=== PATIENT | male | born 1960 | race Caucasian/White ===

== ENCOUNTER 2018-02-12 19:20 | Emergency (ER) | payer BC ==
[2018-02-12] MEDS ORDERED: Ketorolac 30 MG/ML SDV IVPUSH ONE (19:46)
[2018-02-12] MEDS ORDERED: Metoclopramide 10 MG/2 ML SDV IVPUSH ONE (19:46)
[2018-02-12] MEDS ORDERED: Sodium Chloride 0.9% 1,000 ML IV ONE (19:46)
[2018-02-12] MEDS ORDERED: diphenhydrAMINE 50 MG/ML SDV IVPUSH ONE (19:46)
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
== END 2018-02-12 21:10 | disposition home or self-care (01) ==
LOC: JD.ED 19:20
DX: G43.909 Migraine, unspecified, not intractable, without status migrainosus (principal); F17.210 Nicotine dependence, cigarettes, uncomplicated; Z88.1 Allergy status to other antibiotic agents
CPT/HCPCS: 96361; 96374; 96375; 99284; J1200; J1885; J2765; J7040

== ENCOUNTER 2018-03-09 11:41 | Emergency (ER) | payer BC ==
[2018-03-09] MEDS ORDERED: Metoclopramide 10 MG/2 ML SDV IVPUSH ONE (11:51)
[2018-03-09] MEDS ORDERED: Sodium Chloride 0.9% 1,000 ML IV ONE (11:51)
[2018-03-09] MEDS ORDERED: Meclizine 12.5 MG Tab PO ONE (11:52)
[2018-03-09] MEDS ORDERED: Sodium Chloride 0.9% 10 ML Syringe FLUSH PRN (11:53)
--- NOTE | 2018-03-09 12:56 | CT ---
Head CT Technique: Multiple axial sections through the brain were obtained. Intravenous contrast was not utilized. Comparison: No prior intracranial imaging. Findings: Ventricles along with basal cisterns and sulci over the convexities are mildly prominent. Very slight diminished density is noted within portions of the periventricular white matter which is compatible with minimal small vessel ischemic demyelination change. No other abnormal parenchymal densities are seen. No evidence of intracranial hemorrhage. No midline shift or mass effect is seen. Bone window settings were reviewed which shows no acute calvarial abnormality. Minimal mucosal thickening is seen within the paranasal sinuses. Impression: 1. Minimal senescent change. Minimal sinus disease which is felt to be incidental. 2. No acute intracranial abnormality is appreciated. Diagnostic code #2
[2018-03-09] MEDS ORDERED: Ketorolac 30 MG/ML SDV IVPUSH ONE (13:54)
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
--- NOTE | 2018-03-12 14:52 | CR ---
Chest: Portable view of the chest was obtained. Comparison: No prior chest x-ray. Heart size and mediastinum are normal. Lungs are clear with no acute parenchymal densities. Bony structures show minimal scoliosis within the spine with scattered degenerative endplate spurring and disc space narrowing. Impression: 1. Incidental findings. Nothing acute is seen on portable chest x-ray. Diagnostic code #2
== END 2018-03-09 14:15 | disposition home or self-care (01) ==
LOC: SUPCPDRO 11:41 → JD.ED 11:41
DX: G43.909 Migraine, unspecified, not intractable, without status migrainosus (principal); R42 Dizziness and giddiness; E78.00 Pure hypercholesterolemia, unspecified; F41.9 Anxiety disorder, unspecified; F17.210 Nicotine dependence, cigarettes, uncomplicated; Z79.899 Other long term (current) drug therapy
CPT/HCPCS: 36415; 70450; 71045; 80053; 85025; 93005; 96361; 96374; 96375; 99285; A9270; J1885; J2765; J7040; J7050; 93010; 99284

== ENCOUNTER 2018-05-02 19:20 | Emergency (ER) | payer BC ==
--- NOTE | 2018-05-02 20:01 | EDM.PDOC ---
ED HPI GENERAL MEDICAL PROBLEM - General Chief Complaint: Headache Stated Complaint: HEADACHE DIZZY Time Seen by Provider: 05/02/18 20:01 Source of Information: Reports: Patient - History of Present Illness INITIAL COMMENTS - FREE TEXT/NARRATIVE: Patient is here for evaluation of a headache at systems at the base of his neck and radiates up on both sides. Patient states he gets this same type of headache quite frequently for "years" he also gets associated dizziness with it at times.Patient states that his current headache is similar to his previous headaches. He denies any change in symptoms. States it's not the worst headache ever had. No injury. Patient has been evaluated in the emergency room previouslyOr his excess alcohol consumption. Patient states that he continues to drink approximately 12 beers per day, he plans to quit next week. He states he is doing it on his own and does not desire to go through any treatment as he has started himself before without difficulty. He states he is eating well. Denies any nausea/vomiting/tremor. Did drink beer today. The patient's last visit to the emergency room he was prescribed meclizine to be used when necessary for his dizziness as well as lisinopril daily for his blood pressure, patient has not started either one of these medications. He notes PCP to be Dr. Santamaria, has not seen him in "a long time". Head Pain Score (Numeric/FACES): 7 - Related Data Allergies Allergy/AdvReac Type Severity Reaction Status Date / Time cefaclor [From [facility]] Allergy Swelling Verified 05/02/18 19:44 Home Meds: Home Meds Meclizine [Antivert] 25 mg PO TID PRN #30 tab 03/09/18 [Rx] Ondansetron [Zofran ODT] 4 mg PO Q6H PRN #20 tab.dis 03/09/18 [Rx] LORazepam [Ativan] 1 mg PO Q8HR PRN #15 tablet 03/26/18 [Rx] Lisinopril 10 mg PO DAILY #30 tablet 03/26/18 [Rx] Past Medical History HEENT History: Reports: Sinusitis Cardiovascular History: Reports: High Cholesterol Other Cardiovascular History: not on meds. Gastrointestinal History: Reports: PUD Musculoskeletal History: Reports: Fracture, Other (See Below) Other Musculoskeletal History: R) shoulder fx. Neurological History: Reports: Headaches, Chronic Psychiatric History: Reports: Anxiety - Past Surgical History Musculoskeletal Surgical History: Reports: Other (See Below) Other Musculoskeletal Surgeries/Procedures:: surgery on collar bone; back surgery laminectomy Social & Family History - Family History Family Medical History: Noncontributory - Caffeine Use Caffeine Use: Reports: Soda Other Caffeine Use: rarely - Alcohol Use Days Per Week of Alcohol Use: 7 Number of Drinks Per Day: 8 Total Drinks Per Week: 56 - Recreational Drug Use Recreational Drug Use: No ED ROS GENERAL - Review of Systems Review Of Systems: See Below Constitutional: Reports: No Symptoms HEENT: Denies: Rhinitis, Sinus Problem, Vision Change Respiratory: Reports: No Symptoms Cardiovascular: Reports: No Symptoms GI/Abdominal: Reports: No Symptoms Musculoskeletal: Reports: Muscle Pain Neurological: Reports: Headache. Denies: Confusion, Dizziness Psychiatric: Reports: No Symptoms - Physical Exam Exam: See Below Exam Limited By: No Limitations General Appearance: Alert, WD/WN, No Apparent Distress Eye Exam: Bilateral Eye: PERRL Nose: Normal Inspection Throat/Mouth: Normal Inspection, Normal Oropharynx Head Exam: Atraumatic, Normocephalic Neck: Normal Inspection, Supple, Non-Tender Respiratory/Chest: No Respiratory Distress, Lungs Clear, Normal Breath Sounds, No Accessory Muscle Use Cardiovascular: Normal Peripheral Pulses, Regular Rate, Rhythm, No Murmur GI/Abdominal: Normal Bowel Sounds, Soft, Non-Tender Neuro Exam (Abbreviated): Alert, Oriented, CN II-XII Intact, No Motor/Sensory Deficits, Other (Mild tremor to bilateral hands) Psychiatric: Normal Affect, Normal Mood Skin Exam: Warm, Dry, Intact Course - Vital Signs Last Recorded V/S: Last Vital Signs Temp 98.2 F 05/02/18 19:44 Pulse 108 H 05/02/18 19:44 Resp 18 05/02/18 19:44 BP 167/92 H 05/02/18 19:44 Pulse Ox 98 05/02/18 19:44 - Orders/Labs/Meds Meds: Medications Discontinued Medications Generic Name Dose Route Start Last Admin Trade Name Freq PRN Reason Stop Dose Admin Diphenhydramine HCl 25 mg 05/02/18 20:17 05/02/18 20:27 Benadryl IVPUSH 05/02/18 20:18 25 mg ONETIME ONE Administration Sodium Chloride 1,000 mls @ 999 mls/hr 05/02/18 20:09 05/02/18 20:24 Normal Saline IV 05/02/18 21:09 999 mls/hr ONETIME ONE Administration Ketorolac Tromethamine 30 mg 05/02/18 20:09 05/02/18 20:25 Toradol IVPUSH 05/02/18 20:10 30 mg ONETIME ONE Administration Metoclopramide HCl 5 mg 05/02/18 20:17 05/02/18 20:27 Reglan IVPUSH 05/02/18 20:18 5 mg ONETIME ONE Administration - Re-Assessments/Exams Free Text/Narrative Re-Assessment/Exam: Neurovascular exam is essentially normal. Patient does have a very slight tremor. He declines lab work for now. Will give IV fluids, and ketorolac and Reglan as this has worked very well for him previously. Blood pressure remains in 140s systolically. Patient has not started the lisinopril prescribed. 05/02/18 20:25 Patient's headache resolved with above treatment. Discussed tapering off of alcohol, patient strongly feels that he can do this on his own. He does not wish to discuss with a case social staff worker or counselor through the ED. Contact information will be given for [facility]. Advised patient he should be taking his lisinopril on a daily basis. Meclizine and Zofran as needed. He is to follow-up with his primary provider within the next week. Return to the emergency room for new or worsening symptoms. 05/02/18 21:32 05/02/18 21:33 Departure - Departure Time of Disposition: 21:29 Disposition: Home, Self-Care 01 Condition: Good (Headache) Clinical Impression: Alcohol abuse Headache Qualifiers: Headache type: tension-type Headache chronicity pattern: acute headache Hypertension Qualifiers: Hypertension type: essential hypertension Qualified Code(s): I10 - Essential ( primary) hypertension - Discharge Information Instructions: Migraine Headache, [id number], Hypertension, [id number] Referrals: Anthony Santamaria MD [Primary Care Provider] - Forms: ED Department Discharge Additional Instructions: I recommend that you [employer] the medications that were previously prescribed to you. The lisinopril is to be taken every single day for your blood pressure. The meclizine is to be used as needed for dizziness. The Zofran is to be used as needed for nausea. Consider tapering off your daily alcohol use. There are programs through [facility] here in [place] that can help you to taper off of this as well. They do have an open intake at 8-9am Monday through . You may contact them at [phone] You also need to follow up with severe primary provider within the next week. Certainly return to the emergency room if any worsening or new symptoms.
[2018-05-02] MEDS ORDERED: Sodium Chloride 0.9% 1,000 ML IV ONE (20:09)
[2018-05-02] MEDS ORDERED: Ketorolac 30 MG/ML SDV IVPUSH ONE (20:09)
[2018-05-02] MEDS ORDERED: diphenhydrAMINE 50 MG/ML SDV IVPUSH ONE (20:17)
[2018-05-02] MEDS ORDERED: Metoclopramide 10 MG/2 ML SDV IVPUSH ONE (20:17)
== END 2018-05-02 21:43 | disposition home or self-care (01) ==
LOC: JD.ED 19:20
DX: G44.209 Tension-type headache, unspecified, not intractable (principal); I10 Essential (primary) hypertension; F10.10 Alcohol abuse, uncomplicated; Z88.8 Allergy status to other drugs, medicaments and biological substances
CPT/HCPCS: 96361; 96374; 96375; 99284; J1200; J1885; J2765; J7040

== ENCOUNTER 2018-06-02 17:13 | Emergency (ER) | payer SELFPAY ==
--- NOTE | 2018-06-02 18:19 | EDM.PDOC ---
ED HPI GENERAL MEDICAL PROBLEM - General Chief Complaint: Neurological Problem Stated Complaint: ARMS NUMB WEAK LEGS PAIN IN CHEST Time Seen by Provider: 06/02/18 17:53 Source of Information: Reports: Patient, Old Records (MRI 03/27/2018), RN Notes Reviewed History Limitations: Reports: No Limitations - History of Present Illness INITIAL COMMENTS - FREE TEXT/NARRATIVE: The patient states that he feels lousy, that something is wrong, and that he would like some answers. He states that this is the fourth time that he has come to this ED for the same complaints. He is complaining of daily headaches, frequent dizziness to the point that he has difficulty walking, weakness and numbness to his upper and lower extremities, and he is also concerned that he may have a AAA. He states that he started a new job today, and had difficulty walking. The headaches, dizziness, and extremity tingling and numbness have been going on for years. Review of prior medical records finds that the patient underwent a MRI of the brain on 03/27/2018. The report reads: 1. Multiple areas of increased signal seen within the periventricular white matter. Findings may represent small vessel ischemic demyelination change but otherwise matter demyelinating process such as multiple sclerosis is not excluded at this time. 2. No abnormality is identified within the internal auditory canals. The patient states that he was never told of these MRI results, and therefore never followed up. The patient also states that several family members have had AAA's, and he has felt a bulge in his epigastrium for the past several weeks, therefore he is concerned about a AAA as well. The patient states that the last time that his cholesterol was checked, it was over 400, but he is not taking any medication for it. The patient states that he has a history of anxiety, but takes only an herbal medicine called Luvella for it. The patient acknowledges that he drinks about 12 beers a day. He states that he has had 4 beers already today. He smells strongly of alcohol. The patient's PCP is Dr. Santamaria, but the patient acknowledges that he has not seen Dr. Santamaria for a long time (likely years). The patient states that he has an appointment to see Dr. Grayson this coming 06/04/2018. - Related Data Allergies Allergy/AdvReac Type Severity Reaction Status Date / Time cefaclor [From [facility]] Allergy Swelling Verified 05/02/18 19:44 Home Meds: Home Meds Meclizine [Antivert] 25 mg PO TID PRN #30 tab 03/09/18 [Rx] LORazepam [Ativan] 1 mg PO Q8HR PRN #15 tablet 03/26/18 [Rx] Lisinopril 10 mg PO DAILY #30 tablet 03/26/18 [Rx] Past Medical History Cardiovascular History: Reports: High Cholesterol (untreated) Gastrointestinal History: Reports: PUD (duodenal ulcer) Musculoskeletal History: Reports: Fracture (right clavicle) Neurological History: Reports: Headaches, Chronic Psychiatric History: Reports: Anxiety (untreated) - Past Surgical History Neurological Surgical History: Reports: Lumbar Spine (L4-L5 laminectomy) Musculoskeletal Surgical History: Reports: Shoulder Surgery (right, arthroscopic ), Other (See Below) (Right clavicle ORIF) Social & Family History - Family History Family Medical History: Noncontributory - Tobacco Use Smoking Status *Q: Current Every Day Smoker Years of Tobacco use: 43 Packs/Tins Daily: 0.3 Packs/Tins Daily Comment: Down from 1 ppd - Caffeine Use Caffeine Use: Reports: None Other Caffeine Use: rarely - Alcohol Use Alcohol Use History: Yes Days Per Week of Alcohol Use: 7 Number of Drinks Per Day: 12 Total Drinks Per Week: 84 Alcohol Use Frequency: Daily - Recreational Drug Use Recreational Drug Use: Yes Drug Use in Last 12 Months: Yes Recreational Drug Type: Reports: Marijuana/Hashish (smokes occasionally) - Living Situation & Occupation Living situation: Reports: , with Spouse Occupation: Employed ([employer] to [employer]) ED ROS GENERAL - Review of Systems Review Of Systems: ROS reveals no pertinent complaints other than HPI. ED EXAM, GENERAL - Physical Exam Exam: See Below Exam Limited By: Other (Strong smell of alcohol) General Appearance: Alert, WD/WN, No Apparent Distress Eye Exam: Bilateral Eye: EOMI, Normal Inspection, PERRL Ears: Normal External Exam, Hearing Grossly Normal Nose: Normal Inspection Throat/Mouth: Normal Inspection, Normal Lips, Normal Voice, No Airway Compromise Head: Atraumatic, Normocephalic Neck: Normal Inspection, Full Range of Motion Respiratory/Chest: No Respiratory Distress, Lungs Clear, Normal Breath Sounds, No Accessory Muscle Use Cardiovascular: Normal Peripheral Pulses, Regular Rate, Rhythm, No Gallop, No JVD, No Murmur, No Rub Peripheral Pulses: 4+: Radial (L), Radial (R) GI/Abdominal: Normal Bowel Sounds, Soft, Non-Tender, No Organomegaly, No Distention, No Abnormal Bruit, No Mass, Other (No pulsatile mass, no bruit) (Male) Exam: Deferred Rectal (Males) Exam: Deferred Back Exam: Normal Inspection, Full Range of Motion, NT Extremities: Normal Inspection, Normal Range of Motion, Normal Capillary Refill Neurological: Alert, Oriented, CN II-XII Intact, No Motor/Sensory Deficits, Other (Slightly slurred speech c/w alcohol intoxication) Psychiatric: Normal Affect Skin Exam: Warm, Dry, Intact, Normal Color, No Rash Course - Vital Signs Last Recorded V/S: Last Vital Signs Temp 37.1 C 06/02/18 17:29 Pulse 86 06/02/18 17:29 Resp 20 06/02/18 17:29 BP 134/90 06/02/18 17:29 Pulse Ox 99 06/02/18 17:29 - Re-Assessments/Exams Free Text/Narrative Re-Assessment/Exam: 06/02/18 18:20 With respect to the patient's daily headaches, dizziness, and extremity numbness and weakness, I did not find any abnormalities on his neurologic examination, however, the report of the MRI dated 03/27/2018 indicates multiple areas of increased signal concerning for possible MS. I will refer the patient to a Neurologist in [place]. With respect to the patient's concern about having a AAA, while I can feel the pulse of his aorta, I do not feel a pulsatile mass, and I do not hear a bruit, therefore I do not suspect a significant AAA. The patient has an appointment to see Dr. Grayson this coming 06/04/2018, and this issue could be addressed at that time. Lastly, I recommended that the patient quit drinking, however, the patient pushed back significantly, with numerous excuses. He simply does not want to stop drinking. Departure - Departure Time of Disposition: 18:24 Disposition: Home, Self-Care 01 Condition: Fair Clinical Impression: Chronic headaches, Dizziness, Tingling in extremities - Discharge Information *PRESCRIPTION DRUG MONITORING PROGRAM REVIEWED*: Not Applicable *COPY OF PRESCRIPTION DRUG MONITORING REPORT IN PATIENT AYDE: Not Applicable Instructions: General Headache Without Cause, Paresthesia, [id number] Referrals: Anthony Santamaria MD [Primary Care Provider] - Alexandr Grayson MD [Physician] - Celso Nam MD [Ordering Only Provider] - Forms: ED Department Discharge Additional Instructions: You were seen in the emergency room for chronic, daily headaches, frequent dizziness, tingling and numbness in her upper and lower extremities, and over concern about an abdominal aortic aneurysm. The MRI of your brain on 03/27/2018 found abnormalities concerning for MS. We recommend that you follow-up with a neurologist in this regard. Please call the office of Dr. Mazin Nam on 06/04/2018, to make an appointment to be seen. On examination, you do not have an abdominal aortic aneurysm, however, we recommend that you follow-up with Dr. Merritt at your previously scheduled appointment this coming 06/04/2018, at which time this concern can be addressed, as well as numerous other healthcare issues, such as your elevated cholesterol. As discussed, we strongly recommend that you consider quitting drinking, as it likely contributes to your not feeling well. If any other problems, please do not hesitate to return to the ER.
== END 2018-06-02 18:36 | disposition home or self-care (01) ==
LOC: JD.ED 17:13
DX: R51 Headache (principal); R42 Dizziness and giddiness; R20.2 Paresthesia of skin; F10.129 Alcohol abuse with intoxication, unspecified; F17.210 Nicotine dependence, cigarettes, uncomplicated; Z88.1 Allergy status to other antibiotic agents
CPT/HCPCS: 99284

== ENCOUNTER 2019-01-06 20:35 | Emergency (ER) | payer BC, OTHER ==
[2019-01-06] MEDS ORDERED: Ondansetron 4 MG/2 ML SDV IVPUSH ONE (21:06)
[2019-01-06] MEDS ORDERED: Sodium Chloride 0.9% 10 ML Syringe FLUSH PRN (21:06)
[2019-01-06] MEDS ORDERED: Sodium Chloride 0.9% 1,000 ML IV SCH (21:15)
[2019-01-06] MEDS ORDERED: LORazepam 2 MG/ML SDV IVPUSH ONE (23:16)
[2019-01-06] MEDS ORDERED: Acetaminophen 325 MG Tab PO ONE (23:16)
--- NOTE | 2019-01-06 23:24 | EDM.PDOCBH ---
ED HPI GENERAL MEDICAL PROBLEM - General Chief Complaint: Drug or Alcohol Abuse Stated Complaint: DEHYDRATED AND STOMACH PAIN Time Seen by Provider: 01/06/19 20:45 Source of Information: Reports: Patient History Limitations: Reports: No Limitations - History of Present Illness INITIAL COMMENTS - FREE TEXT/NARRATIVE: The patient presents with possible dehydration. He says he drinks alcohol daily. He last drank 3 beers at noon. He has some nausea and he is shaky. He is sweating and he has the shakes at times. He is looking to stop drinking. He has a headache but no chest pain or shortness of breath. He has a history of high blood pressure. He is supposed to be on lisinopril but he quit taking it. He says he feels bloated. Onset: Gradual Duration: Hour(s): Severity: Moderate Improves with: Reports: None Worsens with: Reports: None Associated Symptoms: Reports: Headaches, Nausea/Vomiting. Denies: Chest Pain, Cough, Fever/Chills, Shortness of Breath Upper Abdomen Pain Score (Numeric/FACES): 5 - Related Data Allergies Allergy/AdvReac Type Severity Reaction Status Date / Time cefaclor [From [facility]] Allergy Swelling Verified 05/02/18 19:44 Home Meds: Home Meds LORazepam [Ativan] 1 mg PO DAILY #18 tablet 01/06/19 [Rx] Lisinopril 10 mg PO DAILY #30 tablet 01/06/19 [Rx] Ondansetron [Zofran ODT] 4 mg PO Q6H PRN #20 tab.dis 01/06/19 [Rx] Past Medical History HEENT History: Reports: Sinusitis Cardiovascular History: Reports: High Cholesterol Other Cardiovascular History: not on meds. Gastrointestinal History: Reports: PUD Musculoskeletal History: Reports: Fracture Other Musculoskeletal History: R) shoulder fx. Neurological History: Reports: Headaches, Chronic Psychiatric History: Reports: Addiction, Anxiety - Past Surgical History Neurological Surgical History: Reports: Lumbar Spine Musculoskeletal Surgical History: Reports: Shoulder Surgery, Other (See Below) Social & Family History - Family History Family Medical History: Noncontributory - Tobacco Use Smoking Status *Q: Current Every Day Smoker Years of Tobacco use: 45 Packs/Tins Daily: 0.4 - Caffeine Use Caffeine Use: Reports: None Other Caffeine Use: rarely - Recreational Drug Use Recreational Drug Use: No - Living Situation & Occupation Living situation: Reports: , with Spouse 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 Denies: Vomiting : Reports: No Symptoms Musculoskeletal: Reports: No Symptoms ED EXAM, BEHAVIORAL HEALTH - Physical Exam Exam: See Below Exam Limited By: No Limitations General Appearance: Alert, No Apparent Distress Ears: Normal External Exam Nose: Normal Inspection Head: Atraumatic, Normocephalic Neck: Normal Inspection, Supple, Non-Tender Respiratory/Chest: No Respiratory Distress, Lungs Clear, Normal Breath Sounds Cardiovascular: Regular Rate, Rhythm, No Edema, No Murmur GI/Abdominal: Soft, Non-Tender, No Organomegaly, No Mass Back Exam: Normal Inspection Extremities: Normal Inspection Neurological: Alert, No Motor/Sensory Deficits, Oriented x 3, Other (He is not shaking on exam) COURSE, BEHAVIORAL HEALTH COMP - Course Vital Signs: Last Vital Signs Temp 98.6 F 01/06/19 20:49 Pulse 88 01/06/19 20:49 Resp 20 01/06/19 20:49 BP 142/100 H 01/06/19 20:49 Pulse Ox 99 01/06/19 20:49 Orders, Labs, Meds: Active Orders 24 hr Category Date Time Status Abdomen 1V Upright [CR] Stat Exams 01/06/19 21:48 Taken Sodium Chloride 0.9% [Normal Saline] 1,000 ml Med 01/06/19 21:15 Active IV ASDIRECTED Sodium Chloride 0.9% [Saline Flush] Med 01/06/19 21:06 Active 10 ml FLUSH ASDIRECTED PRN Saline Lock Insert [OM.PC] Routine Oth 01/06/19 21:06 Ordered Medication Orders Sodium Chloride (Normal Saline) 1,000 mls @ 125 mls/hr IV ASDIRECTED MICHAEL Last Infusion: 01/06/19 21:27 Dose: 999 mls/hr Admin: 01/06/19 21:16 Dose: 125 mls/hr Sodium Chloride (Saline Flush) 10 ml FLUSH ASDIRECTED PRN PRN Reason: Keep Vein Open Last Admin: 01/06/19 21:16 Dose: 10 ml Laboratory Tests 01/06/19 01/06/19 01/06/19 Range/Units 21:13 21:13 21:13 WBC 5.43 (4.23-9.07) K/mm3 RBC 4.47 L (4.63-6.08) M/mm3 Hgb 15.3 (13.7-17.5) gm/L Hct 41.9 (40.1-51.0) % MCV 93.7 H (79.0-92.2) fl MCH 34.2 H (25.7-32.2) pg MCHC 36.5 H (32.2-35.5) g/dl RDW Std Deviation 43.2 (35.1-43.9) fL Plt Count 131 L (163-337) K/mm3 MPV 10.1 (9.4-12.3) fl Neutrophils % (Manual) 58 (40-60) % Band Neutrophils % 0 (0-10) % Lymphocytes % (Manual) 23 (20-40) % Atypical Lymphs % 0 % Monocytes % (Manual) 17 H (2-10) % Eosinophils % (Manual) 1 (0.8-7.0) % Basophils % (Manual) 1 (0.2-1.2) Platelet Estimate Decreased Plt Morphology Comment Normal RBC Morph Comment Normal Sodium 134 L (136-145) mEq/L Potassium 3.6 (3.5-5.1) mEq/L Chloride 99 (98-107) mEq/L Carbon Dioxide 23 (21-32) mEq/L Anion Gap 15.6 H (5-15) BUN 7 (7-18) mg/dL Creatinine 0.6 L (0.7-1.3) mg/dL Est Cr Clr Drug Dosing 130.93 mL/min Estimated GFR (MDRD) > 60 (>60) mL/min BUN/Creatinine Ratio 11.7 L (14-18) Glucose 87 (74-106) mg/dL Calcium 9.2 (8.5-10.1) mg/dL Total Bilirubin 0.8 (0.2-1.0) mg/dL AST 122 H (15-37) U/L ALT 97 H (16-63) U/L Alkaline Phosphatase 111 (46-116) U/L C-Reactive Protein 0.2 (<1.0) mg/dL Total Protein 7.5 (6.4-8.2) g/dl Albumin 3.9 (3.4-5.0) g/dl Globulin 3.6 gm/dL Albumin/Globulin Ratio 1.1 (1-2) Ethyl Alcohol 0.00 (0.00) gm% Medications Generic Name Dose Route Start Last Admin Trade Name Freq PRN Reason Stop Dose Admin Sodium Chloride 1,000 mls @ 125 mls/hr 01/06/19 21:15 01/06/19 21:27 Normal Saline IV 999 mls/hr ASDIRECTED MICHAEL Infusion Sodium Chloride 10 ml 01/06/19 21:06 01/06/19 21:16 Saline Flush FLUSH 10 ml ASDIRECTED PRN Administration Keep Vein Open Discontinued Medications Generic Name Dose Route Start Last Admin Trade Name Freq PRN Reason Stop Dose Admin Acetaminophen 975 mg 01/06/19 23:16 Tylenol PO 01/06/19 23:17 NOW ONE Lorazepam 1 mg 01/06/19 23:16 Ativan IVPUSH 01/06/19 23:17 ONETIME ONE Ondansetron HCl 4 mg 01/06/19 21:06 01/06/19 21:16 Zofran IVPUSH 01/06/19 21:07 4 mg ONETIME ONE Administration Re-Assessment/Re-Exam: I ordered an IV NS 1L bolus, zofran 4mg IV, labs, and ETOH. His CBC looks good. His Na is low at 134. His creatinine is low at 0.6. His AST is elevated at 122. His ALT is elevated at 97. His ETOH is 0. He has a headache so I ordered some tylenol for that. His abdominal shows nothing acute. I will give him [place] ativan 1mg IV for the withdrawal symptoms. Departure - Departure Time of Disposition: 23:25 Disposition: Home, Self-Care 01 Condition: Good Clinical Impression: Alcohol withdrawal syndrome Qualifiers: Complication of substance-induced condition: uncomplicated Qualified Code(s): F10.230 - Alcohol dependence with withdrawal, uncomplicated - Discharge Information *PRESCRIPTION DRUG MONITORING PROGRAM REVIEWED*: No *COPY OF PRESCRIPTION DRUG MONITORING REPORT IN PATIENT AYDE: No Prescriptions: Lisinopril 10 mg PO DAILY #30 tablet LORazepam [Ativan] 1 mg PO DAILY #18 tablet Ondansetron [Zofran ODT] 4 mg PO Q6H PRN #20 tab.dis PRN Reason: Nausea\vomiting Referrals: Anthony Santamaria MD [Primary Care Provider] - Additional Instructions: Drink plenty of water. Take the ativan 1 pill 3 times per day for 3 days, then 1 pill 2 times per day for 3 days and then 1 pill at night for 3 days. Take the zofran every 6 hours as needed for nausea and vomiting. Please return if you are worse. Call [facility] at [phone] to get help stopping drinking. - My Orders Last 24 Hours: My Active Orders 01/06/19 21:06 Sodium Chloride 0.9% [Saline Flush] 10 ml FLUSH ASDIRECTED PRN Saline Lock Insert [OM.PC] Routine 01/06/19 21:15 Sodium Chloride 0.9% [Normal Saline] 1,000 ml IV ASDIRECTED 01/06/19 21:48 Abdomen 1V Upright [CR] Stat - Assessment/Plan Last 24 Hours: My Active Orders 01/06/19 21:06 Sodium Chloride 0.9% [Saline Flush] 10 ml FLUSH ASDIRECTED PRN Saline Lock Insert [OM.PC] Routine 01/06/19 21:15 Sodium Chloride 0.9% [Normal Saline] 1,000 ml IV ASDIRECTED 01/06/19 21:48 Abdomen 1V Upright [CR] Stat
--- NOTE | 2019-01-07 06:33 | CR ---
Abdomen: Upright view of the abdomen was obtained. Comparison: No prior abdominal x-ray. Scattered gas within colon and small bowel is noted. Several air-fluid levels are seen which are felt to be within normal limits. No bowel dilatation is seen. No free air is seen. Endplate spurring is noted within the spine. No abnormal calcifications or discrete soft tissue abnormality is seen. Old healed right lower rib fracture is incidentally noted. Impression: 1. Incidental findings. Diagnostic code #2
== END 2019-01-06 23:40 | disposition home or self-care (01) ==
LOC: JD.ED 20:35
DX: F10.230 Alcohol dependence with withdrawal, uncomplicated (principal); F17.210 Nicotine dependence, cigarettes, uncomplicated; Z88.8 Allergy status to other drugs, medicaments and biological substances
CPT/HCPCS: 36415; 74018; 80053; 85007; 85027; 86140; 96361; 96374; 96375; 99284; A9270; G0480; J2060; J2405; J7040

== ENCOUNTER 2019-02-01 09:01 | Inpatient (IN) | payer BC, OTHER, SELFPAY ==
[2019-02-01] MEDS ORDERED: Ondansetron 4 MG Tab.DIS PO ONE (10:09)
--- NOTE | 2019-02-01 10:11 | EDM.PDOC ---
ED HPI GENERAL MEDICAL PROBLEM - General Chief Complaint: Drug or Alcohol Abuse Stated Complaint: ALCOHOL WITHDRAWAL Source of Information: Reports: Patient, Other ([place] caregiver) History Limitations: Reports: Altered Mental Status (Dementia) Headache Pain Score (Numeric/FACES): 4 - Related Data Allergies Allergy/AdvReac Type Severity Reaction Status Date / Time cefaclor [From Ceclor] Allergy Swelling Verified 02/01/19 09:07 Home Meds: Home Meds Lisinopril 10 mg PO DAILY #30 tablet 01/06/19 [Rx] Past Medical History HEENT History: Reports: Sinusitis Cardiovascular History: Reports: High Cholesterol, Hypertension Other Cardiovascular History: not on meds. Gastrointestinal History: Reports: PUD Musculoskeletal History: Reports: Fracture Other Musculoskeletal History: R) shoulder fx. Neurological History: Reports: Headaches, Chronic Psychiatric History: Reports: Addiction, Anxiety - Past Surgical History Neurological Surgical History: Reports: Lumbar Spine Other Neurological Surgeries/Procedures: laminectomy L4-5 Musculoskeletal Surgical History: Reports: Shoulder Surgery Social & Family History - Family History Family Medical History: Noncontributory - Tobacco Use Smoking Status *Q: Current Every Day Smoker Years of Tobacco use: 20 Packs/Tins Daily: 0.2 - Caffeine Use Caffeine Use: Reports: None Other Caffeine Use: rarely - Alcohol Use Days Per Week of Alcohol Use: 7 Number of Drinks Per Day: 12 Total Drinks Per Week: 84 - Recreational Drug Use Recreational Drug Use: Yes Drug Use in Last 12 Months: Yes Recreational Drug Type: Reports: Marijuana/Hashish - Living Situation & Occupation Living situation: Reports: , with Spouse 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[employer]) Course - Vital Signs Last Recorded V/S: Last Vital Signs Temp 36.2 C 02/01/19 09:09 Pulse 72 02/01/19 09:09 Resp 12 02/01/19 09:09 BP 144/90 H 02/01/19 09:09 Pulse Ox 96 02/01/19 09:09 - Orders/Labs/Meds Orders: Active Orders 24 hr Category Date Time Status EKG 12 Lead [EKG Documentation Completion] [RC] ROUTINE Care 02/01/19 09:25 Active Orthostatic Vital Signs [RC] STAT Care 02/01/19 10:08 Ordered CBC WITH MANUAL DIFF [HEME] Stat Lab 02/01/19 10:08 Ordered COMPREHENSIVE METABOLIC PN,CMP [CHEM] Stat Lab 02/01/19 10:08 Ordered MAGNESIUM [CHEM] Stat Lab 02/01/19 10:08 Ordered TROPONIN I [CHEM] Stat Lab 02/01/19 10:08 Ordered Ondansetron [Zofran ODT] Med 02/01/19 10:09 Once 4 mg PO ONETIME ONE - Re-Assessments/Exams Free Text/Narrative Re-Assessment/Exam: 02/01/19 10:09 By both history and physical examination, the patient appears to be suffering from BPPV, although he was unable to cooperate adequately with the [place]-Hallpike maneuver such that I was able to discern unilateral nystagmus. I will start the patient on Zofran, but I am not going to start meclizine, as it would likely worsen his confusion and cause urinary retention. I have ordered orthostatics and blood work, to make sure that no other significant abnormalities are found. Departure - Discharge Information Referrals: Anthony Santamaria MD [Primary Care Provider] - - My Orders Last 24 Hours: My Active Orders 02/01/19 09:25 EKG 12 Lead [EKG Documentation Completion] [RC] ROUTINE 02/01/19 10:08 Orthostatic Vital Signs [RC] STAT CBC WITH MANUAL DIFF [HEME] Stat COMPREHENSIVE METABOLIC PN,CMP [CHEM] Stat MAGNESIUM [CHEM] Stat TROPONIN I [CHEM] Stat 02/01/19 10:09 Ondansetron [Zofran ODT] 4 mg PO ONETIME ONE - Assessment/Plan Last 24 Hours: My Active Orders 02/01/19 09:25 EKG 12 Lead [EKG Documentation Completion] [RC] ROUTINE 02/01/19 10:08 Orthostatic Vital Signs [RC] STAT CBC WITH MANUAL DIFF [HEME] Stat COMPREHENSIVE METABOLIC PN,CMP [CHEM] Stat MAGNESIUM [CHEM] Stat TROPONIN I [CHEM] Stat 02/01/19 10:09 Ondansetron [Zofran ODT] 4 mg PO ONETIME ONE
[2019-02-01] MEDS ORDERED: Diltiazem 50 MG/10 ML SDV IVPUSH STA (10:52)
[2019-02-01] MEDS ORDERED: LORazepam 2 MG/ML SDV IVPUSH STA (10:53)
[2019-02-01] MEDS ORDERED: Diltiazem 125 MG in Sodium Chloride 0.9% 100 ML IV SCH (11:00)
--- NOTE | 2019-02-01 11:01 | EDM.PDOC ---
ED HPI GENERAL MEDICAL PROBLEM - General Chief Complaint: Drug or Alcohol Abuse Stated Complaint: ALCOHOL WITHDRAWAL Time Seen by Provider: 02/01/19 10:14 Source of Information: Reports: Patient, RN Notes Reviewed History Limitations: Reports: No Limitations - History of Present Illness INITIAL COMMENTS - FREE TEXT/NARRATIVE: The patient states that he developed palpitations yesterday. He has difficulty describing the sensation that he feels, only that it feels abnormal in his chest. He denies feeling chest pain. He ABG short of breath, worse if upright. No prior similar symptoms. In addition to the above, the patient also reports that he has chronic headaches , for years, and that he has been feeling shaky and sweaty for approximately one year. He reports a cough due to postnasal drip for years, and watery diarrhea for about one year. No nausea, vomiting, or constipation. No urinary symptoms or fever. The patient acknowledges that he is a chronic daily alcoholic, typically consuming 12-20 beers per day, every day. He states that his last period of sobriety was for only a few days, perhaps 10 years ago. He states that he has never been to inpatient alcohol treatment, and the last time that he attended outpatient alcohol treatment was in June 2018. He states that he has never had to be hospitalized because of his alcoholism, and he denies any legal complications as a result of his drinking. He does acknowledges that he has had social consequences due to his drinking. The patient states that he would like to stop drinking, although he acknowledges that he has not made any effort to do so thus far. He acknowledges that he has had 5 beers already this morning. He states that he can't stop on his own. At present, the patient states that he feels shaky, although no tremor is noted on physical exam. The patient's PCP is Dr. Anthony Santamaria, but the patient states that it has likely been years since he has seen him. Headache Pain Score (Numeric/FACES): 4 - Related Data Allergies Allergy/AdvReac Type Severity Reaction Status Date / Time cefaclor [From Ceclor] Allergy Swelling Verified 02/01/19 09:07 Home Meds: Home Meds Lisinopril 10 mg PO DAILY #30 tablet 01/06/19 [Rx] Past Medical History Cardiovascular History: Reports: High Cholesterol (untreated) Gastrointestinal History: Reports: PUD (duodenal) Musculoskeletal History: Reports: Fracture (right clavicle) Neurological History: Reports: Headaches, Chronic Psychiatric History: Reports: Addiction (alcohol), Anxiety (untreated) - Past Surgical History Neurological Surgical History: Reports: Lumbar Spine (L4-L5 laminectomy) Musculoskeletal Surgical History: Reports: ORIF (right clavicle), Shoulder Surgery (right, arthroscopic) Social & Family History - Family History Family Medical History: Noncontributory - Tobacco Use Smoking Status *Q: Current Every Day Smoker Years of Tobacco use: 44 Packs/Tins Daily: 0.3 Packs/Tins Daily Comment: Down to 1 ppd - Caffeine Use Caffeine Use: Reports: None Other Caffeine Use: rarely - Alcohol Use Alcohol Use History: Yes Days Per Week of Alcohol Use: 7 Number of Drinks Per Day: 16 Total Drinks Per Week: 112 Date of Last Drink: 02/01/19 Alcohol Use Frequency: Daily - Recreational Drug Use Recreational Drug Use: Yes Drug Use in Last 12 Months: Yes Recreational Drug Type: Reports: Marijuana/Hashish (smokes on occasion, last 01/28) - Living Situation & Occupation Living situation: Reports: , with Spouse Occupation: Unemployed ED ROS GENERAL - Review of Systems Review Of Systems: ROS reveals no pertinent complaints other than HPI. ED EXAM, GENERAL - Physical Exam Exam: See Below Exam Limited By: No Limitations General Appearance: Alert, WD/WN, No Apparent Distress Eye Exam: Bilateral Eye: EOMI, Normal Inspection Ears: Normal External Exam, Hearing Grossly Normal Nose: Normal Inspection Throat/Mouth: Normal Inspection, Normal Lips, Normal Voice, No Airway Compromise Head: Atraumatic, Normocephalic Neck: Normal Inspection, Full Range of Motion Respiratory/Chest: No Respiratory Distress, Lungs Clear, Normal Breath Sounds, No Accessory Muscle Use Cardiovascular: Normal Peripheral Pulses, Regular Rate, Rhythm, No Edema, No Gallop, No JVD, No Murmur, No Rub Peripheral Pulses: 4+: Radial (L), Radial (R) GI/Abdominal: Normal Bowel Sounds, Soft, Non-Tender, No Organomegaly, No Distention, No Abnormal Bruit, No Mass (Male) Exam: Deferred Rectal (Males) Exam: Deferred Back Exam: Normal Inspection, Full Range of Motion, NT Extremities: Normal Inspection, Normal Range of Motion, Non-Tender, Normal Capillary Refill, No Pedal Edema Neurological: Alert, Oriented, CN II-XII Intact, Normal Cognition, Normal Gait, Normal Reflexes, No Motor/Sensory Deficits Psychiatric: Normal Affect, Normal Mood Skin Exam: Warm, Dry, Intact, Normal Color, No Rash Lymphatic: No Adenopathy EKG INTERPRETATION EKG Date: 02/01/19 Time: 09:19 Rhythm: A-Fib Rate (Beats/Min): 105 [place]: Normal P-Wave: Variable QRS: Normal ST-T: Normal (J-point elevation in V2, V5, but no ischemic changes or T-wave inversions) QT: Normal Comparison: Change From Previous EKG (Was in [facility] 02/27/2018) Course - Vital Signs Last Recorded V/S: Last Vital Signs Temp 36.2 C 02/01/19 09:09 Pulse 89 02/01/19 12:55 Resp 12 02/01/19 09:09 BP 138/90 02/01/19 12:55 Pulse Ox 96 02/01/19 09:09 - Orders/Labs/Meds Orders: Active Orders 24 hr Category Date Time Status Admission Status [Patient Status] [ADT] Routine ADT 02/01/19 14:28 Ordered EKG 12 Lead [EKG Documentation Completion] [RC] ROUTINE Care 02/01/19 09:25 Active EKG Documentation Completion [RC] STAT Care 02/01/19 11:20 Active Orthostatic Vital Signs [RC] STAT Care 02/01/19 10:08 Inactive Diltiazem 125 mg Med 02/01/19 11:00 Active Sodium Chloride 0.9% [Normal Saline] 100 ml IV TITRATE Haloperidol [Haldol] Med 02/01/19 15:00 Active 1 mg PO Q6H PRN Sodium Chloride 0.9% [Normal Saline] 1,000 ml Med 02/01/19 11:00 Active IV ASDIRECTED Sodium Chloride 0.9% [Normal Saline] 100 ml Med 02/01/19 12:00 Active IV ASDIRECTED Sodium Chloride 0.9% [Saline Flush] Med 02/01/19 12:00 Active 10 ml FLUSH ASDIRECTED chlordiazePOXIDE [Librium] Med 02/01/19 14:30 Active 25 mg PO Q6HR Medication Orders Chlordiazepoxide HCl (Librium) 25 mg PO Q6HR MICHAEL Last Admin: 02/01/19 14:23 Dose: 25 mg Haloperidol (Haldol) 1 mg PO Q6H PRN PRN Reason: Withdrawal Symptoms Stop: 02/02/19 15:00 Diltiazem HCl 125 mg/ Sodium (Chloride) 125 mls @ 10 mls/hr IV TITRATE MICHAEL; Protocol Sodium Chloride (Normal Saline) 1,000 mls @ 150 mls/hr IV ASDIRECTED MICHAEL Last Admin: 02/01/19 11:14 Dose: 150 mls/hr Sodium Chloride (Normal Saline) 100 mls @ 3 mls/sec IV ASDIRECTED MICHAEL Last Admin: 02/01/19 12:11 Dose: 3 mls/sec Sodium Chloride (Saline Flush) 10 ml FLUSH ASDIRECTED MICHAEL Last Admin: 02/01/19 12:11 Dose: 10 ml Labs: Laboratory Tests 02/01/19 02/01/19 02/01/19 Range/Units 09:15 09:15 09:15 WBC 10.44 H (4.23-9.07) K/mm3 RBC 4.91 (4.63-6.08) M/mm3 Hgb 16.2 (13.7-17.5) gm/L Hct 46.1 (40.1-51.0) % MCV 93.9 H (79.0-92.2) fl MCH 33.0 H (25.7-32.2) pg MCHC 35.1 (32.2-35.5) g/dl RDW Std Deviation 45.2 H (35.1-43.9) fL Plt Count 173 (163-337) K/mm3 MPV 10.6 (9.4-12.3) fl Neutrophils % (Manual) 58 (40-60) % Band Neutrophils % 6 (0-10) % Lymphocytes % (Manual) 20 (20-40) % Atypical Lymphs % 0 % Monocytes % (Manual) 15 H (2-10) % Eosinophils % (Manual) 1 (0.8-7.0) % Basophils % (Manual) 0 L (0.2-1.2) Platelet Estimate Adequate RBC Morph Comment Normal PT (9.5-12.1) SECONDS INR APTT (24-31) SECONDS D-Dimer, Quantitative (0.19-0.50) mg/L Sodium 136 (136-145) mEq/L Potassium 4.0 (3.5-5.1) mEq/L Chloride 99 (98-107) mEq/L Carbon Dioxide 20 L (21-32) mEq/L Anion Gap 21.0 H (5-15) BUN 6 L (7-18) mg/dL Creatinine 0.6 L (0.7-1.3) mg/dL Est Cr Clr Drug Dosing 130.93 mL/min Estimated GFR (MDRD) > 60 (>60) mL/min BUN/Creatinine Ratio 10.0 L (14-18) Glucose 113 H (74-106) mg/dL Calcium 8.8 (8.5-10.1) mg/dL Magnesium 2.1 (1.8-2.4) mg/dl Total Bilirubin 0.3 (0.2-1.0) mg/dL AST 121 H (15-37) U/L ALT 86 H (16-63) U/L Alkaline Phosphatase 131 H (46-116) U/L Troponin I < 0.017 (0.00-0.056) ng/mL Total Protein 7.9 (6.4-8.2) g/dl Albumin 4.0 (3.4-5.0) g/dl Globulin 3.9 gm/dL Albumin/Globulin Ratio 1.0 (1-2) TSH 3rd Generation (0.358-3.74) uIU/mL Urine Opiates Screen (GSPVGB=639) Ur Buprenorphine Scrn (CUTOFF=10) Ur Oxycodone Screen (VDC1FY=860) Urine Methadone Screen (GAX3KU=629) Ur Propoxyphene Screen (PIUDYF=513) Ur Barbiturates Screen (DODDIZ=922) Ur Tricyclics Screen (JRFPFS=302) Ur Phencyclidine Scrn (CUTOFF=25) Ur Amphetamine Screen (DGAJCG=195) U Methamphetamines Scrn (BWYQUU=601) U Benzodiazepines Scrn (FNTDEC=211) U Cocaine Metab Screen (YHPPEA=317) U Marijuana (THC) Screen (CUTOFF=50) Ethyl Alcohol 0.27 (0.00) gm% 02/01/19 02/01/19 02/01/19 Range/Units 09:15 09:40 10:20 WBC (4.23-9.07) K/mm3 RBC (4.63-6.08) M/mm3 Hgb (13.7-17.5) gm/L Hct (40.1-51.0) % MCV (79.0-92.2) fl MCH (25.7-32.2) pg MCHC (32.2-35.5) g/dl RDW Std Deviation (35.1-43.9) fL Plt Count (163-337) K/mm3 MPV (9.4-12.3) fl Neutrophils % (Manual) (40-60) % Band Neutrophils % (0-10) % Lymphocytes % (Manual) (20-40) % Atypical Lymphs % % Monocytes % (Manual) (2-10) % Eosinophils % (Manual) (0.8-7.0) % Basophils % (Manual) (0.2-1.2) Platelet Estimate RBC Morph Comment PT 9.9 (9.5-12.1) SECONDS INR < 0.93 APTT 35 H (24-31) SECONDS D-Dimer, Quantitative 0.95 H (0.19-0.50) mg/L Sodium (136-145) mEq/L Potassium (3.5-5.1) mEq/L Chloride (98-107) mEq/L Carbon Dioxide (21-32) mEq/L Anion Gap (5-15) BUN (7-18) mg/dL Creatinine (0.7-1.3) mg/dL Est Cr Clr Drug Dosing mL/min Estimated GFR (MDRD) (>60) mL/min BUN/Creatinine Ratio (14-18) Glucose (74-106) mg/dL Calcium (8.5-10.1) mg/dL Magnesium (1.8-2.4) mg/dl Total Bilirubin (0.2-1.0) mg/dL AST (15-37) U/L ALT (16-63) U/L Alkaline Phosphatase (46-116) U/L Troponin I (0.00-0.056) ng/mL Total Protein (6.4-8.2) g/dl Albumin (3.4-5.0) g/dl Globulin gm/dL Albumin/Globulin Ratio (1-2) TSH 3rd Generation 2.055 (0.358-3.74) uIU/mL Urine Opiates Screen Negative (XBSBOJ=962) Ur Buprenorphine Scrn Negative (CUTOFF=10) Ur Oxycodone Screen Negative (PPB5PL=399) Urine Methadone Screen Negative (ZJW6XU=194) Ur Propoxyphene Screen Negative (AJMVEW=866) Ur Barbiturates Screen Negative (ZJZCFQ=252) Ur Tricyclics Screen Negative (YJLXYS=080) Ur Phencyclidine Scrn Negative (CUTOFF=25) Ur Amphetamine Screen Negative (CIVMGZ=141) U Methamphetamines Scrn Negative (LXWETN=017) U Benzodiazepines Scrn Negative (XUFLLO=892) U Cocaine Metab Screen Negative (MDGVTE=606) U Marijuana (THC) Screen Negative (CUTOFF=50) Ethyl Alcohol (0.00) gm% Meds: Medications Generic Name Dose Route Start Last Admin Trade Name Freq PRN Reason Stop Dose Admin Chlordiazepoxide HCl 25 mg 02/01/19 14:30 02/01/19 14:23 Librium PO 25 mg Q6HR MICHAEL Administration Haloperidol 1 mg 02/01/19 15:00 Haldol PO 02/02/19 15:00 Q6H PRN Withdrawal Symptoms Diltiazem HCl 125 mg/ Sodium 125 mls @ 10 mls/hr 02/01/19 11:00 Chloride IV TITRATE MICHAEL Protocol 10 MG/HR Sodium Chloride 1,000 mls @ 150 mls/hr 02/01/19 11:00 02/01/19 11:14 Normal Saline IV 150 mls/hr ASDIRECTED MICHAEL Administration Sodium Chloride 100 mls @ 3 mls/sec 02/01/19 12:00 02/01/19 12:11 Normal Saline IV 3 mls/sec ASDIRECTED MICHAEL Administration Sodium Chloride 10 ml 02/01/19 12:00 02/01/19 12:11 Saline Flush FLUSH 10 ml ASDIRECTED MICHAEL Administration Discontinued Medications Generic Name Dose Route Start Last Admin Trade Name Freq PRN Reason Stop Dose Admin Diltiazem HCl 10 mg 02/01/19 10:52 02/01/19 11:15 Cardizem IVPUSH 02/01/19 10:53 10 mg ONETIME STA Administration Ibuprofen 600 mg 02/01/19 14:05 02/01/19 14:07 Motrin PO 02/01/19 14:06 600 mg ONETIME ONE Administration Ibuprofen Confirm 02/01/19 14:06 02/01/19 14:20 Motrin Administered 02/01/19 14:07 Not Given Dose 600 mg .ROUTE .STK-MED ONE Iohexol 75 ml 02/01/19 11:57 06/07/19 12:11 Omnipaque IVPUSH 02/01/19 11:58 75 ml ONETIME ONE Administration Lorazepam 1 mg 02/01/19 10:53 02/01/19 11:14 Ativan IVPUSH 02/01/19 10:54 1 mg ONETIME STA Administration Metoprolol Succinate 50 mg 02/01/19 12:12 02/01/19 12:55 Toprol Xl PO 02/01/19 12:13 50 mg ONETIME ONE Administration Thiamine HCl 100 mg 02/01/19 13:25 02/01/19 13:32 Vitamin B-1 IVPUSH 02/01/19 13:26 100 mg ONETIME STA Administration - Re-Assessments/Exams Free Text/Narrative Re-Assessment/Exam: 02/01/19 10:55 As above, the patient is reporting feeling palpitations since yesterday, and his ECG appears to show atrial fibrillation, although there is the remote possibility that he has a normal sinus rhythm with frequent PACs. Nevertheless, I will start the patient on a diltiazem drip and IV fluid. I have ordered a workup to evaluate for possible causes of A. fib. The patient is also stating that he would like to stop drinking, although he has made no effort to do so thus far, indeed, he has already had 5 beers today. I explained to the patient that contrary to popular belief, there are no medicines that will decrease the patient's desire for alcohol. Ativan may help with symptomatic withdrawal, but it does not decrease his desire, and that the only thing that we will be able to help him with to stop drinking, is to deny him access to alcohol. I explained that the purpose for admission to the hospital for alcohol withdrawal is to see if he develops signs of significant alcohol withdrawal, and if so, to treat those medically. If he remains stable with no significant alcohol withdrawal, he will likely be able to be discharged within the next 2 or 3 days, depending on how his evaluation for A. fib goes. At that point, he can be pointed in the direction of an inpatient facility, likely with the assistance of our health social work professor, but I explained that this facility is not an inpatient alcohol treatment facility, and that we do not have any "back door" access to treatment facilities, that the patient will have to be in line like everyone else. The patient seems to understand all of this, and is still willing to be admitted. I have ordered an alcohol and urine drug screen, along with 1 mg of Ativan just to calm him down a bit, although while he says that he feels shaky, I do not see a tremor on physical exam. 02/01/19 11:19 Notified by Kamille TRUONG that she gave the Ativan and diltiazem push, but before she started the diltiazem drip, the patient appears to have converted to a normal sinus rhythm. We will therefore not start the drip. I will order a repeat ECG. 02/01/19 11:43 The patient's repeat ECG, obtained at 11:22, appears to demonstrate a normal sinus rhythm at 79 bpm. There is left atrial enlargement and a first-degree AV block. No ischemic changes. There is late transition. No LAD or RAD. No LVH or RVH. No interventricular conduction delays. The QTc is within normal limits. 2-view chest radiograph reviewed. The cardiac silhouette is within normal limits. No pulmonary vascular congestion. No pleural effusions. No focal infiltrate. No pneumothorax. There may be slight scoliosis. Formal read per the Radiologist pending. The patient's CBC is remarkable for WBC count elevated at 10.44, with 6% bandemia. The remainder of his CBC is unremarkable. The patient's CMP is remarkable for a bicarbonate depressed at 20, with an anion gap elevated at 21. His transaminases and alkaline phosphatase are mildly elevated. The remainder of his CMP is unremarkable. The patient's magnesium level is normal at 2.1. The patient's troponin is undetectably low. The patient's D-dimer has returned significantly elevated at 0.95. The patient's coags are unremarkable. The patient's TSH is within normal limits. The patient's alcohol level is elevated at 0.27. The patient's urine drug screen is entirely negative. Due to the elevated D-dimer, I ordered a CT angiogram of the chest to evaluate for a PE. The patient is already on IV fluid. 02/01/19 12:08 Given the patient's history of alcoholism, I was uncertain how to address anticoagulation with respect to the patient's new atrial fibrillation. Case discussed with Dr. Lubin, Institute Scientist at [facility], at 12:04. Because of a low CHADS2 score, he is not recommending that the patient be anticoagulated. He is, however, recommending that the patient be treated with Toprol-XL 50 mg daily, and that the patient undergo an echocardiogram while hospitalized here. The patient can then follow-up in his clinic. 02/01/19 13:13 CT angiogram of the chest is read by Dr. Singleton as: 1. No findings of pulmonary embolism. 2. Other findings which are believed to be incidental as noted above. 02/01/19 13:19 Test results discussed with the patient. As above, from a cardiac standpoint, the patient is no longer in atrial fibrillation. He has been started on Toprol- XL. If he agrees to being admitted, we will obtain an echocardiogram, and he can then follow-up with Dr. Lubin as an outpatient. From an alcohol standpoint , I recommended that he be admitted if he truly intends to stop drinking. The patient stated that he still wants to stop drinking, and therefore agreed to being admitted. At present, the patient is not showing any signs of alcohol withdrawal. 02/01/19 13:[address] Morataya at 13:19. He agreed to admit the patient to telemetry. He recommended that I give the patient thiamine. 02/01/19 14:05 600 mg of ibuprofen was ordered for treatment of a headache. Departure - Departure Time of Disposition: 13:25 Disposition: Admitted As Inpatient 64 Condition: Fair Clinical Impression: New onset atrial fibrillation, Alcohol intoxication, Chronic alcoholism - Discharge Information *PRESCRIPTION DRUG MONITORING PROGRAM REVIEWED*: Not Applicable *COPY OF PRESCRIPTION DRUG MONITORING REPORT IN PATIENT AYDE: Not Applicable Referrals: Anthony Santamaria MD [Primary Care Provider] - - My Orders Last 24 Hours: My Active Orders 02/01/19 09:25 EKG 12 Lead [EKG Documentation Completion] [RC] ROUTINE 02/01/19 10:08 Orthostatic Vital Signs [RC] STAT 02/01/19 11:00 Diltiazem 125 mg Sodium Chloride 0.9% [Normal Saline] 100 ml IV TITRATE Sodium Chloride 0.9% [Normal Saline] 1,000 ml IV ASDIRECTED 02/01/19 11:20 EKG Documentation Completion [RC] STAT 02/01/19 12:00 Sodium Chloride 0.9% [Normal Saline] 100 ml IV ASDIRECTED Sodium Chloride 0.9% [Saline Flush] 10 ml FLUSH ASDIRECTED 02/01/19 14:28 Admission Status [Patient Status] [ADT] Routine - Assessment/Plan Last 24 Hours: My Active Orders 02/01/19 09:25 EKG 12 Lead [EKG Documentation Completion] [RC] ROUTINE 02/01/19 10:08 Orthostatic Vital Signs [RC] STAT 02/01/19 11:00 Diltiazem 125 mg Sodium Chloride 0.9% [Normal Saline] 100 ml IV TITRATE Sodium Chloride 0.9% [Normal Saline] 1,000 ml IV ASDIRECTED 02/01/19 11:20 EKG Documentation Completion [RC] STAT 02/01/19 12:00 Sodium Chloride 0.9% [Normal Saline] 100 ml IV ASDIRECTED Sodium Chloride 0.9% [Saline Flush] 10 ml FLUSH ASDIRECTED 02/01/19 14:28 Admission Status [Patient Status] [ADT] Routine
[2019-02-01] MEDS: Sodium Chloride 0.9% 1,000 ML IV SCH ×3 (11:14→23:59)
[2019-02-01] MEDS ORDERED: Iohexol 350 MG/ML 75 ML Bottle IVPUSH ONE (11:57)
[2019-02-01] MEDS ORDERED: Sodium Chloride 0.9% 10 ML Syringe FLUSH SCH (12:00)
[2019-02-01] MEDS ORDERED: Sodium Chloride 0.9% 100 ML IV SCH (12:00)
[2019-02-01] MEDS ORDERED: Metoprolol Succinate 50 MG Tab.ER PO ONE (12:12)
--- NOTE | 2019-02-01 12:53 | CT ---
CT chest Technique: Multiple axial sections were obtained from above the lung apices inferiorly through the lung bases. Intravenous contrast was utilized. Study was performed as pulmonary angiogram protocol. Findings: Pulmonary arteries are fairly well-opacified. No discrete filling defects are seen to indicate pulmonary embolism. No pericardial thickening is seen. Mild coronary artery calcification is noted. Aorta shows no aneurysm. No mediastinal adenopathy is seen. Small portion of the visualized upper abdominal structures appear within normal limits. Lung windows show nothing acute within the lung parenchyma. No pleural effusions or pneumothorax is seen. Bone window settings were reviewed which show scattered degenerative spurring and disc space narrowing within the spine. No acute osseous abnormality is seen. Impression: 1. No findings of pulmonary embolism. 2. Other findings which are believed to be incidental as noted above. Diagnostic code #2
--- NOTE | 2019-02-01 12:53 | CR ---
Chest: Two views of the chest were obtained. Comparison: Prior chest x-ray of 03/09/18. Heart size is normal. Mild tortuosity of the thoracic aorta is seen. Lungs are clear. Mild degenerative spurring is scattered within the spine. Mild scattered disc space narrowing is also noted within the spine. Impression: 1. Findings believed to be incidental. 2. Nothing acute is appreciated. Diagnostic code #2
[2019-02-01] MEDS ORDERED: Thiamine 200 MG/2 ML MDV IVPUSH STA (13:25)
[2019-02-01] MEDS ORDERED: Ibuprofen 600 MG Tab PO ONE (14:05)
[2019-02-01] MEDS ORDERED: Ibuprofen 600 MG Tab ONE (14:06)
[2019-02-01] MEDS: chlordiazePOXIDE 25 MG Cap PO SCH ×3 (14:23→23:59)
[2019-02-01] MEDS ORDERED: Haloperidol 5 MG Tab ONE (14:51)
[2019-02-01] MEDS ORDERED: Haloperidol 5 MG Tab PO PRN (15:00)
[2019-02-01] MEDS ORDERED: Haloperidol 1 MG Tab PO PRN (15:00)
[2019-02-01] MEDS ORDERED: LORazepam 2 MG/ML SDV IVPUSH PRN ×3 (16:03→19:48)
[2019-02-01] MEDS ORDERED: LORazepam 1 MG Tab PO ONE ×2 (16:30→17:30)
[2019-02-01] MEDS ORDERED: Ondansetron 4 MG Tab.DIS PO PRN (18:53)
[2019-02-01] MEDS ORDERED: Sodium Chloride 0.9% 10 ML Syringe FLUSH PRN (18:53)
--- NOTE | 2019-02-01 20:51 | HP ---
DATE OF ADMISSION: 02/01/2019 ADMISSION DIAGNOSES: 1. Atrial fibrillation with rapid ventricular response. 2. Alcohol withdrawal. 3. History of chronic alcoholism. HISTORY OF PRESENT ILLNESS: The patient is a gentleman, who presented to the ER of not feeling well for the past 3 days he states. He has a shaky feeling in his chest he tells me. He presented to the ER, and he was found to be in atrial fibrillation with a rapid ventricular response. He related he has not had similar symptoms. He relates that he has not been feeling very well lately, may have had a cold, but he has been feeling shaky and sweaty. He has been on disability or applied for disability in September. 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 The reason for his disability is unclear, but he reports that he has been drinking heavy since then anywhere from a 12 to a 24 pack of beer and sometimes hard alcohol. He has been doing this since September, and he will go for about 4 or 5 days and then slow down. The patient passes out at times. He has also had ornament setter shakes, and he has had really no sobriety. He has been a long-term alcohol dependent gentleman for almost 10 years he states. He has never been treated, and he has had an outpatient treatment for alcoholism in 06/2018. No inpatient treatment. The patient is apparently living alone and has tried cutting down on his own, but only has been able to get into deeper problems with tremors and withdrawal. The patient states that he currently feels shaky. He has had no sweating. He has no severe abdominal pain, but he has mild midepigastric pain. He did eat lunch about 3 hours ago. Currently, he is not hungry, but he is not nauseated. He has no fever or chills. He has not been coughing. He has no hiccups. When he stands, he has difficulty walking, but he has passed urine x2 since being here. ER evaluation found him to be in a rapid ventricular response. He was slowed down with Cardizem, and then did convert at about the time they are going to initiate a Cardizem drip. The patient relates a history of smoking, but he denies any COPD. He has a history of peptic ulcer about [address] Mccracken. He has epigastric pain which is bothering him. He has lost some weight in the past 6 months, and he relates that he eats poorly. He has not had any other medical problems related to his alcoholism. He has no history of known varices, melena, bleeding, hematochezia. He has no nausea, vomiting, or difficulty tolerating food. He has no history of skin bruising or bleeding, epistaxis. The patient has no history of an acute SD. No history of known coronary disease, but he has not seen a doctor. SOCIAL HISTORY: He smokes a pack per day. He smokes marijuana as well. It is not clear whether he has been smoking a lot of this. The patient relates that this also settles down his shakes. ELECTROCARDIOGRAM: The patient's EKGs were reviewed in the ER and does show mild elevation in V2 through V5, but no other ischemic changes or T-wave changes. This was a little bit of a change from previous EKG. REVIEW OF SYSTEMS: Negative for any other loss of consciousness, head injury, bleeding, cranial injury, previous use of anticoagulation, history of pulmonary emboli, or DVT. The patient was given Librium p.o. and IV Ativan in the ER after showing some signs of tremors after being there for about 3 hours. LABORATORY DATA: The patient also had IV started. His lab work was reviewed. He was seen to have normal electrolytes. He had a mild elevation of his white count at 10.4, hemoglobin was 16.2. Indices are elevated and platelet count is 173. The patient does have normal morphology. CO2 is down at 20, anion gap high at 21, and creatinine of 0.6. Blood sugar 113. Electrolytes stable. Protein stable. Liver function tests show mild elevation of ALT at 86 and AST at 121, four times normal. The urine drug screen was negative. Thyroid test was within normal limits. Alcohol level was 0.27. PT and PTT were unremarkable. D-dimer was 0.95. A V/Q scan was done showing features of COPD, but no evidence of pulmonary emboli. PHYSICAL EXAMINATION: GENERAL: The patient was interviewed in his bed with nursing present. The patient is a male, who appears to have increased anxiety. NEUROLOGIC: He is alert and oriented x3 and lucid. He reports mild increased shakes in the last 2 hours. He holds his hands out when requested. He does have tremors in both hands. These are not asterixis like coarse tremors, but rather fine tremors. The patient has cerebellar findings on [id number] testing. The patient has minimal tremors of the face and tongue, but they are there. He has no obvious cranial contusions. NECK: Thyroid is not grossly enlarged. Neck exam shows no lesions. HEENT: Ears are unremarkable. LUNGS: Lung sounds are clear, but diminished, particularly in the bases. CARDIAC: Shows irregular irregular rhythm in the 105 to 120 range. ABDOMEN: Shows mild epigastric tenderness. Liver is firm, but no evidence of ascites. Spleen is not appreciated. No masses. No bruits appreciated. No CVA tenderness appreciated. Abdominal exam is unremarkable. Bowel is unremarkable. Testes are soft. He has no hernias. EXTREMITIES: Show trace edema of the ankles, but otherwise unremarkable. Reflexes are hyperreflexic. Discussed with nursing, and they thought that he was more symptomatic about an hour to an hour and a half ago. They did give him Ativan as per orders, and this improved things. We therefore re-dosed his Librium again today as he appears to be escalating on his delirium tremens symptoms. Recommended that we repeat his Haldol as well, and that we reassess in 1 hour just to make sure he is more comfortable. The patient's mental status is that of anxious, but lucid. CURRENT MEDICATIONS: Medications have been reviewed. Current medications are Librium, haloperidol, diltiazem, sodium chloride. RADIOGRAPHIC STUDIES: Chest x-ray and EKG are to be reviewed yet, but did not show anything per ER review. The patient has normal thyroid status, so it appears that his tremors are related to alcohol withdrawal and his atrial fibrillation. The patient's atrial fibrillation should have further evaluation. The patient did have a negative troponin in the ER. He has no history of chest pain or acute EKG changes. ASSESSMENT AND PLAN: 1. Atrial fibrillation with rapid ventricular response, now with increasing ventricular response again. Recommend initiating a repeat dose of diltiazem to bring down the rate and see if he converts. Monitor electrolytes. 2. Alcohol withdrawal, impending and starting out since time when he left the ER a couple of hours ago. The patient has already been given 2 doses of Librium and a dose of Ativan and a dose of Haldol. We will stay on top of this and see what his response is to second dose of Librium and Ativan is escalated dose if needed. We need to get a proper response to this, so he does not progress into delirium tremens. The patient has also been given thiamine IV. We will continue this for 5 days. 3. Elevated liver function tests. Suspect the patient has early portal problems and will need abdominal ultrasound to evaluate this. 4. Epigastric pain, question gastritis, varices, or other possibility. The patient is at higher risk for anticoagulation secondary to these unknown factors, but again careful questioning reveals no signs of melena, and he has normal hemoglobin, normal platelets. At this point, we will start anticoagulation. The exact cause of his atrial fibrillation occurring is most likely a combination of heart damage, related alcohol, aging, possible hypertension, and chronic smoking. We will follow up with the patient and sort out risk factors. 5. Chronic alcoholism for over 10 years. The patient with numerous stigmata of alcoholism including social problems, alterations in life, loss of job, loss of function and productivity, depression and anxiety. The patient will be brought to and also an inpatient alcohol treatment consult will be done. ANNA /[id number]
[2019-02-01] MEDS: Metoprolol Tartrate 25 MG Tab PO SCH (20:58)
[2019-02-01] MEDS: Nicotine 14 MG/24 Hr Patch TRDERM SCH (20:59)
[2019-02-01] MEDS: Enoxaparin 40 MG/0.4 ML Syringe SUBCUT SCH (20:59)
[2019-02-01] MEDS: LORazepam 1 MG Tab PO PRN (21:03)
[2019-02-02] MEDS: Sodium Chloride 0.9% 1,000 ML IV SCH ×2 (00:58→08:00)
[2019-02-02] MEDS: LORazepam 1 MG Tab PO PRN (01:00)
[2019-02-02] MEDS: chlordiazePOXIDE 25 MG Cap PO SCH ×2 (06:19→20:39)
[2019-02-02] MEDS: Metoprolol Tartrate 25 MG Tab PO SCH ×2 (08:00→20:39)
[2019-02-02] MEDS: Nicotine 14 MG/24 Hr Patch TRDERM SCH (08:11)
--- NOTE | 2019-02-02 10:57 | PCM.PN ---
- General Info Date of Service: 02/02/19 Admission Dx/Problem (Free Text): patient admitted with alcohol withdrawal acute and hx of chronic alc. intake x 15 years . along with afib with rvr currently in sinus rhythm and shaking and withdrawal treated per protocol ativan/ haldol and librium /folate/ thiamine and iv fluids doing well / shakes present but mild / see rating scales vss heart rate 90s currently and reg. resp stable abd eating and minimal nausea no vomiting / no epigastric pain currently bms x 3 no diarrhea neuro clear and appropriate and no memory or confusion signs lungs clear and equal joints extensive oa and some deformity . ? gout but denies podagra gait normal tandem not attempted lab none xray ordered liver us consult for alcohol dependance pending will ambulate decrease iv decrease librium denies anxiety and wanting to quit smoking as well nicotine patch ordered if he desires discussed abnormalities and medical concerns denies depression other than medical back pain and rt shoulder pain / dysfunction and disability related to chronic pain main issues and he has headaches daily and snoring screen for sleep apne recommended . cont current treatment for afib and follow up will be required Functional Status: Reports: Pain Controlled - Review of Systems General: Reports: Fatigue HEENT: Reports: No Symptoms Pulmonary: Reports: No Symptoms Cardiovascular: Reports: No Symptoms, Palpitations Gastrointestinal: Reports: No Symptoms Genitourinary: Reports: No Symptoms Musculoskeletal: Reports: No Symptoms, Shoulder Pain, Back Pain, Leg Pain, Joint Swelling Skin: Reports: No Symptoms Neurological: Reports: No Symptoms, Weakness Psychiatric: Reports: No Symptoms, Anxiety (minimal ) - Patient Data Vitals - Most Recent: Last Vital Signs Temp 36.9 C 02/02/19 07:55 Pulse 82 02/02/19 08:00 Resp 16 02/02/19 07:55 BP 125/80 02/02/19 08:00 Pulse Ox 97 02/02/19 07:55 Weight - Most Recent: 80.785 kg I&O - Last 24 Hours: Intake & Output 02/01/19 02/02/19 02/02/19 22:59 06:59 14:59 Intake Total 100 2624 Output Total 150 1750 Balance -50 874 Lab Results Last 24 Hours: Laboratory Results - last 24 hr 02/01/19 02/01/19 02/01/19 Range/Units 09:15 09:15 09:15 Neutrophils % (Manual) 58 (40-60) % Band Neutrophils % 6 (0-10) % Lymphocytes % (Manual) 20 (20-40) % Atypical Lymphs % 0 % Monocytes % (Manual) 15 H (2-10) % Eosinophils % (Manual) 1 (0.8-7.0) % Basophils % (Manual) 0 L (0.2-1.2) Platelet Estimate Adequate RBC Morph Comment Normal PT (9.5-12.1) SECONDS INR APTT (24-31) SECONDS D-Dimer, Quantitative (0.19-0.50) mg/L TSH 3rd Generation 2.055 (0.358-3.74) uIU/mL Urine Opiates Screen (BMLCGG=393) Ur Buprenorphine Scrn (CUTOFF=10) Ur Oxycodone Screen (IXB0QO=351) Urine Methadone Screen (DJJ7YZ=362) Ur Propoxyphene Screen (TSFSHJ=337) Ur Barbiturates Screen (ZVPYPO=573) Ur Tricyclics Screen (FGVCCS=258) Ur Phencyclidine Scrn (CUTOFF=25) Ur Amphetamine Screen (MKIUQT=880) U Methamphetamines Scrn (NFYBRY=572) U Benzodiazepines Scrn (HTGLPT=146) U Cocaine Metab Screen (ZFIPSP=100) U Marijuana (THC) Screen (CUTOFF=50) Ethyl Alcohol 0.27 (0.00) gm% 02/01/19 02/01/19 Range/Units 09:40 10:20 Neutrophils % (Manual) (40-60) % Band Neutrophils % (0-10) % Lymphocytes % (Manual) (20-40) % Atypical Lymphs % % Monocytes % (Manual) (2-10) % Eosinophils % (Manual) (0.8-7.0) % Basophils % (Manual) (0.2-1.2) Platelet Estimate RBC Morph Comment PT 9.9 (9.5-12.1) SECONDS INR < 0.93 APTT 35 H (24-31) SECONDS D-Dimer, Quantitative 0.95 H (0.19-0.50) mg/L TSH 3rd Generation (0.358-3.74) uIU/mL Urine Opiates Screen Negative (EENZUT=609) Ur Buprenorphine Scrn Negative (CUTOFF=10) Ur Oxycodone Screen Negative (PHI1KP=154) Urine Methadone Screen Negative (BQN8HH=871) Ur Propoxyphene Screen Negative (QMYFUG=973) Ur Barbiturates Screen Negative (WPOCZU=882) Ur Tricyclics Screen Negative (AQGVDA=617) Ur Phencyclidine Scrn Negative (CUTOFF=25) Ur Amphetamine Screen Negative (UDFSTW=143) U Methamphetamines Scrn Negative (REQRVK=568) U Benzodiazepines Scrn Negative (DDNLJZ=992) U Cocaine Metab Screen Negative (DGTJEB=407) U Marijuana (THC) Screen Negative (CUTOFF=50) Ethyl Alcohol (0.00) gm% Med Orders - Current: Current Medications Chlordiazepoxide HCl (Librium) 25 mg PO BID [facility] Enoxaparin Sodium (Lovenox) 40 mg SUBCUT Q24H [facility] Last Admin: 02/01/19 20:59 Dose: 40 mg Folic Acid (Folic Acid) 1 mg PO DAILY [facility] Haloperidol (Haldol) 2.5 mg PO Q8HR PRN PRN Reason: Withdrawal Symptoms Stop: 02/02/19 15:00 Last Admin: 02/01/19 14:52 Dose: 2.5 mg Sodium Chloride (Normal Saline) 1,000 mls @ 150 mls/hr IV ASDIRECTED [facility] Last Admin: 02/02/19 08:00 Dose: 150 mls/hr Lorazepam (Ativan) 0 mg IVPUSH Q2H PRN; Protocol PRN Reason: Withdrawal Symptoms Lorazepam (Ativan) 1 mg PO Q2H PRN PRN Reason: Withdrawal Symptoms Last Admin: 02/02/19 01:00 Dose: 1 mg Metoprolol Tartrate (Lopressor) 25 mg PO Q12H [facility] Last Admin: 02/02/19 08:00 Dose: 25 mg Miscellaneous Information (Remove Patch) 1 ea TRDERM DAILY [facility] Last Admin: 02/02/19 08:11 Dose: Not Given Nicotine (Habitrol) 14 mg TRDERM DAILY [facility] Last Admin: 02/02/19 08:11 Dose: Not Given Ondansetron HCl (Zofran Odt) 8 mg PO Q6H PRN PRN Reason: Nausea/Vomiting Sodium Chloride (Saline Flush) 10 ml FLUSH ASDIRECTED [facility] Last Admin: 02/01/19 12:11 Dose: 10 ml Sodium Chloride (Saline Flush) 10 ml FLUSH ASDIRECTED PRN PRN Reason: Keep Vein Open Discontinued Medications Chlordiazepoxide HCl (Librium) 25 mg PO Q6HR [facility] Last Admin: 02/02/19 06:19 Dose: 25 mg Diltiazem HCl (Cardizem) 10 mg IVPUSH ONETIME STA Stop: 02/01/19 10:53 Last Admin: 02/01/19 11:15 Dose: 10 mg Haloperidol (Haldol) 1 mg PO Q6H PRN PRN Reason: Withdrawal Symptoms Stop: 02/02/19 15:00 Haloperidol (Haldol) Confirm Administered Dose 5 mg .ROUTE .STK-MED ONE Stop: 02/01/19 14:52 Last Admin: 02/01/19 16:03 Dose: Not Given Diltiazem HCl 125 mg/ Sodium (Chloride) 125 mls @ 10 mls/hr IV TITRATE MICHAEL; Protocol Sodium Chloride (Normal Saline) 100 mls @ 3 mls/sec IV ASDIRECTED [facility] Last Admin: 02/01/19 12:11 Dose: 3 mls/sec Ibuprofen (Motrin) 600 mg PO ONETIME ONE Stop: 02/01/19 14:06 Last Admin: 02/01/19 14:07 Dose: 600 mg Ibuprofen (Motrin) Confirm Administered Dose 600 mg .ROUTE .STK-MED ONE Stop: 02/01/19 14:07 Last Admin: 02/01/19 14:20 Dose: Not Given Iohexol (Omnipaque) 75 ml IVPUSH ONETIME ONE Stop: 02/01/19 11:58 Last Admin: 02/01/19 12:11 Dose: 75 ml Lorazepam (Ativan) 1 mg IVPUSH ONETIME STA Stop: 02/01/19 10:54 Last Admin: 02/01/19 11:14 Dose: 1 mg Lorazepam (Ativan) 0 mg IVPUSH Q8H PRN; Protocol PRN Reason: Withdrawal Symptoms Lorazepam (Ativan) 1 mg PO ONETIME ONE Stop: 02/01/19 16:31 Last Admin: 02/01/19 16:42 Dose: 1 mg Lorazepam (Ativan) 1 mg PO ONETIME ONE Stop: 02/01/19 17:31 Last Admin: 02/01/19 18:15 Dose: 1 mg Lorazepam (Ativan) 0 mg IVPUSH Q4H PRN; Protocol PRN Reason: Withdrawal Symptoms Metoprolol Succinate (Toprol Xl) 50 mg PO ONETIME ONE Stop: 02/01/19 12:13 Last Admin: 02/01/19 12:55 Dose: 50 mg Thiamine HCl (Vitamin B-1) 100 mg IVPUSH ONETIME STA Stop: 02/01/19 13:26 Last Admin: 02/01/19 13:32 Dose: 100 mg - Exam General: Alert, Oriented HEENT: Pupils Equal, Pupils Reactive, EOMI, Mucous Membr. Moist/[place] Neck: Supple Lungs: Clear to Auscultation, Normal Respiratory Effort Cardiovascular: Regular Rate, Regular Rhythm GI/Abdominal Exam: Normal Bowel Sounds, Soft, Non-Tender, No Organomegaly, No Distention, No Abnormal Bruit, No Mass, Pelvis Stable (Male) Exam: No Hernia, Normal Inspection, Normal Prostate, Circumcised Back Exam: Normal Inspection, Full Range of Motion Extremities: Normal Inspection, Normal Range of Motion, Non-Tender, No Pedal Edema, Normal Capillary Refill Skin: Warm, Dry, Intact Wound/Incisions: Healing Well Neurological: No New Focal Deficit Psy/Mental Status: Alert, Normal Affect, Normal Mood - Problem List Review Problem List Initiated/Reviewed/Updated: Yes - My Orders Last 24 Hours: My Active Orders 02/01/19 15:00 Haloperidol [Haldol] 2.5 mg PO Q8HR PRN 02/01/19 18:53 Oxygen Therapy [RC] PRN Up With Assistance [RC] ASDIRECTED VTE/DVT Education [RC] 10,22 Vital Signs [RC] Q4HR Ondansetron [Zofran ODT] 8 mg PO Q6H PRN Sodium Chloride 0.9% [Saline Flush] 10 ml FLUSH ASDIRECTED PRN Peripheral IV Insertion Adult [OM.PC] Routine Resuscitation Status Routine 02/01/19 18:56 Antiembolic Hose [OM.PC] Per Unit Routine 02/01/19 18:59 Antiembolic Devices [RC] 10,22 Peripheral IV Care [RC] Q2HR 02/01/19 19:00 Enoxaparin [Lovenox] 40 mg SUBCUT Q24H Nicotine [Habitrol] 14 mg TRDERM DAILY 02/01/19 19:48 LORazepam [Ativan] See Protocol IVPUSH Q2H PRN 02/01/19 19:52 Admission Status [Patient Status] [ADT] Routine 02/01/19 20:00 Metoprolol Tartrate [Lopressor] 25 mg PO Q12H 02/01/19 20:48 LORazepam [Ativan] 1 mg PO Q2H PRN 02/02/19 09:00 Remove Patch 1 ea CORBIN DAILY - Plan Plan:: patient plan outlined and reviewed with cole . inpatient or outpatient alc. treatment as per recommendations cont to decrease meds to combat widthdrawal afib rate start cardizem a nd dc lisinopril for now outpatient echo and liver us sleep apnea screening / sleep test. nicotine patch if desires treat anxiety and be open about state of cravings currently denies recheck labs and cont b vitamin and thiamine
[2019-02-02] MEDS: Folic Acid 1 MG Tab PO SCH (13:03)
[2019-02-02] MEDS: Diltiazem 240 MG Cap.ER PO SCH (13:03)
[2019-02-02] MEDS: Enoxaparin 40 MG/0.4 ML Syringe SUBCUT SCH (18:01)
[2019-02-02] MEDS ORDERED: Thiamine 100 MG Tab PO SCH (21:00)
[2019-02-02] MEDS ORDERED: traZODone 50 MG Tab PO PRN (22:27)
[2019-02-03] MEDS: Folic Acid 1 MG Tab PO SCH (08:17)
[2019-02-03] MEDS: Metoprolol Tartrate 25 MG Tab PO SCH (08:17)
[2019-02-03] MEDS: Diltiazem 240 MG Cap.ER PO SCH (08:18)
[2019-02-03] MEDS: chlordiazePOXIDE 25 MG Cap PO SCH (08:18)
[2019-02-03] MEDS: Nicotine 14 MG/24 Hr Patch TRDERM SCH (08:21)
[2019-02-03] MEDS ORDERED: Potassium Chloride 20 MEQ Tab.ER PO ONE (10:20)
--- NOTE | 2019-02-03 12:52 | PCM.DCSUM1 ---
Discharge Summary - Hospital Course HPI Initial Comments: Berlin Mitchell a 58-year-old male who presents to our ED after not feeling well for 3 days. He reports his been shaky and has had a pain in his chest. In the ED was found to have atrial fibrillation with RVR. Reports that he has no history of this. 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 Reports he will drink hard for for 5 days and then slow down and then resumed drinking heavily. This is been ongoing since September. Reports he will drink until he passes out at times. 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 Reports he lives alone he's been trying to cut downhowever he then runs and issues with withdrawal symptoms and tremors. Reports he does have some mild epigastric pain. IV Cardizem was given and he did convert prior to starting a Cardizem drip into a sinus rhythm. He is a daily smoker but denies any other lung problems. Reports history of peptic ulcer 30 years ago. No known history of varices, melena, bleeding, hematochezia. No history of cardiac problems although he rarely sees a doctor. Reports he does smoke marijuana along with cigarettes butis unclear how much. Twelve-lead EKG is obtained in the ED and shows mild elevation in V2 through V5 but no other ischemic changes or T-wave abnormalities. He was given Librium and IV Ativan in the ED after showing some signs of tremors. In the ED all lites were normal. WBC is slightly elevated at 10.4. Hemoglobin is 16.2. Blood count is 173. Liver function tests were mildly elevated with an ALT of 86 , AST of 121. Alcohol level was found to be 0.27. D-dimer was obtained and was 0.95. He then underwent angiography which showed features of COPD but no signs of pulmonary embolism. chest x-ray in the ED showed incidental findings and nothing acute. He subsequently admitted to the medical floor for atrial fibrillation with RVR, alcohol withdrawal, and chronic alcoholism. Diagnosis: Stroke: No - Discharge Data Discharge Date: 02/03/19 (Admit Date: 02/02/19) Discharge Disposition: Home, Self-Care 01 Condition: Good - Discharge Diagnosis/Problem(s) (1) Alcohol intoxication SNOMED Code(s): 04451234 ICD Code: F10.929 - ALCOHOL USE, UNSPECIFIED WITH INTOXICATION, UNSPECIFIED Status: Acute Priority: High Current Visit: Yes Qualifiers: Complication of substance-induced condition: with unspecified complication Qualified Code(s): F10.929 - Alcohol use, unspecified with intoxication, unspecified (2) Chronic alcoholism SNOMED Code(s): 8351368 ICD Code: F10.20 - ALCOHOL DEPENDENCE, UNCOMPLICATED Status: Acute Priority: High Current Visit: Yes (3) Hypokalemia SNOMED Code(s): 27968008 ICD Code: E87.6 - HYPOKALEMIA Status: Acute Priority: High Current Visit: Yes (4) New onset atrial fibrillation SNOMED Code(s): 80978342 ICD Code: I48.91 - UNSPECIFIED ATRIAL FIBRILLATION Status: Acute Priority : High Current Visit: Yes - Patient Summary/Data Labs Pending at D/C: None Outpatient complete abdominal US ordered Recommended Follow-up Testing/Procedures: Follow-up with PCP within 7-10 days of discharge, sooner if needed. Follow-up with addiction counselor as directed. Recommend follow-up screening for sleep apnea Hospital Course: On the floor Berlin responded well to treatment. Heart rate remained in a sinus rhythm and was controlled with 240 mg by mouth Cardizem and 25 mg twice a day metoprolol. It is unknown what exactly caused his atrial fibrillation but a likely combination of heart damage, alcohol use, aging, possible hypertension, along with chronic smoking that contributed. This will need to be worked up further by his primary care provider. He was started on higher doses of Librium and Ativan along with CIWA protocol for his chronic alcohol use and withdrawal symptoms. He is also given Haldol for his symptoms. CIWA score on admission was 11 and this decreased to 0-1 while in our care prior to discharge. He was started on supplementation including thiamine and folic acid. His tremors did resolve. His LFTs were noted to be elevated and we have ordered an outpatient complete abdominal ultrasound to rule out early portal problems. The original plan was to keep Berlin until Monday and request a social work consult along with substance abuse counseling. He reports that he is very determined to stop drinking and he would like to go home today. He was given the contact information for multiple addiction counseling services in the area. He voiced an understanding to the severity of his alcoholism. He had been refusing nicotine patches while here and he continued to do so after discharge. He was given resources for this as well, should he change his mind. This morning his potassium was low and this was supplemented. He will be sent home on oral supplementation for this as well. On discharge Berlin will be sent with a prescription for 12.5 mg daily Librium, 1 mg folic acid daily, 100 mg thiamine daily, 240 mg daily Cardizem, and 25 mg twice a day metoprolol. He was also sent with 3 days of 40 mg by mouth oral potassium. He was instructed to return to the ED or contact his primary care provider should symptoms return or worsen. He was given orders for complete abdominal ultrasound this coming week as described above. He should follow-up with his primary care provider within 7- 10 days. It is recommended he be screened for sleep apnea and he may be a good candidate for a sleep study. - Patient Instructions Diet: Usual Diet as Tolerated Activity: As Tolerated Notify Provider of: Fever, Increased Pain, Nausea and/or Vomiting Other/Special Instructions: Follow-up with primary care provider within 7-10 days of discharge. Take all home medications as prescribed. Take all new medications as prescribed. Your potassium was low. You have been given 3 days of supplements for this. We discussed smoking cessation. You refused patches while here and said you do not want a prescriptoin for home. If you change your mind you can contact your primary care provider or ND quits on the internet. [facility] also has a cessation program and you can get support from them. Stop drinking. There are a few options locally for alcohol abuse counseling. [facility] is available by calling [phone] or texting [phone]. You can contact them to set up an appointment. [facility] is also an option. You may contact them at . They also have an after hours connor line availabe [phone]. Should symptoms return or worsen contact your primary care provider or return to the Emergency Department. - Discharge Plan *PRESCRIPTION DRUG MONITORING PROGRAM REVIEWED*: Not Applicable *COPY OF PRESCRIPTION DRUG MONITORING REPORT IN PATIENT AYDE: Not Applicable Prescriptions/Med Rec: chlordiazePOXIDE [Librium] 12.5 mg PO DAILY 5 Days #3 cap Diltiazem [Dilacor XR] 240 mg PO DAILY #20 cap.er Folic Acid 1 mg PO DAILY #20 tablet Metoprolol Tartrate [Lopressor] 25 mg PO Q12H #40 tablet Potassium Chloride 40 meq PO DAILY #6 tablet.er Thiamine [Vitamin B-1] 100 mg PO BEDTIME #20 tablet Home Medications: Home Meds Lisinopril 10 mg PO DAILY #30 tablet 01/06/19 [Rx] Diltiazem [Dilacor XR] 240 mg PO DAILY #20 cap.er 02/03/19 [Rx] Folic Acid 1 mg PO DAILY #20 tablet 02/03/19 [Rx] Metoprolol Tartrate [Lopressor] 25 mg PO Q12H #40 tablet 02/03/19 [Rx] Potassium Chloride 40 meq PO DAILY #6 tablet.er 02/03/19 [Rx] Thiamine [Vitamin B-1] 100 mg PO BEDTIME #20 tablet 02/03/19 [Rx] chlordiazePOXIDE [Librium] 12.5 mg PO DAILY 5 Days #3 cap 02/03/19 [Rx] Oxygen Therapy Mode: Room Air Patient Handouts: Hypokalemia, Alcohol Abuse and Nutrition, Atrial Fibrillation , [id number], Alcohol Withdrawal Syndrome, [id number] Referrals: Anthony aSntamaria MD [Primary Care Provider] - - Discharge Summary/Plan Comment DC Time >30 min.: Yes (45 minutes ) - General Info Date of Service: 02/03/19 Admission Dx/Problem (Free Text: patient admitted with alcohol withdrawal acute and hx of chronic alc. intake x 15 years . along with afib with rvr currently in sinus rhythm and shaking and withdrawal treated per protocol ativan/ haldol and librium /folate/ thiamine and iv fluids doing well / shakes present but mild / see rating scales vss heart rate 90s currently and reg. resp stable abd eating and minimal nausea no vomiting / no epigastric pain currently bms x 3 no diarrhea neuro clear and appropriate and no memory or confusion signs lungs clear and equal joints extensive oa and some deformity . ? gout but denies podagra gait normal tandem not attempted lab none xray ordered liver us consult for alcohol dependance pending will ambulate decrease iv decrease librium denies anxiety and wanting to quit smoking as well nicotine patch ordered if he desires discussed abnormalities and medical concerns denies depression other than medical back pain and rt shoulder pain / dysfunction and disability related to chronic pain main issues and he has headaches daily and snoring screen for sleep apne recommended . cont current treatment for afib and follow up will be required Functional Status: Reports: Pain Controlled, Tolerating Diet, Ambulating, Urinating. Denies: New Symptoms - Review of Systems General: Reports: No Symptoms. Denies: Fever, Weakness, Fatigue, Malaise HEENT: Reports: No Symptoms. Denies: Headaches, Sore Throat Pulmonary: Reports: No Symptoms. Denies: Shortness of Breath, Pleuritic Chest Pain, Cough, Sputum Cardiovascular: Reports: No Symptoms. Denies: Chest Pain, Palpitations, Dyspnea on Exertion, Edema Gastrointestinal: Reports: No Symptoms. Denies: Abdominal Pain, Constipation, Diarrhea, Nausea, Vomiting Genitourinary: Reports: No Symptoms. Denies: Pain Musculoskeletal: Reports: Shoulder Pain (chronic ), Joint Pain (chronic ) Skin: Reports: No Symptoms. Denies: Cyanosis Neurological: Reports: No Symptoms. Denies: Confusion, Pre-Existing Deficit, Difficulty Walking, Gait Disturbance Psychiatric: Reports: No Symptoms - Patient Data Vitals - Most Recent: Last Vital Signs Temp 98.1 F 02/03/19 11:29 Pulse 76 02/03/19 11:29 Resp 15 02/03/19 11:29 BP 142/92 H 02/03/19 11:29 Pulse Ox 96 02/03/19 11:29 Weight - Most Recent: 177 lb 11.2 oz I&O - Last 24 hours: Intake & Output 02/02/19 02/03/19 02/03/19 22:59 06:59 14:59 Intake Total 2162 1600 Output Total 1900 850 Balance 262 750 Lab Results - Last 24 hrs: Laboratory Results - last 24 hr 02/03/19 02/03/19 02/03/19 Range/Units 05:10 05:10 05:10 WBC 5.51 (4.23-9.07) K/mm3 RBC 4.66 (4.63-6.08) M/mm3 Hgb 15.4 (13.7-17.5) gm/L Hct 44.9 (40.1-51.0) % MCV 96.4 H (79.0-92.2) fl MCH 33.0 H (25.7-32.2) pg MCHC 34.3 (32.2-35.5) g/dl RDW Std Deviation 46.6 H (35.1-43.9) fL Plt Count 142 L (163-337) K/mm3 MPV 10.0 (9.4-12.3) fl Neut % (Auto) 52.0 (34.0-67.9) % Lymph % (Auto) 23.8 (21.8-53.1) % Weber % (Auto) 20.9 H (5.3-12.2) % Eos % (Auto) 2.7 (0.8-7.0) Baso % (Auto) 0.4 (0.1-1.2) % Neut # (Auto) 2.87 (1.78-5.38) K/mm3 Lymph # (Auto) 1.31 L (1.32-3.57) K/mm3 Weber # (Auto) 1.15 H (0.30-0.82) K/mm3 Eos # (Auto) 0.15 (0.04-0.54) K/mm3 Baso # (Auto) 0.02 (0.01-0.08) K/mm3 Manual Slide Review Abnormal smear Sodium 138 (136-145) mEq/L Potassium 3.3 L (3.5-5.1) mEq/L Chloride 101 (98-107) mEq/L Carbon Dioxide 24 (21-32) mEq/L Anion Gap 16.3 H (5-15) BUN 7 (7-18) mg/dL Creatinine 0.7 (0.7-1.3) mg/dL Est Cr Clr Drug Dosing 112.22 mL/min Estimated GFR (MDRD) > 60 (>60) mL/min BUN/Creatinine Ratio 10.0 L (14-18) Glucose 92 (74-106) mg/dL Calcium 9.3 (8.5-10.1) mg/dL Magnesium 1.9 (1.8-2.4) mg/dl Total Bilirubin 0.7 (0.2-1.0) mg/dL Direct Bilirubin 0.10 (0.0-0.2) mg/dl Indirect Bilirubin 0.60 AST 99 H (15-37) U/L ALT 82 H (16-63) U/L Alkaline Phosphatase 123 H (46-116) U/L Total Protein 7.6 (6.4-8.2) g/dl Albumin 3.9 (3.4-5.0) g/dl Globulin 3.7 gm/dL Albumin/Globulin Ratio 1.1 (1-2) Med Orders - Current: Current Medications Chlordiazepoxide HCl (Librium) [address] [facility] Last Admin: 02/03/19 08:18 Dose: 25 mg Diltiazem HCl (Dilacor Xr) [address] [facility] Last Admin: 02/03/19 08:18 Dose: 240 mg Enoxaparin Sodium (Lovenox) [address] [facility] Last Admin: 02/02/19 18:01 Dose: 40 mg Folic Acid (Folic Acid) [address] [facility] Last Admin: 02/03/19 08:17 Dose: 1 mg Lorazepam (Ativan) 0 mg IVPUSH Q2H PRN; Protocol PRN Reason: Withdrawal Symptoms Lorazepam (Ativan) 1 mg PO Q2H PRN PRN Reason: Withdrawal Symptoms Last Admin: 02/02/19 01:00 Dose: 1 mg Metoprolol Tartrate (Lopressor) [address] [facility] Last Admin: 02/03/19 08:17 Dose: 25 mg Miscellaneous Information (Remove Patch) [address] [facility] Last Admin: 02/03/19 08:20 Dose: Not Given Nicotine (Habitrol) [address] [facility] Last Admin: 02/03/19 08:21 Dose: Not Given Ondansetron HCl (Zofran Odt) 8 mg PO Q6H PRN PRN Reason: Nausea/Vomiting Sodium Chloride (Saline Flush) [address] [facility] Last Admin: 02/01/19 12:11 Dose: 10 ml Sodium Chloride (Saline Flush) 10 ml FLUSH ASDIRECTED PRN PRN Reason: Keep Vein Open Thiamine HCl (Vitamin B-1) [address] [facility] Last Admin: 02/02/19 20:39 Dose: 100 mg Trazodone HCl (Trazodone) 50 mg PO BEDTIME PRN PRN Reason: Insomnia Last Admin: 02/02/19 22:45 Dose: 50 mg Discontinued Medications Chlordiazepoxide HCl (Librium) 25 mg PO Q6HR [facility]EL Last Admin: 02/02/19 06:19 Dose: 25 mg Diltiazem HCl (Cardizem) 10 mg IVPUSH ONETIME STA Stop: 02/01/19 10:53 Last Admin: 02/01/19 11:15 Dose: 10 mg Haloperidol (Haldol) 1 mg PO Q6H PRN PRN Reason: Withdrawal Symptoms Stop: 02/02/19 15:00 Haloperidol (Haldol) 2.5 mg PO Q8HR PRN PRN Reason: Withdrawal Symptoms Stop: 02/02/19 15:00 Last Admin: 02/01/19 14:52 Dose: 2.5 mg Haloperidol (Haldol) Confirm Administered Dose 5 mg .ROUTE .STK-MED ONE Stop: 02/01/19 14:52 Last Admin: 02/01/19 16:03 Dose: Not Given Diltiazem HCl 125 mg/ Sodium (Chloride) 125 mls @ 10 mls/hr IV TITRATE MICHAEL; Protocol Sodium Chloride (Normal Saline) 1,000 mls @ 75 mls/hr IV ASDIRECTED [facility] Last Admin: 02/02/19 08:00 Dose: 150 mls/hr Sodium Chloride (Normal Saline) 100 mls @ 3 mls/sec IV ASDIRECTED MICHAEL Last Admin: 02/01/19 12:11 Dose: 3 mls/sec Ibuprofen (Motrin) 600 mg PO ONETIME ONE Stop: 02/01/19 14:06 Last Admin: 02/01/19 14:07 Dose: 600 mg Ibuprofen (Motrin) Confirm Administered Dose 600 mg .ROUTE .STK-MED ONE Stop: 02/01/19 14:07 Last Admin: 02/01/19 14:20 Dose: Not Given Iohexol (Omnipaque) 75 ml IVPUSH ONETIME ONE Stop: 02/01/19 11:58 Last Admin: 02/01/19 12:11 Dose: 75 ml Lorazepam (Ativan) 1 mg IVPUSH ONETIME STA Stop: 02/01/19 10:54 Last Admin: 02/01/19 11:14 Dose: 1 mg Lorazepam (Ativan) 0 mg IVPUSH Q8H PRN; Protocol PRN Reason: Withdrawal Symptoms Lorazepam (Ativan) 1 mg PO ONETIME ONE Stop: 02/01/19 16:31 Last Admin: 02/01/19 16:42 Dose: 1 mg Lorazepam (Ativan) 1 mg PO ONETIME ONE Stop: 02/01/19 17:31 Last Admin: 02/01/19 18:15 Dose: 1 mg Lorazepam (Ativan) 0 mg IVPUSH Q4H PRN; Protocol PRN Reason: Withdrawal Symptoms Metoprolol Succinate (Toprol Xl) 50 mg PO ONETIME ONE Stop: 02/01/19 12:13 Last Admin: 02/01/19 12:55 Dose: 50 mg Potassium Chloride (Klor-Con M20) 40 meq PO ONETIME ONE Stop: 02/03/19 10:21 Last Admin: 02/03/19 11:43 Dose: 40 meq Thiamine HCl (Vitamin B-1) 100 mg IVPUSH ONETIME STA Stop: 02/01/19 13:26 Last Admin: 02/01/19 13:32 Dose: 100 mg - Exam Quality Assessment: Reports: DVT Prophylaxis General: Reports: Alert, Oriented, Cooperative, No Acute Distress HEENT: Reports: Pupils Equal, Pupils Reactive, EOMI, Mucous Membr. Moist/[place] Neck: Reports: Supple Lungs: Reports: Clear to Auscultation, Normal Respiratory Effort Cardiovascular: Reports: Regular Rate, Regular Rhythm GI/Abdominal Exam: Normal Bowel Sounds, Soft, Non-Tender, No Organomegaly, No Distention, No Abnormal Bruit, No Mass, Pelvis Stable (Male) Exam: Deferred Rectal (Males) Exam: Deferred Back Exam: Reports: Normal Inspection, Full Range of Motion Extremities: Normal Inspection, Normal Range of Motion, Non-Tender, No Pedal Edema, Normal Capillary Refill Skin: Reports: Warm, Dry, Intact Neurological: Reports: No New Focal Deficit Psy/Mental Status: Reports: Alert, Normal Affect, Normal Mood
== END 2019-02-03 13:55 | disposition home or self-care (01) | DRG 897 ==
LOC: JD.ED 09:01 → JD.MS 14:28
PROVIDERS: ADMIT Pediatrics; ATTEND Pediatrics
PROC: HZ2ZZZZ Detoxification Services for Substance Abuse Treatment (ICD-10-PCS; principal; 2019-02-01)
DX: F10.230 Alcohol dependence with withdrawal, uncomplicated (principal); F10.220 Alcohol dependence with intoxication, uncomplicated; I48.91 Unspecified atrial fibrillation; E87.6 Hypokalemia; F17.210 Nicotine dependence, cigarettes, uncomplicated; Z87.11 Personal history of peptic ulcer disease; R79.89 Other specified abnormal findings of blood chemistry; Z88.8 Allergy status to other drugs, medicaments and biological substances; Z79.899 Other long term (current) drug therapy
CPT/HCPCS: 36415; 71046; 71046-26; 71275; 71275-26; 80048; 80053; 80076; 80306; 83735; 84443; 84484; 85007; 85025; 85027; 85379; 85610; 85730; 93005; 93010; 96374; 96375; 99285; 99285-25; A9270-GY; G0480; J1650; J2060; J3411; J3490; J7030; J7040; Q9967

== ENCOUNTER 2019-04-16 14:11 | Emergency (ER) | payer OTHER ==
--- NOTE | 2019-04-16 14:50 | EDM.PDOCBH ---
ED HPI GENERAL MEDICAL PROBLEM - General Chief Complaint: Drug or Alcohol Abuse Stated Complaint: ALCOHOL TREATMENT Time Seen by Provider: 04/16/19 14:18 Source of Information: Reports: Patient, Police History Limitations: Reports: Intoxication - History of Present Illness INITIAL COMMENTS - FREE TEXT/NARRATIVE: The patient presents by [employer] for alcohol intoxication. The patient went to [facility] to get help with his drinking. He was found drinking in his car. Police were called and they caught him drinking. They brought him here because he wanted help with his drinking. He was here yesterday for a wrist injury. Onset: Gradual Duration: Day(s): Severity: Moderate Improves with: Reports: None Worsens with: Reports: None Associated Symptoms: Reports: No Other Symptoms Headache Pain Score (Numeric/FACES): 6 - Related Data Allergies Allergy/AdvReac Type Severity Reaction Status Date / Time cefaclor [From Ceclor] Allergy Swelling Verified 04/16/19 14:19 Home Meds: Home Meds Metoprolol Tartrate 25 mg PO BID #60 tablet 03/03/19 [Rx] Topiramate [Topamax] 25 mg PO BID tablet 03/26/19 [Rx] traZODone HCl [Trazodone HCl] 50 mg PO BEDTIME 04/05/19 [History] Past Medical History HEENT History: Reports: Sinusitis Cardiovascular History: Reports: Afib, High Cholesterol Other Cardiovascular History: atrial fibrillation Gastrointestinal History: Reports: PUD Other Gastrointestinal History: Duodenal ulcers Musculoskeletal History: Reports: Fracture, Osteoarthritis Other Musculoskeletal History: R) shoulder fx. Neurological History: Reports: Headaches, Chronic Psychiatric History: Reports: Addiction, Anxiety, Depression - Infectious Disease History Infectious Disease History: Reports: Influenza - Past Surgical History HEENT Surgical History: Reports: None Cardiovascular Surgical History: Reports: None Neurological Surgical History: Reports: Lumbar Spine Musculoskeletal Surgical History: Reports: ORIF, Shoulder Surgery Social & Family History - Family History Family Medical History: Noncontributory - Caffeine Use Caffeine Use: Reports: None Other Caffeine Use: rarely - Living Situation & Occupation Living situation: Reports: , with Spouse Occupation: Unemployed ED ROS GENERAL - Review of Systems Review Of Systems: Unable To Obtain ED EXAM, BEHAVIORAL HEALTH - Physical Exam Exam: Not Obtained COURSE, BEHAVIORAL HEALTH COMP - Course Vital Signs: Last Vital Signs Temp 96.8 F 08/20/19 14:16 Pulse 85 04/16/19 14:16 Resp 16 04/16/19 14:16 BP 146/91 H 04/16/19 14:16 Pulse Ox 95 04/16/19 14:16 Re-Assessment/Re-Exam: Before I went in to examine the patient he left. He was taking a taxi home. Departure - Departure Time of Disposition: 14:50 Disposition: Left Without Being Seen 07 Condition: Good Clinical Impression: Alcohol intoxication Qualifiers: Complication of substance-induced condition: uncomplicated Qualified Code(s): F10.920 - Alcohol use, unspecified with intoxication, uncomplicated - Discharge Information Referrals: Anthony Santamaria MD [Primary Care Provider] -
== END 2019-04-16 14:34 | disposition left against medical advice (07) ==
LOC: JD.ED 14:11
DX: Z53.21 Procedure and treatment not carried out due to patient leaving prior to being seen by health care provider (principal)
CPT/HCPCS: 99284

== ENCOUNTER 2019-04-16 15:43 | Inpatient (IN) | payer OTHER, SELFPAY ==
[2019-04-16] MEDS ORDERED: Sodium Chloride 0.9% 10 ML Syringe FLUSH PRN (16:09)
[2019-04-16] MEDS ORDERED: Thiamine 200 MG/2 ML MDV IVPUSH ONE (16:10)
[2019-04-16] MEDS ORDERED: Sodium Chloride 0.9% 1,000 ML IV SCH (16:15)
--- NOTE | 2019-04-16 16:32 | EDM.PDOCBH ---
ED HPI GENERAL MEDICAL PROBLEM - General Chief Complaint: Drug or Alcohol Abuse Stated Complaint: ALCOHOL TREATMENT Time Seen by Provider: 04/16/19 15:57 Source of Information: Reports: Patient History Limitations: Reports: No Limitations - History of Present Illness INITIAL COMMENTS - FREE TEXT/NARRATIVE: The patient presents for alcohol treatment. He has a history of alcoholism. He has been drinking since he was young. He drinks beer daily. A few years ago he quit for about a year. He was here earlier. He went to [facility] and was caught drinking in his car. He was brought up to the ER by [place] [employer]. He left before I could see him. He took a taxi back to his vehicle and [facility] advised him that it was not a good idea to drive. His came to see him and brought him back here. She threatened to divorce him if he did not get help. He says he last drank about 12:30 today. He has no nausea, vomiting or shaking. He has no fever, chills, cough, chest pain, shortness of breath or abdominal pain. He says he has noticed that his balance is off the past few months. About 4 days he fell and fractured his right arm. He currently has a splint on that was put on yesterday when he was seen here in the ER. Onset: Gradual Duration: Day(s): Severity: Moderate Improves with: Reports: None Worsens with: Reports: None Associated Symptoms: Reports: No Other Symptoms - Related Data Allergies Allergy/AdvReac Type Severity Reaction Status Date / Time cefaclor [From [facility]] Allergy Swelling Verified 04/16/19 15:54 Home Meds: Home Meds Metoprolol Tartrate 25 mg PO BID #60 tablet 03/03/19 [Rx] Topiramate [Topamax] 25 mg PO BID tablet 03/26/19 [Rx] traZODone HCl [Trazodone HCl] 50 mg PO BEDTIME 04/05/19 [History] Past Medical History HEENT History: Reports: Sinusitis Cardiovascular History: Reports: Afib, High Cholesterol Other Cardiovascular History: atrial fibrillation Respiratory History: Reports: None Gastrointestinal History: Reports: PUD Other Gastrointestinal History: Duodenal ulcers Genitourinary History: Reports: None Musculoskeletal History: Reports: Fracture, Osteoarthritis Other Musculoskeletal History: R) shoulder fx. Neurological History: Reports: Headaches, Chronic Psychiatric History: Reports: Addiction, Anxiety, Depression Endocrine/Metabolic History: Reports: None Hematologic History: Reports: None Immunologic History: Reports: None Oncologic (Cancer) History: Reports: None Dermatologic History: Reports: None - Infectious Disease History Infectious Disease History: Reports: Influenza - Past Surgical History Head Surgeries/Procedures: Reports: None HEENT Surgical History: Reports: None Cardiovascular Surgical History: Reports: None Neurological Surgical History: Reports: Lumbar Spine Musculoskeletal Surgical History: Reports: ORIF, Shoulder Surgery Social & Family History - Family History Family Medical History: Noncontributory - Tobacco Use Smoking Status *Q: Never Smoker - Caffeine Use Caffeine Use: Reports: None Other Caffeine Use: rarely - Recreational Drug Use Recreational Drug Use: No - Living Situation & Occupation Living situation: Reports: , with Spouse Occupation: Unemployed ED ROS GENERAL - Review of Systems Review Of Systems: See Below Constitutional: Reports: No Symptoms HEENT: Reports: No Symptoms Respiratory: Reports: No Symptoms Cardiovascular: Reports: No Symptoms Endocrine: Reports: No Symptoms GI/Abdominal: Reports: No Symptoms : Reports: No Symptoms Musculoskeletal: Reports: No Symptoms Skin: Reports: No Symptoms ED EXAM, BEHAVIORAL HEALTH - Physical Exam Exam: See Below Exam Limited By: Intoxication General Appearance: Alert, No Apparent Distress Ears: Normal External Exam Nose: Normal Inspection Head: Atraumatic, Normocephalic Neck: Normal Inspection Respiratory/Chest: No Respiratory Distress, Lungs Clear, Normal Breath Sounds Cardiovascular: Regular Rate, Rhythm, No Edema, No Murmur GI/Abdominal: Soft, Non-Tender, No Organomegaly, No Mass Back Exam: Normal Inspection COURSE, BEHAVIORAL HEALTH COMP - Course Vital Signs: Last Vital Signs Temp 97 F 04/16/19 15:50 Pulse 98 04/16/19 15:50 Resp 16 04/16/19 15:50 BP 157/81 H 04/16/19 15:50 Pulse Ox 95 04/16/19 15:50 Orders, Labs, Meds: Active Orders 24 hr Category Date Time Status Cardiac Monitoring [RC] . DIRECTED Care 04/16/19 16:09 Active Peripheral IV Care [RC] . DIRECTED Care 04/16/19 16:09 Active DRUG SCREEN, URINE [URCHEM] Stat Lab 04/16/19 16:09 Ordered Sodium Chloride 0.9% [Normal Saline] 1,000 ml Med 04/16/19 16:15 Active IV .BOLUS Sodium Chloride 0.9% [Saline Flush] Med 04/16/19 16:09 Active 10 ml FLUSH ASDIRECTED PRN Peripheral IV Insertion Adult [OM.PC] Stat Oth 04/16/19 16:09 Ordered Medication Orders Sodium Chloride (Normal Saline) 1,000 mls @ 1,000 mls/hr IV .BOLUS MICHAEL Last Admin: 04/16/19 16:27 Dose: 1,000 mls/hr Sodium Chloride (Saline Flush) 10 ml FLUSH ASDIRECTED PRN PRN Reason: Keep Vein Open Last Admin: 04/16/19 16:29 Dose: 10 ml Laboratory Tests 04/16/19 04/16/19 Range/Units 16:25 16:25 WBC 7.03 (4.23-9.07) K/mm3 RBC 4.29 L (4.63-6.08) M/mm3 Hgb 14.5 (13.7-17.5) gm/L Hct 41.3 (40.1-51.0) % MCV 96.3 H (79.0-92.2) fl MCH 33.8 H (25.7-32.2) pg MCHC 35.1 (32.2-35.5) g/dl RDW Std Deviation 43.1 (35.1-43.9) fL Plt Count 241 D (163-337) K/mm3 MPV 8.6 L (9.4-12.3) fl Neut % (Auto) 50.9 (34.0-67.9) % Lymph % (Auto) 38.1 (21.8-53.1) % [place] % (Auto) 10.5 (5.3-12.2) % Eos % (Auto) 0.1 L (0.8-7.0) Baso % (Auto) 0.4 (0.1-1.2) % Neut # (Auto) 3.57 (1.78-5.38) K/mm3 Lymph # (Auto) 2.68 (1.32-3.57) K/mm3 [place] # (Auto) 0.74 (0.30-0.82) K/mm3 Eos # (Auto) 0.01 L (0.04-0.54) K/mm3 Baso # (Auto) 0.03 (0.01-0.08) K/mm3 Sodium 138 (136-145) mEq/L Potassium 3.8 (3.5-5.1) mEq/L Chloride 102 (98-107) mEq/L Carbon Dioxide 23 (21-32) mEq/L Anion Gap 16.8 H (5-15) BUN 3 L (7-18) mg/dL Creatinine 0.6 L (0.7-1.3) mg/dL Est Cr Clr Drug Dosing 130.93 mL/min Estimated GFR (MDRD) > 60 (>60) mL/min BUN/Creatinine Ratio 5.0 L (14-18) Glucose 93 (74-106) mg/dL Calcium 8.4 L (8.5-10.1) mg/dL Magnesium 2.1 (1.8-2.4) mg/dl Total Bilirubin 0.3 (0.2-1.0) mg/dL AST 90 H (15-37) U/L ALT 67 H (16-63) U/L Alkaline Phosphatase 116 (46-116) U/L Total Protein 8.0 (6.4-8.2) g/dl Albumin 3.9 (3.4-5.0) g/dl Globulin 4.1 gm/dL Albumin/Globulin Ratio 1.0 (1-2) Ethyl Alcohol 0.37 (0.00) gm% Medications Generic Name Dose Route Start Last Admin Trade Name Freq PRN Reason Stop Dose Admin Sodium Chloride 1,000 mls @ 1,000 mls/hr 04/16/19 16:15 04/16/19 16:27 Normal Saline IV 1,000 mls/hr .BOLUS MICHAEL Administration Sodium Chloride 10 ml 04/16/19 16:09 04/16/19 16:29 Saline Flush FLUSH 10 ml ASDIRECTED PRN Administration Keep Vein Open Discontinued Medications Generic Name Dose Route Start Last Admin Trade Name Freq PRN Reason Stop Dose Admin Thiamine HCl 100 mg 04/16/19 16:10 04/16/19 16:28 Vitamin B-1 IVPUSH 04/16/19 16:11 100 mg ONETIME ONE Administration Re-Assessment/Re-Exam: I have ordered an IV NS 1L bolus, thiamine 100mg IV, and labs. His CBC looks good. His anion gap was elevated at 16.8. His creatinine is low at 0.5. His AST is elevated at 90. His ALT was elevated at 67. His blood alcohol is 0.37. I feel he needs some help. I called Dr Zaman and he agreed to the admission. Departure - Departure Time of Disposition: 17:45 Disposition: Admitted As Inpatient 64 Condition: Fair Clinical Impression: Chronic alcoholism, Alcohol abuse Alcohol intoxication Qualifiers: Complication of substance-induced condition: uncomplicated Qualified Code(s): F10.920 - Alcohol use, unspecified with intoxication, uncomplicated - Discharge Information Referrals: Anthony Santamaria MD [Primary Care Provider] - - My Orders Last 24 Hours: My Active Orders 04/16/19 16:09 Cardiac Monitoring [RC] . DIRECTED Peripheral IV Care [RC] . DIRECTED DRUG SCREEN, URINE [URCHEM] Stat Sodium Chloride 0.9% [Saline Flush] 10 ml FLUSH ASDIRECTED PRN Peripheral IV Insertion Adult [OM.PC] Stat 04/16/19 16:15 Sodium Chloride 0.9% [Normal Saline] 1,000 ml IV .BOLUS - Assessment/Plan Last 24 Hours: My Active Orders 04/16/19 16:09 Cardiac Monitoring [RC] . DIRECTED Peripheral IV Care [RC] . DIRECTED DRUG SCREEN, URINE [URCHEM] Stat Sodium Chloride 0.9% [Saline Flush] 10 ml FLUSH ASDIRECTED PRN Peripheral IV Insertion Adult [OM.PC] Stat 04/16/19 16:15 Sodium Chloride 0.9% [Normal Saline] 1,000 ml IV .BOLUS
[2019-04-16] MEDS ORDERED: QUEtiapine 25 MG Tab PO ONE (18:31)
[2019-04-16] MEDS ORDERED: diphenhydrAMINE 50 MG/ML SDV IVPUSH ONE ×2 (18:31→19:29)
[2019-04-16] MEDS ORDERED: Docusate Sodium 100 MG Cap PO PRN (18:32)
[2019-04-16] MEDS ORDERED: Albuterol/Ipratropium 3.0-0.5 MG/3 ML Neb Soln NEB PRN (18:32)
[2019-04-16] MEDS ORDERED: Promethazine 6.25 MG in Sodium Chloride 0.9% 50 ML IV PRN (18:32)
[2019-04-16] MEDS ORDERED: Bisacodyl 5 MG Tab PO PRN (18:32)
[2019-04-16] MEDS ORDERED: Ibuprofen 400 MG Tab PO PRN (18:32)
[2019-04-16] MEDS ORDERED: Ondansetron 4 MG/2 ML SDV IV PRN (18:32)
[2019-04-16] MEDS ORDERED: Polyethylene Glycol 3350 Powder 17 GM Packet PO PRN (18:32)
[2019-04-16] MEDS ORDERED: Ketorolac 30 MG/ML SDV IV PRN (18:32)
[2019-04-16] MEDS ORDERED: Haloperidol Lactate 5 MG/ML SDV IM PRN (18:36)
[2019-04-16] MEDS ORDERED: Metoprolol Tartrate 5 MG/5 ML SDV IVPUSH PRN (18:38)
[2019-04-16] MEDS ORDERED: hydrALAZINE 20 MG/ML SDV IVPUSH PRN (18:38)
[2019-04-16] MEDS ORDERED: LORazepam 2 MG/ML SDV IVPUSH PRN (18:38)
--- NOTE | 2019-04-16 18:39 | PCM.HP.2 ---
H&P History of Present Illness - General Date of Service: 04/16/19 Admit Problem/Dx: Admission Diagnosis/Problem Admission Diagnosis/Problem Alcohol dependence with withdrawal Source of Information: Patient, Old Records, Provider, RN Notes Reviewed History Limitations: Reports: Intoxication, Physical Impairment - History of Present Illness Initial Comments - Free Text/Narative: This is a 58 yo white male with past medical hx/o PAFIB, HLD, Fatty Liver, PUD, Headaches, ETOH Abuse, Hx/o Substance Abuse, Anxiety and Depression who was brought in by his due to alcohol withdrawals. He was caught drinking alcohol at [facility] and he was escorted by local police to our local ED. Unfortunately he left before he was seen. He states he drinks about 10-15 bud light a day. His last drink was about 1230 today. His initial work up shows a fairly unremarkable CBC and Chemistry. Patient was significantly tremulous during my examination. He was also tachycardic with heart rate as high as 120s. He is primarily here for alcohol detoxification. Right Arm Pain Score (Numeric/FACES): 1 - Related Data Allergies/Adverse Reactions: Allergies Allergy/AdvReac Type Severity Reaction Status Date / Time cefaclor [From Ceclor] Allergy Swelling Verified 04/16/19 20:25 Home Medications: Home Meds Metoprolol Tartrate 25 mg PO BID #60 tablet 03/03/19 [Rx] Topiramate [Topamax] 25 mg PO BID tablet 03/26/19 [Rx] traZODone HCl [Trazodone HCl] 50 mg PO BEDTIME 04/05/19 [History] Past Medical History HEENT History: Reports: Sinusitis Cardiovascular History: Reports: Afib, High Cholesterol Other Cardiovascular History: atrial fibrillation Respiratory History: Reports: None Gastrointestinal History: Reports: PUD Other Gastrointestinal History: Duodenal ulcers Genitourinary History: Reports: None Musculoskeletal History: Reports: Fracture, Osteoarthritis Other Musculoskeletal History: R) shoulder fx. Neurological History: Reports: Headaches, Chronic Psychiatric History: Reports: Addiction, Anxiety, Depression Endocrine/Metabolic History: Reports: None Hematologic History: Reports: None Immunologic History: Reports: None Oncologic (Cancer) History: Reports: None Dermatologic History: Reports: None - Infectious Disease History Infectious Disease History: Reports: Influenza - Past Surgical History Head Surgeries/Procedures: Reports: None HEENT Surgical History: Reports: None Cardiovascular Surgical History: Reports: None Neurological Surgical History: Reports: Lumbar Spine Musculoskeletal Surgical History: Reports: ORIF, Shoulder Surgery Social & Family History - Family History Family Medical History: Noncontributory - Tobacco Use Smoking Status *Q: Never Smoker - Caffeine Use Caffeine Use: Reports: None Other Caffeine Use: rarely - Recreational Drug Use Recreational Drug Use: No - Living Situation & Occupation Living situation: Reports: , with Spouse Occupation: Unemployed H&P Review of Systems - Review of Systems: Review Of Systems: See Below General: Denies: Fever, Fatigue HEENT: Reports: No Symptoms Pulmonary: Denies: Shortness of Breath Cardiovascular: Denies: Chest Pain, Dyspnea on Exertion, Lightheadedness, Syncope, Blood Pressure Problem Gastrointestinal: Denies: Abdominal Pain, Nausea, Vomiting Genitourinary: Reports: No Symptoms Musculoskeletal: Reports: No Symptoms Skin: Denies: Cyanosis, Mottled, Diaphoresis, Bruising, Pruritis Psychiatric: Reports: Cravings. Denies: Depression, Mood Lability, Anxiety, Agitation, Hallucinations, Suicidal Ideation, Hallucinations (Auditory), Hallucinations (Visual) Neurological: Reports: Tremors. Denies: Confusion, Dizziness, Headache, Numbness, Paresthesia, Pre-Existing Deficit, Seizure, Tingling, Difficulty Walking, Weakness, Change in Speech, Gait Disturbance Hematologic/Lymphatic: Reports: No Symptoms Immunologic: Reports: No Symptoms Exam - Exam Exam: See Below - Vital Signs Vital Signs: Last Vital Signs Temp 36.1 C 04/16/19 15:50 Pulse 98 04/16/19 15:50 Resp 16 04/16/19 15:50 BP 157/81 H 04/16/19 15:50 Pulse Ox 95 04/16/19 15:50 Weight: 81.647 kg - Exam General: Alert, Oriented, Cooperative HEENT: Conjunctiva Clear, EACs Clear, Hearing Intact, Mucosa Moist & [place]mber[place], Nares Patent, Normal Nasal Septum, Posterior Pharynx Clear, Pupils Equal, Pupils Reactive Neck: Supple, Trachea Midline, Full Range of Motion Lungs: Normal Respiratory Effort, Decreased Breath Sounds Cardiovascular: Regular Rhythm, Tachycardia GI/Abdominal Exam: Normal Bowel Sounds, Soft, Non-Tender, No Organomegaly, No Distention, No Abnormal Bruit, No Mass (Male) Exam: Deferred Rectal (Males) Exam: Deferred Back Exam: Normal Inspection, Decreased Range of Motion Extremities: Normal Inspection, Normal Range of Motion, Non-Tender, No Pedal Edema, Normal Capillary Refill Peripheral Pulses: 2+: Posterior Tibial (L), Posterior Tibial (R), Dorsalis Pedis (L), Dorsalis Pedis (R) Skin: Warm, Dry, Intact Neuro Extensive - Mental Status: Oriented x3, Normal Cognition, Memory Intact Neuro Extensive - Motor, Sensory, Reflexes: CN II-XII Intact (limited due to significant tremors but grossly intact), Abnormal Gait Psychiatric: Alert, Normal Affect, Normal Mood, Anxious, Withdrawal Symptoms. No: Depressed, Agitated, Suicidal Ideation, Homicidal Ideation, Hallucinations - Patient Data Lab Results Last 24 hrs: Laboratory Results - last 24 hr 04/16/19 04/16/19 Range/Units 16:25 16:25 WBC 7.03 (4.23-9.07) K/mm3 RBC 4.29 L (4.63-6.08) M/mm3 Hgb 14.5 (13.7-17.5) gm/L Hct 41.3 (40.1-51.0) % MCV 96.3 H (79.0-92.2) fl MCH 33.8 H (25.7-32.2) pg MCHC 35.1 (32.2-35.5) g/dl RDW Std Deviation 43.1 (35.1-43.9) fL Plt Count 241 D (163-337) K/mm3 MPV 8.6 L (9.4-12.3) fl Neut % (Auto) 50.9 (34.0-67.9) % Lymph % (Auto) 38.1 (21.8-53.1) % [place] % (Auto) 10.5 (5.3-12.2) % Eos % (Auto) 0.1 L (0.8-7.0) Baso % (Auto) 0.4 (0.1-1.2) % Neut # (Auto) 3.57 (1.78-5.38) K/mm3 Lymph # (Auto) 2.68 (1.32-3.57) K/mm3 [place] # (Auto) 0.74 (0.30-0.82) K/mm3 Eos # (Auto) 0.01 L (0.04-0.54) K/mm3 Baso # (Auto) 0.03 (0.01-0.08) K/mm3 Sodium 138 (136-145) mEq/L Potassium 3.8 (3.5-5.1) mEq/L Chloride 102 (98-107) mEq/L Carbon Dioxide 23 (21-32) mEq/L Anion Gap 16.8 H (5-15) BUN 3 L (7-18) mg/dL Creatinine 0.6 L (0.7-1.3) mg/dL Est Cr Clr Drug Dosing 130.93 mL/min Estimated GFR (MDRD) > 60 (>60) mL/min BUN/Creatinine Ratio 5.0 L (14-18) Glucose 93 (74-106) mg/dL Calcium 8.4 L (8.5-10.1) mg/dL Magnesium 2.1 (1.8-2.4) mg/dl Total Bilirubin 0.3 (0.2-1.0) mg/dL AST 90 H (15-37) U/L ALT 67 H (16-63) U/L Alkaline Phosphatase 116 (46-116) U/L Total Protein 8.0 (6.4-8.2) g/dl Albumin 3.9 (3.4-5.0) g/dl Globulin 4.1 gm/dL Albumin/Globulin Ratio 1.0 (1-2) Ethyl Alcohol 0.37 (0.00) gm% Result Diagrams: 04/17/19 04:42 04/17/19 04:42 Problem List Initiated/Reviewed/Updated: Yes Orders Last 24hrs: Active Orders 24 hr Category Date Time Status Admission Status [Patient Status] [ADT] Routine ADT 04/16/19 18:02 Active Antiembolic Devices [RC] PER UNIT ROUTINE Care 04/16/19 18:34 Ordered CIWAA Assessment [RC] Q15M Care 04/16/19 18:36 Ordered CIWAA Assessment [RC] Q1H Care 04/16/19 18:36 Ordered CIWAA Assessment [RC] Q30M Care 04/16/19 18:36 Ordered CIWAA Assessment [RC] Q4H Care 04/16/19 18:36 Ordered Cardiac Monitoring [RC] . DIRECTED Care 04/16/19 16:09 Active Height and Weight [RC] DAILY Care 04/16/19 18:32 Ordered Intake and Output [RC] QSHIFT Care 04/16/19 18:32 Ordered Notify Provider Consults [RC] ASDIRECTED Care 04/16/19 18:34 Ordered Notify Provider [RC] PRN Care 04/16/19 18:36 Ordered Oxygen Therapy [RC] PRN Care 04/16/19 18:32 Ordered Peripheral IV Care [RC] . DIRECTED Care 04/16/19 16:09 Active RT Aerosol Therapy [RC] ASDIRECTED Care 04/16/19 18:34 Ordered Up With Assistance [RC] ASDIRECTED Care 04/16/19 18:32 Ordered VTE/DVT Education [RC] PER UNIT ROUTINE Care 04/16/19 18:32 Ordered Vital Signs [RC] Q4H Care 04/16/19 18:32 Ordered Consult to Case Management/Machine Tailer [CONS] Cons 04/16/19 18:32 Ordered Routine Consult to Physician [CONS] Routine Cons 04/16/19 18:32 Ordered Consult to Spiritual Care [CONS] Routine Cons 04/16/19 18:32 Ordered OT Evaluation and Treatment [CONS] Routine Cons 04/16/19 18:32 Ordered PT Evaluation and Treatment [CONS] Routine Cons 04/16/19 18:32 Ordered Regular Diet [DIET] Diet 04/16/19 Dinner Ordered CBC WITH AUTO DIFF [HEME] AM Lab 04/17/19 05:11 Ordered CBC WITH AUTO DIFF [HEME] AM Lab 04/18/19 05:11 Ordered CBC WITH AUTO DIFF [HEME] AM Lab 04/19/19 05:11 Ordered CBC WITH AUTO DIFF [HEME] AM Lab 04/20/19 05:11 Ordered CBC WITH AUTO DIFF [HEME] AM Lab 04/21/19 05:11 Ordered COMPREHENSIVE METABOLIC PN,CMP [CHEM] AM Lab 04/17/19 05:11 Ordered COMPREHENSIVE METABOLIC PN,CMP [CHEM] AM Lab 04/18/19 05:11 Ordered COMPREHENSIVE METABOLIC PN,CMP [CHEM] AM Lab 04/19/19 05:11 Ordered COMPREHENSIVE METABOLIC PN,CMP [CHEM] AM Lab 04/20/19 05:11 Ordered DRUG SCREEN, URINE [URCHEM] Stat Lab 04/16/19 16:09 Ordered MAGNESIUM [CHEM] AM Lab 04/17/19 05:11 Ordered MAGNESIUM [CHEM] AM Lab 04/18/19 05:11 Ordered MAGNESIUM [CHEM] AM Lab 04/19/19 05:11 Ordered MAGNESIUM [CHEM] AM Lab 04/20/19 05:11 Ordered Albuterol/Ipratropium [DuoNeb 3.0-0.5 MG/3 ML] Med 04/16/19 18:32 Ordered 3 ml NEB Q4H PRN Bisacodyl [Dulcolax] Med 04/16/19 18:32 Ordered 5 mg PO DAILY PRN Docusate Sodium [Colace] Med 04/16/19 18:32 Ordered 100 mg PO BID PRN Docusate Sodium/Sennosides [Senna Plus] Med 04/16/19 18:32 Ordered 1 tab PO BID PRN Folic Acid Med 04/17/19 09:00 Ordered 1 mg PO DAILY Haloperidol Lactate [Haldol] Med 04/16/19 18:36 Ordered 2 mg IM Q4H PRN Ibuprofen [Motrin] Med 04/16/19 18:32 Ordered 400 mg PO Q6H PRN Ketorolac [Toradol] Med 04/16/19 18:32 Ordered 30 mg IV Q6H PRN LORazepam [Ativan] Med 04/16/19 18:38 Ordered 2 mg IVPUSH Q4H PRN LORazepam [Ativan] Med 04/16/19 18:45 Ordered See Protocol IV ASDIRECTED LORazepam [Ativan] Med 04/16/19 18:38 Ordered See Protocol IVPUSH Q4H PRN LORazepam [Ativan] Med 04/16/19 18:45 Ordered See Protocol PO ASDIRECTED Lactated Ringers @ 125 MLS/HR(1000ml) Med 04/16/19 18:45 Ordered Lactated Ringers [Ringers, Lactated] 1,000 ml IV ASDIRECTED Metoprolol Tartrate [Lopressor] Med 04/16/19 21:00 Ordered 25 mg PO BID Metoprolol Tartrate [Lopressor] Med 04/16/19 18:38 Ordered 5 mg IVPUSH Q4H PRN Multivitamins,Therapeutic [Thera] Med 04/17/19 09:00 Ordered 1 each PO DAILY Nicotine [Habitrol] Med 04/16/19 18:45 Ordered 21 mg TRDERM DAILY Ondansetron [Zofran] Med 04/16/19 18:32 Ordered 4 mg IV Q6H PRN Pantoprazole [ProTONIX IV] Med 04/16/19 21:00 Ordered 40 mg IV Q12HR Polyethylene Glycol 3350 [MiraLAX] Med 04/16/19 18:32 Ordered 17 gm PO DAILY PRN Promethazine [Phenergan] 6.25 mg Med 04/16/19 18:32 Ordered Sodium Chloride 0.9% [Normal Saline] 50 ml IV Q6H QUEtiapine [SEROquel] Med 04/17/19 21:00 Ordered 50 mg PO BEDTIME QUEtiapine [SEROquel] Med 04/16/19 18:31 Once 50 mg PO ONETIME ONE Sodium Chloride 0.9% [Normal Saline] 1,000 ml Med 04/16/19 16:15 Active IV .BOLUS Sodium Chloride 0.9% [Saline Flush] Med 04/16/19 16:09 Active 10 ml FLUSH ASDIRECTED PRN Thiamine [Vitamin B-1] Med 04/17/19 09:00 Ordered 100 mg PO DAILY Topiramate [Topamax] Med 04/16/19 21:00 Ordered 25 mg PO BID cloNIDine [Catapres] Med 04/16/19 18:36 Ordered 0.1 mg PO Q4H PRN diphenhydrAMINE [Benadryl] Med 04/16/19 18:31 Once 50 mg IVPUSH ONETIME ONE hydrALAZINE [Apresoline] Med 04/16/19 18:38 Ordered 20 mg IVPUSH Q4H PRN Peripheral IV Insertion Adult [OM.PC] Stat Oth 04/16/19 16:09 Ordered Seizure Precautions [OM.PC] Routine Oth 04/16/19 18:36 Ordered Sequential Compression Device [OM.PC] Per Unit Routine Oth 04/16/19 18:32 Ordered Resuscitation Status Routine Resus Stat 04/16/19 18:32 Ordered Medication Orders Albuterol/Ipratropium (Duoneb 3.0-0.5 Mg/3 Ml) 3 ml NEB Q4H PRN PRN Reason: Shortness Of Breath/wheezing Bisacodyl (Dulcolax) 5 mg PO DAILY PRN PRN Reason: Constipation Diphenhydramine HCl (Benadryl) 50 mg IVPUSH ONETIME ONE Stop: 04/16/19 18:32 Docusate Sodium (Colace) 100 mg PO BID PRN PRN Reason: Constipation Sodium Chloride (Normal Saline) 1,000 mls @ 1,000 mls/hr IV .BOLUS [facility] Last Admin: 04/16/19 16:27 Dose: 1,000 mls/hr Lactated Ringer's (Ringers, Lactated) 1,000 mls @ 125 mls/hr IV ASDIRECTED [facility] Promethazine HCl 6.25 mg/ (Sodium Chloride) 50.25 mls @ 100 mls/hr IV Q6H PRN PRN Reason: Nausea/Vomiting Ibuprofen (Motrin) 400 mg PO Q6H PRN PRN Reason: Pain (mild 1-3) Ketorolac Tromethamine (Toradol) 30 mg IV Q6H PRN PRN Reason: Pain (moderate 4-6) Metoprolol Tartrate (Lopressor) 25 mg PO BID [facility] Nicotine (Habitrol) 21 mg TRDERM DAILY [facility] Ondansetron HCl (Zofran) 4 mg IV Q6H PRN PRN Reason: Nausea/Vomiting Pantoprazole Sodium (Protonix Iv) 40 mg IV Q12HR [facility] Polyethylene Glycol (Miralax) 17 gm PO DAILY PRN PRN Reason: Constipation Quetiapine Fumarate (Seroquel) 50 mg PO BEDTIME [facility] Quetiapine Fumarate (Seroquel) 50 mg PO ONETIME ONE Stop: 04/16/19 18:32 Senna/Docusate Sodium (Senna Plus) 1 tab PO BID PRN PRN Reason: Constipation Sodium Chloride (Saline Flush) 10 ml FLUSH ASDIRECTED PRN PRN Reason: Keep Vein Open Last Admin: 04/16/19 16:29 Dose: 10 ml Topiramate (Topamax) 25 mg PO BID [facility] Assessment/Plan Comment:: Assessment/Plan: Acute: ETOH Withdrawal Symptoms - Caught drinking ETOH in his care; he was brought over to ED by local police but left before he was seen by ED provider - Drinks 10-15 bottles of bud light every day: no hard liquor, or illicit drug use - Risk factors: Anxiety, Depression, and Hx/o Substance Abuse - Had significant tremors and shakes; also tachycardic - CIWAA Protocol for Ativan regimen - CIWAA score is moderate-high - MVI/Folic Acid and Thiamine - IV fluids for hydration - Seroquel/Topamax/Librium Benadryl for adjunct treatment ETOH Dependence - Carries a hx/o alcohol dependence/abuse - Last drink was 1230 today - Was seen in [facility] about 1-1.5 month(s) ago; had 3 sessions of treatment but he states it did not help - He wants to get better - He agrees to inpatient chemical treatment Right Forearm Fracture - 2/2 Alcohol Intoxication - X-ray report read as nondisplaced distal ulnar fracture and triquetral fracture - Current dressed and wrapped - Conservative management - Follow up with ortho after discharge Chronic: PAFIB, HLD, Fatty Liver, PUD, Headaches, ETOH Abuse, Hx/o Substance Abuse, Anxiety and Depression Plan: Admit to ICU Alcohol Detox per my own regimen CIWAA Protocol with Ativan Seizure/Fall Precautions UDS ordered DVT/GI Prophylaxis SAC/Tele-psych consult SW/CM for d/c planning Recommend inpatient chemical rehab Additional orders as above Critical care time spent: 45 mins - Mortality Measure Prognosis:: Good
[2019-04-16] MEDS ORDERED: LORazepam 1 MG Tab PO SCH (18:45)
[2019-04-16] MEDS ORDERED: LORazepam 2 MG/ML SDV ONE (18:53)
[2019-04-16] MEDS: Lactated Ringers 1,000 ML IV SCH (18:56)
[2019-04-16] MEDS: LORazepam 2 MG/ML SDV IVPUSH PRN (18:57)
[2019-04-16] MEDS ORDERED: Topiramate 25 MG Tab PO STA (19:27)
[2019-04-16] MEDS ORDERED: chlordiazePOXIDE 25 MG Cap PO ONE (19:28)
[2019-04-16] MEDS: Metoprolol Tartrate 25 MG Tab PO SCH (20:27)
[2019-04-16] MEDS: Pantoprazole 40 MG Vial IV SCH (20:27)
[2019-04-16] MEDS: Nicotine 21 MG/24 Hr Patch TRDERM SCH (20:28)
[2019-04-16] MEDS: cloNIDine 0.1 MG Tab PO PRN (20:36)
[2019-04-16] MEDS ORDERED: Topiramate 25 MG Tab PO SCH (21:00)
[2019-04-17] MEDS: LORazepam 2 MG/ML SDV IV SCH ×2 (01:26→04:48)
[2019-04-17] MEDS: Lactated Ringers 1,000 ML IV SCH ×2 (01:28→11:33)
[2019-04-17] MEDS: Pantoprazole 40 MG Vial IV SCH (08:10)
[2019-04-17] MEDS: Folic Acid 1 MG Tab PO SCH (08:10)
[2019-04-17] MEDS: Metoprolol Tartrate 25 MG Tab PO SCH ×2 (08:10→21:12)
[2019-04-17] MEDS: Multivitamins,Therapeutic Tab PO SCH (08:10)
[2019-04-17] MEDS: Nicotine 21 MG/24 Hr Patch TRDERM SCH (08:11)
[2019-04-17] MEDS: Thiamine 100 MG Tab PO SCH (08:11)
[2019-04-17] MEDS: LORazepam 2 MG/ML SDV IVPUSH PRN ×2 (08:12→11:12)
[2019-04-17] MEDS: cloNIDine 0.1 MG Tab PO PRN (08:37)
[2019-04-17] MEDS ORDERED: Topiramate 25 MG Tab PO SCH (09:00)
[2019-04-17] MEDS: Acetaminophen/HYDROcodone 325-5 MG Tab PO PRN ×3 (11:12→21:13)
[2019-04-17] MEDS ORDERED: LORazepam 2 MG/ML SDV IVPUSH PRN (11:25)
[2019-04-17] MEDS: chlordiazePOXIDE 25 MG Cap PO SCH ×3 (11:33→21:12)
--- NOTE | 2019-04-17 12:19 | PCM.PN ---
- General Info Date of Service: 04/17/19 Admission Dx/Problem (Free Text): Admission Diagnosis/Problem Admission Diagnosis/Problem Alcohol dependence with withdrawal Subjective Update: Follow Up Functional Status: Reports: Pain Controlled, Tolerating Diet, Ambulating, Urinating, New Symptoms (tired) - Review of Systems General: Reports: Other (tired). Denies: Fever, Weakness, Fatigue, Malaise, Chills HEENT: Reports: No Symptoms Pulmonary: Denies: Shortness of Breath Cardiovascular: Denies: Chest Pain, Dyspnea on Exertion, Lightheadedness Gastrointestinal: Denies: Abdominal Pain, Nausea, Vomiting Genitourinary: Reports: No Symptoms Musculoskeletal: Reports: Arm Pain (right arm) Skin: Denies: Bruising Neurological: Reports: Tremors, Difficulty Walking, Gait Disturbance. Denies: Confusion Psychiatric: Reports: Cravings. Denies: Depression, Anxiety, Agitation, Hallucinations, Suicidal Ideation, Homicidal Ideation Systems Review Comment:: He had a good rest overnight but feels tired this morning. His CIWAA score is 9. He is still wobbly and unsteady with ambulation. He has no acute issues this morning. - Patient Data Vitals - Most Recent: Last Vital Signs Temp 36.8 C 04/17/19 12:00 Pulse 96 04/17/19 08:10 Resp 19 04/17/19 12:00 BP 130/86 04/17/19 12:00 Pulse Ox 93 L 04/17/19 12:00 Weight - Most Recent: 83.053 kg I&O - Last 24 Hours: Intake & Output 04/16/19 04/17/19 04/17/19 22:59 06:59 14:59 Intake Total 1514 120 Output Total 1750 950 Balance -1750 564 120 Lab Results Last 24 Hours: Laboratory Results - last 24 hr 04/16/19 04/16/19 04/16/19 Range/Units 16:25 16:25 18:13 WBC 7.03 (4.23-9.07) K/mm3 RBC 4.29 L (4.63-6.08) M/mm3 Hgb 14.5 (13.7-17.5) gm/L Hct 41.3 (40.1-51.0) % MCV 96.3 H (79.0-92.2) fl MCH 33.8 H (25.7-32.2) pg MCHC 35.1 (32.2-35.5) g/dl RDW Std Deviation 43.1 (35.1-43.9) fL Plt Count 241 D (163-337) K/mm3 MPV 8.6 L (9.4-12.3) fl Neut % (Auto) 50.9 (34.0-67.9) % Lymph % (Auto) 38.1 (21.8-53.1) % [place] % (Auto) 10.5 (5.3-12.2) % Eos % (Auto) 0.1 L (0.8-7.0) Baso % (Auto) 0.4 (0.1-1.2) % Neut # (Auto) 3.57 (1.78-5.38) K/mm3 Lymph # (Auto) 2.68 (1.32-3.57) K/mm3 [place] # (Auto) 0.74 (0.30-0.82) K/mm3 Eos # (Auto) 0.01 L (0.04-0.54) K/mm3 Baso # (Auto) 0.03 (0.01-0.08) K/mm3 Sodium 138 (136-145) mEq/L Potassium 3.8 (3.5-5.1) mEq/L Chloride 102 (98-107) mEq/L Carbon Dioxide 23 (21-32) mEq/L Anion Gap 16.8 H (5-15) BUN 3 L (7-18) mg/dL Creatinine 0.6 L (0.7-1.3) mg/dL Est Cr Clr Drug Dosing 130.93 mL/min Estimated GFR (MDRD) > 60 (>60) mL/min BUN/Creatinine Ratio 5.0 L (14-18) Glucose 93 (74-106) mg/dL Calcium 8.4 L (8.5-10.1) mg/dL Magnesium 2.1 (1.8-2.4) mg/dl Total Bilirubin 0.3 (0.2-1.0) mg/dL AST 90 H (15-37) U/L ALT 67 H (16-63) U/L Alkaline Phosphatase 116 (46-116) U/L Total Protein 8.0 (6.4-8.2) g/dl Albumin 3.9 (3.4-5.0) g/dl Globulin 4.1 gm/dL Albumin/Globulin Ratio 1.0 (1-2) Urine Opiates Screen Negative (GXKWEO=111) Ur Buprenorphine Scrn Negative (CUTOFF=10) Ur Oxycodone Screen Negative (ZHH7EH=549) Urine Methadone Screen Negative (PNX3CR=982) Ur Propoxyphene Screen Negative (LZTBVH=554) Ur Barbiturates Screen Negative (QRATNI=202) Ur Tricyclics Screen Negative (SKNHRG=133) Ur Phencyclidine Scrn Negative (CUTOFF=25) Ur Amphetamine Screen Negative (DHOZAV=792) U Methamphetamines Scrn Negative (KSJZHB=903) U Benzodiazepines Scrn Negative (GWYCMQ=128) U Cocaine Metab Screen Negative (EDQPWP=166) U Marijuana (THC) Screen Negative (CUTOFF=50) Ethyl Alcohol 0.37 (0.00) gm% 04/17/19 04/17/19 Range/Units 04:42 04:42 WBC 5.98 (4.23-9.07) K/mm3 RBC 3.99 L (4.63-6.08) M/mm3 Hgb 13.7 (13.7-17.5) gm/L Hct 39.6 L (40.1-51.0) % MCV 99.2 H (79.0-92.2) fl MCH 34.3 H (25.7-32.2) pg MCHC 34.6 (32.2-35.5) g/dl RDW Std Deviation 45.5 H (35.1-43.9) fL Plt Count 177 (163-337) K/mm3 MPV 9.0 L (9.4-12.3) fl Neut % (Auto) 54.5 (34.0-67.9) % Lymph % (Auto) 30.3 (21.8-53.1) % [place] % (Auto) 14.2 H (5.3-12.2) % Eos % (Auto) 0.5 L (0.8-7.0) Baso % (Auto) 0.3 (0.1-1.2) % Neut # (Auto) 3.26 (1.78-5.38) K/mm3 Lymph # (Auto) 1.81 (1.32-3.57) K/mm3 [place] # (Auto) 0.85 H (0.30-0.82) K/mm3 Eos # (Auto) 0.03 L (0.04-0.54) K/mm3 Baso # (Auto) 0.02 (0.01-0.08) K/mm3 Sodium 144 (136-145) mEq/L Potassium 3.6 (3.5-5.1) mEq/L Chloride 108 H (98-107) mEq/L Carbon Dioxide 26 (21-32) mEq/L Anion Gap 13.6 (5-15) BUN 6 L (7-18) mg/dL Creatinine 0.7 (0.7-1.3) mg/dL Est Cr Clr Drug Dosing 112.22 mL/min Estimated GFR (MDRD) > 60 (>60) mL/min BUN/Creatinine Ratio 8.6 L (14-18) Glucose 81 (74-106) mg/dL Calcium 8.4 L (8.5-10.1) mg/dL Magnesium 1.9 (1.8-2.4) mg/dl Total Bilirubin 0.6 (0.2-1.0) mg/dL AST 74 H (15-37) U/L ALT 53 (16-63) U/L Alkaline Phosphatase 100 (46-116) U/L Total Protein 6.7 (6.4-8.2) g/dl Albumin 3.0 L (3.4-5.0) g/dl Globulin 3.7 gm/dL Albumin/Globulin Ratio 0.8 L (1-2) Urine Opiates Screen (WHVWQU=984) Ur Buprenorphine Scrn (CUTOFF=10) Ur Oxycodone Screen (EPK1LR=012) Urine Methadone Screen (ZZO1IF=767) Ur Propoxyphene Screen (QCMQEU=765) Ur Barbiturates Screen (WYEKZG=029) Ur Tricyclics Screen (LRJIVT=597) Ur Phencyclidine Scrn (CUTOFF=25) Ur Amphetamine Screen (QWFHSO=180) U Methamphetamines Scrn (VRDDYX=321) U Benzodiazepines Scrn (BTCKMO=751) U Cocaine Metab Screen (FHIEHV=977) U Marijuana (THC) Screen (CUTOFF=50) Ethyl Alcohol (0.00) gm% Med Orders - Current: Current Medications Hydrocodone Bitart/Acetaminophen ([place] 325-5 Mg) 1 tab PO Q4H PRN PRN Reason: Pain Last Admin: 04/17/19 11:12 Dose: 1 tab Albuterol/Ipratropium (Duoneb 3.0-0.5 Mg/3 Ml) 3 ml NEB Q4H PRN PRN Reason: Shortness Of Breath/wheezing Bisacodyl (Dulcolax) 5 mg PO DAILY PRN PRN Reason: Constipation Chlordiazepoxide HCl (Librium) 25 mg PO TID MICHAEL Last Admin: 04/17/19 11:33 Dose: 25 mg Clonidine HCl (Catapres) 0.1 mg PO Q4H PRN PRN Reason: Agitation Last Admin: 04/17/19 08:37 Dose: 0.1 mg Docusate Sodium (Colace) 100 mg PO BID PRN PRN Reason: Constipation Folic Acid (Folic Acid) 1 mg PO DAILY [facility] Stop: 04/19/19 09:01 Last Admin: 04/17/19 08:10 Dose: 1 mg Haloperidol Lactate (Haldol) 2 mg IM Q4H PRN PRN Reason: Agitation Hydralazine HCl (Apresoline) 20 mg IVPUSH Q4H PRN PRN Reason: Hypertension Sodium Chloride (Normal Saline) 1,000 mls @ 1,000 mls/hr IV .BOLUS [facility] Last Admin: 04/16/19 16:27 Dose: 1,000 mls/hr Lactated Ringer's (Ringers, Lactated) 1,000 mls @ 125 mls/hr IV ASDIRECTED [facility] Last Admin: 04/17/19 11:33 Dose: 125 mls/hr Promethazine HCl 6.25 mg/ (Sodium Chloride) 50.25 mls @ 100 mls/hr IV Q6H PRN PRN Reason: Nausea/Vomiting Ibuprofen (Motrin) 400 mg PO Q6H PRN PRN Reason: Pain (mild 1-3) Ketorolac Tromethamine (Toradol) 30 mg IV Q6H PRN PRN Reason: Pain (moderate 4-6) Last Admin: 04/17/19 06:25 Dose: 30 mg Lorazepam (Ativan) 0 mg IV ASDIRECTED MICHAEL; Protocol Last Admin: 04/17/19 04:48 Dose: 1 mg Lorazepam (Ativan) 0 mg PO ASDIRECTED MICHAEL; Protocol Lorazepam (Ativan) 2 mg IVPUSH Q4H PRN PRN Reason: Seizures Lorazepam (Ativan) 1 - 3 mg IVPUSH Q1H PRN; Protocol PRN Reason: Withdrawal Symptoms Metoprolol Tartrate (Lopressor) 25 mg PO BID [facility] Last Admin: 04/17/19 08:10 Dose: 25 mg Metoprolol Tartrate (Lopressor) 5 mg IVPUSH Q4H PRN PRN Reason: Tachycardia Last Admin: 04/17/19 05:42 Dose: 5 mg Multivitamins (Thera) 1 each PO DAILY [facility] Last Admin: 04/17/19 08:10 Dose: 1 each Nicotine (Habitrol) 21 mg TRDERM DAILY [facility] Last Admin: 04/17/19 08:11 Dose: Not Given Ondansetron HCl (Zofran) 4 mg IV Q6H PRN PRN Reason: Nausea/Vomiting Pantoprazole Sodium (Protonix) 40 mg PO Q12H [facility] Polyethylene Glycol (Miralax) 17 gm PO DAILY PRN PRN Reason: Constipation Quetiapine Fumarate (Seroquel) 50 mg PO BEDTIME [facility] Senna/Docusate Sodium (Senna Plus) 1 tab PO BID PRN PRN Reason: Constipation Sodium Chloride (Saline Flush) 10 ml FLUSH ASDIRECTED PRN PRN Reason: Keep Vein Open Last Admin: 04/16/19 16:29 Dose: 10 ml Thiamine HCl (Vitamin B-1) 100 mg PO DAILY [facility] Last Admin: 04/17/19 08:11 Dose: 100 mg Topiramate (Topamax) 25 mg PO BID [facility] Last Admin: 04/17/19 08:11 Dose: 25 mg Discontinued Medications Chlordiazepoxide HCl (Librium) 50 mg PO ONETIME ONE Stop: 04/16/19 19:29 Last Admin: 04/16/19 20:27 Dose: 50 mg Diphenhydramine HCl (Benadryl) 50 mg IVPUSH ONETIME ONE Stop: 04/16/19 18:32 Last Admin: 04/16/19 18:56 Dose: 50 mg Diphenhydramine HCl (Benadryl) 50 mg IVPUSH ONETIME ONE Stop: 04/16/19 19:30 Last Admin: 04/16/19 20:27 Dose: 50 mg Lorazepam (Ativan) 0 mg IVPUSH Q4H PRN; Protocol PRN Reason: Withdrawal Symptoms Last Admin: 04/17/19 11:12 Dose: 1 mg Lorazepam (Ativan) Confirm Administered Dose 2 mg .ROUTE .STK-MED ONE Stop: 04/16/19 18:54 Last Admin: 04/16/19 18:56 Dose: Not Given Pantoprazole Sodium (Protonix Iv) 40 mg IV Q12HR MICHAEL Last Admin: 04/17/19 08:10 Dose: 40 mg Quetiapine Fumarate (Seroquel) 50 mg PO ONETIME ONE Stop: 04/16/19 18:32 Last Admin: 04/16/19 20:26 Dose: 50 mg Thiamine HCl (Vitamin B-1) 100 mg IVPUSH ONETIME ONE Stop: 04/16/19 16:11 Last Admin: 04/16/19 16:28 Dose: 100 mg Topiramate (Topamax) 25 mg PO BID MICHAEL Topiramate (Topamax) 50 mg PO NOW STA Stop: 04/16/19 19:28 Last Admin: 04/16/19 20:27 Dose: 50 mg - Exam General: Alert, Oriented, Cooperative, No Acute Distress HEENT: Pupils Equal, Pupils Reactive, EOMI, Mucous Membr. Moist/[place] Neck: Supple Lungs: Clear to Auscultation, Normal Respiratory Effort Cardiovascular: Regular Rate, Regular Rhythm GI/Abdominal Exam: Normal Bowel Sounds, Soft, Non-Tender, No Organomegaly, No Distention, No Abnormal Bruit (Male) Exam: Deferred Back Exam: Normal Inspection, Decreased Range of Motion Extremities: Normal Inspection, Normal Range of Motion, Non-Tender, No Pedal Edema, Normal Capillary Refill Peripheral Pulses: 2+: Posterior Tibial (L), Posterior Tibial (R), Dorsalis Pedis (L), Dorsalis Pedis (R) Skin: Warm, Dry, Intact Neurological: No New Focal Deficit (limited due to unsteadiness ). No: Normal Gait Psy/Mental Status: Alert, Normal Affect, Normal Mood, Withdrawal Symptoms. No: Labile Mood, Anxious, Agitated, Suicidal Ideation, Homicidal Ideation, Hallucinations - Problem List Review Problem List Initiated/Reviewed/Updated: Yes - My Orders Last 24 Hours: My Active Orders 04/16/19 18:32 Height and Weight [RC] 04 Intake and Output [RC] 04,16 Oxygen Therapy [RC] PRN Up With Assistance [RC] ASDIRECTED VTE/DVT Education [RC] BID Vital Signs [RC] Q4HR Consult to Case Management/Door Captain [CONS] Routine Consult to Physician [CONS] Routine Consult to Spiritual Care [CONS] Routine OT Evaluation and Treatment [CONS] Routine PT Evaluation and Treatment [CONS] Routine Albuterol/Ipratropium [DuoNeb 3.0-0.5 MG/3 ML] 3 ml NEB Q4H PRN Bisacodyl [Dulcolax] 5 mg PO DAILY PRN Docusate Sodium [Colace] 100 mg PO BID PRN Docusate Sodium/Sennosides [Senna Plus] 1 tab PO BID PRN Ibuprofen [Motrin] 400 mg PO Q6H PRN Ketorolac [Toradol] 30 mg IV Q6H PRN Ondansetron [Zofran] 4 mg IV Q6H PRN Polyethylene Glycol 3350 [MiraLAX] 17 gm PO DAILY PRN Promethazine [Phenergan] 6.25 mg Sodium Chloride 0.9% [Normal Saline] 50 ml IV Q6H Sequential Compression Device [OM.PC] Per Unit Routine Resuscitation Status Routine 04/16/19 18:34 Antiembolic Devices [RC] BID Notify Provider Consults [RC] ASDIRECTED RT Aerosol Therapy [RC] ASDIRECTED 04/16/19 18:36 CIWAA Assessment [RC] Q1HR Notify Provider [RC] PRN Haloperidol Lactate [Haldol] 2 mg IM Q4H PRN cloNIDine [Catapres] 0.1 mg PO Q4H PRN Seizure Precautions [OM.PC] Routine 04/16/19 18:38 LORazepam [Ativan] 2 mg IVPUSH Q4H PRN Metoprolol Tartrate [Lopressor] 5 mg IVPUSH Q4H PRN hydrALAZINE [Apresoline] 20 mg IVPUSH Q4H PRN 04/16/19 18:45 LORazepam [Ativan] See Protocol IV ASDIRECTED LORazepam [Ativan] See Protocol PO ASDIRECTED Lactated Ringers [Ringers, Lactated] 1,000 ml IV ASDIRECTED Nicotine [Habitrol] 21 mg TRDERM DAILY 04/16/19 21:00 Metoprolol Tartrate [Lopressor] 25 mg PO BID 04/16/19 Dinner Regular Diet [DIET] 04/17/19 09:00 Folic Acid 1 mg PO DAILY Multivitamins,Therapeutic [Thera] 1 each PO DAILY Thiamine [Vitamin B-1] 100 mg PO DAILY Topiramate [Topamax] 25 mg PO BID 04/17/19 10:33 Acetaminophen/HYDROcodone [[place] 325-5 MG] 1 tab PO Q4H PRN 04/17/19 11:25 LORazepam [Ativan] 1 - 3 mg IVPUSH Q1H PRN 04/17/19 11:30 chlordiazePOXIDE [Librium] 25 mg PO TID 04/17/19 12:17 Consult to Physician [CONS] Routine 04/17/19 12:18 Notify Provider Consults [RC] ASDIRECTED 04/17/19 21:00 Pantoprazole [ProTONIX] 40 mg PO Q12H QUEtiapine [SEROquel] 50 mg PO BEDTIME 04/18/19 05:11 CBC WITH AUTO DIFF [HEME] AM COMPREHENSIVE METABOLIC PN,CMP [CHEM] AM MAGNESIUM [CHEM] AM 04/19/19 05:11 CBC WITH AUTO DIFF [HEME] AM COMPREHENSIVE METABOLIC PN,CMP [CHEM] AM MAGNESIUM [CHEM] AM 04/20/19 05:11 CBC WITH AUTO DIFF [HEME] AM COMPREHENSIVE METABOLIC PN,CMP [CHEM] AM MAGNESIUM [CHEM] AM 04/21/19 05:11 CBC WITH AUTO DIFF [HEME] AM - Plan Plan:: Assessment/Plan: Acute: ETOH Withdrawal Symptoms - Caught drinking ETOH in his care; he was brought over to ED by local police but left before he was seen by ED provider - Drinks 10-15 bottles of bud light every day: no hard liquor, or illicit drug use - Risk factors: Anxiety, Depression, and Hx/o Substance Abuse - Had significant tremors and shakes; also tachycardic - CIWAA Protocol for Ativan regimen - CIWAA score is Moderate - MVI/Folic Acid and Thiamine - IV fluids for hydration - Seroquel/Topamax/Librium Benadryl for adjunct treatment ETOH Dependence - Carries a hx/o alcohol dependence/abuse - Last drink was 1230 today - Was seen in [facility] about 1-1.5 months ago; had 3 sessions of treatment but he states it did not help - He wants to get better - He agrees to inpatient chemical treatment Right Forearm Fracture - 2/2 Alcohol Intoxication - X-ray report read as nondisplaced distal ulnar fracture and triquetral fracture - Current dressed and wrapped - Conservative management plus pain medications - He complaints of pain even after his right arm was re-wrapped - Consult ortho: spoke to Dr. Crouch and he will come and see him Chronic: PAFIB, HLD, Fatty Liver, PUD, Headaches, ETOH Abuse, Hx/o Substance Abuse, Anxiety and Depression Plan: He is clinically improved but still symptomatic Continue CIWAA Protocol with Ativan Seizure/Fall Precautions UDS: negative with SIMRAN of 0.37 DVT/GI Prophylaxis SAC/Tele-psych consult: not appropriate at this time SW/CM for d/c planning Recommend inpatient chemical rehab Additional orders as above Critical care time spent: 15 mins
--- NOTE | 2019-04-17 18:20 | CR ---
Right elbow: 4 views of the right elbow were obtained. Comparison: No prior elbow exam is available. Chondrocalcinosis seen within the elbow joint. Slight deformity is noted of the radial neck. I believe that this is most likely old. Osteopenia is seen. Noted acute fracture is appreciated. Impression: 1. Osteopenia and degenerative change as noted above. 2. Probable old healed radial neck fracture. 3. Nothing acute is definitely appreciated. Diagnostic code #2
[2019-04-17] MEDS: Topiramate 25 MG Tab PO SCH (21:12)
[2019-04-17] MEDS: Pantoprazole 40 MG Tab.CR PO SCH (21:12)
[2019-04-17] MEDS: QUEtiapine 25 MG Tab PO SCH (21:12)
[2019-04-18] MEDS: Lactated Ringers 1,000 ML IV SCH (01:52)
[2019-04-18] MEDS ORDERED: Potassium Chloride 10 MEQ in Premix Bag 1 BAG IV STA (07:49)
[2019-04-18] MEDS ORDERED: Potassium Chloride 20 MEQ Tab.ER PO STA (07:49)
--- NOTE | 2019-04-18 07:50 | PCM.PN ---
- General Info Date of Service: 04/18/19 Admission Dx/Problem (Free Text): Admission Diagnosis/Problem Admission Diagnosis/Problem Alcohol dependence with withdrawal Subjective Update: Follow Up Functional Status: Reports: Pain Controlled, Tolerating Diet, Ambulating, Urinating. Denies: New Symptoms - Review of Systems General: Denies: Fever, Weakness, Fatigue, Malaise, Chills HEENT: Reports: No Symptoms Pulmonary: Denies: Shortness of Breath, Pleuritic Chest Pain, Cough, Wheezing Cardiovascular: Denies: Chest Pain, Dyspnea on Exertion, Edema, Lightheadedness Gastrointestinal: Denies: Abdominal Pain, Decreased Appetite, Nausea, Vomiting Genitourinary: Reports: No Symptoms Musculoskeletal: Reports: No Symptoms Skin: Denies: Cyanosis, Diaphoresis, Other Neurological: Reports: Tremors, Gait Disturbance. Denies: Confusion, Dizziness , Headache, Numbness, Seizure, Tingling, Difficulty Walking, Weakness Psychiatric: Denies: Depression, Mood Lability, Anxiety, Agitation, Cravings, Hallucinations, Suicidal Ideation, Homicidal Ideation - Patient Data Vitals - Most Recent: Last Vital Signs Temp 36.6 C 04/18/19 00:00 Pulse 80 04/17/19 21:12 Resp 16 04/18/19 04:00 BP 145/80 H 04/18/19 04:00 Pulse Ox 100 04/18/19 04:00 Weight - Most Recent: 82.69 kg I&O - Last 24 Hours: Intake & Output 04/17/19 04/18/19 04/18/19 22:59 06:59 14:59 Intake Total 1755 1683 Output Total 975 1200 Balance 780 483 Lab Results Last 24 Hours: Laboratory Results - last 24 hr 04/18/19 04/18/19 Range/Units 04:15 04:15 WBC 5.96 (4.23-9.07) K/mm3 RBC 3.82 L (4.63-6.08) M/mm3 Hgb 12.8 L (13.7-17.5) gm/L Hct 38.3 L (40.1-51.0) % MCV 100.3 H (79.0-92.2) fl MCH 33.5 H (25.7-32.2) pg MCHC 33.4 (32.2-35.5) g/dl RDW Std Deviation 45.0 H (35.1-43.9) fL Plt Count 151 L (163-337) K/mm3 MPV 9.7 (9.4-12.3) fl Neut % (Auto) 55.0 (34.0-67.9) % Lymph % (Auto) 29.2 (21.8-53.1) % Adams % (Auto) 14.4 H (5.3-12.2) % Eos % (Auto) 1.2 (0.8-7.0) Baso % (Auto) 0.2 (0.1-1.2) % Neut # (Auto) 3.28 (1.78-5.38) K/mm3 Lymph # (Auto) 1.74 (1.32-3.57) K/mm3 Adams # (Auto) 0.86 H (0.30-0.82) K/mm3 Eos # (Auto) 0.07 (0.04-0.54) K/mm3 Baso # (Auto) 0.01 (0.01-0.08) K/mm3 Sodium 140 (136-145) mEq/L Potassium 2.9 L (3.5-5.1) mEq/L Chloride 104 (98-107) mEq/L Carbon Dioxide 25 (21-32) mEq/L Anion Gap 13.9 (5-15) BUN 8 (7-18) mg/dL Creatinine 0.7 (0.7-1.3) mg/dL Est Cr Clr Drug Dosing 112.22 mL/min Estimated GFR (MDRD) > 60 (>60) mL/min BUN/Creatinine Ratio 11.4 L (14-18) Glucose 94 (74-106) mg/dL Calcium 9.1 (8.5-10.1) mg/dL Magnesium 1.9 (1.8-2.4) mg/dl Total Bilirubin 0.7 (0.2-1.0) mg/dL AST 47 H (15-37) U/L ALT 42 (16-63) U/L Alkaline Phosphatase 97 (46-116) U/L Total Protein 6.7 (6.4-8.2) g/dl Albumin 2.9 L (3.4-5.0) g/dl Globulin 3.8 gm/dL Albumin/Globulin Ratio 0.8 L (1-2) Med Orders - Current: Current Medications Hydrocodone Bitart/Acetaminophen ([place] 325-5 Mg) 1 tab PO Q4H PRN PRN Reason: Pain Last Admin: 04/17/19 21:13 Dose: 1 tab Albuterol/Ipratropium (Duoneb 3.0-0.5 Mg/3 Ml) 3 ml NEB Q4H PRN PRN Reason: Shortness Of Breath/wheezing Bisacodyl (Dulcolax) 5 mg PO DAILY PRN PRN Reason: Constipation Chlordiazepoxide HCl (Librium) 25 mg PO TID [facility] Last Admin: 04/17/19 21:12 Dose: 25 mg Clonidine HCl (Catapres) 0.1 mg PO Q4H PRN PRN Reason: Agitation Last Admin: 04/17/19 08:37 Dose: 0.1 mg Docusate Sodium (Colace) 100 mg PO BID PRN PRN Reason: Constipation Folic Acid (Folic Acid) 1 mg PO DAILY [facility] Stop: 04/19/19 09:01 Last Admin: 04/17/19 08:10 Dose: 1 mg Haloperidol Lactate (Haldol) 2 mg IM Q4H PRN PRN Reason: Agitation Hydralazine HCl (Apresoline) 20 mg IVPUSH Q4H PRN PRN Reason: Hypertension Lactated Ringer's (Ringers, Lactated) 1,000 mls @ 125 mls/hr IV ASDIRECTED [facility] Last Admin: 04/18/19 01:52 Dose: 125 mls/hr Promethazine HCl 6.25 mg/ (Sodium Chloride) 50.25 mls @ 100 mls/hr IV Q6H PRN PRN Reason: Nausea/Vomiting Ibuprofen (Motrin) 400 mg PO Q6H PRN PRN Reason: Pain (mild 1-3) Ketorolac Tromethamine (Toradol) 30 mg IV Q6H PRN PRN Reason: Pain (moderate 4-6) Last Admin: 04/17/19 06:25 Dose: 30 mg Lorazepam (Ativan) 0 mg IV ASDIRECTED [facility]; Protocol Last Admin: 04/17/19 04:48 Dose: 1 mg Lorazepam (Ativan) 0 mg PO ASDIRECTED [facility]; Protocol Lorazepam (Ativan) 2 mg IVPUSH Q4H PRN PRN Reason: Seizures Lorazepam (Ativan) 1 - 3 mg IVPUSH Q1H PRN; Protocol PRN Reason: Withdrawal Symptoms Last Admin: 04/17/19 15:06 Dose: 1 mg Metoprolol Tartrate (Lopressor) 25 mg PO BID [facility] Last Admin: 04/17/19 21:12 Dose: 25 mg Metoprolol Tartrate (Lopressor) 5 mg IVPUSH Q4H PRN PRN Reason: Tachycardia Last Admin: 04/17/19 05:42 Dose: 5 mg Multivitamins (Thera) 1 each PO DAILY [facility] Last Admin: 04/17/19 08:10 Dose: 1 each Nicotine (Habitrol) 21 mg TRDERM DAILY [facility] Last Admin: 04/17/19 08:11 Dose: Not Given Ondansetron HCl (Zofran) 4 mg IV Q6H PRN PRN Reason: Nausea/Vomiting Pantoprazole Sodium (Protonix) 40 mg PO Q12H [facility] Last Admin: 04/17/19 21:12 Dose: 40 mg Polyethylene Glycol (Miralax) 17 gm PO DAILY PRN PRN Reason: Constipation Quetiapine Fumarate (Seroquel) 50 mg PO BEDTIME [facility] Last Admin: 04/17/19 21:12 Dose: 50 mg Senna/Docusate Sodium (Senna Plus) 1 tab PO BID PRN PRN Reason: Constipation Sodium Chloride (Saline Flush) 10 ml FLUSH ASDIRECTED PRN PRN Reason: Keep Vein Open Last Admin: 04/16/19 16:29 Dose: 10 ml Thiamine HCl (Vitamin B-1) 100 mg PO DAILY [facility] Last Admin: 04/17/19 08:11 Dose: 100 mg Topiramate (Topamax) 50 mg PO BID [facility] Last Admin: 04/17/19 21:12 Dose: 50 mg Discontinued Medications Chlordiazepoxide HCl (Librium) 50 mg PO ONETIME ONE Stop: 04/16/19 19:29 Last Admin: 04/16/19 20:27 Dose: 50 mg Diphenhydramine HCl (Benadryl) 50 mg IVPUSH ONETIME ONE Stop: 04/16/19 18:32 Last Admin: 04/16/19 18:56 Dose: 50 mg Diphenhydramine HCl (Benadryl) 50 mg IVPUSH ONETIME ONE Stop: 04/16/19 19:30 Last Admin: 04/16/19 20:27 Dose: 50 mg Sodium Chloride (Normal Saline) 1,000 mls @ 1,000 mls/hr IV .BOLUS MICHAEL Last Admin: 04/16/19 16:27 Dose: 1,000 mls/hr Lorazepam (Ativan) 0 mg IVPUSH Q4H PRN; Protocol PRN Reason: Withdrawal Symptoms Last Admin: 04/17/19 11:12 Dose: 1 mg Lorazepam (Ativan) Confirm Administered Dose 2 mg .ROUTE .STK-MED ONE Stop: 04/16/19 18:54 Last Admin: 04/16/19 18:56 Dose: Not Given Pantoprazole Sodium (Protonix Iv) 40 mg IV Q12HR [facility] Last Admin: 04/17/19 08:10 Dose: 40 mg Quetiapine Fumarate (Seroquel) 50 mg PO ONETIME ONE Stop: 04/16/19 18:32 Last Admin: 04/16/19 20:26 Dose: 50 mg Thiamine HCl (Vitamin B-1) 100 mg IVPUSH ONETIME ONE Stop: 04/16/19 16:11 Last Admin: 04/16/19 16:28 Dose: 100 mg Topiramate (Topamax) 25 mg PO BID [facility] Topiramate (Topamax) 50 mg PO NOW STA Stop: 04/16/19 19:28 Last Admin: 04/16/19 20:27 Dose: 50 mg Topiramate (Topamax) 25 mg PO BID MICHAEL Last Admin: 04/17/19 08:11 Dose: 25 mg - Exam General: Alert, Oriented, Cooperative, No Acute Distress HEENT: Pupils Equal, Pupils Reactive, EOMI, Mucous Membr. Moist/[place] Neck: Supple Lungs: Clear to Auscultation, Normal Respiratory Effort Cardiovascular: Regular Rate, Regular Rhythm GI/Abdominal Exam: Normal Bowel Sounds, Soft, Non-Tender, No Organomegaly, No Distention, No Abnormal Bruit (Male) Exam: Deferred Back Exam: Normal Inspection, Decreased Range of Motion Extremities: Normal Inspection, Normal Range of Motion, Non-Tender, No Pedal Edema, Normal Capillary Refill Peripheral Pulses: 2+: Posterior Tibial (L), Posterior Tibial (R), Dorsalis Pedis (L), Dorsalis Pedis (R) Skin: Warm, Dry, Intact Neurological: No New Focal Deficit Psy/Mental Status: Alert, Normal Affect, Normal Mood, Withdrawal Symptoms. No: Labile Mood, Anxious, Depressed, Agitated, Suicidal Ideation, Homicidal Ideation , Hallucinations - Problem List Review Problem List Initiated/Reviewed/Updated: Yes - My Orders Last 24 Hours: My Active Orders 04/17/19 09:00 Folic Acid 1 mg PO DAILY Multivitamins,Therapeutic [Thera] 1 each PO DAILY Thiamine [Vitamin B-1] 100 mg PO DAILY 04/17/19 10:33 Acetaminophen/HYDROcodone [[place] 325-5 MG] 1 tab PO Q4H PRN 04/17/19 11:25 LORazepam [Ativan] 1 - 3 mg IVPUSH Q1H PRN 04/17/19 11:30 chlordiazePOXIDE [Librium] 25 mg PO TID 04/17/19 12:17 Consult to Physician [CONS] Routine 04/17/19 12:18 Notify Provider Consults [RC] ASDIRECTED 04/17/19 21:00 Pantoprazole [ProTONIX] 40 mg PO Q12H QUEtiapine [SEROquel] 50 mg PO BEDTIME Topiramate [Topamax] 50 mg PO BID 04/18/19 07:49 Potassium Chloride [KCl 10 MEQ in Water 100 ML] 10 meq Premix Bag 1 bag IV NOW Potassium Chloride [Klor-Con M20] 60 meq PO NOW STA 04/19/19 05:11 CBC WITH AUTO DIFF [HEME] AM COMPREHENSIVE METABOLIC PN,CMP [CHEM] AM MAGNESIUM [CHEM] AM 04/20/19 05:11 CBC WITH AUTO DIFF [HEME] AM COMPREHENSIVE METABOLIC PN,CMP [CHEM] AM MAGNESIUM [CHEM] AM 04/21/19 05:11 CBC WITH AUTO DIFF [HEME] AM - Plan Plan:: Assessment/Plan: Acute: ETOH Withdrawal Symptoms, Continue to Improve - Caught drinking ETOH in his care; he was brought over to ED by local police but left before he was seen by ED provider - Drinks 10-15 bottles of bud light every day: no hard liquor, or illicit drug use - Risk factors: Anxiety, Depression, and Hx/o Substance Abuse - Had significant tremors and shakes; also tachycardic - CIWAA Protocol for Ativan regimen - CIWAA score is Mild-Moderate - MVI/Folic Acid and Thiamine - Discontinue IV fluids for hydration - Seroquel/Topamax/Librium Benadryl for adjunct treatment ETOH Dependence - Carries a hx/o alcohol dependence/abuse - Last drink was 1230 today - Was seen in [facility] about 1-1.5 months ago; had 3 sessions of treatment but he states it did not help - He is still in agreement for inpatient chemical treatment Right Forearm Fracture, Stable - 2/2 Alcohol Intoxication - X-ray report read as nondisplaced distal ulnar fracture and triquetral fracture - Current dressed and wrapped - Conservative management plus pain medications - His pain is much more controlled today - Consult ortho: spoke to Dr. Crouch: recommends conservative management Chronic: PAFIB, HLD, Fatty Liver, PUD, Headaches, ETOH Abuse, Hx/o Substance Abuse, Anxiety and Depression Plan: He continues to improve clinically Transfer to [facility] with Tele in AM Continue CIWAA Protocol with Ativan Fall Precautions DVT/GI Prophylaxis SAC/Tele-psych consult today; he is more appropriate SW/CM for d/c planning Recommend inpatient chemical rehab Additional orders as above
[2019-04-18] MEDS: Thiamine 100 MG Tab PO SCH (08:14)
[2019-04-18] MEDS: Topiramate 25 MG Tab PO SCH ×2 (08:14→20:54)
[2019-04-18] MEDS: Pantoprazole 40 MG Tab.CR PO SCH ×2 (08:14→20:54)
[2019-04-18] MEDS: Metoprolol Tartrate 25 MG Tab PO SCH ×2 (08:14→20:53)
[2019-04-18] MEDS: Multivitamins,Therapeutic Tab PO SCH (08:15)
[2019-04-18] MEDS: chlordiazePOXIDE 25 MG Cap PO SCH ×3 (08:15→20:55)
[2019-04-18] MEDS: Folic Acid 1 MG Tab PO SCH (08:15)
[2019-04-18] MEDS: Nicotine 21 MG/24 Hr Patch TRDERM SCH (08:15)
--- NOTE | 2019-04-18 18:00 | CONS ---
CONSULTING PHYSICIAN: Berlin Muñoz MD DATE OF CONSULTATION: 04/18/2019 Site where the services are provided is [facility] in [place], [place]. Site where the services are provided from our office is in [facility]. Length of service for this 60-minute Telemedicine event is 60 minutes. IDENTIFICATION: The patient is a 58-year-old male who is admitted to the inpatient MICU at [facility]. He is seen for psychiatric consultation per the request of staff attending, Dr. Zaman, and his treatment team. CHIEF COMPLAINT: "I got a lot a dizziness and my heart starts beating really fast." HISTORY OF PRESENT ILLNESS: The patient is a 58-year-old male who reports that he had been admitted to the MICU "about 4 days ago," secondary to problems with dizziness, palpitations, and tachycardia. Staff is reporting, however, that the patient was not admitted just for these medical issues, but rather for complications of severe alcohol intoxication with admission BAL of 0.37 after being pulled over for a DWI. The patient is stating "I drink a lot" and states he has most recently had been drinking about 10 to 15 beers a day. But he is stating that he does not feel he has a problem with his drinking habit at this point in time. He does acknowledge that his " and my [id number]-ibs are concerned. They want me to cut back or quit drinking. They want me to go to AA or some type of inpatient treatment where I can get to a point where I can drink a little bit, but not as much as I have been drinking." The patient is denying that he is depressed at this point in time. He is denying any illicit substance use or excessive alcohol use complicating his clinical picture. He denies being suicidal or homicidal. He denies any psychotic, delusional, or paranoid symptoms. He states that he is open to having resources put in place to help him with his alcohol addiction, although again he is not feeling that he has a drinking problem at this point in time. He does state he has gone to AA in the past and "that has helped somewhat" when he has had exposure to AA. MEDICATIONS AT THE TIME OF PRESENTATION: None. ALLERGIES: The patient is allergic to Ceclor, which causes throat and gland swelling. PAST MEDICAL HISTORY: The patient reports that he has had shoulder surgery in the past, bad knees, back problems, and he states he may have been diagnosed with MS last summer, but he is not sure. REVIEW OF SYSTEMS: Aside from musculoskeletal and neuro, all other major organ systems are negative at this point in time for acute difficulties or complications. FAMILY PSYCHIATRIC AND CD HISTORY: The patient denies. PAST PSYCHIATRIC AND CD HISTORY: The patient denies any previous psychiatric hospitalizations or chemical dependency treatments, although staff is reporting that he has had multiple chemical dependency treatments in the past. He states he has been drinking about 10 to 15 beers a day lately. He states his longest sobriety since drinking has become such a big issue for him is about 3 days. He states he has been to AA in the past that has helped. He denies any legal issues from his drinking, but again collateral information received from staff is reporting that he has DWIs in the past, not only the one that is most recent. The patient is denying any previous suicide attempts, self-injurious behaviors, eating disorder, or history of abuse issues while being raised. He denies any past psychiatric medication history. He states his outpatient doctor is Dr. Santamaria under [facility]. SOCIAL HISTORY: The patient was born and raised in [place], [place]. He is the second of 5 siblings and 3 brothers and 1 sister. The patient's parents were throughout childhood and adolescence. Father is a chief mechanical engineer. Mother is a homemaker. The patient's highest level of education is high school diploma. 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 He has been x1 for 32 years. He has 2 children from the marriage. His is a flight kitchen manager over the [employer]. The patient lives in [place], [place], with his . He states his 1 son lives in [place] and his daughter lives over at [place], [place]. He denies any prior service or current legal difficulties. He is Restorationist in terms of his theron formation. He enjoys hunting, fishing, and motorcycling in his spare time. MENTAL STATUS EXAMINATION: The patient is a 58-year-old white male in no apparent distress. Speech is of regular rate and rhythm. The patient is cognitively oriented x2 to person and place, but not to date. Psychomotor activity is within normal limits. There are no abnormal motor movements or tics observed. Gait and station are not observed. This patient is in bed for the length of the Telemedicine consult. Mood was somewhat depressed and frustrated at his current situation. Affect is cooperative overall for the purposes of the inpatient consult in minimizing of his drinking issues. There is no behavioral or stated evidence of acute suicidal or homicidal ideation or acute psychotic, delusional, or paranoid symptoms. Thought processes are significant for some memory deficits that are manifesting when asked about the day of the week. There are no acute manic symptoms or loose associations evident. Judgment and insight do appear impaired into the severity of his alcohol addiction as well as also are likely impaired secondary to the effects of his alcohol drinking. Motivation for help is poor. VITALS: 148/88, 94, 18, 36.2 degrees centigrade. IMPRESSION: [place] I: 1. Alcohol dependence, F10.20. 2. Depression, not otherwise specified, F32.9. 3. Rule out major depressive disorder. [place] II: None. [place] III: 1. History of shoulder surgery in the past. 2. History of bad knee. 3. History of back problems. 4. Possible diagnosis of multiple sclerosis per patient report of being diagnosed last summer. [place] IV: Severe. [place] V: 50 to 55. PLAN: 1. Sobriety. 2. AA rep to visit the patient on the unit. 3. Pastoral guidance. 4. Ativan per [facility] protocol. 5. Folic acid supplementation. 6. Thiamine supplementation. 7. Other medications as dosed and prescribed by the patient's inpatient primary medical treatment team. 8. We will hold off on psych medications for the moment as the patient is not desiring of any psychiatric medication treatment, denying any symptoms of excessive depression or anxiety. 9. Would recommend that the patient be transferred to inpatient chemical dependency treatment when he is medically stabilized and would give strong consideration to possible commitment proceedings if needed to help the patient get into treatment, and this is for his safety and other patients safety as he is very minimizing on his problems, he is not honest on the interview in terms of being in treatment before, as well as having legal ramifications from his drinking, and this is in addition to the fact that his family wants him to seek help. 10.We will continue to follow up with the patient on an as-needed basis while he remains on the inpatient MICU at [facility] in [place], [place]. 11.We will follow up with the patient sooner if any complications in the interim. 12.Crisis plan is in place. ANNA /[id number]
[2019-04-18] MEDS: QUEtiapine 25 MG Tab PO SCH (20:54)
[2019-04-18] MEDS: Acetaminophen/HYDROcodone 325-5 MG Tab PO PRN (22:47)
[2019-04-19] MEDS: Pantoprazole 40 MG Tab.CR PO SCH (08:20)
[2019-04-19] MEDS: Thiamine 100 MG Tab PO SCH (08:20)
[2019-04-19] MEDS: chlordiazePOXIDE 25 MG Cap PO SCH ×3 (08:20→15:33)
[2019-04-19] MEDS: Multivitamins,Therapeutic Tab PO SCH (08:20)
[2019-04-19] MEDS: Topiramate 25 MG Tab PO SCH (08:21)
[2019-04-19] MEDS: Metoprolol Tartrate 25 MG Tab PO SCH (08:21)
[2019-04-19] MEDS: Nicotine 21 MG/24 Hr Patch TRDERM SCH (08:21)
[2019-04-19] MEDS: Folic Acid 1 MG Tab PO SCH (08:21)
[2019-04-19] MEDS: Acetaminophen/HYDROcodone 325-5 MG Tab PO PRN (08:21)
--- NOTE | 2019-04-19 15:47 | PCM.DCSUM1 ---
Discharge Summary - Hospital Course Brief History: This is a 58 yo white male with past medical hx/o PAFIB, HLD, Fatty Liver, PUD, Headaches, ETOH Abuse, Hx/o Substance Abuse, Anxiety and Depression who was brought in by his due to alcohol withdrawals. He was caught drinking alcohol at [facility] and he was escorted by local police to our local ED. Unfortunately he left before he was seen. He states he drinks about 10 -15 bud light a day. His last drink was about 1230 today. His initial work up shows a fairly unremarkable CBC and Chemistry. Patient was significantly tremulous during my examination. He was also tachycardic with heart rate as high as 120s. He is primarily here for alcohol detoxification. Diagnosis: Stroke: No Modified Tara Scale: No Symptoms at All Modified Galata Scale Score: 0 - Discharge Data Discharge Date: 04/19/19 Discharge Disposition: DC/Tfer to Inpt Rehab Fac 62 Condition: Good - Patient Summary/Data Operative Procedure(s) Performed: None Complications: None Consults: Consultations 04/16/19 18:32 Consult to Case Management/Agency Operator [CONS] Routine Consult to Physician [CONS] Routine Consult to Spiritual Care [CONS] Routine OT Evaluation and Treatment [CONS] Routine PT Evaluation and Treatment [CONS] Routine 04/17/19 12:17 Consult to Physician [CONS] Routine 04/17/19 17:27 OT Evaluation and Treatment [CONS] Routine Labs Pending at D/C: None Recommended Follow-up Testing/Procedures: None Planned Operative Procedure(s) after DC: None Hospital Course: Patient was primarily admitted for alcohol withdrawal without visual or auditory disturbance. He was caught drinking alcohol at [facility] and he was escorted by local police to our local ED for further treatment. Patient was put on CIWAA protocol and Tele-psych was consulted. He received Seroguel, Topamax, Ativan, and Librium as well as intravenous Benadryl and he slowly improved on this regimen. His hospital course was uncomplicated. Once medically cleared, he was then released to [facility] for further treatment. He was advised to avoid if not cut down his alcohol intake. He was warned about not to operate any motor vehicles while under the influence of alcohol. And most importantly, he was advised to call his case packer at [facility] or 911 should he experience mental health crisis after discharge. The patient expressed understanding and in agreement with the plans as discussed above. All questions and concerns answered. - Patient Instructions Diet: Usual Diet as Tolerated Activity: As Tolerated Driving: Do Not Drive Showering/Bathing: May Shower Notify Provider of: Fever, Increased Pain, Swelling and Redness, Drainage, Nausea and/or Vomiting Other/Special Instructions: - Please resume routine home medications and activity as tolerated. - Call or follow up with your doctor for any concerns or issues after discharge. - Follow up with your doctor in 1 week. - Make sure take yout home dose Metoprolol as scheduled; hold if BP is at or < 100/60 or if HR is at or < 60. - Recommend follow up eval withortho after discharge. - Come back or seek immediate care should your symptoms persist or get worse - Discharge Plan *PRESCRIPTION DRUG MONITORING PROGRAM REVIEWED*: Not Applicable *COPY OF PRESCRIPTION DRUG MONITORING REPORT IN PATIENT AYDE: Not Applicable Prescriptions/Med Rec: Famotidine 20 mg PO BID #20 tablet Ibuprofen [Motrin] 600 mg PO Q8H PRN #15 tab PRN Reason: Right Arm Pain Home Medications: Home Meds Metoprolol Tartrate 25 mg PO BID #60 tablet 03/03/19 [Rx] Topiramate [Topamax] 25 mg PO BID tablet 03/26/19 [Rx] traZODone HCl [Trazodone HCl] 50 mg PO BEDTIME 04/05/19 [History] Famotidine 20 mg PO BID #20 tablet 04/19/19 [Rx] Ibuprofen [Motrin] 600 mg PO Q8H PRN #15 tab 04/19/19 [Rx] Oxygen Therapy Mode: Room Air Patient Handouts: Alcohol Use Disorder, Alcohol Intoxication, [id number], Steps to Quit Smoking Referrals: Anthony Santamaria MD [Primary Care Provider] - - Discharge Summary/Plan Comment DC Time >30 min.: No Discharge Summary/Plan Comment: Discharge to [facility] for inpatient treatment - General Info Date of Service: 04/19/19 Admission Dx/Problem (Free Text: Admission Diagnosis/Problem Admission Diagnosis/Problem Alcohol dependence with withdrawal Subjective Update: Follow Up Functional Status: Reports: Pain Controlled, Tolerating Diet, Ambulating - Review of Systems General: Denies: Fever, Weakness, Fatigue, Malaise, Chills HEENT: Reports: No Symptoms Pulmonary: Denies: Shortness of Breath Cardiovascular: Denies: Chest Pain, Palpitations, Dyspnea on Exertion, Lightheadedness Gastrointestinal: Denies: Abdominal Pain, Nausea, Vomiting Genitourinary: Reports: Incontinence Musculoskeletal: Reports: No Symptoms Skin: Reports: No Symptoms Neurological: Denies: Confusion, Tremors, Difficulty Walking, Weakness, Gait Disturbance Psychiatric: Denies: Depression, Mood Lability, Anxiety, Agitation, Cravings, Hallucinations, Suicidal Ideation, Homicidal Ideation - Patient Data Vitals - Most Recent: Last Vital Signs Temp 36.6 C 04/19/19 08:30 Pulse 122 H 04/19/19 08:21 Resp 19 04/19/19 08:30 BP 141/92 H 04/19/19 08:30 Pulse Ox 97 04/19/19 08:30 Weight - Most Recent: 80.014 kg I&O - Last 24 hours: Intake & Output 04/19/19 04/19/19 04/19/19 06:59 14:59 22:59 Intake Total 400 120 Balance 400 120 Lab Results - Last 24 hrs: Laboratory Results - last 24 hr 04/19/19 04/19/19 Range/Units 04:30 04:30 WBC 6.82 (4.23-9.07) K/mm3 RBC 4.36 L (4.63-6.08) M/mm3 Hgb 14.6 D (13.7-17.5) gm/L Hct 42.7 (40.1-51.0) % MCV 97.9 H (79.0-92.2) fl MCH 33.5 H (25.7-32.2) pg MCHC 34.2 (32.2-35.5) g/dl RDW Std Deviation 43.6 (35.1-43.9) fL Plt Count 168 (163-337) K/mm3 MPV 9.5 (9.4-12.3) fl Neut % (Auto) 57.5 (34.0-67.9) % Lymph % (Auto) 26.8 (21.8-53.1) % [place] % (Auto) 14.2 H (5.3-12.2) % Eos % (Auto) 1.3 (0.8-7.0) Baso % (Auto) 0.1 (0.1-1.2) % Neut # (Auto) 3.91 (1.78-5.38) K/mm3 Lymph # (Auto) 1.83 (1.32-3.57) K/mm3 [place] # (Auto) 0.97 H (0.30-0.82) K/mm3 Eos # (Auto) 0.09 (0.04-0.54) K/mm3 Baso # (Auto) 0.01 (0.01-0.08) K/mm3 Sodium 139 (136-145) mEq/L Potassium 3.2 L (3.5-5.1) mEq/L Chloride 104 (98-107) mEq/L Carbon Dioxide 20 L (21-32) mEq/L Anion Gap 18.2 H (5-15) BUN 9 (7-18) mg/dL Creatinine 0.6 L (0.7-1.3) mg/dL Est Cr Clr Drug Dosing 130.93 mL/min Estimated GFR (MDRD) > 60 (>60) mL/min BUN/Creatinine Ratio 15.0 (14-18) Glucose 99 (74-106) mg/dL Calcium 9.8 (8.5-10.1) mg/dL Magnesium 2.1 (1.8-2.4) mg/dl Total Bilirubin 0.7 (0.2-1.0) mg/dL AST 46 H (15-37) U/L ALT 44 (16-63) U/L Alkaline Phosphatase 108 (46-116) U/L Total Protein 7.9 (6.4-8.2) g/dl Albumin 3.3 L (3.4-5.0) g/dl Globulin 4.6 gm/dL Albumin/Globulin Ratio 0.7 L (1-2) Med Orders - Current: Current Medications Hydrocodone Bitart/Acetaminophen (Dupont 325-5 Mg) 1 tab PO Q4H PRN PRN Reason: Pain Last Admin: 04/19/19 08:21 Dose: 1 tab Albuterol/Ipratropium (Duoneb 3.0-0.5 Mg/3 Ml) 3 ml NEB Q4H PRN PRN Reason: Shortness Of Breath/wheezing Bisacodyl (Dulcolax) 5 mg PO DAILY PRN PRN Reason: Constipation Chlordiazepoxide HCl (Librium) 25 mg PO TID [facility] Last Admin: 04/19/19 15:33 Dose: 25 mg Clonidine HCl (Catapres) 0.1 mg PO Q4H PRN PRN Reason: Agitation Last Admin: 04/17/19 08:37 Dose: 0.1 mg Docusate Sodium (Colace) 100 mg PO BID PRN PRN Reason: Constipation Haloperidol Lactate (Haldol) 2 mg IM Q4H PRN PRN Reason: Agitation Hydralazine HCl (Apresoline) 20 mg IVPUSH Q4H PRN PRN Reason: Hypertension Promethazine HCl 6.25 mg/ (Sodium Chloride) 50.25 mls @ 100 mls/hr IV Q6H PRN PRN Reason: Nausea/Vomiting Ibuprofen (Motrin) 400 mg PO Q6H PRN PRN Reason: Pain (mild 1-3) Ketorolac Tromethamine (Toradol) 30 mg IV Q6H PRN PRN Reason: Pain (moderate 4-6) Last Admin: 04/17/19 06:25 Dose: 30 mg Lorazepam (Ativan) 0 mg IV ASDIRECTED [facility]; Protocol Last Admin: 04/17/19 04:48 Dose: 1 mg Lorazepam (Ativan) 0 mg PO ASDIRECTED [facility]; Protocol Last Admin: 04/19/19 08:26 Dose: 1 mg Lorazepam (Ativan) 2 mg IVPUSH Q4H PRN PRN Reason: Seizures Lorazepam (Ativan) 1 - 3 mg IVPUSH Q1H PRN; Protocol PRN Reason: Withdrawal Symptoms Last Admin: 04/17/19 15:06 Dose: 1 mg Metoprolol Tartrate (Lopressor) 25 mg PO BID [facility] Last Admin: 04/19/19 08:21 Dose: 25 mg Metoprolol Tartrate (Lopressor) 5 mg IVPUSH Q4H PRN PRN Reason: Tachycardia Last Admin: 04/17/19 05:42 Dose: 5 mg Multivitamins (Thera) 1 each PO DAILY [facility] Last Admin: 04/19/19 08:20 Dose: 1 each Nicotine (Habitrol) 21 mg TRDERM DAILY [facility] Last Admin: 04/19/19 08:21 Dose: Not Given Ondansetron HCl (Zofran) 4 mg IV Q6H PRN PRN Reason: Nausea/Vomiting Pantoprazole Sodium (Protonix) 40 mg PO Q12H [facility] Last Admin: 04/19/19 08:20 Dose: 40 mg Polyethylene Glycol (Miralax) 17 gm PO DAILY PRN PRN Reason: Constipation Quetiapine Fumarate (Seroquel) 50 mg PO BEDTIME [facility] Last Admin: 04/18/19 20:54 Dose: 50 mg Senna/Docusate Sodium (Senna Plus) 1 tab PO BID PRN PRN Reason: Constipation Sodium Chloride (Saline Flush) 10 ml FLUSH ASDIRECTED PRN PRN Reason: Keep Vein Open Last Admin: 04/16/19 16:29 Dose: 10 ml Thiamine HCl (Vitamin B-1) 100 mg PO DAILY [facility] Last Admin: 04/19/19 08:20 Dose: 100 mg Topiramate (Topamax) 50 mg PO BID [facility] Last Admin: 04/19/19 08:21 Dose: 50 mg Discontinued Medications Chlordiazepoxide HCl (Librium) 50 mg PO ONETIME ONE Stop: 04/16/19 19:29 Last Admin: 04/16/19 20:27 Dose: 50 mg Diphenhydramine HCl (Benadryl) 50 mg IVPUSH ONETIME ONE Stop: 04/16/19 18:32 Last Admin: 04/16/19 18:56 Dose: 50 mg Diphenhydramine HCl (Benadryl) 50 mg IVPUSH ONETIME ONE Stop: 04/16/19 19:30 Last Admin: 04/16/19 20:27 Dose: 50 mg Folic Acid (Folic Acid) 1 mg PO DAILY [facility] Stop: 04/19/19 09:01 Last Admin: 04/19/19 08:21 Dose: 1 mg Sodium Chloride (Normal Saline) 1,000 mls @ 1,000 mls/hr IV .BOLUS [facility] Last Admin: 04/16/19 16:27 Dose: 1,000 mls/hr Lactated Ringer's (Ringers, Lactated) 1,000 mls @ 125 mls/hr IV ASDIRECTED [facility] Last Admin: 04/18/19 01:52 Dose: 125 mls/hr Potassium Chloride 10 meq/ (Premix) 100 mls @ 100 mls/hr IV NOW STA Stop: 04/18/19 08:48 Last Admin: 04/18/19 08:12 Dose: 100 mls/hr Lorazepam (Ativan) 0 mg IVPUSH Q4H PRN; Protocol PRN Reason: Withdrawal Symptoms Last Admin: 04/17/19 11:12 Dose: 1 mg Lorazepam (Ativan) Confirm Administered Dose 2 mg .ROUTE .STK-MED ONE Stop: 04/16/19 18:54 Last Admin: 04/16/19 18:56 Dose: Not Given Pantoprazole Sodium (Protonix Iv) 40 mg IV Q12HR [facility] Last Admin: 04/17/19 08:10 Dose: 40 mg Potassium Chloride (Klor-Con M20) 60 meq PO NOW STA Stop: 04/18/19 07:50 Last Admin: 04/18/19 08:14 Dose: 60 meq Quetiapine Fumarate (Seroquel) 50 mg PO ONETIME ONE Stop: 04/16/19 18:32 Last Admin: 04/16/19 20:26 Dose: 50 mg Thiamine HCl (Vitamin B-1) 100 mg IVPUSH ONETIME ONE Stop: 04/16/19 16:11 Last Admin: 04/16/19 16:28 Dose: 100 mg Topiramate (Topamax) 25 mg PO BID [facility] Topiramate (Topamax) 50 mg PO NOW STA Stop: 04/16/19 19:28 Last Admin: 04/16/19 20:27 Dose: 50 mg Topiramate (Topamax) 25 mg PO BID [facility] Last Admin: 04/17/19 08:11 Dose: 25 mg - Exam General: Reports: Alert, Oriented, Cooperative, No Acute Distress HEENT: Reports: Pupils Equal, Pupils Reactive, EOMI, Mucous Membr. Moist/[place] Neck: Reports: Supple Lungs: Reports: Clear to Auscultation, Normal Respiratory Effort Cardiovascular: Reports: Regular Rate, Regular Rhythm GI/Abdominal Exam: Normal Bowel Sounds, Soft, Non-Tender, No Organomegaly, No Distention, No Abnormal Bruit (Male) Exam: Deferred Rectal (Males) Exam: Deferred Back Exam: Reports: Normal Inspection, Full Range of Motion Extremities: Normal Inspection, Normal Range of Motion, Non-Tender, No Pedal Edema, Normal Capillary Refill, Other (right arm: dressed, wrapped and splinted) Skin: Reports: Warm, Dry, Intact Neurological: Reports: No New Focal Deficit Psy/Mental Status: Reports: Alert, Normal Affect, Normal Mood
== END 2019-04-19 15:50 | DRG 897 ==
LOC: JD.ED 15:43 → JD.ICU 18:02
PROVIDERS: ADMIT Internal Medicine; ATTEND Internal Medicine
PROC: HZ2ZZZZ Detoxification Services for Substance Abuse Treatment (ICD-10-PCS; principal; 2019-04-16)
DX: F10.230 Alcohol dependence with withdrawal, uncomplicated (principal); F10.220 Alcohol dependence with intoxication, uncomplicated; I48.0 Paroxysmal atrial fibrillation; E78.5 Hyperlipidemia, unspecified; F41.8 Other specified anxiety disorders; R00.0 Tachycardia, unspecified; E78.00 Pure hypercholesterolemia, unspecified; M19.90 Unspecified osteoarthritis, unspecified site; Y90.1 Blood alcohol level of 20-39 mg/100 ml; S52.91XD Unspecified fracture of right forearm, subsequent encounter for closed fracture with routine healing; Z98.890 Other specified postprocedural states; Z88.1 Allergy status to other antibiotic agents; Z79.899 Other long term (current) drug therapy
CPT/HCPCS: 36415; 73080-26-RT; 73080-RT; 80053; 80306; 83735; 85025; 96361; 96374; 97110-GO; 97110-GP; 97116-GP; 97162-GP; 97167-GO; 97530-GO; 97760-GO; 99284; 99285-25; A9270-GY; C9113; G0480; J1200; J1885; J2060; J3411; J3480; J3490; J7040; J7120; Q3014

== ENCOUNTER 2019-05-14 16:32 | Emergency (ER) | payer OTHER, SELFPAY ==
--- NOTE | 2019-05-14 19:07 | EDM.PDOCBH ---
ED HPI GENERAL MEDICAL PROBLEM - General Chief Complaint: Drug or Alcohol Abuse Stated Complaint: MEDICAL EVAL Time Seen by Provider: 05/14/19 18:41 Source of Information: Reports: Patient History Limitations: Reports: No Limitations - History of Present Illness INITIAL COMMENTS - FREE TEXT/NARRATIVE: Mr. Mitchell is a 58-year-old man with a past medical history significant for chronic daily alcoholism and paroxysmal atrial fibrillation, who states that his heart has felt like it was beating fast for the past 3 days. The patient takes diltiazem and metoprolol to control his heart rate and discourage heart from going into atrial fibrillation, however, he is not on an anticoagulant, likely because of his alcoholism and history of falls. The patient states that he had 14 beers today, and that he typically has 12-14 beers per day. He states that his last period of sobriety was while he was at [facility] for 14 to 15 days from 04/16/2019 through about 05/02/2019. During that period , he did not suffer any significant alcohol withdrawal symptoms, and, indeed, he states that he has never suffered any significant alcohol withdrawal symptoms. He has had 2 DUIs in the past, and he has been fired from a job once. He states that his alcoholism is causing stress in his marriage, and that he is concerned that his will leave him. At present, the patient denies having any withdrawal symptoms, such as tremulousness or anxiety. He appears to be calm. The patient's PCP is Dr. Anthony Santamaria. 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 - Related Data Allergies Allergy/AdvReac Type Severity Reaction Status Date / Time cefaclor [From Ceclor] Allergy Swelling Verified 05/17/19 00:04 Home Meds: Home Meds Metoprolol Tartrate 25 mg PO BID #60 tablet 03/03/19 [Rx] Topiramate [Topamax] 25 mg PO BID tablet 03/26/19 [Rx] traZODone HCl [Trazodone HCl] 50 mg PO BEDTIME 04/05/19 [History] Famotidine 20 mg PO BID #20 tablet 04/19/19 [Rx] Ibuprofen [Motrin] 600 mg PO Q8H PRN #15 tab 04/19/19 [Rx] LORazepam [Ativan] 1 mg PO ASDIRECTED #17 tablet 05/16/19 [Rx] Ondansetron [Zofran ODT] 4 mg PO Q6H PRN #20 tab.dis 05/16/19 [Rx] Past Medical History Cardiovascular History: Reports: Afib (paroxysmal), High Cholesterol (untreated) Gastrointestinal History: Reports: PUD (duodenal ulcer) Musculoskeletal History: Reports: Fracture (right clavicle) Psychiatric History: Reports: Addiction (EtOH), Anxiety (untreated), Depression (untreated) - Infectious Disease History Infectious Disease History: Reports: Influenza - Past Surgical History Neurological Surgical History: Reports: Lumbar Spine (L4-L5 laminectomy) Musculoskeletal Surgical History: Reports: ORIF (right clavicle), Shoulder Surgery (right, arthroscopic) Social & Family History - Family History Family Medical History: Noncontributory - Tobacco Use Smoking Status *Q: Former Smoker Years of Tobacco use: 44 Packs/Tins Daily: 1 Month/Year Tobacco Last Used: Quit January 2019 - Caffeine Use Caffeine Use: Reports: None Other Caffeine Use: rarely - Alcohol Use Alcohol Use History: Yes Alcohol Use Frequency: Daily (12 to 14 beers/day) - Recreational Drug Use Recreational Drug Use: Yes Drug Use in Last 12 Months: Yes Recreational Drug Type: Reports: Marijuana/Hashish (last smoked early Apr 2019) - Living Situation & Occupation Living situation: Reports: , with Spouse, with Family ([id number]) Occupation: Unemployed ED ROS GENERAL - Review of Systems Review Of Systems: ROS reveals no pertinent complaints other than HPI. Neurological: Reports: Headache (chronic) ED EXAM, BEHAVIORAL HEALTH - Physical Exam Exam: See Below Exam Limited By: Intoxication (Smells of alcohol) General Appearance: Alert, WD/WN, No Apparent Distress Eye Exam: Bilateral Eye: EOMI, Normal Inspection Ears: Normal External Exam, Hearing Grossly Normal Nose: Normal Inspection Throat/Mouth: Normal Inspection, Normal Lips, Normal Voice, No Airway Compromise Head: Atraumatic, Normocephalic Neck: Normal Inspection, Supple, Non-Tender, Full Range of Motion Respiratory/Chest: No Respiratory Distress, Lungs Clear, Normal Breath Sounds, No Accessory Muscle Use Cardiovascular: Normal Peripheral Pulses, No Edema, No Gallop, No JVD, No Murmur , No Rub, Bradycardia, Irregularly Irregular GI/Abdominal: Normal Bowel Sounds, Soft, Non-Tender, No Organomegaly, No Distention, No Abnormal Bruit, No Mass (Male) Exam: Deferred Rectal (Males) Exam: Deferred Back Exam: Normal Inspection, Full Range of Motion Extremities: Normal Inspection, Normal Range of Motion, No Pedal Edema, Normal Capillary Refill Neurological: Alert, Normal Cognition, No Motor/Sensory Deficits, Oriented x 3, Other (Mildly slurred speech) Psychiatric: Normal Affect Skin Exam: Warm, Dry, Intact, Normal color, No rash EKG INTERPRETATION EKG Date: 05/14/19 Time: 19:11 Rhythm: A-Fib Rate (Beats/Min): 49 [place]: Normal P-Wave: Absent QRS: Normal ST-T: Normal QT: Normal Comparison: No Change (03/24/2019) COURSE, BEHAVIORAL HEALTH COMP - Course Vital Signs: Last Vital Signs Temp 37.1 C 05/14/19 17:01 Pulse 76 05/14/19 17:01 Resp 16 05/14/19 17:01 BP 102/68 05/14/19 17:01 Pulse Ox 99 05/14/19 17:01 Orders, Labs, Meds: Laboratory Tests 05/14/19 05/14/19 05/14/19 Range/Units 17:10 17:10 17:24 WBC 8.87 (4.23-9.07) K/mm3 RBC 4.23 L (4.63-6.08) M/mm3 Hgb 14.1 (13.7-17.5) gm/dl Hct 40.1 (40.1-51.0) % MCV 94.8 H D (79.0-92.2) fl MCH 33.3 H (25.7-32.2) pg MCHC 35.2 (32.2-35.5) g/dl RDW Std Deviation 41.0 (35.1-43.9) fL Plt Count 215 (163-337) K/mm3 MPV 8.9 L (9.4-12.3) fl Neut % (Auto) 51.4 (34.0-67.9) % Lymph % (Auto) 37.0 (21.8-53.1) % [place] % (Auto) 10.8 (5.3-12.2) % Eos % (Auto) 0.3 L (0.8-7.0) Baso % (Auto) 0.3 (0.1-1.2) % Neut # (Auto) 4.55 (1.78-5.38) K/mm3 Lymph # (Auto) 3.28 (1.32-3.57) K/mm3 [place] # (Auto) 0.96 H (0.30-0.82) K/mm3 Eos # (Auto) 0.03 L (0.04-0.54) K/mm3 Baso # (Auto) 0.03 (0.01-0.08) K/mm3 Sodium (136-145) mEq/L Potassium (3.5-5.1) mEq/L Chloride (98-107) mEq/L Carbon Dioxide (21-32) mEq/L Anion Gap (5-15) BUN (7-18) mg/dL Creatinine (0.7-1.3) mg/dL Est Cr Clr Drug Dosing mL/min Estimated GFR (MDRD) (>60) mL/min BUN/Creatinine Ratio (14-18) Glucose (74-106) mg/dL Calcium (8.5-10.1) mg/dL Total Bilirubin (0.2-1.0) mg/dL AST (15-37) U/L ALT (16-63) U/L Alkaline Phosphatase (46-116) U/L Total Protein (6.4-8.2) g/dl Albumin (3.4-5.0) g/dl Globulin gm/dL Albumin/Globulin Ratio (1-2) Urine Color Yellow (Yellow) Urine Appearance Clear (Clear) Urine pH 6.5 (5.0-8.0) Ur Specific [place] 1.010 (1.005-1.030) Urine Protein Negative (Negative) Urine Glucose (UA) Negative (Negative) Urine Ketones Negative (Negative) Urine Occult Blood Negative (Negative) Urine Nitrite Negative (Negative) Urine Bilirubin Negative (Negative) Urine Urobilinogen 0.2 (0.2-1.0) Ur Leukocyte Esterase Negative (Negative) Urine RBC Not seen (0-5) /hpf Urine WBC Not seen (0-5) /hpf Ur Squamous Epith Cells Not seen (0-5) /hpf Urine Bacteria Rare (FEW) /hpf Urine Mucus Not seen (FEW) /hpf Salicylates (2.8-20) mg/dL Urine Opiates Screen Negative (YFCLJD=227) Ur Buprenorphine Scrn Negative (CUTOFF=10) Ur Oxycodone Screen Negative (VPO9QH=163) Urine Methadone Screen Negative (JBR9GP=136) Ur Propoxyphene Screen Negative (WCUTTY=204) Ur Barbiturates Screen Negative (IZFUZO=172) Ur Tricyclics Screen Negative (BSPEDA=663) Ur Phencyclidine Scrn Negative (CUTOFF=25) Ur Amphetamine Screen Negative (AFCBEL=634) U Methamphetamines Scrn Negative (MNMEKB=387) U Benzodiazepines Scrn Negative (AXQLXE=071) U Cocaine Metab Screen Negative (RIKVAX=715) U Marijuana (THC) Screen Negative (CUTOFF=50) Ethyl Alcohol (0.00) gm% 05/14/19 05/14/19 Range/Units 17:24 17:24 WBC (4.23-9.07) K/mm3 RBC (4.63-6.08) M/mm3 Hgb (13.7-17.5) gm/dl Hct (40.1-51.0) % MCV (79.0-92.2) fl MCH (25.7-32.2) pg MCHC (32.2-35.5) g/dl RDW Std Deviation (35.1-43.9) fL Plt Count (163-337) K/mm3 MPV (9.4-12.3) fl Neut % (Auto) (34.0-67.9) % Lymph % (Auto) (21.8-53.1) % [place] % (Auto) (5.3-12.2) % Eos % (Auto) (0.8-7.0) Baso % (Auto) (0.1-1.2) % Neut # (Auto) (1.78-5.38) K/mm3 Lymph # (Auto) (1.32-3.57) K/mm3 [place] # (Auto) (0.30-0.82) K/mm3 Eos # (Auto) (0.04-0.54) K/mm3 Baso # (Auto) (0.01-0.08) K/mm3 Sodium 133 L (136-145) mEq/L Potassium 4.0 (3.5-5.1) mEq/L Chloride 101 (98-107) mEq/L Carbon Dioxide 22 (21-32) mEq/L Anion Gap 14.0 (5-15) BUN 6 L (7-18) mg/dL Creatinine 0.6 L (0.7-1.3) mg/dL Est Cr Clr Drug Dosing 101.11 mL/min Estimated GFR (MDRD) > 60 (>60) mL/min BUN/Creatinine Ratio 10.0 L (14-18) Glucose 102 (74-106) mg/dL Calcium 8.7 (8.5-10.1) mg/dL Total Bilirubin 0.3 (0.2-1.0) mg/dL AST 54 H (15-37) U/L ALT 41 (16-63) U/L Alkaline Phosphatase 132 H (46-116) U/L Total Protein 7.0 (6.4-8.2) g/dl Albumin 3.5 (3.4-5.0) g/dl Globulin 3.5 gm/dL Albumin/Globulin Ratio 1.0 (1-2) Urine Color (Yellow) Urine Appearance (Clear) Urine pH (5.0-8.0) Ur Specific [place] (1.005-1.030) Urine Protein (Negative) Urine Glucose (UA) (Negative) Urine Ketones (Negative) Urine Occult Blood (Negative) Urine Nitrite (Negative) Urine Bilirubin (Negative) Urine Urobilinogen (0.2-1.0) Ur Leukocyte Esterase (Negative) Urine RBC (0-5) /hpf Urine WBC (0-5) /hpf Ur Squamous Epith Cells (0-5) /hpf Urine Bacteria (FEW) /hpf Urine Mucus (FEW) /hpf Salicylates 1.4 L (2.8-20) mg/dL Urine Opiates Screen (UWLEMZ=055) Ur Buprenorphine Scrn (CUTOFF=10) Ur Oxycodone Screen (MDM5BA=555) Urine Methadone Screen (GTN0BZ=742) Ur Propoxyphene Screen (NLZXTF=164) Ur Barbiturates Screen (WLKQGX=663) Ur Tricyclics Screen (SRIIBB=521) Ur Phencyclidine Scrn (CUTOFF=25) Ur Amphetamine Screen (OIZPZV=265) U Methamphetamines Scrn (RVGRNN=853) U Benzodiazepines Scrn (SJMJOS=925) U Cocaine Metab Screen (WLUOLO=538) U Marijuana (THC) Screen (CUTOFF=50) Ethyl Alcohol 0.35 (0.00) gm% Medical Clearance: 05/14/19 19:03 The patient's CBC is unremarkable. His CMP is remarkable for a sodium slightly depressed 133, and his BUN/Cr low at 6/0.6. His AST is slightly elevated at 54 with a normal ALT, and his alkaline phosphatase is slightly elevated at 132. The remainder of his CMP is unremarkable. His EtOH level is elevated at 0.35. His salicylate level is within normal limits at 1.4. His urinalysis is unremarkable. His urine drug screen is completely negative. Other than alcohol intoxication, the patient's bloodwork today is unremarkable. Other than a mild headache, he is showing no signs of alcohol withdrawal whatsoever - no tremulousness, nausea or vomiting, agitation or restlessness. He is not diaphoretic and does not look or complaint of feeling anxious. The patient's ECG, however, demonstrates A-fib with bradycardia. The last ECG that the patient had was on 03/24/2019, which also demonstrated that he was in atrial fibrillation. He was admitted to the hospital at that time, where his rate was controlled, but he was not placed on an anticoagulant, likely because of his alcoholism with a history of falls, and when he was discharged home on , he was still in atrial fibrillation, according to the discharge summary. We have no knowledge whether or not the patient has been out of atrial fibrillation since that time, but the presence of atrial fibrillation, since it is rate controlled, and anticoagulation is not an option for him, is not in and of itself a reason for admission, since he was discharged with the exact same condition on 03/26/2019. While the patient has a history of chronic daily alcoholism, he was sober for approximately 2 weeks from late March to early April, and did not suffer any significant alcohol withdrawal symptoms. By history, he has never suffered any significant alcohol withdrawal symptoms, and is likely at relatively low risk for developing them this time. He is therefore likely medically fit for alcohol detox at [facility]. 05/14/19 19:45 Test results discussed with the patient. The patient would like to go home to sober up tonight, then go to [facility] in the morning. By that time, his alcohol level should be essentially 0. I will discharge him home. Departure - Departure Time of Disposition: 19:45 Disposition: Home, Self-Care 01 Condition: Good Clinical Impression: Alcoholism, Atrial fibrillation with controlled ventricular rate Alcohol intoxication Qualifiers: Complication of substance-induced condition: uncomplicated Qualified Code(s): F10.920 - Alcohol use, unspecified with intoxication, uncomplicated - Discharge Information *PRESCRIPTION DRUG MONITORING PROGRAM REVIEWED*: Not Applicable *COPY OF PRESCRIPTION DRUG MONITORING REPORT IN PATIENT AYDE: Not Applicable Instructions: Alcohol Use Disorder, Alcohol Intoxication, [id number], Atrial Fibrillation, [id number] Referrals: Anthony Santamaria MD [Physician] - Additional Instructions: You were seen in the emergency room for medical clearance to go to [facility] for treatment of your alcoholism. Workup in the ER included blood work, a urine drug screen, and an ECG. Your alcohol level was found to be elevated at 0.35, but the remainder of your blood work was unremarkable, and no alcohol withdrawal symptoms were found on examination. Your ECG found you to be in atrial fibrillation, rate controlled. You were admitted to this hospital on 03/16/2019 for atrial fibrillation, your rate was controlled with medication, and you were discharged home on 03/26/2019, still in atrial fibrillation. Because of your alcoholism and history of falls, anticoagulation was felt to be too dangerous for you. Because your heart rate is controlled, and you are still not a candidate for anticoagulation, there is no need to admit you to the hospital for atrial fibrillation. We find that you are medically fit for treatment of your alcoholism at [facility], if they believe that they can help you. Follow-up with your PCP, Dr. Santamaria, at the next available appointment. If any other problems, please do not hesitate to return to the ER.
== END 2019-05-14 19:58 | disposition home or self-care (01) ==
LOC: JD.ED 16:32
DX: I48.91 Unspecified atrial fibrillation (principal); F10.220 Alcohol dependence with intoxication, uncomplicated; Y90.8 Blood alcohol level of 240 mg/100 ml or more; E78.00 Pure hypercholesterolemia, unspecified; F41.9 Anxiety disorder, unspecified; F32.9 Major depressive disorder, single episode, unspecified; Z87.891 Personal history of nicotine dependence; Z88.1 Allergy status to other antibiotic agents; Z79.899 Other long term (current) drug therapy
CPT/HCPCS: 36415; 80053; 80306; 81001; 85025; 93005; 93010; 99283; 99283-25; G0480

== ENCOUNTER 2019-05-16 18:58 | Emergency (ER) | payer SELFPAY ==
[2019-05-16] MEDS ORDERED: Sodium Chloride 0.9% 1,000 ML IV ONE (20:32)
[2019-05-16] MEDS ORDERED: LORazepam 2 MG/ML SDV IVPUSH ONE ×2 (21:30→23:25)
[2019-05-16] MEDS ORDERED: Ondansetron 4 MG/2 ML SDV IVPUSH ONE (21:30)
[2019-05-16] MEDS ORDERED: LORazepam 1 MG Tab PO ONE ×3 (23:03)
--- NOTE | 2019-05-16 23:23 | EDM.PDOC ---
ED HPI GENERAL MEDICAL PROBLEM - General Chief Complaint: Cardiovascular Problem Stated Complaint: [facility] Time Seen by Provider: 05/16/19 19:20 Source of Information: Reports: Patient History Limitations: Reports: No Limitations - History of Present Illness INITIAL COMMENTS - FREE TEXT/NARRATIVE: 58-year-old male is brought in by [facility] for evaluation and treatment of chest pains. EMS call went out for chest pain. He reports symptoms of heavy breathing, heart pounding, headache, dizziness and just overall malaise. He was here in the ER just 2 days ago. Had a complete cardiac workup. He acknowledges, when he arrives the ER , this is not cardiac but is more related to his alcohol abuse and anxiety. He was offered a cardiac work-up again today but states "why do I need that again?" He states he tried to go to the [facility] today but couldn't get a hold of [employer]; he has worked with her past. He states he tried to call taxi 3 times today to go to the [facility] but couldn't do it. He was at the [facility] just 10 days ago and checked himself out. Reports he had 12 beers today. Primary care provider is Dr. Jerez. Very difficult to get history from him. He is nondescript with his symptoms and just complains over and over again that he just overall does not feel and we need to help him with whatever is going on. patient is , resides with his at home. Stated he was here just 2 days ago. He has been seen in the ER on numerous occasions and the ICU as well as sent to [facility]. Headache Pain Score (Numeric/FACES): 8 - Related Data Allergies Allergy/AdvReac Type Severity Reaction Status Date / Time cefaclor [From [facility]] Allergy Swelling Verified 05/17/19 00:04 Home Meds: Home Meds Metoprolol Tartrate 25 mg PO BID #60 tablet 03/03/19 [Rx] Topiramate [Topamax] 25 mg PO BID tablet 03/26/19 [Rx] traZODone HCl [Trazodone HCl] 50 mg PO BEDTIME 04/05/19 [History] Famotidine 20 mg PO BID #20 tablet 04/19/19 [Rx] Ibuprofen [Motrin] 600 mg PO Q8H PRN #15 tab 04/19/19 [Rx] LORazepam [Ativan] 1 mg PO ASDIRECTED #17 tablet 05/16/19 [Rx] Ondansetron [Zofran ODT] 4 mg PO Q6H PRN #20 tab.dis 05/16/19 [Rx] Past Medical History HEENT History: Reports: Sinusitis Cardiovascular History: Reports: Afib, High Cholesterol Other Cardiovascular History: atrial fibrillation Respiratory History: Reports: None Gastrointestinal History: Reports: PUD Other Gastrointestinal History: Duodenal ulcers Genitourinary History: Reports: None Musculoskeletal History: Reports: Fracture, Osteoarthritis Other Musculoskeletal History: R) shoulder fx. Neurological History: Reports: Headaches, Chronic Psychiatric History: Reports: Addiction, Anxiety, Depression Endocrine/Metabolic History: Reports: None Hematologic History: Reports: None Immunologic History: Reports: None Oncologic (Cancer) History: Reports: None Dermatologic History: Reports: None - Infectious Disease History Infectious Disease History: Reports: Influenza - Past Surgical History Head Surgeries/Procedures: Reports: None HEENT Surgical History: Reports: None Cardiovascular Surgical History: Reports: None Neurological Surgical History: Reports: Lumbar Spine Musculoskeletal Surgical History: Reports: ORIF, Shoulder Surgery Social & Family History - Family History Family Medical History: Noncontributory - Tobacco Use Smoking Status *Q: Never Smoker - Caffeine Use Caffeine Use: Reports: None Other Caffeine Use: rarely - Alcohol Use Days Per Week of Alcohol Use: 7 Number of Drinks Per Day: 12 Total Drinks Per Week: 84 Date of Last Drink: 05/16/19 - Recreational Drug Use Recreational Drug Use: No - Living Situation & Occupation Living situation: Reports: , with Spouse Occupation: Unemployed ED ROS GENERAL - Review of Systems Review Of Systems: See Below Respiratory: Reports: Other (reprots heavy breathing) Cardiovascular: Reports: Palpitations. Denies: Chest Pain Neurological: Reports: Dizziness, Headache Psychiatric: Reports: Anxiety ED EXAM, GENERAL - Physical Exam Exam: See Below Exam Limited By: No Limitations General Appearance: Alert, WD/WN, No Apparent Distress Eye Exam: Bilateral Eye: Normal Inspection Ears: Normal External Exam Nose: Normal Inspection Throat/Mouth: Normal Inspection, Normal Voice, No Airway Compromise Respiratory/Chest: No Respiratory Distress, Lungs Clear, Normal Breath Sounds Cardiovascular: Normal Peripheral Pulses, Regular Rate, Rhythm, No Murmur GI/Abdominal: Normal Bowel Sounds, Soft, Non-Tender Neurological: Alert, Oriented, Normal Cognition Psychiatric: Normal Affect, Normal Mood Skin Exam: Warm, Dry, Normal Color EKG INTERPRETATION EKG Date: 05/16/19 Time: 19:16 Rhythm: A-Fib Rate (Beats/Min): 48 [place]: Normal P-Wave: Absent QRS: Normal ST-T: Normal QT: Normal EKG Interpretation Comments: A. fib with a rate of 42-60 bpm. Q wave in V1 and near Q-wave in V2 consider old anterior septal [place]. Decreased voltage precordial leads. No ST segment depression present. Reviewed by myself and Dr. Barboza. Course - Vital Signs Last Recorded V/S: Last Vital Signs Temp 97.7 F 05/16/19 19:01 Pulse 58 L 05/16/19 19:01 Resp 20 05/16/19 19:01 BP Pulse Ox 99 05/16/19 19:01 - Orders/Labs/Meds Labs: Laboratory Tests 05/16/19 05/16/19 Range/Units 20:10 22:10 Ethyl Alcohol 0.34 0.28 (0.00) gm% Meds: Medications Discontinued Medications Generic Name Dose Route Start Last Admin Trade Name Lizzeth PRN Reason Stop Dose Admin Sodium Chloride 1,000 mls @ 999 mls/hr 05/16/19 20:32 05/16/19 20:47 Normal Saline IV 05/16/19 21:32 999 mls/hr ONETIME ONE Administration Lorazepam 1 mg 05/16/19 21:30 05/16/19 21:51 Ativan IVPUSH 05/16/19 21:31 1 mg ONETIME ONE Administration Lorazepam 1 mg 05/16/19 23:03 05/16/19 23:53 Ativan PO 05/16/19 23:04 1 mg ONETIME ONE Administration Lorazepam 1 mg 05/16/19 23:03 05/16/19 23:53 Ativan PO 05/16/19 23:04 1 mg ONETIME ONE Administration Lorazepam 1 mg 05/16/19 23:03 05/16/19 23:53 Ativan PO 05/16/19 23:04 1 mg ONETIME ONE Administration Lorazepam 0.5 mg 05/16/19 23:25 05/17/19 00:08 Ativan IVPUSH 05/16/19 23:26 Not Given ONETIME ONE Ondansetron HCl 4 mg 05/16/19 21:30 05/16/19 21:52 Zofran IVPUSH 05/16/19 21:31 4 mg ONETIME ONE Administration - Re-Assessments/Exams Free Text/Narrative Re-Assessment/Exam: 05/16/19 23:15 EKG done by nursing staff prior to me entering the room discussed with the patient since he is experiencing chest pains I will need to do a cardiac workup. He states that this is not cardiac and insists he does not need a cardiac workup. I asked him what specifically is going on that is an emergency as we have seen him for anxiety and alcohol abuse on multiple occasions. He is very nondescript and states over and over again we just need to help him with whatever problem he has. He is not showing any signs of detox. He is not shaking, vomiting or in any distress whatsoever. Ultimately I decided to obtain a blood alcohol for the [facility] as they do have a bed available tonight. Initial blood alcohol was 0.34. Repeat done was 0.28. I checked on patient several times over the ER stay. He is extremely manipulative. I checked on him and he started breathing heavily and shaking when I entered the room. He was not having any type of seizure. He was responding to me and I believe he was being manipulative in order to get Ativan. He was given 1 mg by mouth Ativan and this immediately stopped. I will prescribe him some Ativan for the [facility] and we will discharge him there. [facility] staff is here to pick him up. Discharge instructions as documented. Departure - Departure Time of Disposition: 23:16 Disposition: DC/Tfer to Inpt Rehab Fac 62 Reason for Transfer *Q: Other Condition: Fair Clinical Impression: Alcohol abuse, Atrial fibrillation, Anxiety Prescriptions: LORazepam [Ativan] 1 mg PO ASDIRECTED #17 tablet Ondansetron [Zofran ODT] 4 mg PO Q6H PRN #20 tab.dis PRN Reason: Nausea Instructions: Alcohol Use Disorder, Generalized Anxiety Disorder, Adult, Atrial Fibrillation, [id number] Referrals: PCP,None [Primary Care Provider] - Forms: ED Department Discharge Additional Instructions: ativan as prescribed. 1 tab PO every 6 hours x 2 days then q8hrs x 2 days then q12 hours x 2 days then q24 hours x 12 days zofran 1 tab sublingual every 6-8 hours prn nausea follow-up with your PCP for further refills of your ativan. drink plenty of water, Gatorade or powered please return to the ER should your symptoms change or worsen.
== END 2019-05-16 23:53 ==
LOC: JD.ED 18:58
DX: F41.9 Anxiety disorder, unspecified (principal); I48.91 Unspecified atrial fibrillation; F10.20 Alcohol dependence, uncomplicated; Y90.0 Blood alcohol level of less than 20 mg/100 ml; M19.90 Unspecified osteoarthritis, unspecified site; F32.9 Major depressive disorder, single episode, unspecified; Z88.1 Allergy status to other antibiotic agents; Z79.899 Other long term (current) drug therapy
CPT/HCPCS: 36415; 80320; 93005; 96361; 96374; 96375; 99284; A9270; J2060; J2405; J7040; G0480

== ENCOUNTER 2019-06-18 01:44 | Emergency (ER) | payer SELFPAY ==
--- NOTE | 2019-06-18 03:20 | EDM.PDOC ---
ED HPI GENERAL MEDICAL PROBLEM - General Chief Complaint: Cardiovascular Problem Stated Complaint: HEART BEATING FAST Time Seen by Provider: 06/18/19 02:50 Source of Information: Reports: Patient History Limitations: Reports: Intoxication - History of Present Illness INITIAL COMMENTS - FREE TEXT/NARRATIVE: Mr. Mitchell is a pleasant-enough 58-year-old man with a past medical history significant for paroxysmal atrial fibrillation, untreated depression, and chronic, daily alcoholism, who presents to the ED with an irregular feeling heartbeat. He states that it "just feels like it's bad"for the past 4 days, but that it has been pretty bad for "quite a long time". An ECG performed by the patient's nurse or triage nurse demonstrates bradycardic atrial fibrillation. The patient is on both metoprolol and diltiazem , and he tells me that he is compliant with those medications, although he does not take any of his other prescribed medications. The patient is not on an anticoagulant, likely because of his alcoholism and history of falls. The patient smells strongly of alcohol. He states that he had 8 beers today. The patient's PCP is Dr. Anthony Santamaria. He states that he last saw Dr. Santamaria about a year ago. He states that he does not have a Metal Trimmer. Chest Pain Score (Numeric/FACES): 4 - Related Data Allergies Allergy/AdvReac Type Severity Reaction Status Date / Time cefaclor [From [facility]] Allergy Swelling Verified 06/18/19 02:13 Home Meds: Home Meds Metoprolol Tartrate 25 mg PO BID #60 tablet 03/03/19 [Rx] Topiramate [Topamax] 25 mg PO BID tablet 03/26/19 [Rx] traZODone HCl [Trazodone HCl] 50 mg PO BEDTIME 04/05/19 [History] Famotidine 20 mg PO BID #20 tablet 04/19/19 [Rx] Ibuprofen [Motrin] 600 mg PO Q8H PRN #15 tab 04/19/19 [Rx] LORazepam [Ativan] 1 mg PO ASDIRECTED #17 tablet 05/16/19 [Rx] Ondansetron [Zofran ODT] 4 mg PO Q6H PRN #20 tab.dis 05/16/19 [Rx] Past Medical History Cardiovascular History: Reports: Afib (paroxysmal), High Cholesterol (untreated) Other Cardiovascular History: atrial fibrillation Gastrointestinal History: Reports: PUD (duodenal ulcer) Musculoskeletal History: Reports: Fracture (right clavicle) Psychiatric History: Reports: Addiction (alcohol), Depression (untreated) - Infectious Disease History Infectious Disease History: Reports: Influenza - Past Surgical History Neurological Surgical History: Reports: Lumbar Spine (L4-L5 laminectomy) Musculoskeletal Surgical History: Reports: ORIF (right clavicle), Shoulder Surgery (right, arthroscopic) Social & Family History - Family History Family Medical History: Noncontributory - Tobacco Use Smoking Status *Q: Former Smoker Years of Tobacco use: 44 Packs/Tins Daily: 1 Month/Year Tobacco Last Used: Quit January 2019 - Caffeine Use Caffeine Use: Reports: None Other Caffeine Use: rarely - Alcohol Use Alcohol Use History: Yes Alcohol Use Frequency: Daily (12 to 14 beers/day) - Recreational Drug Use Recreational Drug Use: Yes Drug Use in Last 12 Months: Yes Recreational Drug Type: Reports: Marijuana/Hashish (last smoked Apr 2019) - Living Situation & Occupation Living situation: Reports: , with Spouse, with Family ([id number]) Occupation: Unemployed ED ROS GENERAL - Review of Systems Review Of Systems: ROS reveals no pertinent complaints other than HPI. Neurological: Reports: Headache (frequent) ED EXAM, GENERAL - Physical Exam Exam: See Below Exam Limited By: Intoxication (smells of alcohol) General Appearance: Alert, WD/WN, No Apparent Distress Eye Exam: Bilateral Eye: EOMI, Normal Inspection Ears: Normal External Exam, Hearing Grossly Normal Nose: Normal Inspection Throat/Mouth: Normal Inspection, Normal Lips, Normal Voice, No Airway Compromise Head: Atraumatic, Normocephalic Neck: Normal Inspection, Full Range of Motion Respiratory/Chest: No Respiratory Distress, Lungs Clear, Normal Breath Sounds, No Accessory Muscle Use Cardiovascular: Normal Peripheral Pulses, No Edema, No Gallop, No JVD, No Murmur , No Rub, Bradycardia, Irregularly Irregular Peripheral Pulses: 4+: Radial (L), Radial (R) GI/Abdominal: Normal Bowel Sounds, Soft, Non-Tender, No Organomegaly, No Distention, No Abnormal Bruit, No Mass (Male) Exam: Deferred Rectal (Males) Exam: Deferred Back Exam: Normal Inspection, Full Range of Motion, NT Extremities: Normal Inspection, Normal Range of Motion, No Pedal Edema, Normal Capillary Refill Neurological: Alert, Oriented, Normal Cognition, No Motor/Sensory Deficits Psychiatric: Normal Affect Skin Exam: Warm, Dry, Intact, Normal Color, No Rash EKG INTERPRETATION EKG Date: 06/18/19 Time: 02:00 Rhythm: A-Fib Rate (Beats/Min): 53 [place]: Normal P-Wave: Absent QRS: Normal ST-T: Normal QT: Normal Comparison: No Change (05/16/2019) Course - Vital Signs Last Recorded V/S: Last Vital Signs Temp 35.8 C 06/18/19 01:55 Pulse Resp BP Pulse Ox 99 06/18/19 01:55 - Orders/Labs/Meds Labs: Laboratory Tests 06/18/19 06/18/19 06/18/19 Range/Units 02:05 02:05 02:05 WBC 9.75 H (4.23-9.07) K/mm3 RBC 4.43 L (4.63-6.08) M/mm3 Hgb 14.7 (13.7-17.5) gm/dl Hct 42.2 (40.1-51.0) % MCV 95.3 H (79.0-92.2) fl MCH 33.2 H (25.7-32.2) pg MCHC 34.8 (32.2-35.5) g/dl RDW Std Deviation 42.5 (35.1-43.9) fL Plt Count 205 (163-337) K/mm3 MPV 9.2 L (9.4-12.3) fl Neut % (Auto) 43.2 (34.0-67.9) % Lymph % (Auto) 44.4 (21.8-53.1) % [place] % (Auto) 11.1 (5.3-12.2) % Eos % (Auto) 1.0 (0.8-7.0) Baso % (Auto) 0.2 (0.1-1.2) % Neut # (Auto) 4.21 (1.78-5.38) K/mm3 Lymph # (Auto) 4.33 H (1.32-3.57) K/mm3 [place] # (Auto) 1.08 H (0.30-0.82) K/mm3 Eos # (Auto) 0.10 (0.04-0.54) K/mm3 Baso # (Auto) 0.02 (0.01-0.08) K/mm3 D-Dimer, Quantitative 0.90 H (0.19-0.50) mg/L Sodium 134 L (136-145) mEq/L Potassium 4.1 (3.5-5.1) mEq/L Chloride 99 (98-107) mEq/L Carbon Dioxide 24 (21-32) mEq/L Anion Gap 15.1 H (5-15) BUN 12 (7-18) mg/dL Creatinine 0.7 (0.7-1.3) mg/dL Est Cr Clr Drug Dosing 108.57 mL/min Estimated GFR (MDRD) > 60 (>60) mL/min BUN/Creatinine Ratio 17.1 (14-18) Glucose 103 (74-106) mg/dL Calcium 9.0 (8.5-10.1) mg/dL Magnesium 2.1 (1.8-2.4) mg/dl Total Bilirubin 0.3 (0.2-1.0) mg/dL AST 44 H (15-37) U/L ALT 32 (16-63) U/L Alkaline Phosphatase 112 (46-116) U/L Troponin I < 0.017 (0.00-0.056) ng/mL Total Protein 7.4 (6.4-8.2) g/dl Albumin 3.8 (3.4-5.0) g/dl Globulin 3.6 gm/dL Albumin/Globulin Ratio 1.1 (1-2) Ethyl Alcohol 0.34 (0.00) gm% - Re-Assessments/Exams Free Text/Narrative Re-Assessment/Exam: 06/18/19 03:20 The patient's current presentation is virtually identical to those of 05/14/2019 and 05/16/2019, where he presented with bradycardic atrial fibrillation. Perhaps because he was intoxicated then, as he likely is tonight, he simply does not recall the conversations. For today's purposes, I have ordered some blood work and a chest x-ray to see if there is an obvious reversible cause of his atrial fibrillation. 06/18/19 04:30 2-view chest radiograph reviewed. The cardiac silhouette is within normal limits. No pulmonary vascular congestion. No pleural effusions. No focal infiltrate. No pneumothorax. Formal read per the Radiologist pending. 06/18/19 04:54 The patient's CBC is remarkable for a WBC count elevated at 9.75, with the remainder of his CBC being unremarkable. His CMP is remarkable for a sodium slightly depressed at 134, and an AST slightly elevated at 40, with the remainder of his CMP being unremarkable. His magnesium level is within normal limits at 2.1. His troponin is undetectably low. His D-dimer is mildly elevated at 0.90. His EtOH level is substantially elevated at 0.34. The purpose of checking a D-dimer is because, if significantly elevated, it could indicate that the patient has a pulmonary embolus, and a pulmonary embolus can potentially cause atrial fibrillation. In this case, the patient's D -dimer is mildly elevated at 0.90, which is not consistent with a pulmonary embolus (the D-dimer in a PE is usually much higher, due to the large surface area of the lungs), and in this case, paradoxically, is most likely caused by his atrial fibrillation, as atrial fibrillation is a known cause of elevated D- dimer, along with a host of other conditions other than a DVT or pulmonary embolus. Reviewing prior medical records, it appears that the last ECG performed at this facility that found the patient to be in a normal sinus rhythm was on 2018. As far as we know, the patient has been in continuous atrial fibrillation ever since. While there are a number of known causes of atrial fibrillation, including cardiac anatomic abnormalities, I suspect that one of the largest drivers of his atrial fibrillation is his chronic alcoholism. The patient takes both diltiazem and metoprolol to discourage his heart from going into atrial fibrillation, and to minimize tachycardia if he does go into atrial fibrillation, however, he is not on an anticoagulant, most likely because of his history of alcoholism and falls. When admitted to the hospital on 03/24/2019, he was discharged home on 03/26/2019 in bradycardic atrial fibrillation, therefore the presence of bradycardic atrial fibrillation is not itself an indication to admit the patient to the hospital. With respect to the patient's alcoholism, he is not requesting detox, and with an alcohol level of 0.34, he is not showing any signs of withdrawal. I will recommend that he follow-up at [facility]. 06/18/19 05:14 The patient is sleeping at present. I will allow him to continue to sleep, but get him up for discharge around 6:30 or so. Departure - Departure Time of Disposition: 05:15 Disposition: Home, Self-Care 01 Condition: Good Clinical Impression: Alcoholism, Atrial fibrillation with controlled ventricular rate Alcohol intoxication Qualifiers: Complication of substance-induced condition: uncomplicated Qualified Code(s): F10.920 - Alcohol use, unspecified with intoxication, uncomplicated Instructions: Alcohol Intoxication, [id number] Referrals: Anthony Santamaria MD [Primary Care Provider] - Forms: ED Department Discharge Additional Instructions: You were seen in the emergency room for the sensation of an irregular heartbeat. Workup in the ER included blood work, a chest x-ray, and an ECG. Your ECG found due to be in atrial fibrillation with a relatively slow rate. Your rate is slow because you are on diltiazem and metoprolol. You have been the same condition on two prior presentations to the ER. Your alcohol level was found to be substantially elevated at 0.34. This is 4.25 times above the upper legal limit for driving. We recommend that you follow-up at [facility] to seek treatment for your alcoholism. If you can remain sober, we recommend that you follow-up with your PCP, Dr. Anthony Santamaria, to arrange to be seen by a Metal Trimmer regarding your atrial fibrillation. If any other problems, please do not hesitate to return to the ER.
--- NOTE | 2019-06-18 07:01 | CR ---
Chest: Two views of the chest were obtained. Comparison: Prior chest x-ray of 04/05/19. Heart size is normal. Upper mediastinum is normal. Lungs are clear. Degenerative spurring is noted within the mid and lower thoracic spine. Impression: 1. Nothing acute is seen on two-view chest x-ray. Diagnostic code #1
== END 2019-06-18 07:24 | disposition home or self-care (01) ==
LOC: JD.ED 01:44
DX: I48.91 Unspecified atrial fibrillation (principal); F10.220 Alcohol dependence with intoxication, uncomplicated; Z88.1 Allergy status to other antibiotic agents; F32.9 Major depressive disorder, single episode, unspecified; Z79.899 Other long term (current) drug therapy; Z87.891 Personal history of nicotine dependence
CPT/HCPCS: 36415; 71046; 71046-26; 80053; 83735; 84484; 85025; 85379; 93005; 93010; 99283; 99285-25; G0480

== ENCOUNTER 2020-09-04 10:53 | Emergency (ER) | payer OTHER, SELFPAY ==
--- NOTE | 2020-09-04 11:57 | EDM.PDOC ---
ED HPI GENERAL MEDICAL PROBLEM - General Chief Complaint: Cardiovascular Problem Stated Complaint: ABNORMAL EKG SENT BY [facility] Time Seen by Provider: 09/04/20 11:16 Source of Information: Reports: Patient, Provider, RN Notes Reviewed History Limitations: Reports: No Limitations - History of Present Illness INITIAL COMMENTS - FREE TEXT/NARRATIVE: Patient is a 60-year-old male presenting to the emergency department from the clinic. He had an appointment scheduled with his primary care provider, MEERA Nayak. Routine EKG was done and he was found to be in atrial flutter with variable conduction at a rate of 79. Patient does have a history of A. fib currently taking diltiazem 180 mg daily as well as metoprolol 25 mg twice daily. He is not on anticoagulation. Patient states he has never been on a blood thinner. He has a history of duodenal ulcer which he states was 30 years ago. Denies GI bleeding. He does have history of anemia for which she has been taki ng iron supplementation. He is also a daily alcohol drinker; however, he has not consumed any alcohol today. States over the last few months, he has had intermittent shortness of breath with exertion as well as some generalized weakness. He denies any chest pain or shortness of breath at rest. He does not have a braille transcriber. Treatments PROPELLER LAYOUT WORKER: Reports: Other (see below) Other Treatments PROPELLER LAYOUT WORKER: EKG at clinic Back Pain Score (Numeric/FACES): 8 Knee Pain Score (Numeric/FACES): 7 - Related Data Allergies Allergy/AdvReac Type Severity Reaction Status Date / Time cefaclor [From [facility]] Allergy Swelling Verified 09/26/19 16:28 Home Meds: Home Meds Metoprolol Tartrate 25 mg PO BID #60 tablet 03/03/19 [Rx] Topiramate [Topamax] 25 mg PO BID tablet 03/26/19 [Rx] traZODone HCl [Trazodone HCl] 50 mg PO BEDTIME 04/05/19 [History] Famotidine 20 mg PO BID #20 tablet 04/19/19 [Rx] Ibuprofen [Motrin] 600 mg PO Q8H PRN #15 tab 04/19/19 [Rx] LORazepam [Ativan] 1 mg PO ASDIRECTED #17 tablet 05/16/19 [Rx] Ondansetron [Zofran ODT] 4 mg PO Q6H PRN #20 tab.dis 05/16/19 [Rx] Apixaban [Eliquis] 5 mg PO BID 30 Days #60 tablet 09/04/20 [Rx] dilTIAZem HCL [Dilt-Xr] 180 mg PO DAILY 09/04/20 [History] Past Medical History HEENT History: Reports: Sinusitis Cardiovascular History: Reports: Afib, High Cholesterol Other Cardiovascular History: atrial fibrillation Respiratory History: Reports: None Gastrointestinal History: Reports: PUD Other Gastrointestinal History: Duodenal ulcers Genitourinary History: Reports: None Musculoskeletal History: Reports: Fracture Other Musculoskeletal History: R) shoulder fx. Neurological History: Reports: Headaches, Chronic Psychiatric History: Reports: Addiction, Depression Endocrine/Metabolic History: Reports: None Hematologic History: Reports: None Immunologic History: Reports: None Oncologic (Cancer) History: Reports: None Dermatologic History: Reports: None - Infectious Disease History Infectious Disease History: Reports: Influenza - Past Surgical History Head Surgeries/Procedures: Reports: None HEENT Surgical History: Reports: None Cardiovascular Surgical History: Reports: None GI Surgical History: Reports: None Neurological Surgical History: Reports: Lumbar Spine Other Neurological Surgeries/Procedures: laminectomy L4-5 Musculoskeletal Surgical History: Reports: ORIF, Shoulder Surgery Other Musculoskeletal Surgeries/Procedures:: 2014 Social & Family History - Family History Family Medical History: No Pertinent Family History - Tobacco Use Tobacco Use Status *Q: Former Tobacco User Used Tobacco, but Quit: Yes Month/Year Tobacco Last Used: 2 yr - Caffeine Use Caffeine Use: Reports: Soda Other Caffeine Use: rarely - Recreational Drug Use Recreational Drug Use: No - Living Situation & Occupation Living situation: Reports: , with Spouse, with Family ([id number]) Occupation: Unemployed ED ROS GENERAL - Review of Systems Review Of Systems: See Below Constitutional: Reports: Weakness. Denies: Fever, Chills, Decreased Appetite HEENT: Reports: No Symptoms Respiratory: Reports: Shortness of Breath (Intermittent with exertion) Cardiovascular: Reports: Dyspnea on Exertion. Denies: Chest Pain, Edema, Lightheadedness, Palpitations Endocrine: Reports: No Symptoms GI/Abdominal: Reports: No Symptoms : Reports: No Symptoms Musculoskeletal: Reports: No Symptoms Skin: Reports: No Symptoms Neurological: Reports: No Symptoms Psychiatric: Reports: No Symptoms Hematologic/Lymphatic: Reports: No Symptoms Immunologic: Reports: No Symptoms ED EXAM, GENERAL - Physical Exam Exam: See Below Exam Limited By: No Limitations General Appearance: Alert, WD/WN, No Apparent Distress Respiratory/Chest: No Respiratory Distress, Lungs Clear, Normal Breath Sounds, No Accessory Muscle Use, Chest Non-Tender Cardiovascular: Normal Peripheral Pulses, No Edema, No Gallop, No JVD, No Murmur, No Rub, Irregularly Irregular GI/Abdominal: Normal Bowel Sounds, Soft, Non-Tender, No Organomegaly, No Distention, No Abnormal Bruit, No Mass Neurological: Alert, Oriented, CN II-XII Intact, Normal Cognition, Normal Gait, Normal Reflexes, No Motor/Sensory Deficits Psychiatric: Normal Affect, Normal Mood Skin Exam: Warm, Dry, Intact, Normal Color, No Rash #1 Interpretation EKG Date: 09/04/20 Time: 10:16 Rhythm: A-Flutter Rate (Beats/Min): 79 [place]: Normal P-Wave: Absent QRS: Normal ST-T: Normal QT: Normal Comparison: Change From Previous EKG #2 Interpretation EKG Date: 09/04/20 Time: 10:22 Rhythm: A-Flutter Rate (Beats/Min): 80 [place]: Normal P-Wave: Absent QRS: Normal ST-T: Normal QT: Normal Course - Vital Signs Last Recorded V/S: Last Vital Signs Temp 96.9 F 09/04/20 11:03 Pulse 99 09/04/20 11:03 Resp 18 09/04/20 11:03 BP 138/88 09/04/20 11:03 Pulse Ox 100 09/04/20 11:03 - Orders/Labs/Meds Orders: Active Orders 24 hr Category Date Time Status Chest 2V [CR] Stat Exams 09/04/20 11:18 Taken Labs: Laboratory Tests 09/04/20 09/04/20 09/04/20 Range/Units 11:27 11:27 11:27 WBC 6.52 (4.23-9.07) K/mm3 RBC 4.07 L (4.63-6.08) M/mm3 Hgb 14.1 (13.7-17.5) gm/dl Hct 42.9 (40.1-51.0) % MCV 105.4 H (79.0-92.2) fl MCH 34.6 H (25.7-32.2) pg MCHC 32.9 (32.2-35.5) g/dl RDW Std Deviation 48.6 H (35.1-43.9) fL Plt Count 169 D (163-337) K/mm3 MPV 10.5 (9.4-12.3) fl Neut % (Auto) 67.2 (34.0-67.9) % Lymph % (Auto) 8.3 L (21.8-53.1) % [place] % (Auto) 23.5 H (5.3-12.2) % Eos % (Auto) 0.2 L (0.8-7.0) Baso % (Auto) 0.2 (0.1-1.2) % Neut # (Auto) 4.39 (1.78-5.38) K/mm3 Lymph # (Auto) 0.54 L (1.32-3.57) K/mm3 [place] # (Auto) 1.53 H (0.30-0.82) K/mm3 Eos # (Auto) 0.01 L (0.04-0.54) K/mm3 Baso # (Auto) 0.01 (0.01-0.08) K/mm3 Manual Slide Review Abnormal smear D-Dimer, Quantitative 0.60 H (0.19-0.50) mg/L Sodium 140 (136-145) mEq/L Potassium 4.0 (3.5-5.1) mEq/L Chloride 103 (98-107) mEq/L Carbon Dioxide 29 (21-32) mEq/L Anion Gap 12.0 (5-15) BUN 9 (7-18) mg/dL Creatinine 1.1 (0.7-1.3) mg/dL Est Cr Clr Drug Dosing 69.63 mL/min Estimated GFR (MDRD) > 60 (>60) mL/min BUN/Creatinine Ratio 8.2 L (14-18) Glucose 133 H (80-115) mg/dL Calcium 9.3 (8.5-10.1) mg/dL Total Bilirubin 1.2 H (0.2-1.0) mg/dL AST 101 H (15-37) U/L ALT 79 H (16-63) U/L Alkaline Phosphatase 155 H (46-116) U/L Troponin I < 0.017 (0.00-0.056) ng/mL C-Reactive Protein 0.7 (<1.0) mg/dL Total Protein 7.6 (6.4-8.2) g/dl Albumin 3.3 L (3.4-5.0) g/dl Globulin 4.3 gm/dL Albumin/Globulin Ratio 0.8 L (1-2) - Re-Assessments/Exams Free Text/Narrative Re-Assessment/Exam: Patient is a 60-year-old male sent to the ER from the clinic with concerns regarding atrial flutter. Patient has a history of A. fib but has not been on anticoagulants. He is unsure if he was chronically in A. fib or if he had converted to a normal sinus rhythm at some point, review of EKGs completed on previous visits show that he is chronically in A. fib. He does have occasional shortness of breath with exertion which he states has been going on for a number of months as well as some generalized weakness. Patient is currently in atrial flutter on the court monitor rate controlled in the 70s to 90s. He is taking diltiazem XR 180 mg daily as well as metoprolol 25 mg twice daily. Will do cardiac work-up including CBC, CMP, CRP, troponin, D-dimer, 2 view chest x-ray. EKGs were completed in the clinic. 09/04/20 12:15 Hematology was noted be grossly unremarkable. D-dimer shows elevated 0.60, however given the age of a 60-year-old this would be considered within the normal age variants. Troponin was negative. Electrolytes are normal. Chest x- ray was grossly unremarkable. EKG shows atrial flutter with a 3 to 4-1 conduction no obvious ischemia. Plan will be to start the patient on Eliquis for anticoagulation. Case discussed with the braille transcriber on-call at [facility] in [place], . He agrees with this plan. He also stated that if his rate should go up, he can take an extra dose of his metoprolol. I will send a referral to cardiology. Plan discussed with patient and he is in agreement. Discussed with him that he should limit alcohol consumption and avoid NSAIDs while taking the blood thinners. Discussed risk of bleeding and when to seek treatment. I will write for 1 month prescription of Eliquis and then have him follow-up with his primary care provider for ongoing refills. He will call to schedule an appointment with cardiology in [place]. Discharge instructions as documented. Departure - Departure Time of Disposition: 12:30 Disposition: Home, Self-Care 01 Condition: Good Clinical Impression: Atrial flutter Qualifiers: Atrial flutter type: unspecified Qualified Code(s): I48.92 - Unspecified atrial flutter Prescriptions: Apixaban [Eliquis] 5 mg PO BID 30 Days #60 tablet Instructions: Atrial Flutter Referrals: Kath Johnson PA-C [Primary Care Provider] - Devonte Peguero DO [Ordering Only Provider] - Forms: ED Department Discharge Additional Instructions: You were seen in the emergency department today for evaluation with regards to atrial flutter which was identified in the clinic. Work-up included blood work, EKG, and chest x-ray. Results of your work-up show a mild elevation in your liver enzymes, and a heart rhythm in atrial flutter. Work-up is otherwise unremarkable. Your case was discussed with braille transcriber, Dr. Peguero, at [facility] in [place]. We will start you on Eliquis which is a blood thinner twice daily to prevent blood clots related to your atrial flutter. A referral has been sent to Dr. Peguero. Call to schedule an appointment with him at his next available visit. Your primary care provider, Kath, will call to set up a follow-up with her. Continue to take your previously prescribed medications. If you find that your rate is elevated above 100, you may take an additional metoprolol 25 mg. You should limit alcohol consumption and avoid NSAIDs such as ibuprofen or Aleve while taking blood thinners as these do increase your risk of bleeding. If you should have any falls in which you hit your head, developed a bloody nose that will not stop, or have any other concerns, you should return to the emergency department for reevaluation. Sepsis Event Note (ED) - Evaluation Sepsis Screening Result: No Definite Risk - Focused Exam Vital Signs: Vital Signs Temp Pulse Resp BP Pulse Ox 09/04/20 11:03 96.9 F 99 18 138/88 100 - My Orders Last 24 Hours: My Active Orders 09/04/20 11:18 Chest 2V [CR] Stat - Assessment/Plan Last 24 Hours: My Active Orders 09/04/20 11:18 Chest 2V [CR] Stat
--- NOTE | 2020-09-05 15:21 | CR ---
Chest: 2 views of the chest were obtained. Comparison: Prior chest x-ray 03/23/20. Heart size and mediastinum are within normal limits. Lungs are clear with no acute parenchymal change. Mild scattered degenerative change is noted within the spine. Impression: 1. Findings as noted above. 2. Nothing acute is appreciated. Diagnostic code #2
== END 2020-09-04 12:45 | disposition home or self-care (01) ==
LOC: JD.ED 10:53
DX: I48.92 Unspecified atrial flutter (principal); Z88.1 Allergy status to other antibiotic agents; Z87.891 Personal history of nicotine dependence; Z79.899 Other long term (current) drug therapy
CPT/HCPCS: 36415; 71046; 71046-26; 80053; 84484; 85025; 85379; 86140; 93010; 99284; 99285-25

== ENCOUNTER 2020-11-20 14:24 | Observation (INO) | payer MEDICARE, OTHER ==
[2020-11-20] MEDS ORDERED: Sodium Chloride 0.9% 10 ML Syringe FLUSH PRN (15:07)
[2020-11-20] MEDS ORDERED: Ondansetron 4 MG/2 ML SDV IVPUSH ONE (15:13)
[2020-11-20] MEDS ORDERED: Sodium Chloride 0.9% 1,000 ML IV ONE (15:15)
--- NOTE | 2020-11-20 15:23 | EDM.PDOC ---
ED HPI GENERAL MEDICAL PROBLEM - General Chief Complaint: Abdominal Pain Stated Complaint: LIVER FAILURE Time Seen by Provider: 11/20/20 14:50 Source of Information: Reports: Patient, RN Notes Reviewed History Limitations: Reports: No Limitations - History of Present Illness INITIAL COMMENTS - FREE TEXT/NARRATIVE: The patient is a 60-year-old male who presents to the ED for his liver failure. Patient is evaluated by his PCP, Kath Johnson in our clinic today, he was complaining of upper abdomen pain, she did a CT, and lab work and this demonstrated transaminitis, and elevated bilirubin, elevated GGT, and she is concerned about acute liver failure so she sent him to the ER for further evaluation regarding possible hospital admission versus transfer. Patient notes that this pain has been on and off for some time, he has had intermittent nausea and diarrhea for the last week. He states that the pain is always there, but hurts worse at times. He notes that his whole stomach hurts when he yawns or coughs. He notes this is a sharp constant pain. He is not had any fevers or chills, or shortness of breath. The patient CT demonstrated nonspecific inflammatory change within the mesentery on both sides of his upper abdomen, small amount of increased fluid is seen within the pelvis which is also nonspecific, there is fatty infiltration within the liver, diverticuli within the colon without findings of diverticulitis. There was a mild diminished density noted next to the gallbladder compatible with focal fatty sparing, the gallbladder showed no calcified gallstones, spleen sign was normal the there was increased density seen within the mesentery in both sides but worse on the right side uncertain as to the etiology of this inflammatory change. Patient does drink beer on a daily basis he notes that he drinks roughly 4-5 beers per day, and has been doing this for over 40 years. He states his last alcohol intake was yesterday however. Abdominal Pain Score (Numeric/FACES): 7 - Related Data Allergies Allergy/AdvReac Type Severity Reaction Status Date / Time cefaclor [From Ceclor] Allergy Severe Swelling Verified 11/20/20 14:53 Home Meds: Home Meds Metoprolol Tartrate 25 mg PO BID #60 tablet 03/03/19 [Rx] Topiramate [Topamax] 25 mg PO BID tablet 03/26/19 [Rx] traZODone HCl [Trazodone HCl] 50 mg PO BEDTIME 04/05/19 [History] Famotidine 20 mg PO BID #20 tablet 04/19/19 [Rx] Ibuprofen [Motrin] 600 mg PO Q8H PRN #15 tab 04/19/19 [Rx] LORazepam [Ativan] 1 mg PO ASDIRECTED #17 tablet 05/16/19 [Rx] Ondansetron [Zofran ODT] 4 mg PO Q6H PRN #20 tab.dis 05/16/19 [Rx] Apixaban [Eliquis] 5 mg PO BID 30 Days #60 tablet 09/04/20 [Rx] dilTIAZem HCL [Dilt-Xr] 180 mg PO DAILY 09/04/20 [History] Past Medical History HEENT History: Reports: Sinusitis Cardiovascular History: Reports: Afib, High Cholesterol Other Cardiovascular History: atrial fibrillation Respiratory History: Reports: None Gastrointestinal History: Reports: PUD Other Gastrointestinal History: Duodenal ulcers Genitourinary History: Reports: None Musculoskeletal History: Reports: Fracture Other Musculoskeletal History: R) shoulder fx. Neurological History: Reports: Headaches, Chronic Psychiatric History: Reports: Addiction, Depression Endocrine/Metabolic History: Reports: None Hematologic History: Reports: None Immunologic History: Reports: None Oncologic (Cancer) History: Reports: None Dermatologic History: Reports: None - Infectious Disease History Infectious Disease History: Reports: Influenza - Past Surgical History Head Surgeries/Procedures: Reports: None HEENT Surgical History: Reports: None Cardiovascular Surgical History: Reports: None GI Surgical History: Reports: None Neurological Surgical History: Reports: Lumbar Spine Other Neurological Surgeries/Procedures: laminectomy L4-5 Musculoskeletal Surgical History: Reports: ORIF, Shoulder Surgery Other Musculoskeletal Surgeries/Procedures:: 2014 Social & Family History - Family History Family Medical History: No Pertinent Family History - Caffeine Use Caffeine Use: Reports: Soda Other Caffeine Use: rarely - Living Situation & Occupation Living situation: Reports: , with Spouse, with Family ([id number]) Occupation: Unemployed ED ROS GENERAL - Review of Systems Review Of Systems: Comprehensive ROS is negative, except as noted in HPI. ED EXAM, GI/ABD - Physical Exam Exam: See Below Exam Limited By: No Limitations General Appearance: Alert, WD/WN, No Apparent Distress Cardiovascular: Normal Peripheral Pulses, Regular Rate, Rhythm, No Edema GI/Abdominal Exam: Normal Bowel Sounds, Soft, Non-Tender, No Distention, No Mass Extremities: Normal Inspection, Normal Capillary Refill Neurological: Alert, Oriented, Normal Cognition, Sensory/Motor Deficit (pt has a baseline tremor apparent) Psychiatric: Normal Affect, Normal Mood Skin Exam: Warm, Dry, Intact, Normal Color, No Rash Course - Vital Signs Last Recorded V/S: Last Vital Signs Temp 97.8 F 11/20/20 14:46 Pulse 115 H 11/20/20 14:46 Resp 20 11/20/20 14:46 BP 137/99 H 11/20/20 14:46 Pulse Ox 100 11/20/20 14:46 - Orders/Labs/Meds Orders: Active Orders 24 hr Category Date Time Status Peripheral IV Care [RC] . DIRECTED Care 11/20/20 15:08 Active Sodium Chloride 0.9% [Normal Saline] 1,000 ml Med 11/20/20 15:15 Active IV ONETIME Sodium Chloride 0.9% [Saline Flush] Med 11/20/20 15:07 Active 10 ml FLUSH ASDIRECTED PRN Peripheral IV Insertion Adult [OM.PC] Routine Oth 11/20/20 15:07 Ordered Medication Orders Sodium Chloride (Normal Saline) 1,000 mls @ 250 mls/hr IV ONETIME ONE Stop: 11/20/20 19:14 Last Admin: 11/20/20 16:06 Dose: 250 mls/hr Documented by: RAN Sodium Chloride (Sodium Chloride 0.9% 10 Ml Syringe) 10 ml FLUSH ASDIRECTED PRN PRN Reason: Keep Vein Open Last Admin: 11/20/20 16:20 Dose: 10 ml Documented by: RAN Labs: Laboratory Tests 11/20/20 11/20/20 Range/Units 15:52 16:15 Lipase 109 (73-393) U/L Ethyl Alcohol 0.00 (0.00) gm% Influenza Type A RNA Negative (NEGATIVE) Influenza Type B RNA Negative (NEGATIVE) SARS-CoV-2 RNA (GERALDO) Negative (NEGATIVE) Meds: Medications Generic Name Dose Route Start Last Admin Trade Name Freq PRN Reason Stop Dose Admin Sodium Chloride 1,000 mls @ 250 mls/hr 11/20/20 15:15 11/20/20 16:06 Normal Saline IV 11/20/20 19:14 250 mls/hr ONETIME ONE Administration Sodium Chloride 10 ml 11/20/20 15:07 11/20/20 16:20 Sodium Chloride 0.9% 10 Ml Syringe FLUSH 10 ml ASDIRECTED PRN Administration Keep Vein Open Discontinued Medications Generic Name Dose Route Start Last Admin Trade Name Lizzeth PRN Reason Stop Dose Admin Ondansetron HCl 4 mg 11/20/20 15:13 11/20/20 16:06 Ondansetron 4 Mg/2 Ml Sdv IVPUSH 11/20/20 15:14 4 mg ONETIME ONE Administration - Re-Assessments/Exams Free Text/Narrative Re-Assessment/Exam: 11/20/20 15:24 Patient presents to the ED via direction from his PCP for suspect acute liver failure. Patient does have maguire transaminitis, with elevated bilirubin of 1.5, a GGT that was in the 1999s LDH was also elevated at 302. The CT was concerning for nonspecific inflammatory change within the mesentery on both sides, small increased fluid within the pelvis which is also nonspecific. Due to the patient's admitted alcohol use, we will go ahead and get a few more labs. Lipase, EtOH, we will give him some fluids and some nausea meds for initial management. Was made aware from lab staff that Kath Johnson had also entered on an ammonia level. 11/20/20 17:12 All other labs are essentially normal or unremarkable. Patient's EtOH level 0.00, Covid screen is still pending at this time. I did call [facility] in [place] and I talked with Dr. Tate he reviewed the lab findings with me, and states that the gentleman is suffering from alcoholic hepatitis and not acute liver failure. He states that he does not need transfer to [place] for management. He does state that the patient may benefit from observation admission, and to be put on Cipro and Flagyl for the mesenteric inflammation, given some fluids, and then should likely be able to be discharged home in the morning. He did note that the liver enzymes may go up over the next day or 2, but the treatment for this is to stop drinking alcohol. I did discuss these findings with the patient, and he would like to stay in the hospital if possible, so I did call Dr. Loza and he does accept the patient for observation status at this time. Departure - Departure Time of Disposition: 17:14 Disposition: Refer to Observation Condition: Good Clinical Impression: Alcoholic hepatitis without ascites - Discharge Information Referrals: Kath Johnson PA-C [Primary Care Provider] - Forms: ED Department Discharge Sepsis Event Note (ED) - Evaluation Sepsis Screening Result: No Definite Risk - Focused Exam Vital Signs: Vital Signs Temp Pulse Resp BP Pulse Ox 11/20/20 14:46 97.8 F 115 H 20 137/99 H 100 - My Orders Last 24 Hours: My Active Orders 11/20/20 15:07 Sodium Chloride 0.9% [Saline Flush] 10 ml FLUSH ASDIRECTED PRN Peripheral IV Insertion Adult [OM.PC] Routine 11/20/20 15:08 Peripheral IV Care [RC] . DIRECTED 11/20/20 15:15 Sodium Chloride 0.9% [Normal Saline] 1,000 ml IV ONETIME - Assessment/Plan Last 24 Hours: My Active Orders 11/20/20 15:07 Sodium Chloride 0.9% [Saline Flush] 10 ml FLUSH ASDIRECTED PRN Peripheral IV Insertion Adult [OM.PC] Routine 11/20/20 15:08 Peripheral IV Care [RC] . DIRECTED 11/20/20 15:15 Sodium Chloride 0.9% [Normal Saline] 1,000 ml IV ONETIME
[2020-11-20 16:57] LABS: CORONAVIRUS COVID-19 NAA NEGATIVE (NEGATIVE)
[2020-11-20] MEDS ORDERED: Promethazine 12.5 MG in Sodium Chloride 0.9% 50 ML IV PRN (18:22)
[2020-11-20] MEDS ORDERED: Albuterol/Ipratropium 3.0-0.5 MG/3 ML Neb Soln NEB PRN (18:22)
[2020-11-20] MEDS ORDERED: Morphine 2 MG/ML SYRINGE IVPUSH PRN (18:22)
[2020-11-20] MEDS ORDERED: traMADol 50 MG Tab PO PRN (18:29)
[2020-11-20] MEDS ORDERED: Heparin Sodium 5,000 Units/ML Vial SUBCUT SCH (18:30)
[2020-11-20] MEDS ORDERED: LORazepam 1 MG Tab PO SCH (18:30)
[2020-11-20] MEDS ORDERED: Multivitamins,Therapeutic Tab PO ONE (18:34)
[2020-11-20] MEDS ORDERED: LORazepam 2 MG/ML SDV IVPUSH PRN (18:39)
[2020-11-20] MEDS ORDERED: hydrALAZINE 20 MG/ML SDV IVPUSH PRN (18:41)
--- NOTE | 2020-11-20 18:44 | PCM.HP.2 ---
H&P History of Present Illness - General Date of Service: 11/20/20 Admit Problem/Dx: Admission Diagnosis/Problem Admission Diagnosis/Problem Alcoholic hepatitis Source of Information: Patient - History of Present Illness Initial Comments - Free Text/Narative: Patient is a 60-year-old male with a history of atrial fibrillation on anticoagulation, hypertension and chronic alcohol abuse who was sent to the ER by [facility] care physician Dr. Kath Johnson due to possible liver failure to see if patient needs to be transferred to higher level. Patient saw Dr. Kath Johnson on November 20, labs showed elevation of liver enzyme including bilirubin, GGT and AST and ALT. Patient complains of diffuse abdominal pain for 1.5 weeks when patient takes deep breath. He does not have any pain when he does not take deep breath and keep his abdomen still. He also complains of nausea and watery/loose stool diarrhea at times. He had watery bowel movements x5 yesterday. But today he had some not had any bowel movements so far. Other than the symptoms mentioned above, he also reports that he has a mild dizziness and headache. Patient admits that he drinks 4-5 beers per day, and has been doing this for over 40 years. In the ER, GI specialist Dr. Tate was consulted. Dr. Tate felt patient has a alcoholic hepatitis and not acute liver failure. The treatment needs to stop drinking alcohol. No steroid at this moment. Does not need to be transferred to higher level. he can be discharged to home next day. Abdominal Pain Score (Numeric/FACES): 7 - Related Data Allergies/Adverse Reactions: Allergies Allergy/AdvReac Type Severity Reaction Status Date / Time cefaclor [From Ceclor] Allergy Severe Swelling Verified 11/20/20 18:47 Home Medications: Home Meds Metoprolol Tartrate 25 mg PO BID #60 tablet 03/03/19 [Rx] traZODone HCl [Trazodone HCl] 50 mg PO BEDTIME PRN 04/05/19 [History] Ibuprofen [Motrin] 600 mg PO Q8H PRN #15 tab 04/19/19 [Rx] Apixaban [Eliquis] 5 mg PO BID 30 Days #60 tablet 09/04/20 [Rx] dilTIAZem HCL [Dilt-Xr] 180 mg PO DAILY 09/04/20 [History] Past Medical History HEENT History: Reports: Sinusitis Cardiovascular History: Reports: Afib, High Cholesterol Other Cardiovascular History: atrial fibrillation Respiratory History: Reports: None Gastrointestinal History: Reports: PUD Other Gastrointestinal History: Duodenal ulcers Genitourinary History: Reports: None Musculoskeletal History: Reports: Fracture Other Musculoskeletal History: R) shoulder fx. Neurological History: Reports: Headaches, Chronic Psychiatric History: Reports: Addiction, Depression Endocrine/Metabolic History: Reports: None Hematologic History: Reports: None Immunologic History: Reports: None Oncologic (Cancer) History: Reports: None Dermatologic History: Reports: None - Infectious Disease History Infectious Disease History: Reports: Influenza - Past Surgical History Head Surgeries/Procedures: Reports: None HEENT Surgical History: Reports: None Cardiovascular Surgical History: Reports: None GI Surgical History: Reports: None Neurological Surgical History: Reports: Lumbar Spine Other Neurological Surgeries/Procedures: laminectomy L4-5 Musculoskeletal Surgical History: Reports: ORIF, Shoulder Surgery Other Musculoskeletal Surgeries/Procedures:: 2014 Social & Family History - Family History Family Medical History: No Pertinent Family History (Denies genetic diseases in family) - Tobacco Use Tobacco Use Status *Q: Former Tobacco User Used Tobacco, but Quit: Yes Month/Year Tobacco Last Used: 2016 - Caffeine Use Caffeine Use: Reports: None Other Caffeine Use: rarely - Alcohol Use Date of Last Drink: 11/19/20 Time of Last Drink: 18:00 - Recreational Drug Use Recreational Drug Use: No - Living Situation & Occupation Living situation: Reports: , with Spouse, with Family ([id number]) Occupation: Unemployed H&P Review of Systems - Review of Systems: Review Of Systems: See Below General: Reports: No Symptoms HEENT: Reports: No Symptoms Pulmonary: Reports: No Symptoms Cardiovascular: Reports: No Symptoms Gastrointestinal: Reports: Diarrhea, Nausea Genitourinary: Reports: No Symptoms Musculoskeletal: Reports: No Symptoms Skin: Reports: No Symptoms Psychiatric: Reports: No Symptoms Neurological: Reports: No Symptoms, Dizziness Hematologic/Lymphatic: Reports: No Symptoms Immunologic: Reports: No Symptoms Exam - Exam Exam: See Below - Vital Signs Vital Signs: Last Vital Signs Temp 36.9 C 11/20/20 18:16 Pulse 99 11/20/20 18:16 Resp 18 11/20/20 18:16 BP 142/84 H 11/20/20 18:16 Pulse Ox 99 11/20/20 18:16 Weight: 85.638 kg - Exam General: Alert, Oriented, Cooperative HEENT: EOMI, Pupils Equal, Pupils Reactive Neck: Supple, Trachea Midline, Full Range of Motion Lungs: Clear to Auscultation, Normal Respiratory Effort Cardiovascular: Irregular Rhythm GI/Abdominal Exam: Normal Bowel Sounds, Soft (Mildly diffuse tenderness, no rebound pain) Extremities: Normal Inspection, Normal Range of Motion, Non-Tender, No Pedal Edema, Normal Capillary Refill Neurological: Cranial Nerves Intact, Reflexes Equal Bilateral, Strength Equal Bilateral, Normal Speech, Normal Tone, Sensation Intact Neuro Extensive - Mental Status: Alert, Oriented x3, Normal Mood/Affect, Normal Cognition Neuro Extensive - Motor, Sensory, Reflexes: CN II-XII Intact, Normal Reflexes (Mild tremor in both hands) - Patient Data Lab Results Last 24 hrs: Laboratory Results - last 24 hr 11/20/20 11/20/20 Range/Units 15:52 16:15 Lipase 109 (73-393) U/L Ethyl Alcohol 0.00 (0.00) gm% Influenza Type A RNA Negative (NEGATIVE) Influenza Type B RNA Negative (NEGATIVE) SARS-CoV-2 RNA (GERALDO) Negative (NEGATIVE) Result Diagrams: 11/21/20 05:45 11/21/20 05:45 Sepsis Event Note - Evaluation Sepsis Screening Result: No Definite Risk - Focused Exam Vital Signs: Vital Signs Temp Temp Pulse Pulse Resp BP BP 11/20/20 18:16 36.9 C 99 18 142/84 H 11/20/20 14:46 36.6 C 115 H 20 137/99 H Pulse Ox 11/20/20 18:16 99 11/20/20 14:46 100 Problem List Initiated/Reviewed/Updated: Yes Orders Last 24hrs: Active Orders 24 hr Category Date Time Status Patient Status [ADT] Routine ADT 11/20/20 17:40 Active Aspiration Precautions [RC] ASDIRECTED Care 11/20/20 18:34 Ordered Assess Neurological Status [RC] ASDIRECTED Care 11/20/20 18:34 Ordered Bedrest Bedside Commode [RC] ASDIRECTED Care 11/20/20 18:22 Ordered CIWAA Assessment [RC] Q15M Care 11/20/20 18:34 Ordered CIWAA Assessment [RC] Q1H Care 11/20/20 18:34 Ordered CIWAA Assessment [RC] Q30M Care 11/20/20 18:34 Ordered CIWAA Assessment [RC] Q4H Care 11/20/20 18:34 Ordered Cardiac Monitoring [RC] CONTINUOUS Care 11/20/20 18:23 Ordered EKG Documentation Completion [RC] ROUTINE Care 11/20/20 18:27 Ordered Height and Weight [RC] DAILY Care 11/20/20 18:22 Ordered Intake and Output [RC] QSHIFT Care 11/20/20 18:22 Ordered Notify Provider [RC] PRN Care 11/20/20 18:34 Ordered Oxygen Therapy [RC] PRN Care 11/20/20 18:22 Ordered Pulse Oximetry [RC] CONTINUOUS Care 11/20/20 18:23 Ordered RT Aerosol Therapy [RC] ASDIRECTED Care 11/20/20 18:25 Ordered VTE/DVT Education [RC] PER UNIT ROUTINE Care 11/20/20 18:22 Ordered Vital Signs [RC] Q4H Care 11/20/20 18:22 Ordered Consult to Case Management/Farmworker Poultry [CONS] Cons 11/20/20 18:27 Ordered Routine OT Evaluation and Treatment [CONS] Routine Cons 11/20/20 18:27 Ordered PT Evaluation and Treatment [CONS] Routine Cons 11/20/20 18:27 Ordered Regular Diet [DIET] Diet 11/20/20 Breakfast Ordered AMMONIA VENOUS [CHEM] Routine Lab 11/20/20 18:34 Ordered CBC WITH AUTO DIFF [HEME] DAILY Lab 11/21/20 05:00 Ordered CBC WITH AUTO DIFF [HEME] DAILY Lab 11/22/20 05:00 Ordered CBC WITH AUTO DIFF [HEME] DAILY Lab 11/23/20 05:00 Ordered CBC WITH AUTO DIFF [HEME] DAILY Lab 11/24/20 05:00 Ordered CBC WITH AUTO DIFF [HEME] DAILY Lab 11/25/20 05:00 Ordered COMPREHENSIVE METABOLIC PN,CMP [CHEM] DAILY Lab 11/21/20 05:00 Ordered COMPREHENSIVE METABOLIC PN,CMP [CHEM] DAILY Lab 11/22/20 05:00 Ordered COMPREHENSIVE METABOLIC PN,CMP [CHEM] DAILY Lab 11/23/20 05:00 Ordered COMPREHENSIVE METABOLIC PN,CMP [CHEM] DAILY Lab 11/24/20 05:00 Ordered COMPREHENSIVE METABOLIC PN,CMP [CHEM] DAILY Lab 11/25/20 05:00 Ordered DRUG SCREEN, URINE [URCHEM] Routine Lab 11/20/20 18:34 Ordered INR,PT,PROTHROMBIN TIME [COAG] Routine Lab 11/20/20 18:27 Ordered MAGNESIUM [CHEM] DAILY Lab 11/21/20 05:00 Ordered MAGNESIUM [CHEM] DAILY Lab 11/22/20 05:00 Ordered MAGNESIUM [CHEM] DAILY Lab 11/23/20 05:00 Ordered MAGNESIUM [CHEM] DAILY Lab 11/24/20 05:00 Ordered PHOSPHORUS [CHEM] Routine Lab 11/20/20 18:27 Ordered PTT,PARTIAL THROMBOPLSTIN TIME [COAG] Routine Lab 11/20/20 18:27 Ordered TROPONIN I [CHEM] Q6H Lab 11/20/20 18:26 Ordered TROPONIN I [CHEM] Q6H Lab 11/21/20 00:26 Ordered Albuterol/Ipratropium [DuoNeb 3.0-0.5 MG/3 ML] Med 11/20/20 18:22 Ordered 3 ml NEB Q4H PRN Apixaban [Eliquis] Med 11/20/20 18:30 Ordered 5 mg PO BID Famotidine [Pepcid] Med 11/20/20 21:00 Ordered 20 mg PO BID Folic Acid Med 11/20/20 18:45 Ordered 1 mg PO DAILY LORazepam [Ativan] Med 11/20/20 18:39 Ordered 0.5 mg IVPUSH Q4H PRN Metoprolol Tartrate [Lopressor] Med 11/20/20 18:45 Ordered 25 mg PO BID Morphine Med 11/20/20 18:22 Ordered 2 mg IVPUSH Q4H PRN Multivitamins,Therapeutic [Thera] Med 11/20/20 18:34 Once 1 each PO ONETIME ONE Promethazine [Phenergan] 12.5 mg Med 11/20/20 18:22 Ordered Sodium Chloride 0.9% [Normal Saline] 50 ml IV Q6H Sodium Chloride 0.9% [Normal Saline] 1,000 ml Med 11/20/20 15:15 Active IV ONETIME Sodium Chloride 0.9% [Saline Flush] Med 11/20/20 15:07 Active 10 ml FLUSH ASDIRECTED PRN Thiamine [Vitamin B-1] Med 11/20/20 18:45 Ordered 100 mg PO DAILY Topiramate [Topamax] Med 11/20/20 18:45 Ordered 25 mg PO BID chlordiazePOXIDE [Librium] Med 11/20/20 18:45 Ordered See Protocol PO ASDIRECTED dilTIAZem HCL [Dilt-Xr] Med 11/20/20 18:30 Ordered 180 mg PO DAILY hydrALAZINE [Apresoline] Med 11/20/20 18:41 Ordered 10 mg IVPUSH Q4H PRN traMADol [Ultram] Med 11/20/20 18:29 Ordered 50 mg PO Q6H PRN traZODone Med 11/20/20 21:00 Ordered 50 mg PO BEDTIME Peripheral IV Insertion Adult [OM.PC] Routine Oth 11/20/20 15:07 Ordered Seizure Precautions [OM.PC] Routine Oth 11/20/20 18:34 Ordered Resuscitation Status Routine Resus Stat 11/20/20 18:31 Ordered Medication Orders Albuterol/Ipratropium (Albuterol/Ipratropium 3.0-0.5 Mg/3 Ml Neb Soln) 3 ml NEB Q4H PRN PRN Reason: Shortness Of Breath/wheezing Apixaban (Apixaban 5 Mg Tab) 5 mg PO BID MICHAEL Chlordiazepoxide HCl (Chlordiazepoxide 25 Mg Cap) 0 mg PO ASDIRECTED MICHAEL; Protocol Famotidine (Famotidine 20 Mg Tab) 20 mg PO BID MICHAEL Folic Acid (Folic Acid 1 Mg Tab) 1 mg PO DAILY MICHAEL Stop: 11/22/20 09:01 Hydralazine HCl (Hydralazine 20 Mg/Ml Sdv) 10 mg IVPUSH Q4H PRN PRN Reason: Hypertension Sodium Chloride (Normal Saline) 1,000 mls @ 250 mls/hr IV ONETIME ONE Stop: 11/20/20 19:14 Last Admin: 11/20/20 16:06 Dose: 250 mls/hr Documented by: HERMMIC Promethazine HCl 12.5 mg/ (Sodium Chloride) 50.5 mls @ 100 mls/hr IV Q6H PRN PRN Reason: Nausea/Vomiting Lorazepam (Lorazepam 2 Mg/Ml Sdv) 0.5 mg IVPUSH Q4H PRN PRN Reason: Withdrawal Symptoms Metoprolol Tartrate (Metoprolol Tartrate 25 Mg Tab) 25 mg PO BID MICHAEL Morphine Sulfate (Morphine 2 Mg/Ml Syringe) 2 mg IVPUSH Q4H PRN PRN Reason: Pain (severe 7-10) Stop: 11/21/20 18:24 Multivitamins (Multivitamins,Therapeutic Tab) 1 each PO ONETIME ONE Stop: 11/20/20 18:35 Non-Formulary Medication (Diltiazem Hcl [Dilt-Xr]) 180 mg PO DAILY MICHAEL Sodium Chloride (Sodium Chloride 0.9% 10 Ml Syringe) 10 ml FLUSH ASDIRECTED PRN PRN Reason: Keep Vein Open Last Admin: 11/20/20 16:20 Dose: 10 ml Documented by: HERMMIC Thiamine HCl (Thiamine 100 Mg Tab) 100 mg PO DAILY MICHAEL Topiramate (Topiramate 25 Mg Tab) 25 mg PO BID MICHAEL Tramadol HCl (Tramadol 50 Mg Tab) 50 mg PO Q6H PRN PRN Reason: Pain (moderate 4-6) Trazodone HCl (Trazodone 50 Mg Tab) 50 mg PO BEDTIME MICHAEL Assessment/Plan Comment:: Patient is a 60-year-old male with a history of atrial fibrillation on anticoagulation, hypertension and chronic alcohol abuse. Assessment and plan: Alcoholic hepatitis Chronic alcohol abuse In the ER, GI specialist Dr. Tate was consulted. Dr. Tate felt patient has a alcoholic hepatitis and not acute liver failure. His liver enzymes may go up over the next day or 2. The treatment needs to stop drinking alcohol. No steroid at this moment. Does not need to be transferred to higher level. He can be discharged to home next day. Advised him to stop drinking. Repeat liver enzymes in am Repeat CBC, CMP and electrolytes in the morning Alcohol withdrawal drinks roughly 4-5 beers per day, and has been doing this for over 40 years [facility] protocol Seizure precaution Paroxysmal atrial fibrillation Heart rate is controlled Continue Eliquis 5 mg twice daily, Diltiazem 180 mg daily and metoprolol 25 mg twice daily Mesenteric inflammation As per Dr. Tate, Levaquin (Cipro not available) and Flagyl Hepatic steatosis Stop drinking Counseled Follow with PCP and GI HTN Continue diltiazem and metoprolol DVT prophylaxis: Eliquis CODE STATUS: Full - Mortality Measure Prognosis:: Poor
[2020-11-20] MEDS ORDERED: chlordiazePOXIDE 25 MG Cap PO SCH (18:45)
[2020-11-20] MEDS: Famotidine 20 MG Tab PO SCH (20:22)
[2020-11-20] MEDS: chlordiazePOXIDE 25 MG Cap PO SCH ×2 (20:23→23:51)
[2020-11-20] MEDS: Folic Acid 1 MG Tab PO SCH (20:23)
[2020-11-20] MEDS: Metoprolol Tartrate 25 MG Tab PO SCH ×2 (20:23→22:42)
[2020-11-20] MEDS: Topiramate 25 MG Tab PO SCH ×2 (20:24→22:42)
[2020-11-20] MEDS: Apixaban 5 MG Tab PO SCH ×2 (20:24→23:50)
[2020-11-20] MEDS: Diltiazem 180 MG Cap.CD PO SCH (20:24)
[2020-11-20] MEDS: traZODone 50 MG Tab PO SCH ×3 (20:25→23:57)
[2020-11-20] MEDS: Thiamine 100 MG Tab PO SCH (20:25)
[2020-11-21] MEDS: chlordiazePOXIDE 25 MG Cap PO SCH ×4 (04:13→15:32)
[2020-11-21] MEDS: Apixaban 5 MG Tab PO SCH (08:57)
[2020-11-21] MEDS: Famotidine 20 MG Tab PO SCH (08:58)
[2020-11-21] MEDS: Metoprolol Tartrate 25 MG Tab PO SCH (08:58)
[2020-11-21] MEDS: Topiramate 25 MG Tab PO SCH (08:58)
[2020-11-21] MEDS: Diltiazem 180 MG Cap.CD PO SCH (08:58)
[2020-11-21] MEDS: Folic Acid 1 MG Tab PO SCH (09:00)
[2020-11-21] MEDS ORDERED: Potassium Chloride 20 MEQ Tab.ER PO SCH (09:00)
[2020-11-21] MEDS: Thiamine 100 MG Tab PO SCH (09:01)
[2020-11-21] MEDS ORDERED: metroNIDAZOLE 500 MG Tab PO SCH (10:00)
[2020-11-21] MEDS ORDERED: Levofloxacin 500 MG Tab PO SCH (10:00)
[2020-11-21] MEDS ORDERED: Sodium Chloride 0.9% 100 ML IV SCH (10:30)
[2020-11-21] MEDS ORDERED: Biotin/Folic Acid/Vitamin C/Vitamin B Complex Tab PO SCH (10:30)
[2020-11-21] MEDS ORDERED: Potassium Chloride 20 MEQ Tab.ER PO ONE (11:37)
[2020-11-21] MEDS ORDERED: NS + KCl 20mEq/L 1,000 ML IV SCH (11:45)
[2020-11-21] MEDS ORDERED: Metoprolol Tartrate 25 MG Tab PO SCH ×2 (13:15→21:00)
[2020-11-21] MEDS ORDERED: LORazepam 2 MG/ML SDV IVPUSH ONE (13:32)
[2020-11-21] MEDS ORDERED: Metoprolol Tartrate 25 MG Tab PO ONE (13:43)
--- NOTE | 2020-11-21 14:52 | PCM.DCSUM1 ---
Discharge Summary - Hospital Course Free Text/Narrative:: Patient is a 60-year-old male with a history of atrial fibrillation on anticoagulation, hypertension and chronic alcohol abuse. Assessment and plan: Alcoholic hepatitis Chronic alcohol abuse In the ER, GI specialist Dr. Tate was consulted. Dr. Tate felt patient has a alcoholic hepatitis and not acute liver failure. His liver enzymes may go up over the next day or 2. The treatment needs to stop drinking alcohol. No steroi d at this moment. Does not need to be transferred to higher level. He can be discharged to home next day. Advised him to stop drinking. Repeat liver enzymes in am Repeat CBC, CMP and electrolytes in the morning Today hemoglobin 12.7, platelets 82, INR 1.17, potassium 3.0 creatinine 0.9, mag 1.8 AST 197, ALT 91, alk phos 174, albumin 2.9 Ammonia less than 10 Troponin negative x2 MELD Score - 11 points.6.0% Estimated 3-Month Mortality [facility] DF - 4.6 points Alcohol withdrawal drinks roughly 4-5 beers per day, and has been doing this for over 40 years CIWA protocol Seizure precaution CIWA score 1 today. He refuses to go to any facilities and would like to go home. Paroxysmal atrial fibrillation Heart rate greater than 100 at times. Continue Eliquis 5 mg twice daily, Diltiazem 180 mg daily and increased metoprolol to 35.5 mg twice daily from 25 mg twice daily Ativan 0.5 mg p.o. every 6 hours as needed. Follow with PCP and carpenter refrigerator. Mesenteric inflammation As per Dr. Tate, Byron (Cipro not available) and Flagyl Hepatic steatosis Stop drinking Counseled Follow with PCP and GI HTN Continue diltiazem and metoprolol Abnormal EKG -inferior infarct acute, ST elevation considering anterior lateral injury. BNP 622 Troponin <0.017 x2 No chest pain Discussed with carpenter refrigerator Dr. Lubin and showed his EKGs to Dr. Lubin this morning who did not feel pt has a VT and he did not concern the EKG. Follow with carpenter refrigerator Today patient feels much better. This afternoon he does not have any complaints. Denies headache, dizziness, nausea, vomiting, chest pain, shortness of breath, abdominal pain, or dysuria. CIWA score is 1 today. He can walk with his walker. He refuses to go to any facilities for stop drinking and would like to go home. He was advised to stop drinking and take his medications as prescribed. He promised me to be medical compliance. Patient will be discharged home to follow with PCP in 2 to 3 days, GI within 1 week and her carpenter refrigerator within 1 week. Check CBC, CMP and electrolytes in 2 to 3 days and then weekly. Do not drive until approval from MD. Call PCP for medical issues. Diagnosis: Stroke: No - Discharge Data Discharge Date: 11/21/20 Discharge Disposition: Home, Self-Care 01 Condition: Good - Referral to Home Health Primary Care Physician: Kath Johnson PA-C - Patient Summary/Data Consults: Consultations 11/20/20 18:27 Consult to Case Management/Performance Improvement Analyst [CONS] Routine OT Evaluation and Treatment [CONS] Routine PT Evaluation and Treatment [CONS] Routine Recommended Follow-up Testing/Procedures: follow with PCP in 2 to 3 days, GI within 1 week and her carpenter refrigerator within 1 week. Check CBC, CMP and electrolytes in 2 to 3 days and then weekly. Do not drive until approval from MD. Call PCP for medical issues. - Patient Instructions Diet: Usual Diet as Tolerated Driving: Do Not Drive - Discharge Plan *PRESCRIPTION DRUG MONITORING PROGRAM REVIEWED*: Not Applicable *COPY OF PRESCRIPTION DRUG MONITORING REPORT IN PATIENT AYDE: Not Applicable Prescriptions/Med Rec: LORazepam [Ativan] 0.5 mg PO Q6H PRN #10 tablet PRN Reason: Withdrawal Symptoms metroNIDAZOLE [Flagyl] 500 mg PO Q8H #24 tablet Folic Acid 1 mg PO DAILY #30 tablet levoFLOXacin [Levaquin] 500 mg PO Q24H #7 tablet Metoprolol Tartrate [Lopressor] 37.5 mg PO Q12H #60 tablet Biotin/FA/Vit C/Vit B Complex [Nephrocaps] 1 tab PO DAILY #30 tablet Thiamine [Vitamin B-1] 100 mg PO DAILY #30 tablet Home Medications: Home Meds traZODone HCl [Trazodone HCl] 50 mg PO BEDTIME PRN 04/05/19 [History] Apixaban [Eliquis] 5 mg PO BID 30 Days #60 tablet 09/04/20 [Rx] dilTIAZem HCL [Dilt-Xr] 180 mg PO DAILY 09/04/20 [History] Biotin/FA/Vit C/Vit B Complex [Nephrocaps] 1 tab PO DAILY #30 tablet 11/21/20 [Rx] Folic Acid 1 mg PO DAILY #30 tablet 11/21/20 [Rx] LORazepam [Ativan] 0.5 mg PO Q6H PRN #10 tablet 11/21/20 [Rx] Metoprolol Tartrate [Lopressor] 37.5 mg PO Q12H #60 tablet 11/21/20 [Rx] Thiamine [Vitamin B-1] 100 mg PO DAILY #30 tablet 11/21/20 [Rx] Topiramate [Topamax] 25 mg PO BID tablet 11/21/20 [Rx] levoFLOXacin [Levaquin] 500 mg PO Q24H #7 tablet 11/21/20 [Rx] metroNIDAZOLE [Flagyl] 500 mg PO Q8H #24 tablet 11/21/20 [Rx] Forms: ED Department Discharge Referrals: Kath Johnson PA-C [Primary Care Provider] - (in 2 to 3 days. ) cardiology, within one week. [Other] GI, within one week. [Other] - Discharge Summary/Plan Comment DC Time >30 min.: Yes - General Info Date of Service: 11/21/20 Admission Dx/Problem (Free Text: Admission Diagnosis/Problem Admission Diagnosis/Problem Alcoholic hepatitis Subjective Update: Today patient feels much better. This afternoon he does not have any complaints. Denies headache, dizziness, nausea, vomiting, chest pain, shortness of breath, abdominal pain, or dysuria. CIWA score is 1 today. AST 197, ALT 91, alk phos 174, ammonia less than 10 albumin 2.9 Troponin negative x2 MELD Score 11 points.6.0% Estimated 3-Month Mortality [facility] DF 4.6 points - Review of Systems General: Reports: No Symptoms HEENT: Reports: No Symptoms Pulmonary: Reports: No Symptoms Cardiovascular: Reports: No Symptoms Gastrointestinal: Reports: No Symptoms Genitourinary: Reports: No Symptoms Musculoskeletal: Reports: No Symptoms Skin: Reports: No Symptoms Neurological: Reports: No Symptoms Psychiatric: Reports: No Symptoms - Patient Data Vitals - Most Recent: Last Vital Signs Temp 36.7 C 11/21/20 12:26 Pulse 75 11/21/20 13:57 Resp 16 11/21/20 12:26 BP 123/79 11/21/20 13:57 Pulse Ox 98 11/21/20 13:57 Weight - Most Recent: 84.64 kg I&O - Last 24 hours: Intake & Output 11/20/20 11/21/20 11/21/20 22:59 06:59 14:59 Intake Total 120 Balance 120 Lab Results - Last 24 hrs: Laboratory Results - last 24 hr 11/20/20 11/20/20 11/20/20 Range/Units 15:52 16:15 20:00 WBC (4.23-9.07) K/mm3 RBC (4.63-6.08) M/mm3 Hgb (13.7-17.5) gm/dl Hct (40.1-51.0) % MCV (79.0-92.2) fl MCH (25.7-32.2) pg MCHC (32.2-35.5) g/dl RDW Std Deviation (35.1-43.9) fL Plt Count (163-337) K/mm3 MPV (9.4-12.3) fl Neut % (Auto) (34.0-67.9) % Lymph % (Auto) (21.8-53.1) % [place] % (Auto) (5.3-12.2) % Eos % (Auto) (0.8-7.0) Baso % (Auto) (0.1-1.2) % Neut # (Auto) (1.78-5.38) K/mm3 Lymph # (Auto) (1.32-3.57) K/mm3 [place] # (Auto) (0.30-0.82) K/mm3 Eos # (Auto) (0.04-0.54) K/mm3 Baso # (Auto) (0.01-0.08) K/mm3 Manual Slide Review PT (9.7-12.0) SECONDS INR APTT (21.7-31.4) SECONDS Sodium (136-145) mEq/L Potassium (3.5-5.1) mEq/L Chloride (98-107) mEq/L Carbon Dioxide (21-32) mEq/L Anion Gap (5-15) BUN (7-18) mg/dL Creatinine (0.7-1.3) mg/dL Est Cr Clr Drug Dosing mL/min Estimated GFR (MDRD) (>60) mL/min BUN/Creatinine Ratio (14-18) Glucose (80-115) mg/dL Calcium (8.5-10.1) mg/dL Phosphorus 3.8 (2.6-4.7) mg/dL Magnesium (1.8-2.4) mg/dl Total Bilirubin (0.2-1.0) mg/dL AST (15-37) U/L ALT (16-63) U/L Alkaline Phosphatase (46-116) U/L Ammonia (11-32) umol/L Troponin I < 0.017 (0.00-0.056) ng/mL NT-Pro-B Natriuret Pep (0-125) pg/mL Total Protein (6.4-8.2) g/dl Albumin (3.4-5.0) g/dl Globulin gm/dL Albumin/Globulin Ratio (1-2) Lipase 109 (73-393) U/L Urine Opiates Screen (KPLMEG=368) Ur Buprenorphine Scrn (CUTOFF=10) Ur Oxycodone Screen (TKA0ZI=530) Urine Methadone Screen (HCC9OQ=964) Ur Propoxyphene Screen (CYHKZG=874) Ur Barbiturates Screen (QUTPPM=641) Ur Tricyclics Screen (AFDGFS=981) Ur Phencyclidine Scrn (CUTOFF=25) Ur Amphetamine Screen (YAQBTZ=594) U Methamphetamines Scrn (FFIUUP=687) U Benzodiazepines Scrn (YLFRIO=632) U Cocaine Metab Screen (DUTXSC=082) U Marijuana (THC) Screen (CUTOFF=50) Ethyl Alcohol 0.00 (0.00) gm% Influenza Type A RNA Negative (NEGATIVE) Influenza Type B RNA Negative (NEGATIVE) SARS-CoV-2 RNA (GERALDO) Negative (NEGATIVE) 11/20/20 11/20/20 11/20/20 Range/Units 20:00 20:10 23:45 WBC (4.23-9.07) K/mm3 RBC (4.63-6.08) M/mm3 Hgb (13.7-17.5) gm/dl Hct (40.1-51.0) % MCV (79.0-92.2) fl MCH (25.7-32.2) pg MCHC (32.2-35.5) g/dl RDW Std Deviation (35.1-43.9) fL Plt Count (163-337) K/mm3 MPV (9.4-12.3) fl Neut % (Auto) (34.0-67.9) % Lymph % (Auto) (21.8-53.1) % [place] % (Auto) (5.3-12.2) % Eos % (Auto) (0.8-7.0) Baso % (Auto) (0.1-1.2) % Neut # (Auto) (1.78-5.38) K/mm3 Lymph # (Auto) (1.32-3.57) K/mm3 [place] # (Auto) (0.30-0.82) K/mm3 Eos # (Auto) (0.04-0.54) K/mm3 Baso # (Auto) (0.01-0.08) K/mm3 Manual Slide Review PT 12.5 H (9.7-12.0) SECONDS INR 1.17 APTT 28.3 (21.7-31.4) SECONDS Sodium (136-145) mEq/L Potassium (3.5-5.1) mEq/L Chloride (98-107) mEq/L Carbon Dioxide (21-32) mEq/L Anion Gap (5-15) BUN (7-18) mg/dL Creatinine (0.7-1.3) mg/dL Est Cr Clr Drug Dosing mL/min Estimated GFR (MDRD) (>60) mL/min BUN/Creatinine Ratio (14-18) Glucose (80-115) mg/dL Calcium (8.5-10.1) mg/dL Phosphorus (2.6-4.7) mg/dL Magnesium (1.8-2.4) mg/dl Total Bilirubin (0.2-1.0) mg/dL AST (15-37) U/L ALT (16-63) U/L Alkaline Phosphatase (46-116) U/L Ammonia < 10 L (11-32) umol/L Troponin I < 0.017 (0.00-0.056) ng/mL NT-Pro-B Natriuret Pep (0-125) pg/mL Total Protein (6.4-8.2) g/dl Albumin (3.4-5.0) g/dl Globulin gm/dL Albumin/Globulin Ratio (1-2) Lipase (73-393) U/L Urine Opiates Screen (BSDMCB=946) Ur Buprenorphine Scrn (CUTOFF=10) Ur Oxycodone Screen (XKH7WX=410) Urine Methadone Screen (ZHE5PK=380) Ur Propoxyphene Screen (LPMLOC=950) Ur Barbiturates Screen (CSJLND=522) Ur Tricyclics Screen (PTIXDN=217) Ur Phencyclidine Scrn (CUTOFF=25) Ur Amphetamine Screen (OONJHQ=803) U Methamphetamines Scrn (YTNSZE=485) U Benzodiazepines Scrn (TGWJDF=228) U Cocaine Metab Screen (EHRCXC=051) U Marijuana (THC) Screen (CUTOFF=50) Ethyl Alcohol (0.00) gm% Influenza Type A RNA (NEGATIVE) Influenza Type B RNA (NEGATIVE) SARS-CoV-2 RNA (GERALDO) (NEGATIVE) 11/20/20 11/21/20 11/21/20 Range/Units 23:45 04:29 05:45 WBC 3.78 L (4.23-9.07) K/mm3 RBC 3.69 L (4.63-6.08) M/mm3 Hgb 12.7 L D (13.7-17.5) gm/dl Hct 37.8 L (40.1-51.0) % MCV 102.4 H (79.0-92.2) fl MCH 34.4 H (25.7-32.2) pg MCHC 33.6 (32.2-35.5) g/dl RDW Std Deviation 50.7 H (35.1-43.9) fL Plt Count 82 L (163-337) K/mm3 MPV 12.2 (9.4-12.3) fl Neut % (Auto) 65.0 (34.0-67.9) % Lymph % (Auto) 21.7 L (21.8-53.1) % [place] % (Auto) 11.4 (5.3-12.2) % Eos % (Auto) 0.5 L (0.8-7.0) Baso % (Auto) 1.1 (0.1-1.2) % Neut # (Auto) 2.46 (1.78-5.38) K/mm3 Lymph # (Auto) 0.82 L (1.32-3.57) K/mm3 [place] # (Auto) 0.43 (0.30-0.82) K/mm3 Eos # (Auto) 0.02 L (0.04-0.54) K/mm3 Baso # (Auto) 0.04 (0.01-0.08) K/mm3 Manual Slide Review Abnormal smear PT (9.7-12.0) SECONDS INR APTT (21.7-31.4) SECONDS Sodium (136-145) mEq/L Potassium (3.5-5.1) mEq/L Chloride (98-107) mEq/L Carbon Dioxide (21-32) mEq/L Anion Gap (5-15) BUN (7-18) mg/dL Creatinine (0.7-1.3) mg/dL Est Cr Clr Drug Dosing mL/min Estimated GFR (MDRD) (>60) mL/min BUN/Creatinine Ratio (14-18) Glucose (80-115) mg/dL Calcium (8.5-10.1) mg/dL Phosphorus (2.6-4.7) mg/dL Magnesium (1.8-2.4) mg/dl Total Bilirubin (0.2-1.0) mg/dL AST (15-37) U/L ALT (16-63) U/L Alkaline Phosphatase (46-116) U/L Ammonia (11-32) umol/L Troponin I (0.00-0.056) ng/mL NT-Pro-B Natriuret Pep 622 H (0-125) pg/mL Total Protein (6.4-8.2) g/dl Albumin (3.4-5.0) g/dl Globulin gm/dL Albumin/Globulin Ratio (1-2) Lipase (73-393) U/L Urine Opiates Screen Negative (ABQPOT=750) Ur Buprenorphine Scrn Negative (CUTOFF=10) Ur Oxycodone Screen Negative (KCO9BA=916) Urine Methadone Screen Negative (AXW0YH=435) Ur Propoxyphene Screen Negative (LVFOGY=940) Ur Barbiturates Screen Negative (BJMMPA=034) Ur Tricyclics Screen Negative (MVEPYP=001) Ur Phencyclidine Scrn Negative (CUTOFF=25) Ur Amphetamine Screen Negative (DMCNRO=111) U Methamphetamines Scrn Negative (ZGXBRJ=429) U Benzodiazepines Scrn Negative (ZZUDMN=371) U Cocaine Metab Screen Negative (SESKNS=442) U Marijuana (THC) Screen Negative (CUTOFF=50) Ethyl Alcohol (0.00) gm% Influenza Type A RNA (NEGATIVE) Influenza Type B RNA (NEGATIVE) SARS-CoV-2 RNA (GERALDO) (NEGATIVE) 11/21/20 Range/Units 05:45 WBC (4.23-9.07) K/mm3 RBC (4.63-6.08) M/mm3 Hgb (13.7-17.5) gm/dl Hct (40.1-51.0) % MCV (79.0-92.2) fl MCH (25.7-32.2) pg MCHC (32.2-35.5) g/dl RDW Std Deviation (35.1-43.9) fL Plt Count (163-337) K/mm3 MPV (9.4-12.3) fl Neut % (Auto) (34.0-67.9) % Lymph % (Auto) (21.8-53.1) % [place] % (Auto) (5.3-12.2) % Eos % (Auto) (0.8-7.0) Baso % (Auto) (0.1-1.2) % Neut # (Auto) (1.78-5.38) K/mm3 Lymph # (Auto) (1.32-3.57) K/mm3 [place] # (Auto) (0.30-0.82) K/mm3 Eos # (Auto) (0.04-0.54) K/mm3 Baso # (Auto) (0.01-0.08) K/mm3 Manual Slide Review PT (9.7-12.0) SECONDS INR APTT (21.7-31.4) SECONDS Sodium 141 (136-145) mEq/L Potassium 3.0 L (3.5-5.1) mEq/L Chloride 106 (98-107) mEq/L Carbon Dioxide 24 (21-32) mEq/L Anion Gap 14.0 (5-15) BUN 13 (7-18) mg/dL Creatinine 0.9 (0.7-1.3) mg/dL Est Cr Clr Drug Dosing 85.10 mL/min Estimated GFR (MDRD) > 60 (>60) mL/min BUN/Creatinine Ratio 14.4 (14-18) Glucose 134 H (80-115) mg/dL Calcium 8.9 (8.5-10.1) mg/dL Phosphorus (2.6-4.7) mg/dL Magnesium 1.8 (1.8-2.4) mg/dl Total Bilirubin 2.3 H (0.2-1.0) mg/dL AST 197 H (15-37) U/L ALT 91 H (16-63) U/L Alkaline Phosphatase 174 H (46-116) U/L Ammonia (11-32) umol/L Troponin I (0.00-0.056) ng/mL NT-Pro-B Natriuret Pep (0-125) pg/mL Total Protein 6.5 (6.4-8.2) g/dl Albumin 2.9 L (3.4-5.0) g/dl Globulin 3.6 gm/dL Albumin/Globulin Ratio 0.8 L (1-2) Lipase (73-393) U/L Urine Opiates Screen (ZYWJMY=656) Ur Buprenorphine Scrn (CUTOFF=10) Ur Oxycodone Screen (FFF1KR=825) Urine Methadone Screen (EHS4AN=640) Ur Propoxyphene Screen (SCHRPU=945) Ur Barbiturates Screen (BWYWSL=321) Ur Tricyclics Screen (MVAIQL=562) Ur Phencyclidine Scrn (CUTOFF=25) Ur Amphetamine Screen (NHSFEQ=028) U Methamphetamines Scrn (XZRGAI=958) U Benzodiazepines Scrn (QZLPWQ=029) U Cocaine Metab Screen (GPVRIY=838) U Marijuana (THC) Screen (CUTOFF=50) Ethyl Alcohol (0.00) gm% Influenza Type A RNA (NEGATIVE) Influenza Type B RNA (NEGATIVE) SARS-CoV-2 RNA (GERALDO) (NEGATIVE) Med Orders - Current: Current Medications Albuterol/Ipratropium (Albuterol/Ipratropium 3.0-0.5 Mg/3 Ml Neb Soln) 3 ml NEB Q4H PRN PRN Reason: Shortness Of Breath/wheezing Apixaban (Apixaban 5 Mg Tab) 5 mg PO BID [facility] Last Admin: 11/21/20 08:57 Dose: 5 mg Documented by: Chlordiazepoxide HCl (Chlordiazepoxide 25 Mg Cap) 50 mg PO Q4H [facility] Stop: 11/21/20 16:01 Last Admin: 11/21/20 12:15 Dose: 50 mg Documented by: Chlordiazepoxide HCl (Chlordiazepoxide 25 Mg Cap) 50 mg PO Q6H [facility] Stop: 11/22/20 16:01 Chlordiazepoxide HCl (Chlordiazepoxide 25 Mg Cap) 25 mg PO Q4H [facility] Stop: 11/23/20 16:01 Chlordiazepoxide HCl (Chlordiazepoxide 25 Mg Cap) 25 mg PO Q6H [facility] Stop: 11/24/20 16:01 Diltiazem HCl (Diltiazem 180 Mg Cap.Cd) 180 mg PO DAILY [facility] Last Admin: 11/21/20 08:58 Dose: 180 mg Documented by: Famotidine (Famotidine 20 Mg Tab) 20 mg PO BID [facility] Last Admin: 11/21/20 08:58 Dose: 20 mg Documented by: Folic Acid (Folic Acid 1 Mg Tab) 1 mg PO DAILY [facility] Stop: 11/22/20 09:01 Last Admin: 11/21/20 09:00 Dose: 1 mg Documented by: Hydralazine HCl (Hydralazine 20 Mg/Ml Sdv) 10 mg IVPUSH Q4H PRN PRN Reason: Hypertension Promethazine HCl 12.5 mg/ (Sodium Chloride) 50.5 mls @ 100 mls/hr IV Q6H PRN PRN Reason: Nausea/Vomiting Potassium Chloride/Sodium Chloride (Normal Saline With 20 Meq Kcl) 1,000 mls @ 100 mls/hr IV ASDIRECTED [facility] Last Admin: 11/21/20 12:21 Dose: 100 mls/hr Documented by: Levofloxacin (Levofloxacin 500 Mg Tab) 500 mg PO Q24H [facility] Last Admin: 11/21/20 11:00 Dose: 500 mg Documented by: Lorazepam (Lorazepam 2 Mg/Ml Sdv) 0.5 mg IVPUSH Q4H PRN PRN Reason: Withdrawal Symptoms Metoprolol Tartrate (Metoprolol Tartrate 25 Mg Tab) 37.5 mg PO Q12H [facility] Metronidazole (Metronidazole 500 Mg Tab) 500 mg PO Q8H [facility] Last Admin: 11/21/20 11:00 Dose: 500 mg Documented by: Morphine Sulfate (Morphine 2 Mg/Ml Syringe) 2 mg IVPUSH Q4H PRN PRN Reason: Pain (severe 7-10) Stop: 11/21/20 18:24 Sodium Chloride (Sodium Chloride 0.9% 10 Ml Syringe) 10 ml FLUSH ASDIRECTED PRN PRN Reason: Keep Vein Open Last Admin: 11/20/20 16:20 Dose: 10 ml Documented by: Thiamine HCl (Thiamine 100 Mg Tab) 100 mg PO DAILY [facility] Last Admin: 11/21/20 09:01 Dose: 100 mg Documented by: Topiramate (Topiramate 25 Mg Tab) 25 mg PO BID [facility] Last Admin: 11/21/20 08:58 Dose: 25 mg Documented by: Tramadol HCl (Tramadol 50 Mg Tab) 50 mg PO Q6H PRN PRN Reason: Pain (moderate 4-6) Trazodone HCl (Trazodone 50 Mg Tab) 50 mg PO BEDTIME [facility] Last Admin: 11/20/20 23:57 Dose: 50 mg Documented by: Vitamin B Complex/Vit C/Folic Acid (Biotin/Folic Acid/Vitamin C/Vitamin B Complex Tab) 1 tab PO DAILY [facility] Last Admin: 11/21/20 10:59 Dose: 1 tab Documented by: Discontinued Medications Chlordiazepoxide HCl (Chlordiazepoxide 25 Mg Cap) 0 mg PO ASDIRECTED [facility]; Protocol Heparin Sodium (Porcine) (Heparin Sodium 5,000 Units/Ml Vial) 5,000 units SUBCUT Q8H [facility] Last Admin: 11/20/20 20:34 Dose: Not Given Documented by: Sodium Chloride (Normal Saline) 1,000 mls @ 250 mls/hr IV ONETIME ONE Stop: 11/20/20 19:14 Last Admin: 11/20/20 16:06 Dose: 250 mls/hr Documented by: Magnesium Sulfate/Dextrose 1 (gm/ Premix) 100 mls @ 100 mls/hr IV ONETIME ONE Stop: 11/21/20 11:25 Last Admin: 11/21/20 10:59 Dose: 100 mls/hr Documented by: Sodium Chloride (Normal Saline) 100 mls @ 60 mls/hr IV ASDIRECTED [facility] Lorazepam (Lorazepam 1 Mg Tab) 1 mg PO ASDIRECTED [facility]HAEL Lorazepam (Lorazepam 2 Mg/Ml Sdv) 0.5 mg IVPUSH ONETIME ONE Stop: 11/21/20 13:33 Last Admin: 11/21/20 14:00 Dose: 0.5 mg Documented by: Metoprolol Tartrate (Metoprolol Tartrate 25 Mg Tab) 25 mg PO BID [facility] Last Admin: 11/21/20 08:58 Dose: 25 mg Documented by: Metoprolol Tartrate (Metoprolol Tartrate 25 Mg Tab) 37.5 mg PO Q12H [facility] Metoprolol Tartrate (Metoprolol Tartrate 25 Mg Tab) 12.5 mg PO ONETIME ONE Stop: 11/21/20 13:44 Last Admin: 11/21/20 13:56 Dose: 12.5 mg Documented by: Multivitamins (Multivitamins,Therapeutic Tab) 1 each PO ONETIME ONE Stop: 11/20/20 18:35 Last Admin: 11/20/20 20:22 Dose: 1 each Documented by: Ondansetron HCl (Ondansetron 4 Mg/2 Ml Sdv) 4 mg IVPUSH ONETIME ONE Stop: 11/20/20 15:14 Last Admin: 11/20/20 16:06 Dose: 4 mg Documented by: Potassium Chloride (Potassium Chloride 20 Meq Tab.Er) 20 meq PO TID [facility] Stop: 11/21/20 21:01 Last Admin: 11/21/20 08:58 Dose: 20 meq Documented by: Potassium Chloride (Potassium Chloride 20 Meq Tab.Er) 40 meq PO ONETIME ONE Stop: 11/21/20 11:38 Last Admin: 11/21/20 12:16 Dose: 40 meq Documented by: - Exam General: Reports: Alert, Oriented, Cooperative, No Acute Distress HEENT: Reports: Pupils Equal, Pupils Reactive, EOMI Neck: Reports: Supple, Trachea Midline, No JVD Lungs: Reports: Clear to Auscultation, Normal Respiratory Effort Cardiovascular: Reports: Irregular Rhythm GI/Abdominal Exam: Normal Bowel Sounds, Soft, Non-Tender, No Organomegaly Extremities: Normal Inspection, Normal Range of Motion, Non-Tender, No Pedal Edema, Normal Capillary Refill Skin: Reports: Warm, Dry, Intact Neurological: Reports: No New Focal Deficit, Normal Speech, Normal Tone, Strength Equal Bilateral, Reflexes Equal Bilateral, Sensation Intact Psy/Mental Status: Reports: Alert, Normal Affect, Normal Mood
[2020-11-21] MEDS ORDERED: chlordiazePOXIDE 25 MG Cap PO SCH (22:00)
[2020-11-22] MEDS ORDERED: chlordiazePOXIDE 25 MG Cap PO SCH (20:00)
[2020-11-23] MEDS ORDERED: chlordiazePOXIDE 25 MG Cap PO SCH (22:00)
== END 2020-11-21 16:30 | disposition home or self-care (01) ==
LOC: JD.ED 14:24 → JD.MS 17:40
PROVIDERS: ADMIT Internal Medicine; ATTEND Internal Medicine
DX: K70.10 Alcoholic hepatitis without ascites (principal); F10.139 Alcohol abuse with withdrawal, unspecified; I48.91 Unspecified atrial fibrillation; K66.8 Other specified disorders of peritoneum; K76.0 Fatty (change of) liver, not elsewhere classified; I10 Essential (primary) hypertension; R94.31 Abnormal electrocardiogram [ECG] [EKG]; E78.00 Pure hypercholesterolemia, unspecified; Z20.822 Contact with and (suspected) exposure to COVID-19; Z88.8 Allergy status to other drugs, medicaments and biological substances; Z87.11 Personal history of peptic ulcer disease; Z87.891 Personal history of nicotine dependence; Z79.01 Long term (current) use of anticoagulants; Z79.899 Other long term (current) drug therapy; Z98.890 Other specified postprocedural states
CPT/HCPCS: 0240U; 36415; 80053; 80306; 80307; 82140; 83690; 83735; 83880; 84100; 84484; 85025; 85610; 85730; 93005; 96365; 96375; 99285; A9270; G0378; J2060; J2405; J3475; J3480; J7030; 96374; 99217; 99219; 99284

== ENCOUNTER 2021-01-29 17:09 | Observation (INO) | payer MEDICARE, OTHER ==
[2021-01-29] MEDS ORDERED: Sodium Chloride 0.9% 10 ML Syringe FLUSH PRN (17:53)
[2021-01-29] MEDS ORDERED: Ondansetron 4 MG/2 ML SDV IVPUSH ONE (18:03)
[2021-01-29] MEDS ORDERED: Sodium Chloride 0.9% 1,000 ML IV SCH (18:15)
--- NOTE | 2021-01-29 18:50 | EDM.PDOC ---
<Corey Aparicio Willis - Last Filed: 01/29/21 22:07> ED HPI GENERAL MEDICAL PROBLEM - General Chief Complaint: Gastrointestinal Problem Stated Complaint: TROWING UP Time Seen by Provider: 01/29/21 17:49 - Related Data Allergies Allergy/AdvReac Type Severity Reaction Status Date / Time cefaclor [From Ceclor] Allergy Severe Swelling Verified 01/29/21 23:11 Home Meds: Home Meds traZODone HCl [Trazodone HCl] 50 mg PO BEDTIME PRN 04/05/19 [History] dilTIAZem HCL [Dilt-Xr] 180 mg PO DAILY 09/04/20 [History] Metoprolol Tartrate [Lopressor] 37.5 mg PO Q12H #60 tablet 11/21/20 [Rx] Sucralfate [Carafate] 1 tab PO ASDIRECTED PRN 01/29/21 [History] Warfarin [Coumadin] 2 tab PO SUTUTHSA 01/29/21 [History] Warfarin [Coumadin] 7.5 mg PO MOWEFR 01/29/21 [History] Course - Re-Assessments/Exams Free Text/Narrative Re-Assessment/Exam: 01/29/21 22:[address] Phillips. I agree with his history and physical examination as documented. After the patient finished his first liter of NS, I ordered a second liter of LR. He was also given 4 mg of oral loperamide. CT of the abdomen and pelvis with oral and IV contrast is read by [facility] as "No definite acute changes identified." 01/29/21 22:07 Test results discussed with the patient. As above, the patient is found to have mild leukocytosis, hyponatremia of 127, and an elevated lipase level of 3687, however, his CT scan does not find evidence for pancreatitis. The patient reported that he has been having some central abdominal pain, not epigastric, nevertheless, I recommended that we place the patient into observation, so that we can at least correct his hyponatremia. The patient agreed. 01/29/21 22:12 Case discussed with the Hospitalist Dr. Germain at 20:08. He accepted the patient for placement into observation. I will write bridge orders and include IV fluid, Tylenol, Zofran, a clear liquid diet, and blood work in the morning. Departure - Departure Time of Disposition: 22:13 Disposition: Refer to Observation Condition: Good Clinical Impression: Gastroenteritis, Elevated lipase, Hyponatremia - Discharge Information *PRESCRIPTION DRUG MONITORING PROGRAM REVIEWED*: Not Applicable *COPY OF PRESCRIPTION DRUG MONITORING REPORT IN PATIENT AYDE: Not Applicable <Edmond Phillips - Last Filed: 01/30/21 07:18> ED HPI GENERAL MEDICAL PROBLEM - General Source of Information: Reports: Patient, RN Notes Reviewed - History of Present Illness INITIAL COMMENTS - FREE TEXT/NARRATIVE: 60 yr old male with onset of diarrhea, nausea and vomiting this afternoon about 4 to 5 hrs ago. Has had 3 episodes of severe watery diarrhea. No fever or chills. Did have some mild upper abd pain but that is gone. No cough or difficulty breathing. Hx of alcohol abuse. States he is down to 3 to 4 beers a day. States he used to "drink a lot more". Upper Abdomen Pain Score (Numeric/FACES): 6 Past Medical History HEENT History: Reports: Sinusitis Cardiovascular History: Reports: Afib, High Cholesterol Other Cardiovascular History: atrial fibrillation Respiratory History: Reports: None Gastrointestinal History: Reports: PUD Other Gastrointestinal History: Duodenal ulcers Genitourinary History: Reports: None Musculoskeletal History: Reports: Fracture Other Musculoskeletal History: R) shoulder fx. Neurological History: Reports: Headaches, Chronic Psychiatric History: Reports: Addiction, Depression Endocrine/Metabolic History: Reports: None Hematologic History: Reports: None Immunologic History: Reports: None Oncologic (Cancer) History: Reports: None Dermatologic History: Reports: None - Infectious Disease History Infectious Disease History: Reports: Chicken Pox, Influenza, Measles - Past Surgical History Head Surgeries/Procedures: Reports: None HEENT Surgical History: Reports: None Cardiovascular Surgical History: Reports: None GI Surgical History: Reports: None Neurological Surgical History: Reports: Lumbar Spine Other Neurological Surgeries/Procedures: laminectomy L4-5 Musculoskeletal Surgical History: Reports: ORIF, Shoulder Surgery Other Musculoskeletal Surgeries/Procedures:: 2014 Social & Family History - Family History Family Medical History: No Pertinent Family History - Tobacco Use Tobacco Use Status *Q: Never Tobacco User - Caffeine Use Caffeine Use: Reports: None Other Caffeine Use: rarely - Recreational Drug Use Recreational Drug Use: No - Living Situation & Occupation Living situation: Reports: , with Spouse, with Family ([id number]) Occupation: Unemployed ED ROS GENERAL - Review of Systems Review Of Systems: See Below Constitutional: Denies: Fever, Chills, Diaphoresis HEENT: Reports: Other (mouth feels dry) Respiratory: Denies: Shortness of Breath Cardiovascular: Denies: Chest Pain GI/Abdominal: Reports: Abdominal Pain (gone), Diarrhea, Nausea, Vomiting. Denies: Hematemesis, Hematochezia Musculoskeletal: Reports: No Symptoms Skin: Reports: No Symptoms Neurological: Reports: No Symptoms ED EXAM, GI/ABD - Physical Exam Exam: See Below General Appearance: Alert, No Apparent Distress Throat/Mouth: Normal Inspection Head: Atraumatic Neck: Supple Respiratory/Chest: No Respiratory Distress, Lungs Clear, Normal Breath Sounds Cardiovascular: Regular Rate, Rhythm GI/Abdominal Exam: Soft, Non-Tender. No: Guarding, Rebound, Mass Extremities: Normal Inspection. No: Pedal Edema, Leg Pain Neurological: Alert, Oriented, No Motor/Sensory Deficits Skin Exam: Warm, Dry, Normal Color, No Rash Course - Vital Signs Last Recorded V/S: Last Vital Signs Temp 98.2 F 01/30/21 03:36 Pulse 60 01/30/21 03:36 Resp 12 01/30/21 03:36 BP 108/54 L 01/30/21 03:36 Pulse Ox 92 L 01/30/21 03:36 - Orders/Labs/Meds Orders: Active Orders 24 hr Category Date Time Status Abdomen Pelvis w Cont [CT] Stat Exams 01/29/21 19:22 Taken STOOL CULTURE/SHIGA TOXIN [MREF] Stat Lab 01/29/21 18:16 Received Sodium Chloride 0.9% [Saline Flush] Med 01/29/21 17:53 Active 10 ml FLUSH ASDIRECTED PRN Peripheral IV Insertion Adult [OM.PC] Stat Oth 01/29/21 17:54 Ordered Medication Orders Acetaminophen (Acetaminophen 325 Mg Tab) 650 mg PO Q4H PRN PRN Reason: Pain Lactated Ringer's (Ringers, Lactated) 1,000 mls @ 100 mls/hr IV ASDIRECTED [facility] Last Admin: 01/29/21 23:50 Dose: 100 mls/hr Documented by: IRMA Ondansetron HCl (Ondansetron 4 Mg/2 Ml Sdv) 4 mg IVPUSH Q8H PRN PRN Reason: Nausea/Vomiting Sodium Chloride (Sodium Chloride 0.9% 10 Ml Syringe) 10 ml FLUSH ASDIRECTED PRN PRN Reason: Keep Vein Open Last Admin: 01/29/21 18:16 Dose: 10 ml Documented by: CLIVE Labs: Laboratory Tests 01/29/21 01/29/21 01/29/21 Range/Units 18:15 18:15 18:15 WBC 12.45 H (4.23-9.07) K/mm3 RBC 4.55 L (4.63-6.08) M/mm3 Hgb 15.6 D (13.7-17.5) gm/dl Hct 44.0 (40.1-51.0) % MCV 96.7 H D (79.0-92.2) fl MCH 34.3 H (25.7-32.2) pg MCHC 35.5 (32.2-35.5) g/dl RDW Std Deviation 40.4 (35.1-43.9) fL Plt Count 230 D (163-337) K/mm3 MPV 8.5 L (9.4-12.3) fl Neut % (Auto) 87.5 H (34.0-67.9) % Lymph % (Auto) 2.6 L (21.8-53.1) % [place] % (Auto) 9.2 (5.3-12.2) % Eos % (Auto) 0.2 L (0.8-7.0) Baso % (Auto) 0.2 (0.1-1.2) % Neut # (Auto) 10.91 H (1.78-5.38) K/mm3 Lymph # (Auto) 0.32 L (1.32-3.57) K/mm3 [place] # (Auto) 1.14 H (0.30-0.82) K/mm3 Eos # (Auto) 0.02 L (0.04-0.54) K/mm3 Baso # (Auto) 0.02 (0.01-0.08) K/mm3 Manual Slide Review Abnormal smear PT 13.5 H D (9.7-12.0) SECONDS INR 1.27 Sodium 127 L D (136-145) mEq/L Potassium 3.7 (3.5-5.1) mEq/L Chloride 90 L D (98-107) mEq/L Carbon Dioxide 24 (21-32) mEq/L Anion Gap 16.7 H (5-15) BUN 10 (7-18) mg/dL Creatinine 0.7 (0.7-1.3) mg/dL Est Cr Clr Drug Dosing 105.86 mL/min Estimated GFR (MDRD) > 60 (>60) mL/min BUN/Creatinine Ratio 14.3 (14-18) Glucose 99 (70-99) mg/dL Calcium 9.6 (8.5-10.1) mg/dL Total Bilirubin 0.8 (0.2-1.0) mg/dL AST 45 H (15-37) U/L ALT 37 (16-63) U/L Alkaline Phosphatase 131 H (46-116) U/L Total Protein 8.3 H (6.4-8.2) g/dl Albumin 4.3 (3.4-5.0) g/dl Globulin 4.0 gm/dL Albumin/Globulin Ratio 1.1 (1-2) Lipase 3687 H (73-393) U/L Ethyl Alcohol 0.00 (0.00) gm% Meds: Medications Generic Name Dose Route Start Last Admin Trade Name Freq PRN Reason Stop Dose Admin Acetaminophen 650 mg 01/29/21 23:26 Acetaminophen 325 Mg Tab PO Q4H PRN Pain Lactated Ringer's 1,000 mls @ 100 mls/hr 01/29/21 23:30 01/29/21 23:50 Ringers, Lactated IV 100 mls/hr ASDIRECTED MICHAEL Administration Ondansetron HCl 4 mg 01/29/21 23:25 Ondansetron 4 Mg/2 Ml Sdv IVPUSH Q8H PRN Nausea/Vomiting Sodium Chloride 10 ml 01/29/21 17:53 01/29/21 18:16 Sodium Chloride 0.9% 10 Ml Syringe FLUSH 10 ml ASDIRECTED PRN Administration Keep Vein Open Discontinued Medications Generic Name Dose Route Start Last Admin Trade Name Freq PRN Reason Stop Dose Admin Sodium Chloride 1,000 mls @ 999 mls/hr 01/29/21 18:15 01/29/21 18:19 Normal Saline IV 999 mls/hr ONETIME MICHAEL Administration Lactated Ringer's 1,000 mls @ 999 mls/hr 01/29/21 19:44 01/29/21 19:51 Ringers, Lactated IV 01/29/21 20:44 999 mls/hr .BOLUS ONE Administration Iopamidol 100 ml 01/29/21 21:34 01/29/21 21:35 Iopamidol 612 Mg/Ml 100 Ml Bottle IVPUSH 01/29/21 21:35 100 ml ONETIME ONE Administration Loperamide HCl 4 mg 01/29/21 20:18 01/29/21 20:29 Loperamide 2 Mg Cap PO 01/29/21 20:19 4 mg ONETIME ONE Administration Ondansetron HCl 4 mg 01/29/21 18:03 01/29/21 18:17 Ondansetron 4 Mg/2 Ml Sdv IVPUSH 01/29/21 18:04 4 mg ONETIME ONE Administration Sodium Chloride 10 ml 01/29/21 21:45 01/29/21 21:35 Sodium Chloride 0.9% 10 Ml Syringe FLUSH 10 ml BOLUS MICHAEL Administration - Re-Assessments/Exams Free Text/Narrative Re-Assessment/Exam: 01/29/21 19:23 lipase has come back elevated at 3,687. He is mostly having trouble with frequent episodes of diarrhea while here in the ED. He has not been vomiting here in the ED but was vomting at home earlier today at home. With his hx of alcohol abuse and no documented hx of prior pancreatitis will check abd CT. It is now past change of shift. Will transfer care to Dr Aparicio. Sepsis Event Note (ED) - Evaluation Sepsis Screening Result: No Definite Risk - My Orders Last 24 Hours: My Active Orders 01/29/21 17:53 Sodium Chloride 0.9% [Saline Flush] 10 ml FLUSH ASDIRECTED PRN 01/29/21 17:54 Peripheral IV Insertion Adult [OM.PC] Stat 01/29/21 18:16 STOOL CULTURE/SHIGA TOXIN [MREF] Stat 01/29/21 19:22 Abdomen Pelvis w Cont [CT] Stat - Assessment/Plan Last 24 Hours: My Active Orders 01/29/21 17:53 Sodium Chloride 0.9% [Saline Flush] 10 ml FLUSH ASDIRECTED PRN 01/29/21 17:54 Peripheral IV Insertion Adult [OM.PC] Stat 01/29/21 18:16 STOOL CULTURE/SHIGA TOXIN [MREF] Stat 01/29/21 19:22 Abdomen Pelvis w Cont [CT] Stat
[2021-01-29] MEDS ORDERED: Lactated Ringers 1,000 ML IV ONE (19:44)
[2021-01-29] MEDS ORDERED: Loperamide 2 MG Cap PO ONE (20:18)
[2021-01-29] MEDS ORDERED: Iopamidol 612 MG/ML 100 ML Bottle IVPUSH ONE (21:34)
[2021-01-29] MEDS ORDERED: Sodium Chloride 0.9% 10 ML Syringe FLUSH SCH (21:45)
[2021-01-29] MEDS ORDERED: Ondansetron 4 MG/2 ML SDV IVPUSH PRN (23:25)
[2021-01-29] MEDS ORDERED: Acetaminophen 325 MG Tab PO PRN (23:26)
[2021-01-29] MEDS ORDERED: Lactated Ringers 1,000 ML IV SCH (23:30)
[2021-01-30] MEDS ORDERED: Sucralfate 1 GM Tab PO PRN (07:45)
--- NOTE | 2021-01-30 07:53 | PCM.HP.2 ---
H&P History of Present Illness - General Date of Service: 01/30/21 Admit Problem/Dx: Admission Diagnosis/Problem Admission Diagnosis/Problem Hyponatremia, vomiting/diarrhea Source of Information: Patient - History of Present Illness Initial Comments - Free Text/Narative: Patient is a 60-year-old male with a past medical history as listed below who presented to the [facility] emergency department with a chief complaint of centralized abdominal discomfort, nausea and vomiting starting around 1 PM yesterday afternoon. The patient had some sausage and eggs in the later morning hours. Within 1 to 2 hours after eating he started experiencing acute nausea with vomiting. No hematemesis or coffee-ground emesis noted. Epigastric abdominal discomfort graded 8 out of 10 in intensity also became a concerning symptom. Into the mid afternoon to early evening hours he started experiencing loose stools which were voluminous in nature. No black or blood noted. Patient denies any recent travel or recent sick contacts. He denies any chest pain, chest pressure, pleurisy, skin changes, or difficul ties with voiding. Patient presented to the ER for further evaluation mostly due to the pain. Pain was eventually controlled with narcotic therapies. Examination seemed mostly benign according to ER personnel. Laboratory studies indicative of moderate hyponatremia of 127. Lipase also just above 3000. CT scan of the abdomen and pelvis was benign without acute pathology. Patient referred to the internal medicine service for observation overnight due to hyponatremia. Status: Full code. A 14 point review of systems was reviewed with the patient entirely and only pertinent for the above information. Upper Abdomen Pain Score (Numeric/FACES): 6 - Related Data Allergies/Adverse Reactions: Allergies Allergy/AdvReac Type Severity Reaction Status Date / Time cefaclor [From Ceclor] Allergy Severe Swelling Verified 01/29/21 23:11 Home Medications: Home Meds traZODone HCl [Trazodone HCl] 50 mg PO BEDTIME PRN 04/05/19 [History] dilTIAZem HCL [Dilt-Xr] 180 mg PO DAILY 09/04/20 [History] Metoprolol Tartrate [Lopressor] 37.5 mg PO Q12H #60 tablet 11/21/20 [Rx] Sucralfate [Carafate] 1 tab PO ASDIRECTED PRN 01/29/21 [History] Warfarin [Coumadin] 2 tab PO SUTUTHSA 01/29/21 [History] Warfarin [Coumadin] 7.5 mg PO MOWEFR 01/29/21 [History] Past Medical History HEENT History: Reports: Sinusitis Cardiovascular History: Reports: Afib, High Cholesterol Other Cardiovascular History: atrial fibrillation Respiratory History: Reports: None Gastrointestinal History: Reports: PUD Other Gastrointestinal History: Duodenal ulcers Genitourinary History: Reports: None Musculoskeletal History: Reports: Arthritis, Fracture Other Musculoskeletal History: R) shoulder fx. Neurological History: Reports: Headaches, Chronic Psychiatric History: Reports: Addiction, Depression Endocrine/Metabolic History: Reports: None Hematologic History: Reports: None Immunologic History: Reports: None Oncologic (Cancer) History: Reports: None Dermatologic History: Reports: None - Infectious Disease History Infectious Disease History: Reports: Chicken Pox, Influenza, Measles - Past Surgical History Head Surgeries/Procedures: Reports: None HEENT Surgical History: Reports: None Cardiovascular Surgical History: Reports: None GI Surgical History: Reports: None Neurological Surgical History: Reports: Lumbar Spine Other Neurological Surgeries/Procedures: laminectomy L4-5 Musculoskeletal Surgical History: Reports: ORIF, Shoulder Surgery Other Musculoskeletal Surgeries/Procedures:: 2014 Social & Family History - Family History Family Medical History: No Pertinent Family History - Tobacco Use Tobacco Use Status *Q: Former Tobacco User Used Tobacco, but Quit: No Second Hand Smoke Exposure: No - Caffeine Use Caffeine Use: Reports: None Other Caffeine Use: rarely - Recreational Drug Use Recreational Drug Use: No - Living Situation & Occupation Living situation: Reports: , with Spouse, with Family ([id number]) Occupation: Unemployed H&P Review of Systems - Review of Systems: Review Of Systems: Comprehensive ROS is negative, except as noted in HPI. Exam - Exam Exam: See Below - Vital Signs Vital Signs: Last Vital Signs Temp 98.2 F 01/30/21 03:36 Pulse 60 01/30/21 03:36 Resp 12 01/30/21 03:36 BP 108/54 L 01/30/21 03:36 Pulse Ox 92 L 01/30/21 03:36 Weight: 200 lb 1.6 oz - Exam General: Alert, Cooperative HEENT: Conjunctiva Clear, Nares Patent, Pupils Equal Neck: Supple, Trachea Midline Lungs: Clear to Auscultation, Normal Respiratory Effort Cardiovascular: Regular Rate, Irregular Rhythm GI/Abdominal Exam: Normal Bowel Sounds, Soft, Non-Tender, No Distention, No Abnormal Bruit Extremities: Normal Inspection, No Pedal Edema Skin: Warm, Dry Neurological: Cranial Nerves Intact Neuro Extensive - Mental Status: Normal Mood/Affect - Patient Data Lab Results Last 24 hrs: Laboratory Results - last 24 hr 01/29/21 01/29/21 01/29/21 Range/Units 18:15 18:15 18:15 WBC 12.45 H (4.23-9.07) K/mm3 RBC 4.55 L (4.63-6.08) M/mm3 Hgb 15.6 D (13.7-17.5) gm/dl Hct 44.0 (40.1-51.0) % MCV 96.7 H D (79.0-92.2) fl MCH 34.3 H (25.7-32.2) pg MCHC 35.5 (32.2-35.5) g/dl RDW Std Deviation 40.4 (35.1-43.9) fL Plt Count 230 D (163-337) K/mm3 MPV 8.5 L (9.4-12.3) fl Neut % (Auto) 87.5 H (34.0-67.9) % Lymph % (Auto) 2.6 L (21.8-53.1) % [place] % (Auto) 9.2 (5.3-12.2) % Eos % (Auto) 0.2 L (0.8-7.0) Baso % (Auto) 0.2 (0.1-1.2) % Neut # (Auto) 10.91 H (1.78-5.38) K/mm3 Lymph # (Auto) 0.32 L (1.32-3.57) K/mm3 [place] # (Auto) 1.14 H (0.30-0.82) K/mm3 Eos # (Auto) 0.02 L (0.04-0.54) K/mm3 Baso # (Auto) 0.02 (0.01-0.08) K/mm3 Manual Slide Review Abnormal smear PT 13.5 H D (9.7-12.0) SECONDS INR 1.27 Sodium 127 L D (136-145) mEq/L Potassium 3.7 (3.5-5.1) mEq/L Chloride 90 L D (98-107) mEq/L Carbon Dioxide 24 (21-32) mEq/L Anion Gap 16.7 H (5-15) BUN 10 (7-18) mg/dL Creatinine 0.7 (0.7-1.3) mg/dL Est Cr Clr Drug Dosing 105.86 mL/min Estimated GFR (MDRD) > 60 (>60) mL/min BUN/Creatinine Ratio 14.3 (14-18) Glucose 99 (70-99) mg/dL Calcium 9.6 (8.5-10.1) mg/dL Total Bilirubin 0.8 (0.2-1.0) mg/dL AST 45 H (15-37) U/L ALT 37 (16-63) U/L Alkaline Phosphatase 131 H (46-116) U/L Total Protein 8.3 H (6.4-8.2) g/dl Albumin 4.3 (3.4-5.0) g/dl Globulin 4.0 gm/dL Albumin/Globulin Ratio 1.1 (1-2) Lipase 3687 H (73-393) U/L Ethyl Alcohol 0.00 (0.00) gm% SARS-CoV-2 RNA (GERALDO) (NEGATIVE) 01/29/21 01/30/21 01/30/21 Range/Units 22:25 05:19 05:19 WBC 6.85 (4.23-9.07) K/mm3 RBC 3.84 L (4.63-6.08) M/mm3 Hgb 13.2 L D (13.7-17.5) gm/dl Hct 38.4 L (40.1-51.0) % MCV 100.0 H D (79.0-92.2) fl MCH 34.4 H (25.7-32.2) pg MCHC 34.4 (32.2-35.5) g/dl RDW Std Deviation 42.1 (35.1-43.9) fL Plt Count 217 (163-337) K/mm3 MPV 9.2 L (9.4-12.3) fl Neut % (Auto) 68.1 H (34.0-67.9) % Lymph % (Auto) 14.0 L (21.8-53.1) % [place] % (Auto) 15.0 H (5.3-12.2) % Eos % (Auto) 2.3 (0.8-7.0) Baso % (Auto) 0.3 (0.1-1.2) % Neut # (Auto) 4.66 (1.78-5.38) K/mm3 Lymph # (Auto) 0.96 L (1.32-3.57) K/mm3 [place] # (Auto) 1.03 H (0.30-0.82) K/mm3 Eos # (Auto) 0.16 (0.04-0.54) K/mm3 Baso # (Auto) 0.02 (0.01-0.08) K/mm3 Manual Slide Review PT (9.7-12.0) SECONDS INR Sodium 131 L (136-145) mEq/L Potassium 3.5 (3.5-5.1) mEq/L Chloride 95 L (98-107) mEq/L Carbon Dioxide 27 (21-32) mEq/L Anion Gap 12.5 (5-15) BUN 8 (7-18) mg/dL Creatinine 0.8 (0.7-1.3) mg/dL Est Cr Clr Drug Dosing 95.74 mL/min Estimated GFR (MDRD) > 60 (>60) mL/min BUN/Creatinine Ratio 10.0 L (14-18) Glucose 105 H (70-99) mg/dL Calcium 8.7 (8.5-10.1) mg/dL Total Bilirubin 1.1 H (0.2-1.0) mg/dL AST 30 (15-37) U/L ALT 26 (16-63) U/L Alkaline Phosphatase 101 (46-116) U/L Total Protein 6.8 (6.4-8.2) g/dl Albumin 3.5 (3.4-5.0) g/dl Globulin 3.3 gm/dL Albumin/Globulin Ratio 1.1 (1-2) Lipase (73-393) U/L Ethyl Alcohol (0.00) gm% SARS-CoV-2 RNA (GERALDO) Negative (NEGATIVE) Result Diagrams: 01/30/21 05:19 01/30/21 05:19 Sepsis Event Note - Evaluation Sepsis Screening Result: No Definite Risk - Focused Exam Vital Signs: Vital Signs Temp Pulse Pulse Resp BP BP BP 01/30/21 03:36 98.2 F 60 12 108/54 L 01/29/21 23:04 98.1 F 78 14 117/63 01/29/21 22:25 86 20 128/76 Pulse Ox 01/30/21 03:36 92 L 01/29/21 23:04 98 01/29/21 22:25 98 Problem List Initiated/Reviewed/Updated: Yes Orders Last 24hrs: Active Orders 24 hr Category Date Time Status Patient Status [ADT] Routine ADT 01/29/21 22:19 Active Up ad Petrona [RC] ASDIRECTED Care 01/29/21 23:23 Active Clear Liquid Diet [DIET] Diet 01/30/21 Breakfast Active Abdomen Pelvis w Cont [CT] Stat Exams 01/29/21 19:22 Taken INR,PT,PROTHROMBIN TIME [COAG] Routine Lab 01/30/21 07:45 Ordered STOOL CULTURE/SHIGA TOXIN [MREF] Stat Lab 01/29/21 18:16 Received Acetaminophen [TylenoL] Med 01/29/21 23:26 Active 650 mg PO Q4H PRN Lactated Ringers [Ringers, Lactated] 1,000 ml Med 01/29/21 23:30 Active IV ASDIRECTED Metoprolol Tartrate [Lopressor] Med 01/30/21 07:45 Ordered 37.5 mg PO Q12H Ondansetron [Zofran] Med 01/29/21 23:25 Active 4 mg IVPUSH Q8H PRN Sodium Chloride 0.9% [Saline Flush] Med 01/29/21 17:53 Active 10 ml FLUSH ASDIRECTED PRN Sucralfate [Carafate] Med 01/30/21 07:45 Ordered 1 gm PO ASDIRECTED PRN Warfarin [Coumadin] Med 01/30/21 07:45 Ordered 5 mg PO SUTUTHSA Warfarin [Coumadin] Med 02/01/21 07:45 Ordered 7.5 mg PO MOWEFR dilTIAZem HCL [Dilt-Xr] Med 01/30/21 09:00 Ordered 180 mg PO DAILY traZODone Med 01/30/21 07:45 Ordered 50 mg PO BEDTIME PRN Peripheral IV Insertion Adult [OM.PC] Stat Oth 01/29/21 17:54 Ordered Code Status [Resuscitation Status] Routine Resus Stat 01/29/21 23:21 Ordered Medication Orders Acetaminophen (Acetaminophen 325 Mg Tab) 650 mg PO Q4H PRN PRN Reason: Pain Lactated Ringer's (Ringers, Lactated) 1,000 mls @ 100 mls/hr IV ASDIRECTED MICHAEL Last Admin: 01/29/21 23:50 Dose: 100 mls/hr Documented by: IRMA Ondansetron HCl (Ondansetron 4 Mg/2 Ml Sdv) 4 mg IVPUSH Q8H PRN PRN Reason: Nausea/Vomiting Sodium Chloride (Sodium Chloride 0.9% 10 Ml Syringe) 10 ml FLUSH ASDIRECTED PRN PRN Reason: Keep Vein Open Last Admin: 01/29/21 18:16 Dose: 10 ml Documented by: CLIVE Assessment/Plan Comment:: 60-year-old male with a past medical history as listed above who presented to the [facility] emergency department last evening due to acute abdominal pain associated with nausea and vomiting. Referred to the internal medicine service for observation overnight due to hyponatremia. 1. Hyponatremia. Secondary to GI volume loss from vomiting and diarrhea. Normalizing with crystalloid infusion overnight. Would expect full recovery in the near future. P.o. salt intake today. 2. Acute gastroenteritis. Symptomatic control. Antiemetics as necessary. Hold off on antidiarrheals. Continue maintenance fluids. Patient appears to be slightly hypovolemic. Advance diet as tolerated. 3. Atrial fibrillation. Heart rate controlled. Continue home cardiac medications at regular dose. Continue systemic anticoagulation. 4. Hypertension. Adequate control. Continue home cardiac regimen. 5. Alcohol dependence. Patient continues to drink at least 4 beers per day. Education given on the harmful effects of alcohol including acute pancreatitis, and prior history of acute alcoholic hepatitis. CODE STATUS: Full code. DVT prophylaxis; systemic anticoagulation with Coumadin. Anticipate discharge later today.
[2021-01-30] MEDS ORDERED: SUCRALFATE 1 GM PO PRN (08:15)
[2021-01-30] MEDS ORDERED: METOPROLOL TARTRATE 25 MG PO SCH (09:00)
[2021-01-30] MEDS ORDERED: DILTIAZEM 180 MG PO SCH (09:00)
--- NOTE | 2021-01-30 12:04 | PCM.DCSUM1 ---
Discharge Summary - Hospital Course Free Text/Narrative:: 60-year-old male with a past medical history as listed above who presented to the [facility] emergency department last evening due to acute abdominal pain associated with nausea and vomiting. Referred to the internal medicine service for observation overnight due to hyponatremia. 1. Hyponatremia. Secondary to GI volume loss from vomiting and diarrhea. Normalizing with crystalloid infusion overnight. Would expect full recovery in the near future. Repeat chemistry shows sodium of 132. 2. Acute gastroenteritis. Symptomatic control was provided. Antiemetics as necessary. Crystalloid was administered in the emergency department as well as overnight before being switched to maintenance fluids in the morning upon morning rounding. Advanced diet as tolerated. Patient able to tolerate breakfast and lunch without adverse event. Stool studies for Shiga toxin and Salmonella were negative. 3. Atrial fibrillation. Heart rate controlled. Continued home cardiac medications at regular dose. Continued systemic anticoagulation. 4. Hypertension. Adequate control. Continued home cardiac regimen. 5. Alcohol dependence. Patient continues to drink at least 4 beers per day. Education given on the harmful effects of alcohol including acute pancreatitis, and prior history of acute alcoholic hepatitis. CODE STATUS: Full code. DVT prophylaxis; systemic anticoagulation with Coumadin. HPI Initial Comments: Patient is a 60-year-old male with a past medical history as listed below who presented to the [facility] emergency department with a chief complaint of centralized abdominal discomfort, nausea and vomiting starting around 1 PM yesterday afternoon. The patient had some sausage and eggs in the later morning hours. Within 1 to 2 hours after eating he started experiencing acute nausea with vomiting. No hematemesis or coffee-ground emesis noted. Epigastric abdominal discomfort graded 8 out of 10 in intensity also became a concerning symptom. Into the mid afternoon to early evening hours he started experiencing loose stools which were voluminous in nature. No black or blood noted. Patient denies any recent travel or recent sick contacts. He denies any chest pain, chest pressure, pleurisy, skin changes, or difficulties with voiding. Patient presented to the ER for further evaluation mostly due to the pain. Pain was eventually controlled with narcotic therapies. Examination seemed mostly benign according to ER personnel. Laboratory studies indicative of moderate hyponatremia of 127. Lipase also just above 3000. CT scan of the abdomen and pelvis was benign without acute pathology. Patient referred to the internal medicine service for observation overnight due to hyponatremia. Status: Full code. A 14 point review of systems was reviewed with the patient entirely and only pertinent for the above information. Upper Abdomen Pain Score (Numeric/FACES): 6 - Related Data Allergies/Adverse Reactions: Allergies Allergy/AdvReac Type Severity Reaction Status Date / Time cefaclor [From Ceclor] Allergy Severe Swelling Verified 01/29/21 23:11 Home Medications: Home Meds traZODone HCl [Trazodone HCl] 50 mg PO BEDTIME PRN 04/05/19 [History] dilTIAZem HCL [Dilt-Xr] 180 mg PO DAILY 09/04/20 [History] Metoprolol Tartrate [Lopressor] 37.5 mg PO Q12H #60 tablet 11/21/20 [Rx] Sucralfate [Carafate] 1 tab PO ASDIRECTED PRN 01/29/21 [History] Warfarin [Coumadin] 2 tab PO SUTUTHSA 01/29/21 [History] Warfarin [Coumadin] 7.5 mg PO MOWEFR 01/29/21 [History] Past Medical History HEENT History: Reports: Sinusitis Cardiovascular History: Reports: Afib, High Cholesterol Other Cardiovascular History: atrial fibrillation Respiratory History: Reports: None Gastrointestinal History: Reports: PUD Other Gastrointestinal History: Duodenal ulcers Genitourinary History: Reports: None Musculoskeletal History: Reports: Arthritis, Fracture Other Musculoskeletal History: R) shoulder fx. Neurological History: Reports: Headaches, Chronic Psychiatric History: Reports: Addiction, Depression Endocrine/Metabolic History: Reports: None Hematologic History: Reports: None Immunologic History: Reports: None Oncologic (Cancer) History: Reports: None Dermatologic History: Reports: None - Infectious Disease History Infectious Disease History: Reports: Chicken Pox, Influenza, Measles - Past Surgical History Head Surgeries/Procedures: Reports: None HEENT Surgical History: Reports: None Cardiovascular Surgical History: Reports: None GI Surgical History: Reports: None Neurological Surgical History: Reports: Lumbar Spine Other Neurological Surgeries/Procedures: laminectomy L4-5 Musculoskeletal Surgical History: Reports: ORIF, Shoulder Surgery Other Musculoskeletal Surgeries/Procedures:: 2014 Social & Family History - Family History Family Medical History: No Pertinent Family History - Tobacco Use Tobacco Use Status *Q: Former Tobacco User Used Tobacco, but Quit: No Second Hand Smoke Exposure: No - Caffeine Use Caffeine Use: Reports: None Other Caffeine Use: rarely - Recreational Drug Use Recreational Drug Use: No - Living Situation & Occupation Living situation: Reports: , with Spouse, with Family ([id number]) Occupation: Unemployed H&P Review of Systems - Review of Systems: Review Of Systems: Comprehensive ROS is negative, except as noted in HPI. Exam - Exam Exam: See Below - Vital Signs Vital Signs: Last Vital Signs Temp 98.2 F 01/30/21 03:36 Pulse 60 01/30/21 03:36 Resp 12 01/30/21 03:36 BP 108/54 L 01/30/21 03:36 Pulse Ox 92 L 01/30/21 03:36 Weight: 200 lb 1.6 oz - Exam General: Alert, Cooperative HEENT: Conjunctiva Clear, Nares Patent, Pupils Equal Neck: Supple, Trachea Midline Lungs: Clear to Auscultation, Normal Respiratory Effort Cardiovascular: Regular Rate, Irregular Rhythm GI/Abdominal Exam: Normal Bowel Sounds, Soft, Non-Tender, No Distention, No Abnormal Bruit Extremities: Normal Inspection, No Pedal Edema Skin: Warm, Dry Neurological: Cranial Nerves Intact Neuro Extensive - Mental Status: Normal Mood/Affect - Discharge Data Discharge Date: 01/30/21 Discharge Disposition: Home, Self-Care 01 Condition: Good - Referral to Home Health Primary Care Physician: Kath Johnson PA-C - Patient Instructions Diet: Regular Diet as Tolerated Other/Special Instructions: Continue taking medications as previously prescribed. Activity and diet are as tolerated. Follow-up with PCP within 1 to 2 weeks. Will need a PT/INR check considering he is on Coumadin. Titration as necessary. If you experience any signs or symptoms that warranted this admission please do not hesitate to call your primary care physician or present to an emergency department for an immediate evaluation. - Discharge Plan *PRESCRIPTION DRUG MONITORING PROGRAM REVIEWED*: Not Applicable *COPY OF PRESCRIPTION DRUG MONITORING REPORT IN PATIENT AYDE: Not Applicable Home Medications: Home Meds traZODone HCl [Trazodone HCl] 50 mg PO BEDTIME PRN 04/05/19 [History] dilTIAZem HCL [Dilt-Xr] 180 mg PO DAILY 09/04/20 [History] Metoprolol Tartrate [Lopressor] 37.5 mg PO Q12H #60 tablet 11/21/20 [Rx] Sucralfate [Carafate] 1 tab PO ASDIRECTED PRN 01/29/21 [History] Warfarin [Coumadin] 2 tab PO SUTUTHSA 01/29/21 [History] Warfarin [Coumadin] 7.5 mg PO MOWEFR 01/29/21 [History] Forms: ED Department Discharge Referrals: Kath Johnson PA-C [Primary Care Provider] - - Discharge Summary/Plan Comment DC Time >30 min.: No - General Info Date of Service: 01/30/21 Admission Dx/Problem (Free Text: Admission Diagnosis/Problem Admission Diagnosis/Problem Hyponatremia, vomiting/diarrhea Subjective Update: Patient admitted and discharged on the same day. Please see H&P for physical examination performed earlier today regarding subjective and objective findings. - Patient Data Vitals - Most Recent: Last Vital Signs Temp 98.2 F 01/30/21 09:40 Pulse 62 01/30/21 09:40 Resp 16 01/30/21 09:40 BP 108/60 01/30/21 09:40 Pulse Ox 94 L 01/30/21 09:40 Weight - Most Recent: 200 lb 1.6 oz I&O - Last 24 hours: Intake & Output 01/29/21 01/30/21 01/30/21 22:59 06:59 14:59 Intake Total 731 120 Output Total 650 Balance 81 120 Lab Results - Last 24 hrs: Laboratory Results - last 24 hr 01/29/21 01/29/21 01/29/21 Range/Units 18:15 18:15 18:15 WBC 12.45 H (4.23-9.07) K/mm3 RBC 4.55 L (4.63-6.08) M/mm3 Hgb 15.6 D (13.7-17.5) gm/dl Hct 44.0 (40.1-51.0) % MCV 96.7 H D (79.0-92.2) fl MCH 34.3 H (25.7-32.2) pg MCHC 35.5 (32.2-35.5) g/dl RDW Std Deviation 40.4 (35.1-43.9) fL Plt Count 230 D (163-337) K/mm3 MPV 8.5 L (9.4-12.3) fl Neut % (Auto) 87.5 H (34.0-67.9) % Lymph % (Auto) 2.6 L (21.8-53.1) % Baldwin % (Auto) 9.2 (5.3-12.2) % Eos % (Auto) 0.2 L (0.8-7.0) Baso % (Auto) 0.2 (0.1-1.2) % Neut # (Auto) 10.91 H (1.78-5.38) K/mm3 Lymph # (Auto) 0.32 L (1.32-3.57) K/mm3 Baldwin # (Auto) 1.14 H (0.30-0.82) K/mm3 Eos # (Auto) 0.02 L (0.04-0.54) K/mm3 Baso # (Auto) 0.02 (0.01-0.08) K/mm3 Manual Slide Review Abnormal smear PT 13.5 H D (9.7-12.0) SECONDS INR 1.27 Sodium 127 L D (136-145) mEq/L Potassium 3.7 (3.5-5.1) mEq/L Chloride 90 L D (98-107) mEq/L Carbon Dioxide 24 (21-32) mEq/L Anion Gap 16.7 H (5-15) BUN 10 (7-18) mg/dL Creatinine 0.7 (0.7-1.3) mg/dL Est Cr Clr Drug Dosing 105.86 mL/min Estimated GFR (MDRD) > 60 (>60) mL/min BUN/Creatinine Ratio 14.3 (14-18) Glucose 99 (70-99) mg/dL Calcium 9.6 (8.5-10.1) mg/dL Total Bilirubin 0.8 (0.2-1.0) mg/dL AST 45 H (15-37) U/L ALT 37 (16-63) U/L Alkaline Phosphatase 131 H (46-116) U/L Total Protein 8.3 H (6.4-8.2) g/dl Albumin 4.3 (3.4-5.0) g/dl Globulin 4.0 gm/dL Albumin/Globulin Ratio 1.1 (1-2) Lipase 3687 H (73-393) U/L Ethyl Alcohol 0.00 (0.00) gm% SARS-CoV-2 RNA (GERALDO) (NEGATIVE) 01/29/21 01/30/21 01/30/21 Range/Units 22:25 05:19 05:19 WBC 6.85 (4.23-9.07) K/mm3 RBC 3.84 L (4.63-6.08) M/mm3 Hgb 13.2 L D (13.7-17.5) gm/dl Hct 38.4 L (40.1-51.0) % MCV 100.0 H D (79.0-92.2) fl MCH 34.4 H (25.7-32.2) pg MCHC 34.4 (32.2-35.5) g/dl RDW Std Deviation 42.1 (35.1-43.9) fL Plt Count 217 (163-337) K/mm3 MPV 9.2 L (9.4-12.3) fl Neut % (Auto) 68.1 H (34.0-67.9) % Lymph % (Auto) 14.0 L (21.8-53.1) % Baldwin % (Auto) 15.0 H (5.3-12.2) % Eos % (Auto) 2.3 (0.8-7.0) Baso % (Auto) 0.3 (0.1-1.2) % Neut # (Auto) 4.66 (1.78-5.38) K/mm3 Lymph # (Auto) 0.96 L (1.32-3.57) K/mm3 Baldwin # (Auto) 1.03 H (0.30-0.82) K/mm3 Eos # (Auto) 0.16 (0.04-0.54) K/mm3 Baso # (Auto) 0.02 (0.01-0.08) K/mm3 Manual Slide Review PT (9.7-12.0) SECONDS INR Sodium 131 L (136-145) mEq/L Potassium 3.5 (3.5-5.1) mEq/L Chloride 95 L (98-107) mEq/L Carbon Dioxide 27 (21-32) mEq/L Anion Gap 12.5 (5-15) BUN 8 (7-18) mg/dL Creatinine 0.8 (0.7-1.3) mg/dL Est Cr Clr Drug Dosing 95.74 mL/min Estimated GFR (MDRD) > 60 (>60) mL/min BUN/Creatinine Ratio 10.0 L (14-18) Glucose 105 H (70-99) mg/dL Calcium 8.7 (8.5-10.1) mg/dL Total Bilirubin 1.1 H (0.2-1.0) mg/dL AST 30 (15-37) U/L ALT 26 (16-63) U/L Alkaline Phosphatase 101 (46-116) U/L Total Protein 6.8 (6.4-8.2) g/dl Albumin 3.5 (3.4-5.0) g/dl Globulin 3.3 gm/dL Albumin/Globulin Ratio 1.1 (1-2) Lipase (73-393) U/L Ethyl Alcohol (0.00) gm% SARS-CoV-2 RNA (GERALDO) Negative (NEGATIVE) 01/30/21 01/30/21 Range/Units 08:20 08:20 WBC (4.23-9.07) K/mm3 RBC (4.63-6.08) M/mm3 Hgb (13.7-17.5) gm/dl Hct (40.1-51.0) % MCV (79.0-92.2) fl MCH (25.7-32.2) pg MCHC (32.2-35.5) g/dl RDW Std Deviation (35.1-43.9) fL Plt Count (163-337) K/mm3 MPV (9.4-12.3) fl Neut % (Auto) (34.0-67.9) % Lymph % (Auto) (21.8-53.1) % Baldwin % (Auto) (5.3-12.2) % Eos % (Auto) (0.8-7.0) Baso % (Auto) (0.1-1.2) % Neut # (Auto) (1.78-5.38) K/mm3 Lymph # (Auto) (1.32-3.57) K/mm3 Baldwin # (Auto) (0.30-0.82) K/mm3 Eos # (Auto) (0.04-0.54) K/mm3 Baso # (Auto) (0.01-0.08) K/mm3 Manual Slide Review PT 13.2 H (9.7-12.0) SECONDS INR 1.24 Sodium (136-145) mEq/L Potassium (3.5-5.1) mEq/L Chloride (98-107) mEq/L Carbon Dioxide (21-32) mEq/L Anion Gap (5-15) BUN (7-18) mg/dL Creatinine (0.7-1.3) mg/dL Est Cr Clr Drug Dosing mL/min Estimated GFR (MDRD) (>60) mL/min BUN/Creatinine Ratio (14-18) Glucose (70-99) mg/dL Calcium (8.5-10.1) mg/dL Total Bilirubin (0.2-1.0) mg/dL AST (15-37) U/L ALT (16-63) U/L Alkaline Phosphatase (46-116) U/L Total Protein (6.4-8.2) g/dl Albumin (3.4-5.0) g/dl Globulin gm/dL Albumin/Globulin Ratio (1-2) Lipase 156 (73-393) U/L Ethyl Alcohol (0.00) gm% SARS-CoV-2 RNA (GERALDO) (NEGATIVE) VITOR Results - Last 24 hrs: Microbiology 01/29/21 18:16 Shiga Toxin I & II - Final Stool / Feces Med Orders - Current: Current Medications Acetaminophen (Acetaminophen 325 Mg Tab) 650 mg PO Q4H PRN PRN Reason: Pain Diltiazem HCl (Diltiazem 180 Mg Cap XrPtom) 180 mg PO DAILY [facility] Last Admin: 01/30/21 09:38 Dose: 180 mg Documented by: Metoprolol Tartrate (Metoprolol Tartrate 25 Mg TabPtom) 37.5 mg PO BID [facility] Last Admin: 01/30/21 09:38 Dose: 37.5 mg Documented by: Ondansetron HCl (Ondansetron 4 Mg/2 Ml Sdv) 4 mg IVPUSH Q8H PRN PRN Reason: Nausea/Vomiting Sodium Chloride (Sodium Chloride 0.9% 10 Ml Syringe) 10 ml FLUSH ASDIRECTED PRN PRN Reason: Keep Vein Open Last Admin: 01/29/21 18:16 Dose: 10 ml Documented by: Sucralfate (Sucralfate 1 Gm TabPtom) 1 gm PO QIDACANDBED PRN PRN Reason: Abdominal Pain Trazodone HCl (Trazodone 50 Mg TabPtom) 50 mg PO BEDTIME [facility] Warfarin Sodium (Warfarin 2.5 Mg TabPtom) 5 mg PO SUTUTHSA [facility] Warfarin Sodium (Warfarin 2.5 Mg TabPtom) 7.5 mg PO MOWEFR [facility] Discontinued Medications Sodium Chloride (Normal Saline) 1,000 mls @ 999 mls/hr IV ONETIME [facility] Last Admin: 01/29/21 18:19 Dose: 999 mls/hr Documented by: Lactated Ringer's (Ringers, Lactated) 1,000 mls @ 999 mls/hr IV .BOLUS ONE Stop: 01/29/21 20:44 Last Admin: 01/29/21 19:51 Dose: 999 mls/hr Documented by: Lactated Ringer's (Ringers, Lactated) 1,000 mls @ 100 mls/hr IV ASDIRECTED [facility] Last Admin: 01/29/21 23:50 Dose: 100 mls/hr Documented by: Iopamidol (Iopamidol 612 Mg/Ml 100 Ml Bottle) 100 ml IVPUSH ONETIME ONE Stop: 01/29/21 21:35 Last Admin: 01/29/21 21:35 Dose: 100 ml Documented by: Loperamide HCl (Loperamide 2 Mg Cap) 4 mg PO ONETIME ONE Stop: 01/29/21 20:19 Last Admin: 01/29/21 20:29 Dose: 4 mg Documented by: Ondansetron HCl (Ondansetron 4 Mg/2 Ml Sdv) 4 mg IVPUSH ONETIME ONE Stop: 01/29/21 18:04 Last Admin: 01/29/21 18:17 Dose: 4 mg Documented by: Sodium Chloride (Sodium Chloride 0.9% 10 Ml Syringe) 10 ml FLUSH BOLUS [facility] Last Admin: 01/29/21 21:35 Dose: 10 ml Documented by: Sucralfate (Sucralfate 1 Gm Tab) 1 gm PO ASDIRECTED PRN PRN Reason: Abdominal Pain - Exam General: Reports: Alert Lungs: Reports: Clear to Auscultation, Normal Respiratory Effort Cardiovascular: Reports: Regular Rate, Regular Rhythm GI/Abdominal Exam: Normal Bowel Sounds, Soft, Non-Tender, No Distention Extremities: Normal Inspection, No Pedal Edema Skin: Reports: Warm, Dry
[2021-01-30] MEDS ORDERED: WARFARIN 2.5 MG PO SCH (18:00)
[2021-01-30] MEDS ORDERED: TRAZODONE 50 MG PO SCH (21:00)
--- NOTE | 2021-01-31 11:56 | CT ---
CT abdomen and pelvis Technique: Multiple axial sections were obtained from above the dome of the diaphragm inferiorly to the pubic symphysis. Intravenous and oral contrast was utilized. Delayed images were also obtained through the abdomen and pelvis. Reconstructed coronal and sagittal images were obtained. Comparison: Prior CT abdomen and pelvis study of 11/20/20. Findings: Visualized lung bases show nothing acute. Liver contains no focal abnormality. Gallbladder contains no calcified gallstones. Spleen size is normal. Adrenal glands show no nodule. No abnormality is appreciated within the pancreas. Adrenal glands show no nodule. Kidneys show symmetric contrast enhancement with no hydronephrosis or mass. Abdominal aorta shows atherosclerotic change without aneurysm. No retroperitoneal adenopathy or mesenteric abnormalities are seen. Appendix is seen which is normal. No pelvic mass or adenopathy is noted. Prostate calcifications are seen. Bladder wall is slightly thickened most likely related to the patient's age. Delayed images show contrast excretion from both kidneys as well as contrast within the bladder. No discrete bowel dilatation is seen. Bone window settings were reviewed. Scattered disc space narrowing and endplate spurring are noted within the spine. Most prominent finding is at L4-5 with vacuum phenomena. Impression: 1. Degenerative change within the spine. 2. Nothing acute is otherwise seen on CT study of the abdomen and pelvis. Diagnostic code #2 I agree with preliminary report from [facility], finalized on 01/29/21, 10:59 PM CDT, code 1
[2021-02-01] MEDS ORDERED: WARFARIN 2.5 MG PO SCH (18:00)
== END 2021-01-30 14:00 | disposition home or self-care (01) ==
LOC: JD.ED 17:09 → JD.MS 22:19
PROVIDERS: ADMIT Hospitalist; ATTEND Hospitalist
DX: E87.1 Hypo-osmolality and hyponatremia (principal); K52.9 Noninfective gastroenteritis and colitis, unspecified; I48.91 Unspecified atrial fibrillation; I10 Essential (primary) hypertension; E78.00 Pure hypercholesterolemia, unspecified; F10.20 Alcohol dependence, uncomplicated; D72.829 Elevated white blood cell count, unspecified; Z20.822 Contact with and (suspected) exposure to COVID-19; Z88.8 Allergy status to other drugs, medicaments and biological substances; Z79.01 Long term (current) use of anticoagulants; Z87.891 Personal history of nicotine dependence; Y90.9 Presence of alcohol in blood, level not specified
CPT/HCPCS: 36415; 74177; 80053; 80307; 83690; 85025; 85610; 87045; 87046; 87899; A9270; J2405; J7030; J7120; Q9967; U0002; 96374; 99219; 99284; 99285-25; G0378

== ENCOUNTER 2021-03-06 21:04 | Emergency (ER) | payer MEDICARE, SELFPAY ==
[2021-03-06] MEDS ORDERED: HYDROmorphone 1 MG/ML Syringe IM ONE (21:40)
--- NOTE | 2021-03-06 21:45 | EDM.PDOC ---
ED HPI GENERAL MEDICAL PROBLEM - General Chief Complaint: Lower Extremity Injury/Pain Stated Complaint: POST KNEE SURGERY PAIN Time Seen by Provider: 03/06/21 21:28 Source of Information: Reports: Patient, RN Notes Reviewed History Limitations: Reports: No Limitations - History of Present Illness INITIAL COMMENTS - FREE TEXT/NARRATIVE: Patient is a 60-year-old male who presents to the ER for the evaluation of his knee pain status post knee replacement. He notes that he had his knee replaced by Dr. Gallegos in [place] on Monday. The patient states that he has been having pain in his knee since then, he has been taking tramadol and hydrocodone that he has been prescribed but it does not seem to be helping so his last dose was around 3 AM this morning. He does state that he is on blood thinners, and the wound keeps weeping, and he has had to change his bandages quite a few times, he states that he is not even able to lift his leg off the bed. He is not having any numbness or tingling distal to the incision sites however his left foot is markedly swollen. Patient is a known alcoholic as well, and states that he has had 4 beers today, and a few yesterday and a few the day before. Patient denies any other sick-like symptoms, fever/chills, cough/shortness of breath, nausea/vomiting/diarrhea. Left Knee Pain Score (Numeric/FACES): 10 - Related Data Allergies Allergy/AdvReac Type Severity Reaction Status Date / Time cefaclor [From [facility]] Allergy Severe Swelling Verified 03/06/21 21:17 Home Meds: Home Meds traZODone HCl [Trazodone HCl] 50 mg PO BEDTIME PRN 04/05/19 [History] dilTIAZem HCL [Dilt-Xr] 180 mg PO DAILY 09/04/20 [History] Metoprolol Tartrate [Lopressor] 37.5 mg PO Q12H #60 tablet 11/21/20 [Rx] Warfarin [Coumadin] 5 mg PO SUTUTHSA 01/29/21 [History] Warfarin [Coumadin] 7.5 mg PO MOWEFR 01/29/21 [History] Cyclobenzaprine [Flexeril] 10 mg PO TID #21 tab 03/06/21 [Rx] Past Medical History HEENT History: Reports: Sinusitis Cardiovascular History: Reports: Afib, High Cholesterol Other Cardiovascular History: atrial fibrillation Respiratory History: Reports: None Gastrointestinal History: Reports: PUD Other Gastrointestinal History: Duodenal ulcers Genitourinary History: Reports: None Musculoskeletal History: Reports: Arthritis, Fracture Other Musculoskeletal History: R) shoulder fx. Neurological History: Reports: Headaches, Chronic Psychiatric History: Reports: Addiction, Depression Endocrine/Metabolic History: Reports: None Hematologic History: Reports: None Immunologic History: Reports: None Oncologic (Cancer) History: Reports: None Dermatologic History: Reports: None - Infectious Disease History Infectious Disease History: Reports: Chicken Pox, Influenza, Measles - Past Surgical History Head Surgeries/Procedures: Reports: None HEENT Surgical History: Reports: None Cardiovascular Surgical History: Reports: None GI Surgical History: Reports: None Neurological Surgical History: Reports: Lumbar Spine Other Neurological Surgeries/Procedures: laminectomy L4-5 Musculoskeletal Surgical History: Reports: Knee Replacement, ORIF, Shoulder Surgery Other Musculoskeletal Surgeries/Procedures:: 2014 Social & Family History - Family History Family Medical History: No Pertinent Family History - Tobacco Use Tobacco Use Status *Q: Never Tobacco User Second Hand Smoke Exposure: No - Caffeine Use Caffeine Use: Reports: None Other Caffeine Use: rarely - Recreational Drug Use Recreational Drug Use: No - Living Situation & Occupation Living situation: Reports: , with Spouse, with Family ([id number]) Occupation: Unemployed Review of Systems - Review of Systems Review Of Systems: Comprehensive ROS is negative, except as noted in HPI. ED EXAM, GENERAL - Physical Exam Exam: See Below Exam Limited By: No Limitations General Appearance: Alert, WD/WN, No Apparent Distress Respiratory/Chest: No Respiratory Distress, Lungs Clear, Normal Breath Sounds, No Accessory Muscle Use, Chest Non-Tender Cardiovascular: Normal Peripheral Pulses, Regular Rate, Rhythm, No Edema Peripheral Pulses: 2+: Radial (L), Radial (R) Extremities: Normal Capillary Refill, Pedal Edema (Left foot has 3+ pitting edema), Leg Pain (of left leg pain), Limited Range of Motion (of left knee) Neurological: Alert, Oriented, Normal Cognition, No Motor/Sensory Deficits Psychiatric: Normal Affect, Normal Mood Skin Exam: Warm, Dry, No Rash, Ecchymosis (of left knee and anterior leg; the wound does appear to be weeping.) Course - Vital Signs Last Recorded V/S: Last Vital Signs Temp 97.8 F 07/10/21 21:24 Pulse 94 03/06/21 21:24 Resp 16 03/06/21 21:24 BP 142/82 H 03/06/21 21:24 Pulse Ox 98 03/06/21 21:24 - Orders/Labs/Meds Meds: Medications Discontinued Medications Generic Name Dose Route Start Last Admin Trade Name Lizzeth PRN Reason Stop Dose Admin Cyclobenzaprine HCl 10 mg 03/06/21 22:24 Cyclobenzaprine 10 Mg Tab PO 03/06/21 22:25 ONETIME ONE Hydromorphone HCl 1 mg 03/06/21 21:40 03/06/21 21:50 Hydromorphone 1 Mg/Ml Syringe IM 03/06/21 21:41 1 mg ONETIME ONE Administration - Re-Assessments/Exams Free Text/Narrative Re-Assessment/Exam: 03/06/21 22:36 Patient presents to the ER for his left knee pain status post knee replacement. I did discuss his case with Dr. Lujan in [place], and he does recommend the possibility of adding muscle relaxers to the patient's regimen. He can be switched to oxycodone if he is not getting any relief from the hydrocodone. He also recommended baseline labs for further evaluation I did discuss these measures with the patient, he is willing to take the Flexeril but does not want oxycodone as he states the last time he got any sort of that medication, he did not do well with it. I did explain to him that he can indeed take 2 tablets of his hydrocodone every 6 hours if needed for pain management, patient verbalized understanding. We will go ahead and get his wound wrapped, he is to expect a little bit more bleeding/seeping from the wound because he is on blood thinners, and there is a lot more swelling. The patient declined getting labs done at today's visit. Departure - Departure Time of Disposition: 22:38 Disposition: Home, Self-Care 01 Condition: Good Clinical Impression: Acute postoperative pain of left knee - Discharge Information *PRESCRIPTION DRUG MONITORING PROGRAM REVIEWED*: No *COPY OF PRESCRIPTION DRUG MONITORING REPORT IN PATIENT AYDE: No Prescriptions: Cyclobenzaprine [Flexeril] 10 mg PO TID #21 tab Instructions: Pain Medicine Instructions, [id number] Referrals: Elizabeth,Kath Silvana, PA-C [Primary Care Provider] - Forms: ED Department Discharge Additional Instructions: You were evaluated in the ER today for your left knee pain after your left knee replacement. You have been given some IM pain medications while being in the ER, this seemed to help relieve some of your pain. You have also been given a tablet of Flexeril, muscle relaxer, for muscle spasms. You have been given a prescription for Flexeril, your prescription was electronically sent to [facility] pharmacy located near [facility], this pharmacy is only open from 12 to 4 PM on Sundays, you will need to go there during this timeframe to obtain this medication and take as prescribed. Your case was discussed with orthopedist immersion metalcleaner at [facility] in [place], Dr. Eder Lujan, he states that you should follow-up with your orthopedist on Monday, so please call Dr. Gallegos's office Monday morning for ongoing management. You indicated that you do have hydrocodone at home, however you did not seem to think it was helping. You can take 2 tablets of this medication every 6 hours as needed for ongoing pain management. You were also aware that since you are on blood thinners, you will have a little bit more bleeding/seeping of blood from the wound, and there is quite a bit of swelling, so please expect that the wound will weep for some time. Please keep your foot wrapped as much as possible, as you do have quite a bit of swelling in your left foot. Continue to do your exercises as directed from your orthopedic doctor, to help keep the knee in motion as well. Please return to the ER at any time however if your symptoms should change or worsen. Sepsis Event Note (ED) - Evaluation Sepsis Screening Result: No Definite Risk - Focused Exam Vital Signs: Vital Signs Temp Pulse Resp BP Pulse Ox 03/06/21 21:24 97.8 F 94 16 142/82 H 98
[2021-03-06] MEDS ORDERED: Cyclobenzaprine 10 MG Tab PO ONE (22:24)
== END 2021-03-06 23:05 | disposition home or self-care (01) ==
LOC: JD.ED 21:04
DX: G89.29 Other chronic pain (principal); M25.562 Pain in left knee; I48.91 Unspecified atrial fibrillation; Z88.1 Allergy status to other antibiotic agents; Z79.899 Other long term (current) drug therapy
CPT/HCPCS: 96372; 99283; A9270; J1170

== ENCOUNTER 2021-06-27 10:14 | Emergency (ER) | payer MEDICARE, OTHER ==
--- NOTE | 2021-06-27 11:38 | EDM.PDOC ---
ED HPI GENERAL MEDICAL PROBLEM - General Chief Complaint: Genitourinary Problem Stated Complaint: BLOOD IN URINE Time Seen by Provider: 06/27/21 11:07 Source of Information: Reports: Patient History Limitations: Reports: No Limitations - History of Present Illness INITIAL COMMENTS - FREE TEXT/NARRATIVE: Mr. Mitchell is a pleasant 60-year-old gentleman who now presents the ED stating that he has been experiencing several days of suprapubic pain, but only when he urinates, for the past few days. He has also been experiencing some watery diarrhea. He then noticed gross hematuria yesterday, 06/26/2021. He denies dysuria and urgency. No prior similar symptoms. The patient did not take any [id number] or home remedies, including Azo, to address his symptoms. Of note, he is on Coumadin for paroxysmal atrial fibrillation. Here in the ED, the patient's initial BP is found to be elevated at 164/62, otherwise, he is hemodynamically stable, afebrile, saturating 95% on room air. He appears to be comfortable, in no acute distress. Prior to a few days ago, the patient denies having a recent fever, chills, sore throat, ear pain, nasal or sinus congestion, cough, dyspnea, chest pain, palpitations, nausea, vomiting, constipation, diarrhea, abdominal pain, urinary symptoms, recent weight gain or weight loss, recent bloody bowel movements or black bowel movements, recent joint aches, headaches, or rashes. The patient's PCP is MEERA Nayak. He does not recall the name of his Assistant Family Teacher. His Orthopedic Surgeon is Dr. Edward Gallegos. He has not received a COVID vaccination, nor an influenza vaccination this season. - Related Data Allergies Allergy/AdvReac Type Severity Reaction Status Date / Time cefaclor [From [facility]] Allergy Severe Swelling Verified 06/27/21 10:29 Home Meds: Home Meds traZODone HCl [Trazodone HCl] 50 mg PO BEDTIME PRN 04/05/19 [History] dilTIAZem HCL [Dilt-Xr] 180 mg PO DAILY 09/04/20 [History] Metoprolol Tartrate [Lopressor] 37.5 mg PO Q12H #60 tablet 11/21/20 [Rx] Warfarin [Coumadin] 5 mg PO SUTUTHSA 01/29/21 [History] Warfarin [Coumadin] 7.5 mg PO MOWEFR 01/29/21 [History] Cyclobenzaprine [Flexeril] 10 mg PO TID #21 tab 03/06/21 [Rx] Past Medical History Cardiovascular History: Reports: Afib (paroxysmal), High Cholesterol (untreated) Gastrointestinal History: Reports: PUD (duodenal ulcer) Musculoskeletal History: Reports: Fracture (right shoulder), Osteoarthritis Psychiatric History: Reports: Addiction (alcohol), Depression (untreated) - Infectious Disease History Infectious Disease History: Reports: Chicken Pox, Influenza, Measles - Past Surgical History Neurological Surgical History: Reports: Lumbar Spine (L4-L5 laminectomy) Musculoskeletal Surgical History: Reports: Knee Replacement (left), ORIF (right shoulder), Shoulder Surgery (right, arthroscopic) Social & Family History - Tobacco Use Tobacco Use Status *Q: Former Tobacco User Years of Tobacco use: 44 Packs/Tins Daily: 1 Month/Year Tobacco Last Used: Quit January 2019 Tobacco Use Comment: Started smokiing around 1974 - Alcohol Use Alcohol Use History: Yes Alcohol Use Frequency: Daily - Recreational Drug Use Recreational Drug Use: Yes Drug Use in Last 12 Months: No Recreational Drug Type: Reports: Marijuana/Hashish (last smoked Apr 2019) - Living Situation & Occupation Living situation: Reports: , with Spouse Occupation: Unemployed ED ROS GENERAL - Review of Systems Review Of Systems: Comprehensive ROS is negative, except as noted in HPI. ED EXAM, RENAL/ - Physical Exam Exam: See Below Exam Limited By: No Limitations General Appearance: Alert, WD/WN, No Apparent Distress Eye Exam: Bilateral Eye: EOMI, Normal Inspection Ears: Normal External Exam, Hearing Grossly Normal Nose: Normal Inspection Throat/Mouth: Normal Inspection, Normal Lips, Normal Voice, No Airway Compromise Head: Atraumatic, Normocephalic Neck: Normal Inspection, Full Range of Motion Respiratory/Chest: No Respiratory Distress, Lungs Clear, Normal Breath Sounds, No Accessory Muscle Use Cardiovascular: Normal Peripheral Pulses, Regular Rate, Rhythm, No Edema, No Gallop, No JVD, No Murmur, No Rub GI/Abdominal: Normal Bowel Sounds, Soft, No Organomegaly, No Distention, No Abnormal Bruit, No Mass, Tender (Mild, suprapubic only. Nontender elsewhere.) Back Exam: Normal Inspection, Full Range of Motion, NT Extremities: Normal Inspection, Normal Range of Motion, No Pedal Edema, Normal Capillary Refill Neurological: Alert, Oriented, Normal Cognition, No Motor/Sensory Deficits Psychiatric: Normal Affect Skin Exam: Warm, Dry, Intact, Normal Color, No Rash Course - Vital Signs Last Recorded V/S: Last Vital Signs Temp 36.8 C 06/27/21 10:26 Pulse 84 06/27/21 10:26 Resp 18 06/27/21 10:26 BP 164/72 H 06/27/21 10:26 Pulse Ox 95 06/27/21 10:26 Orthostatic Blood Pressure [ 136/72 Standing] Orthostatic Blood Pressure [ 131/80 Supine] - Orders/Labs/Meds Orders: Active Orders 24 hr Category Date Time Status Orthostatic Vital Signs [RC] STAT Care 06/27/21 11:35 Active Labs: Laboratory Tests 06/27/21 06/27/21 06/27/21 Range/Units 10:39 12:30 12:30 WBC 7.04 (4.23-9.07) K/mm3 RBC 4.61 L (4.63-6.08) M/mm3 Hgb 14.7 (13.7-17.5) gm/dl Hct 41.8 (40.1-51.0) % MCV 90.7 (79.0-92.2) fl MCH 31.9 (25.7-32.2) pg MCHC 35.2 (32.2-35.5) g/dl RDW Std Deviation 46.1 H (35.1-43.9) fL Plt Count 254 D (163-337) K/mm3 MPV 8.4 L (9.4-12.3) fl Neutrophils % (Manual) 80 H (40-60) % Band Neutrophils % 3 (0-10) % Lymphocytes % (Manual) 4 L (20-40) % Atypical Lymphs % 1 % Monocytes % (Manual) 10 (2-10) % Eosinophils % (Manual) 0 L (0.8-7.0) % Basophils % (Manual) 2 H (0.2-1.2) Platelet Estimate Adequate Plt Morphology Comment Normal RBC Morph Comment Normal Sodium 131 L (136-145) mEq/L Potassium 4.6 (3.5-5.1) mEq/L Chloride 95 L (98-107) mEq/L Carbon Dioxide 23 (21-32) mEq/L Anion Gap 17.6 H (5-15) BUN 4 L (7-18) mg/dL Creatinine 0.7 (0.7-1.3) mg/dL Est Cr Clr Drug Dosing 112.98 mL/min Estimated GFR (MDRD) > 60 (>60) mL/min BUN/Creatinine Ratio 5.7 L (14-18) Glucose 110 H (70-99) mg/dL Calcium 8.7 (8.5-10.1) mg/dL Magnesium 1.8 (1.8-2.4) mg/dL Total Bilirubin 0.7 (0.2-1.0) mg/dL AST 122 H (15-37) U/L ALT 58 (16-63) U/L Alkaline Phosphatase 219 H (46-116) U/L C-Reactive Protein <0.2 (<1.0) mg/dL Total Protein 8.2 (6.4-8.2) g/dl Albumin 4.2 (3.4-5.0) g/dl Globulin 4.0 gm/dL Albumin/Globulin Ratio 1.1 (1-2) Urine Color [place] H (Yellow) Urine Appearance Clear (Clear) Urine pH 6.5 (5.0-8.0) Ur Specific [place] 1.025 (1.005-1.030) Urine Protein 2+ H (Negative) Urine Glucose (UA) Negative (Negative) Urine Ketones Negative (Negative) Urine Occult Blood 3+ H (Negative) Urine Nitrite Negative (Negative) Urine Bilirubin Negative (Negative) Urine Urobilinogen 0.2 (0.2-1.0) Ur Leukocyte Esterase Negative (Negative) U Hyaline Cast (Auto) 0-5 (0-5) /lpf Urine RBC 10-20 H (0-5) /hpf Urine WBC Not seen (0-5) /hpf Ur Epithelial Cells Not seen (0-5) /hpf Urine Bacteria Moderate H (FEW) /hpf Urine Mucus Not seen (FEW) /hpf - Re-Assessments/Exams Free Text/Narrative Re-Assessment/Exam: 06/27/21 11:36 A urinalysis, ordered at triage, is remarkable for orange color, 3+ occult blood with 10-20 RBCs, leukocyte esterase negative with no WBCs seen, nitrate negative with moderate bacteria seen, and no squamous epithelial cells seen. The patient's urinalysis is not consistent with a UTI. Since he denies recent trauma, I am going to recommend that he follow-up with a Urologist. The patient states that he has been feeling lightheaded for about 6 months. I have laid him flat and ordered orthostatics. 06/27/21 12:14 The patient is not orthostatic. 06/27/21 12:16 Orthostatic results discussed with the patient. I offered to check some blood work, to make sure that he does not have a significant electrolyte abnormality, or is not excessively anemic. He agreed. I have ordered a CBC, CMP, magnesium level, and CRP. 06/27/21 14:06 The patient's CBC is unremarkable. His CMP is remarkable for modest hyponatremia of 131, and mild hyperglycemia of 110. His AST is mildly elevated at 122, while his ALT is within normal limits at 58. His alkaline phosphatase is mildly elevated at 219, with the remainder of his CMP being unremarkable. His magnesium level is within normal limits at 1.8. His CRP is undetectably low. 06/27/21 14:10 Test results discussed with the patient. He acknowledged that he does not salt his food. I suggested that perhaps he increase his dietary salt intake just a little bit. The rest of his work-up was unremarkable. I will discharge him home with a referral to Dr. Lara. Departure - Departure Time of Disposition: 14:11 Disposition: Home, Self-Care 01 Condition: Good Clinical Impression: Gross hematuria, Lightheadedness - Discharge Information *PRESCRIPTION DRUG MONITORING PROGRAM REVIEWED*: Not Applicable *COPY OF PRESCRIPTION DRUG MONITORING REPORT IN PATIENT AYDE: Not Applicable Referrals: Edward Gallegos MD [Ordering Only Provider] - Kath Johnson PA-C [Primary Care Provider] - Joey Lara MD [Ordering Only Provider] - Forms: ED Department Discharge Additional Instructions: You were seen in the emergency room after developing visible blood in your urine yesterday, along with an upset stomach, watery diarrhea, and 6 months of lightheadedness. Work-up in the ER included positional blood pressure checks, numerous blood tests, and a urinalysis. Your blood pressure maintained is of between lying and standing, indicating that you are not orthostatic. Your blood work found your sodium level to be mildly depressed at 131. This is usually caused by an inadequate salt intake. We recommend that you increase your salt intake just a little bit. Your liver enzymes are mildly elevated, most likely due to your alcohol consumption. Your urinalysis found some blood in it. The cause of the blood is not known - you do not have a urinary tract infection. Further evaluation is needed. We recommend that you follow-up with the Urologist Dr. Joey Lara, in [place], at the next available appointment. If any other problems, please do not hesitate to return to the ER. Sepsis Event Note (ED) - Evaluation Sepsis Screening Result: No Definite Risk - Focused Exam Vital Signs: Vital Signs Temp Pulse Resp BP Pulse Ox 06/27/21 10:26 36.8 C 84 18 164/72 H 95 - My Orders Last 24 Hours: My Active Orders 06/27/21 11:35 Orthostatic Vital Signs [RC] STAT - Assessment/Plan Last 24 Hours: My Active Orders 06/27/21 11:35 Orthostatic Vital Signs [RC] STAT
== END 2021-06-27 14:34 | disposition home or self-care (01) ==
LOC: JD.ED 10:14
DX: R31.0 Gross hematuria (principal); R42 Dizziness and giddiness; E78.00 Pure hypercholesterolemia, unspecified; Z79.899 Other long term (current) drug therapy; Z88.1 Allergy status to other antibiotic agents; Z87.891 Personal history of nicotine dependence
CPT/HCPCS: 36415; 80053; 81001; 83735; 85007; 85027; 86140; 99283

== ENCOUNTER 2022-01-11 09:53 | Day surgery (SDC) | payer MEDICARE, OTHER ==
[~2022-01-11 09:53] MED LIST: Lactated Ringers 1,000 ML IV SCH; Lidocaine 1%/Sod Bicarbonate in NS 8.4% 1 ML Syringe IDERM PRN; Sodium Chloride 0.9% 10 ML Syringe FLUSH PRN; Sodium Chloride 0.9% 10 ML Syringe FLUSH SCH
[2022-01-11] MEDS ORDERED: Propofol 200 MG/20 ML SDV ONE ×2 (10:22→12:13)
[2022-01-11] MEDS ORDERED: Lidocaine 1% 4 ML ONE (10:26)
[2022-01-11] MEDS ORDERED: Midazolam 1 MG/ML 2 ML SDV ONE (10:27)
== END 2022-01-11 13:05 | disposition home or self-care (01) ==
LOC: JD.SDS 09:53
PROVIDERS: ATTEND Surgery
DX: D12.0 Benign neoplasm of cecum (principal); D12.2 Benign neoplasm of ascending colon; D12.3 Benign neoplasm of transverse colon; D12.5 Benign neoplasm of sigmoid colon; F41.9 Anxiety disorder, unspecified; I25.10 Atherosclerotic heart disease of native coronary artery without angina pectoris; G47.00 Insomnia, unspecified; I11.0 Hypertensive heart disease with heart failure; I50.9 Heart failure, unspecified; H91.90 Unspecified hearing loss, unspecified ear; G47.33 Obstructive sleep apnea (adult) (pediatric); E78.00 Pure hypercholesterolemia, unspecified; I48.91 Unspecified atrial fibrillation; K21.9 Gastro-esophageal reflux disease without esophagitis; Z88.1 Allergy status to other antibiotic agents; Z79.01 Long term (current) use of anticoagulants; Z79.899 Other long term (current) drug therapy; Z87.891 Personal history of nicotine dependence
CPT/HCPCS: 36415; 45385; 85610; 85730; J2250; J2704; J7120; 88305

== ENCOUNTER 2022-02-04 06:14 | Inpatient (IN) | payer MEDICARE, OTHER ==
[2022-02-04] MEDS ORDERED: Sodium Chloride 0.9% 10 ML Syringe FLUSH PRN (08:08)
[2022-02-04] MEDS ORDERED: Factor IX Complex Human 500 UNIT VIAL IV ONE ×2 (08:11→08:30)
[2022-02-04] MEDS ORDERED: Phytonadione 5 MG in Sodium Chloride 0.9% 50 ML IV ONE (08:16)
[2022-02-04] MEDS ORDERED: Diltiazem 180 MG Cap.CD PO ONE (10:51)
[2022-02-04] MEDS ORDERED: Metoprolol Tartrate 25 MG Tab PO ONE (10:52)
[2022-02-04] MEDS ORDERED: Metoprolol Tartrate 50 MG Tab PO ONE (10:57)
[2022-02-04] MEDS ORDERED: Ondansetron 4 MG Tab.DIS PO ONE (11:36)
[2022-02-04] MEDS ORDERED: Warfarin 5 MG Tab PO ONE (11:47)
[2022-02-04] MEDS ORDERED: LORazepam 2 MG/ML SDV IVPUSH ONE (15:07)
[2022-02-04 15:16] LABS: ESTIMATED GFR > 60 mL/min (>60)
[2022-02-04] MEDS ORDERED: LORazepam 2 MG/ML SDV IVPUSH PRN (16:30)
[2022-02-04] MEDS: Sodium Chloride 0.9% 1,000 ML IV SCH (16:41)
[2022-02-04] MEDS: Folic Acid 1 MG Tab PO SCH (20:25)
[2022-02-04] MEDS: Thiamine 100 MG Tab PO SCH (20:25)
[2022-02-05] MEDS: Sodium Chloride 0.9% 1,000 ML IV SCH ×3 (02:07→18:10)
[2022-02-05 06:17] LABS: ESTIMATED GFR > 60 mL/min (>60)
[2022-02-05] MEDS ORDERED: chlordiazePOXIDE 10 MG Cap PO PRN (10:00)
[2022-02-05] MEDS ORDERED: traZODone 50 MG Tab PO PRN (14:47)
[2022-02-05] MEDS ORDERED: Diltiazem 180 MG Cap.CD PO SCH (15:00)
[2022-02-05] MEDS: Diltiazem 180 MG Cap.CD PO SCH (17:12)
[2022-02-05] MEDS ORDERED: Warfarin 5 MG Tab PO SCH (18:00)
[2022-02-05] MEDS: Metoprolol Tartrate 25 MG Tab PO SCH (20:21)
[2022-02-05] MEDS: Thiamine 100 MG Tab PO SCH (20:21)
[2022-02-05] MEDS: Folic Acid 1 MG Tab PO SCH (20:21)
[2022-02-06] MEDS: Sodium Chloride 0.9% 1,000 ML IV SCH (01:05)
[2022-02-06 06:08] LABS: ESTIMATED GFR > 60 mL/min (>60)
[2022-02-06] MEDS: Diltiazem 180 MG Cap.CD PO SCH (09:17)
[2022-02-06] MEDS: Metoprolol Tartrate 25 MG Tab PO SCH (09:17)
== END 2022-02-06 13:17 | disposition home or self-care (01) | DRG 897 ==
LOC: JD.ED 06:14 → JD.MS 15:13
PROVIDERS: ADMIT Internal Medicine; ATTEND Internal Medicine
DX: F10.230 Alcohol dependence with withdrawal, uncomplicated (principal); D68.9 Coagulation defect, unspecified; R11.0 Nausea; R51.9 Headache, unspecified; R04.0 Epistaxis; R79.1 Abnormal coagulation profile; F10.920 Alcohol use, unspecified with intoxication, uncomplicated; R53.1 Weakness; R42 Dizziness and giddiness; M19.90 Unspecified osteoarthritis, unspecified site; F41.9 Anxiety disorder, unspecified; I48.91 Unspecified atrial fibrillation; T45.515A Adverse effect of anticoagulants, initial encounter; Z88.8 Allergy status to other drugs, medicaments and biological substances; E78.00 Pure hypercholesterolemia, unspecified; F32.A Depression, unspecified; Z96.659 Presence of unspecified artificial knee joint; Y90.0 Blood alcohol level of less than 20 mg/100 ml; Z88.1 Allergy status to other antibiotic agents; Z79.01 Long term (current) use of anticoagulants; Z79.899 Other long term (current) drug therapy
CPT/HCPCS: 36415; 70450; 80053; 80307; 83735; 84484; 85025 ×2; 85610 ×2; 93005; A9270 ×4; J3430; J3490; J7168; 30901; 96365; 96368; 96375; 99284; 99285-25; J2060; J7030

== ENCOUNTER 2022-04-11 09:01 | Day surgery (SDC) | payer MEDICARE, OTHER ==
[~2022-04-11 09:01] MED LIST changes: +Acetaminophen 325 MG Tab PO SCH; +Midazolam 1 MG/ML 2 ML SDV ONE; +Morphine 8 MG, EPINEPHrine 0.3 MG, Ketorolac 30 MG, Sodium Chloride 0.9% 17.9 ML PRN; +Morphine 8 MG, EPINEPHrine 0.3 MG, Ketorolac 30 MG, Sodium Chloride 0.9% 7.9 ML PRN; +Phenylephrine HCl In 0.9% NaCl 1 MG/10 ML Vial ONE; +Pregabalin 25 MG Cap PO SCH; +Propofol 200 MG/20 ML SDV ONE; +Vancomycin 1 GM SDV ONE; +ceFAZolin 2 GM Vial ONE; +fentaNYL 100 MCG/2 ML SDV ONE; +oxyCODONE ER 10 MG TAB.ER PO SCH
[2022-04-11] MEDS ORDERED: VANCOmycin 1.5 GM/300 ML 300 ML IV ONE (09:30)
[2022-04-11] MEDS ORDERED: ePHEDrine 50 MG/ML SDV ONE ×2 (10:05→10:35)
[2022-04-11] MEDS ORDERED: HYDROmorphone 0.5 MG/0.5 ML Syringe IVPUSH PRN (10:24)
[2022-04-11] MEDS ORDERED: Ondansetron 4 MG/2 ML SDV IVPUSH PRN (10:24)
[2022-04-11] MEDS ORDERED: fentaNYL 100 MCG/2 ML SDV IVPUSH PRN (10:24)
[2022-04-11] MEDS ORDERED: Propofol 200 MG/20 ML SDV ONE (11:00)
[2022-04-11] MEDS ORDERED: EPINEPHrine 1 MG/ML SDV ONE (11:11)
[2022-04-11] MEDS ORDERED: Ropivacaine 0.5% 5 MG/ML 30 ML SDV ONE (11:11)
[2022-04-11] MEDS ORDERED: Acetaminophen/HYDROcodone 325-5 MG Tab PO ONE (12:00)
== END 2022-04-11 16:30 | disposition home or self-care (01) ==
LOC: JD.SDS 09:01
PROVIDERS: ATTEND Orthopaedic Surgery
DX: M17.11 Unilateral primary osteoarthritis, right knee (principal); I11.0 Hypertensive heart disease with heart failure; I50.9 Heart failure, unspecified; I48.91 Unspecified atrial fibrillation; I48.92 Unspecified atrial flutter; D64.9 Anemia, unspecified; M19.90 Unspecified osteoarthritis, unspecified site; I25.10 Atherosclerotic heart disease of native coronary artery without angina pectoris; E87.1 Hypo-osmolality and hyponatremia; G47.33 Obstructive sleep apnea (adult) (pediatric); E78.00 Pure hypercholesterolemia, unspecified; F17.210 Nicotine dependence, cigarettes, uncomplicated; Z79.01 Long term (current) use of anticoagulants; Z88.1 Allergy status to other antibiotic agents; Z79.899 Other long term (current) drug therapy; Z79.2 Long term (current) use of antibiotics; Z98.890 Other specified postprocedural states; Z96.659 Presence of unspecified artificial knee joint
CPT/HCPCS: 0055T; 27447; 36415; 73560; 80048; 85610; 97110; 97116; 97161; A9270; C1713; C1776; J0171; J1885; J2250; J2270; J2704; J2795; J3370; J7120; 01402; 64450; 76942; J0690; J3010

== ENCOUNTER 2022-10-13 09:02 | Emergency (ER) | payer MEDICARE ==
[2022-10-13] MEDS ORDERED: Polyethylene Glycol 3350 Powder 17 GM Packet PO ONE (11:33)
== END 2022-10-13 11:47 | disposition home or self-care (01) ==
LOC: JD.ED 09:02
DX: K59.00 Constipation, unspecified (principal); I48.91 Unspecified atrial fibrillation; E78.00 Pure hypercholesterolemia, unspecified; Z88.5 Allergy status to narcotic agent; Z79.82 Long term (current) use of aspirin; Z79.01 Long term (current) use of anticoagulants; Z79.899 Other long term (current) drug therapy
CPT/HCPCS: 74018; 74018-26; 99283; A9270-GY

== ENCOUNTER 2024-04-09 19:06 | Inpatient (IN) | payer MEDICARE ==
[2024-04-09 19:47] LABS: BASOPHILS ABSOLUTE AUTO 0.1 K/mm3 (0.0-0.2); EOSINOPHILS ABSOLUTE AUTO 0.1 K/mm3 (0.0-0.4); HEMATOCRIT 42.4 % (42.0-52.0); HEMOGLOBIN 15.2 gm/dl (14.0-18.0); IMMATURE GRAN ABSOLUTE AUTO 0.03 K/mm3 (0.00-0.05); IMMATURE GRAN PERCENT AUTO 0.4 % (0.0-0.4); LYMPHOCYTES ABSOLUTE AUTO 2.2 K/mm3 (1.0-4.8); LYMPHOCYTES PERCENT AUTO 31.8 % (24.0-44.0); MEAN CORPUSCULAR HGB CONC 35.8 g/dl (32.0-36.0); MEAN CORPUSCULAR VOLUME 94.9 fl (83.0-99.0); MONOCYTES PERCENT AUTO 14.2 % (0.0-8.0); NEUTROPHILS ABSOLUTE AUTO 3.6 K/mm3 (1.8-7.7); NEUTROPHILS PERCENT AUTO 51.6 % (41.0-71.0); PLATELET COUNT,PLT 178 K/mm3 (150-400); RED BLOOD CELL COUNT 4.47 M/mm3 (4.52-5.90); WHITE BLOOD CELL COUNT,WBC 6.91 K/mm3 (3.9-11.3)
[2024-04-09 19:59] LABS: PROTHROMBIN TIME 52.9 SECONDS (9.7-12.0)
[2024-04-09 20:00] LABS: INR 5.58
[2024-04-09 20:01] LABS: D-DIMER QUANTITATIVE 0.26 mg/L (0.19-0.50)
[2024-04-09] MEDS: Sodium Chloride 0.9% 10 ML Syringe FLUSH PRN (20:04)
[2024-04-09] MEDS: Acetaminophen 325 MG Tab PO ONE (20:04)
[2024-04-09] MEDS: Sodium Chloride 0.9% 500 ML IV ONE (20:04)
[2024-04-09 20:09] LABS: A/G RATIO 1.1 (1-2); ALBUMIN 4.1 g/dl (3.4-5.0); ANION GAP 19.2 (5-15); BILIRUBIN TOTAL 0.5 mg/dL (0.2-1.0); CALCIUM 8.6 mg/dL (8.5-10.1); CREATININE 0.8 mg/dL (0.7-1.3); EST CRCL DRUG DOSING (CG) 101.04 mL/min; MAGNESIUM 1.8 mg/dL (1.8-2.4); POTASSIUM,K 4.2 mEq/L (3.5-5.1); PROTEIN TOTAL,TP 7.8 g/dl (6.4-8.2)
[2024-04-09 20:46] LABS: CORONAVIRUS COVID-19 NAA NEGATIVE (NEGATIVE); INFLUENZA A NAA NEGATIVE (NEGATIVE); RESPIRATORY SYNCYTIAL VIR NAA NEGATIVE (NEGATIVE)
[2024-04-10] MEDS: DOPamine/Dextrose 5%-Water 400 MG/250 ML BAG IV SCH (01:35)
[2024-04-10] MEDS: Sodium Chloride 0.9% 1,000 ML IV SCH (02:11)
[2024-04-10] MEDS: Thiamine 200 MG/2 ML MDV IVPUSH ONE (02:14)
[2024-04-10] MEDS ORDERED: LORazepam 2 MG/ML SDV IVPUSH PRN (02:15)
[2024-04-10] MEDS: LORazepam 2 MG/ML SDV IVPUSH SCH (02:20)
[2024-04-10] MEDS: LORazepam 2 MG/ML SDV IVPUSH PRN (04:49)
[2024-04-10 06:14] LABS: BASOPHILS PERCENT AUTO 1.2 % (0.0-1.0); EOSINOPHILS PERCENT AUTO 0.6 % (0.0-6.0); HEMATOCRIT 40.8 % (42.0-52.0); HEMOGLOBIN 14.2 gm/dl (14.0-18.0); IMMATURE GRAN ABSOLUTE AUTO 0.01 K/mm3 (0.00-0.05); IMMATURE GRAN PERCENT AUTO 0.3 % (0.0-0.4); LYMPHOCYTES ABSOLUTE AUTO 0.7 K/mm3 (1.0-4.8); LYMPHOCYTES PERCENT AUTO 19.9 % (24.0-44.0); MEAN CORPUSCULAR HEMOGLOBIN 33.4 pg (28.0-32.0); MEAN CORPUSCULAR HGB CONC 34.8 g/dl (32.0-36.0); MEAN PLATELET VOLUME 9.3 fl (9.4-12.4); MONOCYTES ABSOLUTE AUTO 0.5 K/mm3 (0.0-0.8); MONOCYTES PERCENT AUTO 15.3 % (0.0-8.0); NEUTROPHILS ABSOLUTE AUTO 2.2 K/mm3 (1.8-7.7); NEUTROPHILS PERCENT AUTO 62.7 % (41.0-71.0); PLATELET COUNT,PLT 133 K/mm3 (150-400); RED BLOOD CELL COUNT 4.25 M/mm3 (4.52-5.90); WHITE BLOOD CELL COUNT,WBC 3.47 K/mm3 (3.9-11.3)
[2024-04-10] MEDS ORDERED: Ondansetron 4 MG/2 ML SDV IV PRN (06:45)
[2024-04-10 06:53] LABS: ALBUMIN 3.3 g/dl (3.4-5.0); ANION GAP 14.8 (5-15); BILIRUBIN TOTAL 0.6 mg/dL (0.2-1.0); BUN/CREATININE RATIO 7.1 (14-18); CALCIUM 8.1 mg/dL (8.5-10.1); CREATININE 0.7 mg/dL (0.7-1.3); EST CRCL DRUG DOSING (CG) 115.48 mL/min; MAGNESIUM 1.7 mg/dL (1.8-2.4); POTASSIUM,K 3.8 mEq/L (3.5-5.1); PROTEIN TOTAL,TP 6.6 g/dl (6.4-8.2)
[2024-04-10 06:57] LABS: PTT,PARTIAL THROMBOPLSTIN TIME 55.8 SECONDS (21.7-31.4)
[2024-04-10 07:01] LABS: PROTHROMBIN TIME 52.7 SECONDS (9.7-12.0)
[2024-04-10 07:02] LABS: INR 5.56
[2024-04-10] MEDS: Metoprolol Tartrate 25 MG Tab PO SCH (08:34)
[2024-04-10] MEDS: Magnesium Sulfate/Water 2 GM in Premix Bag 1 BAG IV ONE (08:34)
[2024-04-10] MEDS: Thiamine 200 MG/2 ML MDV IVPUSH SCH (08:35)
[2024-04-10] MEDS ORDERED: Thiamine 100 MG in Sodium Chloride 0.9% 100 ML IV SCH (09:00)
[2024-04-10] MEDS: chlordiazePOXIDE 25 MG Cap PO SCH (14:34)
[2024-04-10] MEDS: Acetaminophen 325 MG Tab PO PRN (16:04)
[2024-04-11 05:07] LABS: HEMATOCRIT 42.1 % (42.0-52.0); HEMOGLOBIN 14.6 gm/dl (14.0-18.0); MEAN CORPUSCULAR HEMOGLOBIN 33.3 pg (28.0-32.0); MEAN CORPUSCULAR HGB CONC 34.7 g/dl (32.0-36.0); MEAN CORPUSCULAR VOLUME 96.1 fl (83.0-99.0); MEAN PLATELET VOLUME 9.6 fl (9.4-12.4); PLATELET COUNT,PLT 137 K/mm3 (150-400); RED BLOOD CELL COUNT 4.38 M/mm3 (4.52-5.90); WHITE BLOOD CELL COUNT,WBC 5.19 K/mm3 (3.9-11.3)
[2024-04-11 05:26] LABS: INR 3.03; PROTHROMBIN TIME 29.9 SECONDS (9.7-12.0)
[2024-04-11 05:52] LABS: ANION GAP 13.6 (5-15); CREATININE 0.8 mg/dL (0.7-1.3); POTASSIUM,K 3.6 mEq/L (3.5-5.1)
[2024-04-11 05:53] LABS: ALBUMIN 3.3 g/dl (3.4-5.0); BILIRUBIN TOTAL 1.2 mg/dL (0.2-1.0); BUN/CREATININE RATIO 12.5 (14-18); CALCIUM 8.7 mg/dL (8.5-10.1); EST CRCL DRUG DOSING (CG) 101.04 mL/min; MAGNESIUM 1.8 mg/dL (1.8-2.4); PROTEIN TOTAL,TP 6.5 g/dl (6.4-8.2)
[2024-04-11] MEDS: Metoprolol Tartrate 50 MG Tab PO SCH (09:22)
[2024-04-11] MEDS: Thiamine 100 MG Tab PO SCH (22:22)
[2024-04-11] MEDS: Pantoprazole 40 MG Tab.CR PO SCH (22:22)
[2024-04-12 04:56] LABS: HEMATOCRIT 42.5 % (42.0-52.0); HEMOGLOBIN 14.7 gm/dl (14.0-18.0); MEAN CORPUSCULAR HGB CONC 34.6 g/dl (32.0-36.0); MEAN CORPUSCULAR VOLUME 95.5 fl (83.0-99.0); MEAN PLATELET VOLUME 9.9 fl (9.4-12.4); PLATELET COUNT,PLT 138 K/mm3 (150-400); RED BLOOD CELL COUNT 4.45 M/mm3 (4.52-5.90); WHITE BLOOD CELL COUNT,WBC 5.72 K/mm3 (3.9-11.3)
[2024-04-12 05:20] LABS: INR 1.3; PROTHROMBIN TIME 13.5 SECONDS (9.7-12.0)
[2024-04-12 05:30] LABS: ALBUMIN 3.3 g/dl (3.4-5.0); ANION GAP 12.4 (5-15); BILIRUBIN TOTAL 1.3 mg/dL (0.2-1.0); POTASSIUM,K 3.4 mEq/L (3.5-5.1)
[2024-04-12 05:46] LABS: A/G RATIO 0.9 (1-2); CALCIUM 9.1 mg/dL (8.5-10.1); CREATININE 0.8 mg/dL (0.7-1.3); EST CRCL DRUG DOSING (CG) 101.04 mL/min; MAGNESIUM 1.7 mg/dL (1.8-2.4); PROTEIN TOTAL,TP 6.9 g/dl (6.4-8.2)
[2024-04-12] MEDS: Magnesium Sulfate/Water 2 GM in Premix Bag 1 BAG IV ONE (07:11)
[2024-04-12] MEDS: Potassium Chloride 20 MEQ Tab.ER PO SCH (08:03)
[2024-04-12] MEDS: chlordiazePOXIDE 25 MG Cap PO SCH (08:03)
[2024-04-12] MEDS: Diltiazem 120 MG Cap.CD PO SCH (08:04)
[2024-04-12] MEDS: Warfarin 5 MG Tab PO ONE (17:20)
[2024-04-13 05:40] LABS: HEMATOCRIT 42.3 % (42.0-52.0); HEMOGLOBIN 14.5 gm/dl (14.0-18.0); MEAN CORPUSCULAR HEMOGLOBIN 33.4 pg (28.0-32.0); MEAN CORPUSCULAR HGB CONC 34.3 g/dl (32.0-36.0); MEAN CORPUSCULAR VOLUME 97.5 fl (83.0-99.0); MEAN PLATELET VOLUME 10.1 fl (9.4-12.4); PLATELET COUNT,PLT 148 K/mm3 (150-400); RED BLOOD CELL COUNT 4.34 M/mm3 (4.52-5.90); WHITE BLOOD CELL COUNT,WBC 6.29 K/mm3 (3.9-11.3)
[2024-04-13 06:03] LABS: INR 1.07; PROTHROMBIN TIME 11.3 SECONDS (9.7-12.0)
[2024-04-13 06:11] LABS: A/G RATIO 0.9 (1-2); ALBUMIN 3.1 g/dl (3.4-5.0); BILIRUBIN TOTAL 0.8 mg/dL (0.2-1.0); CALCIUM 9.2 mg/dL (8.5-10.1); EST CRCL DRUG DOSING (CG) 80.83 mL/min; MAGNESIUM 1.7 mg/dL (1.8-2.4); PROTEIN TOTAL,TP 6.7 g/dl (6.4-8.2)
[2024-04-13] MEDS: Magnesium Sulfate/Water 4 GM in Premix Bag 1 BAG IV ONE (07:53)
[2024-04-13] MEDS: chlordiazePOXIDE 25 MG Cap PO ONE (08:01)
[2024-04-13] MEDS: Warfarin 5 MG Tab PO ONE (09:26)
[2024-04-13] MEDS ORDERED: Warfarin 5 MG Tab PO ONE (18:00)
== END 2024-04-13 13:43 | disposition left against medical advice (07) | DRG 641 ==
LOC: JD.ED 19:06 → JD.ICU 22:30
PROVIDERS: ADMIT Internal Medicine; ATTEND Internal Medicine
PROC: 3E033XZ Introduction of Vasopressor into Peripheral Vein, Percutaneous Approach (ICD-10-PCS; principal; 2024-04-10)
DX: E87.1 Hypo-osmolality and hyponatremia (principal); R00.1 Bradycardia, unspecified; F10.131 Alcohol abuse with withdrawal delirium; I48.91 Unspecified atrial fibrillation; I95.9 Hypotension, unspecified; R79.1 Abnormal coagulation profile; F32.A Depression, unspecified; M19.90 Unspecified osteoarthritis, unspecified site; G89.29 Other chronic pain; E78.00 Pure hypercholesterolemia, unspecified; Z88.1 Allergy status to other antibiotic agents; Z79.01 Long term (current) use of anticoagulants; Z87.11 Personal history of peptic ulcer disease; Z79.899 Other long term (current) drug therapy; Z96.659 Presence of unspecified artificial knee joint; Z98.890 Other specified postprocedural states
CPT/HCPCS: 0241U; 36415; 70450; 71045; 80053; 80307; 83690; 83735; 83880; 84484; 85025; 85027; 85379; 85610; 85730; 93005; 93306; 97110; 97161; 93010; 99285; A9270-GY; J1265; J2060; J3411; J3475; J3490; J7030

== ENCOUNTER 2024-05-06 18:30 | Emergency (ER) | payer MEDICARE ==
[2024-05-06 20:02] LABS: APPEARANCE,URINE CLEAR (Clear); BILIRUBIN,URINE NEGATIVE (Negative); COLOR,URINE YELLOW (Yellow); GLUCOSE,URINE NEGATIVE (Negative); KETONES,URINE NEGATIVE (Negative); LEUKOCYTE ESTERASE,URINE NEGATIVE (Negative); NITRITE,URINE NEGATIVE (Negative); OCCULT BLOOD,URINE NEGATIVE (Negative); PROTEIN,URINE 1+ (Negative); UROBILINOGEN,URINE 0.2 (0.2-1.0)
[2024-05-06 20:09] LABS: RBC,URINE 0-5 /hpf (0-5); WBC,URINE 0-5 /hpf (0-5)
[2024-05-06 20:10] LABS: BACTERIA,URINE FEW /hpf (FEW); MUCUS,URINE FEW /hpf (FEW); SQUAMOUS EPITHELIAL CELLS,UR 0-5 /hpf (0-5)
[2024-05-06 20:15] LABS: BASOPHILS ABSOLUTE AUTO 0.1 K/mm3 (0.0-0.2); BASOPHILS PERCENT AUTO 0.9 % (0.0-1.0); EOSINOPHILS ABSOLUTE AUTO 0.1 K/mm3 (0.0-0.4); EOSINOPHILS PERCENT AUTO 1.1 % (0.0-6.0); HEMATOCRIT 39.1 % (42.0-52.0); HEMOGLOBIN 13.9 gm/dl (14.0-18.0); IMMATURE GRAN ABSOLUTE AUTO 0.02 K/mm3 (0.00-0.05); IMMATURE GRAN PERCENT AUTO 0.4 % (0.0-0.4); LYMPHOCYTES ABSOLUTE AUTO 1.9 K/mm3 (1.0-4.8); LYMPHOCYTES PERCENT AUTO 35.4 % (24.0-44.0); MEAN CORPUSCULAR HEMOGLOBIN 34.1 pg (28.0-32.0); MEAN CORPUSCULAR HGB CONC 35.5 g/dl (32.0-36.0); MEAN CORPUSCULAR VOLUME 95.8 fl (83.0-99.0); MEAN PLATELET VOLUME 9.2 fl (9.4-12.4); MONOCYTES ABSOLUTE AUTO 0.7 K/mm3 (0.0-0.8); MONOCYTES PERCENT AUTO 13.3 % (0.0-8.0); NEUTROPHILS ABSOLUTE AUTO 2.7 K/mm3 (1.8-7.7); NEUTROPHILS PERCENT AUTO 48.9 % (41.0-71.0); PLATELET COUNT,PLT 182 K/mm3 (150-400); RED BLOOD CELL COUNT 4.08 M/mm3 (4.52-5.90); WHITE BLOOD CELL COUNT,WBC 5.48 K/mm3 (3.9-11.3)
[2024-05-06 20:22] LABS: BARBITURATE SCREEN,URINE NEGATIVE (CUTOFF=200); BENZODIAZEPINES SCREEN,URINE PRESUMPTIVE POSITIVE (CUTOFF=150); BUPRENORPHINE SCREEN,URINE NEGATIVE (CUTOFF=10); METHADONE SCREEN, URINE NEGATIVE (CUT0FF=200); METHAMPHETAMINES SCREEN, URINE NEGATIVE (CUTOFF=500); OXYCODONE SCREEN,URINE NEGATIVE (CUT0FF=100); THC SCREEN,URINE 20 NG/ML NEGATIVE (CUTOFF=50)
[2024-05-06 20:24] LABS: AMPHETAMINES SCREEN, URINE NEGATIVE (CUTOFF=500)
[2024-05-06 20:45] LABS: A/G RATIO 1.1 (1-2); ALBUMIN 3.6 g/dl (3.4-5.0); ANION GAP 14.7 (5-15); BILIRUBIN TOTAL 0.4 mg/dL (0.2-1.0); BUN/CREATININE RATIO 11.4 (14-18); CALCIUM 8.3 mg/dL (8.5-10.1); CREATININE 0.7 mg/dL (0.7-1.3); EST CRCL DRUG DOSING (CG) 105.21 mL/min; MAGNESIUM 1.7 mg/dL (1.8-2.4); POTASSIUM,K 3.7 mEq/L (3.5-5.1); TSH 3.273 uIU/mL (0.358-3.74)
[2024-05-06] MEDS ORDERED: Magnesium Sulfate (4.06 MEQ/ML) 5 GM/10 ML SDV IV STA (21:07)
[2024-05-06] MEDS: Calcium Carbonate 500 MG Tab.Chew PO ONE (21:22)
== END 2024-05-06 23:33 | disposition home or self-care (01) ==
LOC: JD.ED 18:30
DX: R25.1 Tremor, unspecified (principal); E83.42 Hypomagnesemia; R53.1 Weakness; I48.91 Unspecified atrial fibrillation; E78.00 Pure hypercholesterolemia, unspecified; Z79.02 Long term (current) use of antithrombotics/antiplatelets; Z79.899 Other long term (current) drug therapy; Z88.1 Allergy status to other antibiotic agents
CPT/HCPCS: 36415; 80053; 80306; 81001; 83735; 84443; 84484; 85025; 93005; 96365; 96366; 99285; A9270; J3475; 93010; 99284

== ENCOUNTER 2024-05-15 13:59 | Inpatient (IN) | payer MEDICARE, OTHER ==
[2024-05-15 15:39] LABS: BASOPHILS PERCENT AUTO 0.6 % (0.0-1.0); EOSINOPHILS PERCENT AUTO 0.2 % (0.0-6.0); HEMATOCRIT 41.4 % (42.0-52.0); HEMOGLOBIN 14.7 gm/dl (14.0-18.0); IMMATURE GRAN ABSOLUTE AUTO 0.02 K/mm3 (0.00-0.05); IMMATURE GRAN PERCENT AUTO 0.4 % (0.0-0.4); LYMPHOCYTES ABSOLUTE AUTO 0.5 K/mm3 (1.0-4.8); LYMPHOCYTES PERCENT AUTO 11.3 % (24.0-44.0); MEAN CORPUSCULAR HEMOGLOBIN 34.2 pg (28.0-32.0); MEAN CORPUSCULAR HGB CONC 35.5 g/dl (32.0-36.0); MEAN CORPUSCULAR VOLUME 96.3 fl (83.0-99.0); MEAN PLATELET VOLUME 9.2 fl (9.4-12.4); MONOCYTES ABSOLUTE AUTO 0.5 K/mm3 (0.0-0.8); MONOCYTES PERCENT AUTO 10.7 % (0.0-8.0); NEUTROPHILS ABSOLUTE AUTO 3.7 K/mm3 (1.8-7.7); NEUTROPHILS PERCENT AUTO 76.8 % (41.0-71.0); PLATELET COUNT,PLT 152 K/mm3 (150-400); WHITE BLOOD CELL COUNT,WBC 4.78 K/mm3 (3.9-11.3)
[2024-05-15 16:02] LABS: A/G RATIO 1.1 (1-2); ALBUMIN 3.9 g/dl (3.4-5.0); ANION GAP 17.2 (5-15); BILIRUBIN TOTAL 0.8 mg/dL (0.2-1.0); CALCIUM 8.5 mg/dL (8.5-10.1); CREATININE 0.7 mg/dL (0.7-1.3); EST CRCL DRUG DOSING (CG) 105.21 mL/min; MAGNESIUM 1.7 mg/dL (1.8-2.4); POTASSIUM,K 4.2 mEq/L (3.5-5.1); PROTEIN TOTAL,TP 7.4 g/dl (6.4-8.2)
[2024-05-15 16:09] LABS: APPEARANCE,URINE SLT CLOUDY (Clear); BILIRUBIN,URINE NEGATIVE (Negative); COLOR,URINE YELLOW (Yellow); GLUCOSE,URINE NEGATIVE (Negative); KETONES,URINE TRACE (Negative); LEUKOCYTE ESTERASE,URINE NEGATIVE (Negative); NITRITE,URINE NEGATIVE (Negative); OCCULT BLOOD,URINE TRACE-LYSED (Negative); PROTEIN,URINE 3+ (Negative); UROBILINOGEN,URINE 0.2 (0.2-1.0)
[2024-05-15] MEDS: Sodium Chloride 0.9% 1,000 ML IV ONE ×3 (16:17→20:43)
[2024-05-15 16:28] LABS: BACTERIA,URINE FEW /hpf (FEW); EPITHELIAL CELLS,URINE NOT SEEN /hpf (0-5); RBC,URINE 0-5 /hpf (0-5); WBC,URINE 0-5 /hpf (0-5)
[2024-05-15 16:29] LABS: MUCUS,URINE FEW /hpf (FEW)
[2024-05-15 16:45] LABS: CORONAVIRUS COVID-19 NAA NEGATIVE (NEGATIVE); INFLUENZA A NAA NEGATIVE (NEGATIVE); RESPIRATORY SYNCYTIAL VIR NAA NEGATIVE (NEGATIVE)
[2024-05-15] MEDS: Magnesium Oxide 400 MG Tab PO ONE (18:09)
[2024-05-15] MEDS: Ondansetron 4 MG/2 ML SDV IVPUSH ONE (19:13)
[2024-05-15] MEDS: LORazepam 2 MG/ML SDV IVPUSH ONE ×3 (19:13→22:47)
[2024-05-15] MEDS: Acetaminophen 325 MG Tab PO ONE (19:13)
[2024-05-16] MEDS: LORazepam 2 MG/ML SDV IVPUSH ONE ×2 (00:30→06:23)
[2024-05-16] MEDS: LORazepam 2 MG/ML SDV ONE ×2 (00:42→04:16)
[2024-05-16] MEDS ORDERED: LORazepam 2 MG/ML SDV IV PRN (07:25)
[2024-05-16] MEDS: LORazepam 2 MG/ML SDV IV PRN (07:38)
[2024-05-16] MEDS ORDERED: Acetaminophen 325 MG Tab PO PRN (08:01)
[2024-05-16] MEDS ORDERED: Ondansetron 4 MG/2 ML SDV IV PRN (08:03)
[2024-05-16] MEDS ORDERED: Docusate Sodium 100 MG Cap PO PRN (08:03)
[2024-05-16] MEDS ORDERED: Polyethylene Glycol 3350 Powder 17 GM Packet PO PRN (08:03)
[2024-05-16] MEDS ORDERED: Ondansetron 4 MG Tab.DIS PO PRN (08:03)
[2024-05-16] MEDS: LORazepam 2 MG/ML SDV IVPUSH PRN (08:39)
[2024-05-16] MEDS: Magnesium Sulfate/Water 2 GM in Premix Bag 1 BAG IV ONE (08:59)
[2024-05-16] MEDS: Folic Acid 50 MG/10 ML MDV IV SCH (09:04)
[2024-05-16] MEDS: Thiamine 200 MG/2 ML MDV IVPUSH SCH (09:05)
[2024-05-16] MEDS: Pantoprazole 40 MG Tab.CR PO SCH (09:06)
[2024-05-16] MEDS: Multivitamin Tab PO SCH (09:06)
[2024-05-16 09:12] LABS: INR 1.35
[2024-05-16] MEDS: chlordiazePOXIDE 25 MG Cap PO SCH (09:17)
[2024-05-16 10:05] LABS: BARBITURATE SCREEN,URINE NEGATIVE (CUTOFF=200); BENZODIAZEPINES SCREEN,URINE PRESUMPTIVE POSITIVE (CUTOFF=150); BUPRENORPHINE SCREEN,URINE NEGATIVE (CUTOFF=10); METHADONE SCREEN, URINE NEGATIVE (CUT0FF=200); METHAMPHETAMINES SCREEN, URINE NEGATIVE (CUTOFF=500); OXYCODONE SCREEN,URINE PRESUMPTIVE POSITIVE (CUT0FF=100); THC SCREEN,URINE 20 NG/ML NEGATIVE (CUTOFF=50)
[2024-05-16] MEDS: Sodium Chloride 0.9% 1,000 ML IV SCH (10:08)
[2024-05-16] MEDS: Sodium Phosphate 15 MMOLE in Sodium Chloride 0.9% 250 ML IV ONE (10:09)
[2024-05-16 10:18] LABS: AMPHETAMINES SCREEN, URINE NEGATIVE (CUTOFF=500)
[2024-05-16] MEDS: Enoxaparin 100 MG/1 ML Syringe SUBCUT SCH (10:54)
[2024-05-16] MEDS: PHENobarbitaL sodium 260 MG in Sodium Chloride 0.9% 100 ML IV ONE (12:24)
[2024-05-16] MEDS: Diltiazem 180 MG Cap.CD PO SCH (12:39)
[2024-05-16] MEDS: Metoprolol Tartrate 50 MG Tab PO SCH (12:39)
[2024-05-16] MEDS: Cholecalciferol (Vitamin D3) 25 MCG Tab PO SCH (12:42)
[2024-05-16] MEDS: Warfarin 5 MG Tab PO SCH (18:19)
[2024-05-16] MEDS: PHENobarbital Sodium 65 MG/ML SDV IVPUSH ONE (21:32)
[2024-05-17 07:14] LABS: BASOPHILS PERCENT AUTO 0.8 % (0.0-1.0); EOSINOPHILS ABSOLUTE AUTO 0.1 K/mm3 (0.0-0.4); HEMATOCRIT 40.8 % (42.0-52.0); HEMOGLOBIN 14.1 gm/dl (14.0-18.0); IMMATURE GRAN ABSOLUTE AUTO 0.01 K/mm3 (0.00-0.05); IMMATURE GRAN PERCENT AUTO 0.2 % (0.0-0.4); LYMPHOCYTES ABSOLUTE AUTO 0.9 K/mm3 (1.0-4.8); LYMPHOCYTES PERCENT AUTO 18.1 % (24.0-44.0); MEAN CORPUSCULAR HEMOGLOBIN 34.7 pg (28.0-32.0); MEAN CORPUSCULAR HGB CONC 34.6 g/dl (32.0-36.0); MEAN CORPUSCULAR VOLUME 100.5 fl (83.0-99.0); MEAN PLATELET VOLUME 9.8 fl (9.4-12.4); MONOCYTES ABSOLUTE AUTO 0.9 K/mm3 (0.0-0.8); MONOCYTES PERCENT AUTO 18.1 % (0.0-8.0); NEUTROPHILS ABSOLUTE AUTO 3.2 K/mm3 (1.8-7.7); NEUTROPHILS PERCENT AUTO 61.8 % (41.0-71.0); PLATELET COUNT,PLT 129 K/mm3 (150-400); RED BLOOD CELL COUNT 4.06 M/mm3 (4.52-5.90); WHITE BLOOD CELL COUNT,WBC 5.18 K/mm3 (3.9-11.3)
[2024-05-17 07:27] LABS: INR 1.2; PROTHROMBIN TIME 12.6 SECONDS (9.7-12.0)
[2024-05-17 07:33] LABS: ALBUMIN 3.2 g/dl (3.4-5.0); ANION GAP 8.6 (5-15); BILIRUBIN TOTAL 1.5 mg/dL (0.2-1.0); BUN/CREATININE RATIO 8.6 (14-18); CALCIUM 8.4 mg/dL (8.5-10.1); CREATININE 0.7 mg/dL (0.7-1.3); EST CRCL DRUG DOSING (CG) 105.21 mL/min; MAGNESIUM 1.9 mg/dL (1.8-2.4); POTASSIUM,K 3.6 mEq/L (3.5-5.1); PROTEIN TOTAL,TP 6.4 g/dl (6.4-8.2)
[2024-05-17] MEDS: Magnesium Sulfate/Water 2 GM in Premix Bag 1 BAG IV ONE (07:47)
[2024-05-17] MEDS: Citalopram 20 MG Tab PO SCH (08:10)
[2024-05-17] MEDS: Warfarin 5 MG Tab PO SCH (16:46)
[2024-05-17] MEDS: Potassium Chloride 20 MEQ Tab.ER PO ONE (20:00)
[2024-05-18 05:51] LABS: BASOPHILS PERCENT AUTO 0.8 % (0.0-1.0); EOSINOPHILS ABSOLUTE AUTO 0.1 K/mm3 (0.0-0.4); EOSINOPHILS PERCENT AUTO 1.8 % (0.0-6.0); HEMATOCRIT 41.6 % (42.0-52.0); HEMOGLOBIN 14.1 gm/dl (14.0-18.0); IMMATURE GRAN ABSOLUTE AUTO 0.01 K/mm3 (0.00-0.05); IMMATURE GRAN PERCENT AUTO 0.2 % (0.0-0.4); LYMPHOCYTES ABSOLUTE AUTO 1.3 K/mm3 (1.0-4.8); LYMPHOCYTES PERCENT AUTO 25.9 % (24.0-44.0); MEAN CORPUSCULAR HEMOGLOBIN 33.7 pg (28.0-32.0); MEAN CORPUSCULAR HGB CONC 33.9 g/dl (32.0-36.0); MEAN CORPUSCULAR VOLUME 99.5 fl (83.0-99.0); MEAN PLATELET VOLUME 10.1 fl (9.4-12.4); MONOCYTES ABSOLUTE AUTO 0.9 K/mm3 (0.0-0.8); MONOCYTES PERCENT AUTO 17.2 % (0.0-8.0); NEUTROPHILS ABSOLUTE AUTO 2.7 K/mm3 (1.8-7.7); NEUTROPHILS PERCENT AUTO 54.1 % (41.0-71.0); PLATELET COUNT,PLT 143 K/mm3 (150-400); RED BLOOD CELL COUNT 4.18 M/mm3 (4.52-5.90); WHITE BLOOD CELL COUNT,WBC 4.99 K/mm3 (3.9-11.3)
[2024-05-18 05:56] LABS: A/G RATIO 1.1 (1-2); ALBUMIN 3.6 g/dl (3.4-5.0); ANION GAP 11.8 (5-15); BILIRUBIN TOTAL 1.1 mg/dL (0.2-1.0); CREATININE 0.9 mg/dL (0.7-1.3); EST CRCL DRUG DOSING (CG) 81.83 mL/min; POTASSIUM,K 3.8 mEq/L (3.5-5.1); PROTEIN TOTAL,TP 6.9 g/dl (6.4-8.2)
[2024-05-18 06:25] LABS: INR 1.1; PROTHROMBIN TIME 11.6 SECONDS (9.7-12.0)
[2024-05-18] MEDS: Metoprolol Tartrate 25 MG Tab PO SCH (09:37)
[2024-05-18] MEDS ORDERED: Warfarin 7.5 MG Tab PO ONE (18:00)
== END 2024-05-18 12:00 | disposition home or self-care (01) | DRG 897 ==
LOC: JD.ED 13:59 → JD.ICU 05-16 06:28
PROVIDERS: ADMIT Family Medicine; ATTEND Family Medicine
DX: F10.230 Alcohol dependence with withdrawal, uncomplicated (principal); F10.239 Alcohol dependence with withdrawal, unspecified; E87.1 Hypo-osmolality and hyponatremia; F10.229 Alcohol dependence with intoxication, unspecified; I48.91 Unspecified atrial fibrillation; E78.00 Pure hypercholesterolemia, unspecified; Y90.1 Blood alcohol level of 20-39 mg/100 ml; Z88.1 Allergy status to other antibiotic agents; I10 Essential (primary) hypertension; M19.90 Unspecified osteoarthritis, unspecified site; F32.A Depression, unspecified; Z96.659 Presence of unspecified artificial knee joint; I45.10 Unspecified right bundle-branch block; R51.9 Headache, unspecified; G89.29 Other chronic pain; R79.89 Other specified abnormal findings of blood chemistry; E83.42 Hypomagnesemia; F43.10 Post-traumatic stress disorder, unspecified; F41.9 Anxiety disorder, unspecified; R79.1 Abnormal coagulation profile; E83.39 Other disorders of phosphorus metabolism; Z79.01 Long term (current) use of anticoagulants; Z88.8 Allergy status to other drugs, medicaments and biological substances; Z79.899 Other long term (current) drug therapy; Z87.11 Personal history of peptic ulcer disease; Z87.81 Personal history of (healed) traumatic fracture; Z98.890 Other specified postprocedural states
CPT/HCPCS: 0241U; 36415; 80053; 80306; 80307; 81001; 83735; 84100; 85025; 85610; 93005; 96361; 96374; 96375; 96376; 97162; 99285; 93010; 99284; A9270-GY; J1650; J2060; J2405; J2560; J3411; J3475; J3490; J7030; J7050

== ENCOUNTER 2024-05-18 17:03 | Emergency (ER) | payer MEDICARE ==
[2024-05-18] MEDS ORDERED: Sodium Chloride 0.9% 10 ML Syringe FLUSH PRN (17:32)
[2024-05-18 17:51] LABS: BASOPHILS PERCENT AUTO 0.4 % (0.0-1.0); EOSINOPHILS PERCENT AUTO 0.3 % (0.0-6.0); HEMATOCRIT 41.5 % (42.0-52.0); HEMOGLOBIN 14.4 gm/dl (14.0-18.0); IMMATURE GRAN ABSOLUTE AUTO 0.04 K/mm3 (0.00-0.05); IMMATURE GRAN PERCENT AUTO 0.6 % (0.0-0.4); LYMPHOCYTES ABSOLUTE AUTO 0.7 K/mm3 (1.0-4.8); LYMPHOCYTES PERCENT AUTO 10.4 % (24.0-44.0); MEAN CORPUSCULAR HEMOGLOBIN 34.4 pg (28.0-32.0); MEAN CORPUSCULAR HGB CONC 34.7 g/dl (32.0-36.0); MEAN CORPUSCULAR VOLUME 99.3 fl (83.0-99.0); MEAN PLATELET VOLUME 9.5 fl (9.4-12.4); MONOCYTES ABSOLUTE AUTO 0.9 K/mm3 (0.0-0.8); MONOCYTES PERCENT AUTO 13.4 % (0.0-8.0); NEUTROPHILS ABSOLUTE AUTO 5.2 K/mm3 (1.8-7.7); NEUTROPHILS PERCENT AUTO 74.9 % (41.0-71.0); PLATELET COUNT,PLT 135 K/mm3 (150-400); RED BLOOD CELL COUNT 4.18 M/mm3 (4.52-5.90); WHITE BLOOD CELL COUNT,WBC 6.95 K/mm3 (3.9-11.3)
[2024-05-18 18:13] LABS: INR 1.06; PROTHROMBIN TIME 11.2 SECONDS (9.7-12.0)
[2024-05-18 18:15] LABS: A/G RATIO 1.1 (1-2); ALBUMIN 3.7 g/dl (3.4-5.0); ANION GAP 19.5 (5-15); BILIRUBIN TOTAL 0.8 mg/dL (0.2-1.0); BUN/CREATININE RATIO 11.3 (14-18); CALCIUM 9.2 mg/dL (8.5-10.1); CREATININE 0.8 mg/dL (0.7-1.3); EST CRCL DRUG DOSING (CG) 92.06 mL/min; MAGNESIUM 1.7 mg/dL (1.8-2.4); POTASSIUM,K 3.5 mEq/L (3.5-5.1)
[2024-05-18] MEDS: Thiamine 100 MG Tab PO ONE (22:55)
== END 2024-05-18 22:55 | disposition home or self-care (01) ==
LOC: JD.ED 17:03
DX: F10.10 Alcohol abuse, uncomplicated (principal); R07.9 Chest pain, unspecified; R53.81 Other malaise; R53.83 Other fatigue; I48.91 Unspecified atrial fibrillation; Z99.89 Dependence on other enabling machines and devices; E78.00 Pure hypercholesterolemia, unspecified; I10 Essential (primary) hypertension; Y90.0 Blood alcohol level of less than 20 mg/100 ml; Z79.899 Other long term (current) drug therapy; Z79.01 Long term (current) use of anticoagulants; Z88.1 Allergy status to other antibiotic agents
CPT/HCPCS: 36415; 71045; 80053; 80307; 83735; 84484; 85025; 85610; 93005; 99285; A9270

== ENCOUNTER 2024-08-21 13:37 | Inpatient (IN) | payer MEDICARE, OTHER ==
[2024-08-21 15:07] LABS: BASOPHILS PERCENT AUTO 0.5 % (0.0-1.0); EOSINOPHILS PERCENT AUTO 0.3 % (0.0-6.0); HEMATOCRIT 37.9 % (42.0-52.0); IMMATURE GRAN ABSOLUTE AUTO 0.03 K/mm3 (0.00-0.05); IMMATURE GRAN PERCENT AUTO 0.5 % (0.0-0.4); LYMPHOCYTES ABSOLUTE AUTO 0.9 K/mm3 (1.0-4.8); LYMPHOCYTES PERCENT AUTO 13.7 % (24.0-44.0); MEAN CORPUSCULAR HEMOGLOBIN 35.2 pg (28.0-32.0); MEAN CORPUSCULAR HGB CONC 36.9 g/dl (32.0-36.0); MEAN CORPUSCULAR VOLUME 95.2 fl (83.0-99.0); MEAN PLATELET VOLUME 8.8 fl (9.4-12.4); MONOCYTES ABSOLUTE AUTO 0.9 K/mm3 (0.0-0.8); MONOCYTES PERCENT AUTO 13.6 % (0.0-8.0); NEUTROPHILS ABSOLUTE AUTO 4.5 K/mm3 (1.8-7.7); NEUTROPHILS PERCENT AUTO 71.4 % (41.0-71.0); PLATELET COUNT,PLT 201 K/mm3 (150-400); RED BLOOD CELL COUNT 3.98 M/mm3 (4.52-5.90); WHITE BLOOD CELL COUNT,WBC 6.33 K/mm3 (3.9-11.3)
[2024-08-21 15:29] LABS: BENZODIAZEPINES SCREEN,URINE NEGATIVE (CUTOFF=150); BUPRENORPHINE SCREEN,URINE NEGATIVE (CUTOFF=10); METHADONE SCREEN, URINE NEGATIVE (CUT0FF=200); METHAMPHETAMINES SCREEN, URINE NEGATIVE (CUTOFF=500); THC SCREEN,URINE 20 NG/ML NEGATIVE (CUTOFF=50)
[2024-08-21 15:38] LABS: ALBUMIN 3.5 g/dl (3.4-5.0); BILIRUBIN TOTAL 0.4 mg/dL (0.2-1.0); BUN/CREATININE RATIO 11.7 (14-18); CALCIUM 8.6 mg/dL (8.5-10.1); CREATININE 0.6 mg/dL (0.7-1.3); EST CRCL DRUG DOSING (CG) 122.74 mL/min; ETHANOL BLOOD MEDICAL 0.06 gm% (0.00); PROTEIN TOTAL,TP 6.9 g/dl (6.4-8.2); TSH 2.95 uIU/mL (0.358-3.74)
[2024-08-21 15:43] LABS: AMPHETAMINES SCREEN, URINE NEGATIVE (CUTOFF=500)
[2024-08-21] MEDS: Sodium Chloride 0.9% 1,000 ML IV ONE ×2 (16:18→17:53)
[2024-08-21] MEDS: LORazepam 2 MG/ML SDV IVPUSH ONE (16:30)
[2024-08-21 16:40] LABS: BARBITURATE SCREEN,URINE NEGATIVE (CUTOFF=200); OXYCODONE SCREEN,URINE NEGATIVE (CUT0FF=100)
[2024-08-21] MEDS ORDERED: LORazepam 2 MG/ML SDV IVPUSH PRN (19:25)
[2024-08-21] MEDS ORDERED: Atropine 0.1 MG/ML 10 ML Syringe IVPUSH PRN (19:26)
[2024-08-21] MEDS ORDERED: Morphine 2 MG/ML SYRINGE IVPUSH PRN (19:28)
[2024-08-21] MEDS ORDERED: Sennosides/Docusate Sodium 50-8.6 MG Tab PO PRN (19:28)
[2024-08-21] MEDS ORDERED: oxyCODONE 5 MG Tab PO PRN (19:28)
[2024-08-21] MEDS ORDERED: Ondansetron 4 MG/2 ML SDV IV PRN (19:28)
[2024-08-21] MEDS ORDERED: Acetaminophen 325 MG Tab PO PRN (19:28)
[2024-08-21] MEDS ORDERED: Melatonin 3 MG Tab PO PRN (19:28)
[2024-08-21] MEDS ORDERED: Naloxone 0.4 MG/ML SDV IVPUSH PRN (19:28)
[2024-08-21 19:47] LABS: INR 3.48
[2024-08-22] MEDS: Famotidine 20 MG/2 ML SDV IVPUSH SCH (03:01)
[2024-08-22 04:40] LABS: BASOPHILS PERCENT AUTO 0.8 % (0.0-1.0); EOSINOPHILS PERCENT AUTO 0.8 % (0.0-6.0); HEMATOCRIT 39.4 % (42.0-52.0); IMMATURE GRAN ABSOLUTE AUTO 0.01 K/mm3 (0.00-0.05); IMMATURE GRAN PERCENT AUTO 0.2 % (0.0-0.4); LYMPHOCYTES ABSOLUTE AUTO 0.9 K/mm3 (1.0-4.8); LYMPHOCYTES PERCENT AUTO 17.7 % (24.0-44.0); MEAN CORPUSCULAR HEMOGLOBIN 34.2 pg (28.0-32.0); MEAN CORPUSCULAR HGB CONC 35.5 g/dl (32.0-36.0); MEAN CORPUSCULAR VOLUME 96.3 fl (83.0-99.0); MEAN PLATELET VOLUME 9.2 fl (9.4-12.4); MONOCYTES ABSOLUTE AUTO 0.9 K/mm3 (0.0-0.8); MONOCYTES PERCENT AUTO 17.3 % (0.0-8.0); NEUTROPHILS ABSOLUTE AUTO 3.2 K/mm3 (1.8-7.7); NEUTROPHILS PERCENT AUTO 63.2 % (41.0-71.0); PLATELET COUNT,PLT 181 K/mm3 (150-400); RED BLOOD CELL COUNT 4.09 M/mm3 (4.52-5.90); WHITE BLOOD CELL COUNT,WBC 4.98 K/mm3 (3.9-11.3)
[2024-08-22 06:05] LABS: ALANINE AMINOTRANSFERASE,ALT 41 U/L (16-63); ALBUMIN 3.3 g/dl (3.4-5.0); ALKALINE PHOSPHATASE 123 U/L (46-116); ANION GAP 15.5 (5-15); ASPARTATE AMNIOTRANSFERASE,AST 49 U/L (15-37); BLOOD UREA NITROGEN,BUN 6 mg/dL (7-18); C-REACTIVE PROTEIN <0.05 mg/dL (<0.30); CALCIUM 8.6 mg/dL (8.5-10.1); CARBON DIOXIDE,CO2 26 mEq/L (21-32); CHLORIDE,CL 96 mEq/L (98-107); CREATININE 0.6 mg/dL (0.7-1.3); EST CRCL DRUG DOSING (CG) 122.74 mL/min; ESTIMATED GFR 107 mL/min (>60); GLUCOSE RANDOM 101 mg/dL (70-99); MAGNESIUM 1.8 mg/dL (1.8-2.4); PHOSPHORUS 3.4 mg/dL (2.6-4.7); POTASSIUM,K 3.5 mEq/L (3.5-5.1); PROTEIN TOTAL,TP 6.5 g/dl (6.4-8.2); SODIUM,NA 134 mEq/L (136-145)
[2024-08-22 06:29] LABS: INR 2.06; PROTHROMBIN TIME 20.8 SECONDS (9.7-12.0)
[2024-08-22 06:42] LABS: FOLIC ACID 26.5 ng/mL (8.6-58.9)
[2024-08-22] MEDS: LORazepam 1 MG Tab PO PRN ×2 (08:56→11:12)
[2024-08-22] MEDS: Potassium Chloride 20 MEQ Tab.ER PO ONE (10:55)
[2024-08-22] MEDS: Warfarin 5 MG Tab PO SCH (20:05)
[2024-08-23 05:05] LABS: INR 1.26; PROTHROMBIN TIME 13.2 SECONDS (9.7-12.0)
[2024-08-23 05:10] LABS: ALBUMIN 3.3 g/dl (3.4-5.0); ANION GAP 13.7 (5-15); BILIRUBIN TOTAL 1.1 mg/dL (0.2-1.0); BUN/CREATININE RATIO 12.9 (14-18); CALCIUM 8.4 mg/dL (8.5-10.1); CREATININE 0.7 mg/dL (0.7-1.3); EST CRCL DRUG DOSING (CG) 105.21 mL/min; MAGNESIUM 1.9 mg/dL (1.8-2.4); POTASSIUM,K 3.7 mEq/L (3.5-5.1); PROTEIN TOTAL,TP 6.6 g/dl (6.4-8.2)
[2024-08-23] MEDS: Diltiazem 180 MG Cap.CD PO SCH (09:37)
[2024-08-23] MEDS: Thiamine 100 MG Tab PO ONE (13:35)
[2024-08-23] MEDS: Folic Acid 1 MG Tab PO SCH (13:35)
[2024-08-23] MEDS: Diltiazem IR 30 MG Tab PO SCH (13:35)
[2024-08-23] MEDS: Multivitamin Tab PO SCH (13:35)
[2024-08-23] MEDS: Warfarin 5 MG Tab PO SCH (19:02)
[2024-08-23] MEDS: Acetaminophen 325 MG Tab PO PRN (19:34)
[2024-08-23] MEDS: traZODone 50 MG Tab PO PRN (19:41)
[2024-08-24 06:00] LABS: INR 1.15; PROTHROMBIN TIME 12.1 SECONDS (9.7-12.0)
[2024-08-24] MEDS: Diltiazem 240 MG Cap.ER PO SCH (08:18)
[2024-08-24] MEDS: Warfarin 7.5 MG Tab PO ONE (10:54)
[2024-08-24 20:42] LABS: VITAMIN B1, WHOLE BLOOD 122 nmol/L (70-180)
== END 2024-08-24 11:20 | disposition home or self-care (01) | DRG 897 ==
LOC: JD.ED 13:37 → JD.ICU 19:28
PROVIDERS: ADMIT Student in an Organized Health Care Education/Training Program; ATTEND Student in an Organized Health Care Education/Training Program
DX: F10.139 Alcohol abuse with withdrawal, unspecified (principal); E87.1 Hypo-osmolality and hyponatremia; I10 Essential (primary) hypertension; J32.9 Chronic sinusitis, unspecified; I48.91 Unspecified atrial fibrillation; E78.00 Pure hypercholesterolemia, unspecified; M19.90 Unspecified osteoarthritis, unspecified site; F32.A Depression, unspecified; Z96.659 Presence of unspecified artificial knee joint; F41.9 Anxiety disorder, unspecified; E87.6 Hypokalemia; Z87.891 Personal history of nicotine dependence; Z79.01 Long term (current) use of anticoagulants; Z79.899 Other long term (current) drug therapy; Z87.81 Personal history of (healed) traumatic fracture; Z98.890 Other specified postprocedural states; Z88.8 Allergy status to other drugs, medicaments and biological substances; Y90.0 Blood alcohol level of less than 20 mg/100 ml
CPT/HCPCS: 36415; 70450; 70450-26; 76705; 76705-26; 80053; 80143; 80179; 80306; 80307; 82607; 82746; 83735; 84100; 84425; 84443; 85025; 85610; 86140; 87428-QW; 93005; 96361; 96374; 99285-25; A9270-GY; J2060; J3475; J3490; J7030

== ENCOUNTER 2024-09-27 00:37 | Emergency (ER) | payer MEDICARE ==
[2024-09-27 00:54] LABS: BASOPHILS PERCENT AUTO 0.3 % (0.0-1.0); HEMATOCRIT 38.2 % (42.0-52.0); HEMOGLOBIN 13.5 gm/dl (14.0-18.0); IMMATURE GRAN ABSOLUTE AUTO 0.04 K/mm3 (0.00-0.05); IMMATURE GRAN PERCENT AUTO 0.4 % (0.0-0.4); LYMPHOCYTES ABSOLUTE AUTO 0.4 K/mm3 (1.0-4.8); LYMPHOCYTES PERCENT AUTO 3.5 % (24.0-44.0); MEAN CORPUSCULAR HGB CONC 35.3 g/dl (32.0-36.0); MEAN CORPUSCULAR VOLUME 96.2 fl (83.0-99.0); MEAN PLATELET VOLUME 9.1 fl (9.4-12.4); MONOCYTES ABSOLUTE AUTO 1.1 K/mm3 (0.0-0.8); MONOCYTES PERCENT AUTO 9.5 % (0.0-8.0); NEUTROPHILS ABSOLUTE AUTO 9.8 K/mm3 (1.8-7.7); NEUTROPHILS PERCENT AUTO 86.3 % (41.0-71.0); PLATELET COUNT,PLT 216 K/mm3 (150-400); RED BLOOD CELL COUNT 3.97 M/mm3 (4.52-5.90); WHITE BLOOD CELL COUNT,WBC 11.39 K/mm3 (3.9-11.3)
[2024-09-27] MEDS: Acetaminophen 325 MG Tab PO ONE (01:03)
[2024-09-27] MEDS: Ondansetron 4 MG/2 ML SDV IVPUSH ONE (01:03)
[2024-09-27] MEDS: Sodium Chloride 0.9% 1,000 ML IV ONE ×2 (01:03→02:09)
[2024-09-27 01:14] LABS: INR 3.9; PROTHROMBIN TIME 37.8 SECONDS (9.7-12.0)
[2024-09-27] MEDS: Thiamine 200 MG in Sodium Chloride 0.9% 100 ML IV ONE (01:15)
[2024-09-27] MEDS: Folic Acid 1 MG Tab PO ONE (01:15)
[2024-09-27] MEDS: Multivitamin Tab PO STA (01:22)
[2024-09-27 01:25] LABS: ALBUMIN 3.6 g/dl (3.4-5.0); BILIRUBIN TOTAL 0.8 mg/dL (0.2-1.0); BUN/CREATININE RATIO 11.3 (14-18); CALCIUM 8.4 mg/dL (8.5-10.1); CREATININE 0.8 mg/dL (0.7-1.3); EST CRCL DRUG DOSING (CG) 90.83 mL/min; PROTEIN TOTAL,TP 7.2 g/dl (6.4-8.2)
[2024-09-27 03:49] LABS: BARBITURATE SCREEN,URINE NEGATIVE (CUTOFF=200); BENZODIAZEPINES SCREEN,URINE NEGATIVE (CUTOFF=150); BUPRENORPHINE SCREEN,URINE NEGATIVE (CUTOFF=10); METHADONE SCREEN, URINE NEGATIVE (CUT0FF=200); METHAMPHETAMINES SCREEN, URINE NEGATIVE (CUTOFF=500); OXYCODONE SCREEN,URINE NEGATIVE (CUT0FF=100); THC SCREEN,URINE 20 NG/ML NEGATIVE (CUTOFF=50)
[2024-09-27 03:54] LABS: AMPHETAMINES SCREEN, URINE NEGATIVE (CUTOFF=500)
== END 2024-09-27 06:10 | disposition home or self-care (01) ==
LOC: JD.ED 00:37
DX: S51.811A Laceration without foreign body of right forearm, initial encounter (principal); S80.811A Abrasion, right lower leg, initial encounter; F10.129 Alcohol abuse with intoxication, unspecified; M25.462 Effusion, left knee; E87.1 Hypo-osmolality and hyponatremia; M62.82 Rhabdomyolysis; R79.89 Other specified abnormal findings of blood chemistry; R29.6 Repeated falls; I48.91 Unspecified atrial fibrillation; I10 Essential (primary) hypertension; Z88.8 Allergy status to other drugs, medicaments and biological substances; Z79.01 Long term (current) use of anticoagulants; Z79.899 Other long term (current) drug therapy; Y90.0 Blood alcohol level of less than 20 mg/100 ml; W01.198A Fall on same level from slipping, tripping and stumbling with subsequent striking against other object, initial encounter
CPT/HCPCS: 36415; 71045; 71045-26; 73560-26-LT; 73560-LT; 80053; 80306; 80307; 82550; 83690; 83735; 83880; 84484; 85025; 85610; 93005; 93010; 96361; 96365; 96375; 99284; 99284-25; A9270-GY; J2405; J3411; J7030

== ENCOUNTER 2024-09-30 13:25 | Emergency (ER) | payer MEDICARE ==
[2024-09-30] MEDS ORDERED: Sodium Chloride 0.9% 10 ML Syringe FLUSH PRN (14:01)
[2024-09-30 14:26] LABS: APPEARANCE,URINE CLEAR (Clear); BILIRUBIN,URINE NEGATIVE (Negative); COLOR,URINE YELLOW (Yellow); GLUCOSE,URINE NEGATIVE (Negative); KETONES,URINE NEGATIVE (Negative); LEUKOCYTE ESTERASE,URINE NEGATIVE (Negative); NITRITE,URINE NEGATIVE (Negative); OCCULT BLOOD,URINE 1+ (Negative); PROTEIN,URINE 1+ (Negative)
[2024-09-30 14:49] LABS: BACTERIA,URINE OCCASIONAL /hpf (FEW); MUCUS,URINE FEW /hpf (FEW); RBC,URINE 0-5 /hpf (0-5); SQUAMOUS EPITHELIAL CELLS,UR 0-5 /hpf (0-5); WBC,URINE 0-5 /hpf (0-5)
[2024-09-30 15:31] LABS: BASOPHILS PERCENT AUTO 0.5 % (0.0-1.0); HEMATOCRIT 36.2 % (42.0-52.0); HEMOGLOBIN 12.7 gm/dl (14.0-18.0); IMMATURE GRAN ABSOLUTE AUTO 0.02 K/mm3 (0.00-0.05); IMMATURE GRAN PERCENT AUTO 0.3 % (0.0-0.4); LYMPHOCYTES ABSOLUTE AUTO 1.1 K/mm3 (1.0-4.8); LYMPHOCYTES PERCENT AUTO 16.3 % (24.0-44.0); MEAN CORPUSCULAR HEMOGLOBIN 34.5 pg (28.0-32.0); MEAN CORPUSCULAR HGB CONC 35.1 g/dl (32.0-36.0); MEAN CORPUSCULAR VOLUME 98.4 fl (83.0-99.0); MEAN PLATELET VOLUME 9.2 fl (9.4-12.4); MONOCYTES ABSOLUTE AUTO 0.9 K/mm3 (0.0-0.8); MONOCYTES PERCENT AUTO 13.2 % (0.0-8.0); NEUTROPHILS ABSOLUTE AUTO 4.5 K/mm3 (1.8-7.7); NEUTROPHILS PERCENT AUTO 69.7 % (41.0-71.0); PLATELET COUNT,PLT 214 K/mm3 (150-400); RED BLOOD CELL COUNT 3.68 M/mm3 (4.52-5.90)
[2024-09-30 15:51] LABS: ALBUMIN 3.5 g/dl (3.4-5.0); ANION GAP 14.1 (5-15); BILIRUBIN TOTAL 0.9 mg/dL (0.2-1.0); BUN/CREATININE RATIO 6.7 (14-18); CALCIUM 8.2 mg/dL (8.5-10.1); CREATININE 0.6 mg/dL (0.7-1.3); EST CRCL DRUG DOSING (CG) 121.11 mL/min; MAGNESIUM 1.8 mg/dL (1.8-2.4); POTASSIUM,K 4.1 mEq/L (3.5-5.1)
[2024-09-30 16:09] LABS: INR 6.84; PROTHROMBIN TIME 63.9 SECONDS (9.7-12.0)
== END 2024-09-30 17:15 | disposition home or self-care (01) ==
LOC: JD.ED 13:25
DX: M25.562 Pain in left knee (principal); F10.10 Alcohol abuse, uncomplicated; R42 Dizziness and giddiness; R79.1 Abnormal coagulation profile; I48.91 Unspecified atrial fibrillation; E78.00 Pure hypercholesterolemia, unspecified; I10 Essential (primary) hypertension; Z88.1 Allergy status to other antibiotic agents; Z79.01 Long term (current) use of anticoagulants; Y90.9 Presence of alcohol in blood, level not specified
CPT/HCPCS: 36415; 71045; 71045-26; 73562-26-LT; 73562-LT; 80053; 81001; 83735; 85025; 85610; 87428-QW; 93005; 93010; 99284

== ENCOUNTER 2024-10-01 19:52 | Emergency (ER) | payer MEDICARE ==
[2024-10-01 20:33] LABS: BASOPHILS PERCENT AUTO 0.5 % (0.0-1.0); EOSINOPHILS PERCENT AUTO 0.2 % (0.0-6.0); HEMATOCRIT 36.4 % (42.0-52.0); HEMOGLOBIN 12.9 gm/dl (14.0-18.0); IMMATURE GRAN ABSOLUTE AUTO 0.02 K/mm3 (0.00-0.05); IMMATURE GRAN PERCENT AUTO 0.4 % (0.0-0.4); LYMPHOCYTES ABSOLUTE AUTO 1.3 K/mm3 (1.0-4.8); LYMPHOCYTES PERCENT AUTO 24.1 % (24.0-44.0); MEAN CORPUSCULAR HEMOGLOBIN 34.1 pg (28.0-32.0); MEAN CORPUSCULAR HGB CONC 35.4 g/dl (32.0-36.0); MEAN CORPUSCULAR VOLUME 96.3 fl (83.0-99.0); MEAN PLATELET VOLUME 9.3 fl (9.4-12.4); MONOCYTES ABSOLUTE AUTO 0.8 K/mm3 (0.0-0.8); MONOCYTES PERCENT AUTO 15.1 % (0.0-8.0); NEUTROPHILS ABSOLUTE AUTO 3.3 K/mm3 (1.8-7.7); NEUTROPHILS PERCENT AUTO 59.7 % (41.0-71.0); PLATELET COUNT,PLT 218 K/mm3 (150-400); RED BLOOD CELL COUNT 3.78 M/mm3 (4.52-5.90); WHITE BLOOD CELL COUNT,WBC 5.56 K/mm3 (3.9-11.3)
[2024-10-01 20:34] LABS: APPEARANCE,URINE SLT CLOUDY (Clear); BILIRUBIN,URINE NEGATIVE (Negative); COLOR,URINE YELLOW (Yellow); GLUCOSE,URINE NEGATIVE (Negative); KETONES,URINE NEGATIVE (Negative); LEUKOCYTE ESTERASE,URINE NEGATIVE (Negative); NITRITE,URINE NEGATIVE (Negative); OCCULT BLOOD,URINE TRACE-LYSED (Negative); PH,URINE 6.5 (5.0-8.0); PROTEIN,URINE NEGATIVE (Negative)
[2024-10-01 20:45] LABS: BARBITURATE SCREEN,URINE NEGATIVE (CUTOFF=200); BENZODIAZEPINES SCREEN,URINE NEGATIVE (CUTOFF=150); BUPRENORPHINE SCREEN,URINE NEGATIVE (CUTOFF=10); METHADONE SCREEN, URINE NEGATIVE (CUT0FF=200); METHAMPHETAMINES SCREEN, URINE NEGATIVE (CUTOFF=500); OXYCODONE SCREEN,URINE NEGATIVE (CUT0FF=100); THC SCREEN,URINE 20 NG/ML NEGATIVE (CUTOFF=50)
[2024-10-01 20:50] LABS: ALBUMIN 3.4 g/dl (3.4-5.0); ANION GAP 13.6 (5-15); BILIRUBIN TOTAL 0.9 mg/dL (0.2-1.0); BUN/CREATININE RATIO 8.6 (14-18); CALCIUM 8.3 mg/dL (8.5-10.1); CREATININE 0.7 mg/dL (0.7-1.3); EST CRCL DRUG DOSING (CG) 103.81 mL/min; ETHANOL BLOOD MEDICAL 0.31 gm% (0.00); POTASSIUM,K 3.6 mEq/L (3.5-5.1); PROTEIN TOTAL,TP 6.9 g/dl (6.4-8.2)
[2024-10-01] MEDS: Sodium Chloride 0.9% 1,000 ML IV ONE (20:56)
[2024-10-01 21:05] LABS: AMPHETAMINES SCREEN, URINE NEGATIVE (CUTOFF=500)
[2024-10-01 21:07] LABS: BACTERIA,URINE OCCASIONAL /hpf (FEW); RBC,URINE 0-5 /hpf (0-5); SQUAMOUS EPITHELIAL CELLS,UR NOT SEEN /hpf (0-5); WBC,URINE 0-5 /hpf (0-5)
[2024-10-01 21:08] LABS: MUCUS,URINE RARE /hpf (FEW)
[2024-10-01 21:23] LABS: TSH 2.589 uIU/mL (0.358-3.74)
== END 2024-10-02 01:40 | disposition home or self-care (01) ==
LOC: JD.ED 19:52
DX: F10.20 Alcohol dependence, uncomplicated (principal); I10 Essential (primary) hypertension; E78.00 Pure hypercholesterolemia, unspecified; Z88.8 Allergy status to other drugs, medicaments and biological substances; Z79.01 Long term (current) use of anticoagulants; Z79.899 Other long term (current) drug therapy
CPT/HCPCS: 36415; 80053; 80306; 80307; 81001; 83735; 84443; 85025; 87428; 93005; 96360; 99284; J7030; 93010

== ENCOUNTER 2024-10-07 12:57 | Emergency (ER) | payer MEDICARE, OTHER ==
[2024-10-07 13:27] LABS: BASOPHILS PERCENT AUTO 0.7 % (0.0-1.0); HEMATOCRIT 37.4 % (42.0-52.0); HEMOGLOBIN 13.2 gm/dl (14.0-18.0); IMMATURE GRAN ABSOLUTE AUTO 0.03 K/mm3 (0.00-0.05); IMMATURE GRAN PERCENT AUTO 0.7 % (0.0-0.4); LYMPHOCYTES ABSOLUTE AUTO 0.9 K/mm3 (1.0-4.8); LYMPHOCYTES PERCENT AUTO 19.1 % (24.0-44.0); MEAN CORPUSCULAR HEMOGLOBIN 35.4 pg (28.0-32.0); MEAN CORPUSCULAR HGB CONC 35.3 g/dl (32.0-36.0); MEAN PLATELET VOLUME 8.7 fl (9.4-12.4); MONOCYTES ABSOLUTE AUTO 0.7 K/mm3 (0.0-0.8); MONOCYTES PERCENT AUTO 14.8 % (0.0-8.0); NEUTROPHILS PERCENT AUTO 64.7 % (41.0-71.0); PLATELET COUNT,PLT 230 K/mm3 (150-400); RED BLOOD CELL COUNT 3.73 M/mm3 (4.52-5.90)
[2024-10-07 13:28] LABS: MEAN CORPUSCULAR VOLUME 100.3 fl (83.0-99.0)
[2024-10-07 13:45] LABS: PROTHROMBIN TIME 48.8 SECONDS (9.7-12.0)
[2024-10-07] MEDS: Folic Acid 50 MG/10 ML MDV IV STA (13:54)
[2024-10-07] MEDS: Thiamine 200 MG/2 ML MDV IVPUSH ONE (13:56)
[2024-10-07 13:57] LABS: ALANINE AMINOTRANSFERASE,ALT 63 U/L (16-63); ALBUMIN 3.6 g/dl (3.4-5.0); ALKALINE PHOSPHATASE 136 U/L (46-116); ASPARTATE AMNIOTRANSFERASE,AST 119 U/L (15-37); BILIRUBIN TOTAL 0.8 mg/dL (0.2-1.0); BLOOD UREA NITROGEN,BUN 3 mg/dL (7-18); BUN/CREATININE RATIO 4.3 (14-18); CALCIUM 8.2 mg/dL (8.5-10.1); CARBON DIOXIDE,CO2 26 mEq/L (21-32); CHLORIDE,CL 97 mEq/L (98-107); CREATINE KINASE,CK 352 U/L (39-308); CREATININE 0.7 mg/dL (0.7-1.3); ESTIMATED GFR 102 mL/min (>60); ETHANOL BLOOD MEDICAL 0.35 gm% (0.00); GLUCOSE RANDOM 100 mg/dL (70-99); LIPASE 51 U/L (16-77); MAGNESIUM 1.9 mg/dL (1.8-2.4); PROTEIN TOTAL,TP 7.2 g/dl (6.4-8.2); SODIUM,NA 132 mEq/L (136-145); TROPONIN I HIGH SENSITIVITY 12 pg/mL (<=76)
[2024-10-07] MEDS: Ondansetron 4 MG/2 ML SDV IVPUSH ONE ×2 (13:58→14:20)
[2024-10-07 13:59] LABS: INR 5.12
[2024-10-07] MEDS: Lactated Ringers 2,000 ML IV ONE (14:00)
[2024-10-07] MEDS: Sodium Chloride 0.9% 1,000 ML IV ONE (14:00)
[2024-10-07 14:06] LABS: ACETAMINOPHEN 0 ug/mL (10-30)
[2024-10-07] MEDS: Multivitamin Tab PO STA (14:21)
[2024-10-07 15:01] LABS: BARBITURATE SCREEN,URINE NEGATIVE (CUTOFF=200); BENZODIAZEPINES SCREEN,URINE NEGATIVE (CUTOFF=150); BUPRENORPHINE SCREEN,URINE NEGATIVE (CUTOFF=10); METHADONE SCREEN, URINE NEGATIVE (CUT0FF=200); METHAMPHETAMINES SCREEN, URINE NEGATIVE (CUTOFF=500); OXYCODONE SCREEN,URINE NEGATIVE (CUT0FF=100); THC SCREEN,URINE 20 NG/ML NEGATIVE (CUTOFF=50)
[2024-10-07 15:11] LABS: AMPHETAMINES SCREEN, URINE NEGATIVE (CUTOFF=500)
== END 2024-10-07 16:00 | disposition home or self-care (01) ==
LOC: JD.ED 12:57
DX: F10.129 Alcohol abuse with intoxication, unspecified (principal); E87.1 Hypo-osmolality and hyponatremia; I48.91 Unspecified atrial fibrillation; R79.1 Abnormal coagulation profile; Z79.01 Long term (current) use of anticoagulants; I10 Essential (primary) hypertension; E78.00 Pure hypercholesterolemia, unspecified; Z88.8 Allergy status to other drugs, medicaments and biological substances; Z79.2 Long term (current) use of antibiotics; Z79.899 Other long term (current) drug therapy
CPT/HCPCS: 36415; 80053; 80143; 80179; 80306; 80307; 82550; 83690; 83735; 83880; 84484; 85025; 85610; 93005; 96374; 96375; 99284; A9270; J2405; J3411; J7120; 93010; 99285; J3490

== ENCOUNTER 2024-10-08 13:34 | Emergency (ER) | payer MEDICARE, OTHER ==
[2024-10-08 15:01] LABS: EOSINOPHILS PERCENT AUTO 0.2 % (0.0-6.0); HEMATOCRIT 41.3 % (42.0-52.0); HEMOGLOBIN 14.2 gm/dl (14.0-18.0); IMMATURE GRAN ABSOLUTE AUTO 0.02 K/mm3 (0.00-0.05); IMMATURE GRAN PERCENT AUTO 0.5 % (0.0-0.4); LYMPHOCYTES ABSOLUTE AUTO 0.9 K/mm3 (1.0-4.8); LYMPHOCYTES PERCENT AUTO 21.4 % (24.0-44.0); MEAN CORPUSCULAR HEMOGLOBIN 34.9 pg (28.0-32.0); MEAN CORPUSCULAR HGB CONC 34.4 g/dl (32.0-36.0); MEAN CORPUSCULAR VOLUME 101.5 fl (83.0-99.0); MEAN PLATELET VOLUME 8.5 fl (9.4-12.4); MONOCYTES ABSOLUTE AUTO 0.6 K/mm3 (0.0-0.8); MONOCYTES PERCENT AUTO 14.4 % (0.0-8.0); NEUTROPHILS ABSOLUTE AUTO 2.6 K/mm3 (1.8-7.7); NEUTROPHILS PERCENT AUTO 62.5 % (41.0-71.0); PLATELET COUNT,PLT 226 K/mm3 (150-400); RED BLOOD CELL COUNT 4.07 M/mm3 (4.52-5.90); WHITE BLOOD CELL COUNT,WBC 4.16 K/mm3 (3.9-11.3)
[2024-10-08 15:19] LABS: INR 4.53; PROTHROMBIN TIME 43.5 SECONDS (9.7-12.0)
[2024-10-08 15:23] LABS: ALBUMIN 3.8 g/dl (3.4-5.0); BILIRUBIN TOTAL 0.7 mg/dL (0.2-1.0); CALCIUM 8.3 mg/dL (8.5-10.1); CREATININE 0.8 mg/dL (0.7-1.3); EST CRCL DRUG DOSING (CG) 90.83 mL/min; ETHANOL BLOOD MEDICAL 0.33 gm% (0.00); PROTEIN TOTAL,TP 7.6 g/dl (6.4-8.2)
[2024-10-08] MEDS: Ondansetron 4 MG/2 ML SDV IVPUSH ONE ×2 (15:29→15:33)
[2024-10-08] MEDS: Folic Acid 50 MG/10 ML MDV IV STA (15:29)
[2024-10-08] MEDS: Lactated Ringers 2,000 ML IV ONE (15:30)
[2024-10-08] MEDS: Thiamine 200 MG/2 ML MDV IVPUSH ONE (15:30)
[2024-10-08 15:51] LABS: BARBITURATE SCREEN,URINE NEGATIVE (CUTOFF=200); BENZODIAZEPINES SCREEN,URINE NEGATIVE (CUTOFF=150); BUPRENORPHINE SCREEN,URINE NEGATIVE (CUTOFF=10); METHADONE SCREEN, URINE NEGATIVE (CUT0FF=200); METHAMPHETAMINES SCREEN, URINE NEGATIVE (CUTOFF=500); OXYCODONE SCREEN,URINE NEGATIVE (CUT0FF=100); THC SCREEN,URINE 20 NG/ML NEGATIVE (CUTOFF=50)
[2024-10-08 16:02] LABS: AMPHETAMINES SCREEN, URINE NEGATIVE (CUTOFF=500)
[2024-10-08] MEDS: Multivitamin Tab PO STA ×2 (16:51→18:01)
[2024-10-08] MEDS: LORazepam 2 MG/ML SDV IVPUSH ONE (17:10)
== END 2024-10-08 21:30 | disposition home or self-care (01) ==
LOC: JD.ED 13:34
DX: F10.10 Alcohol abuse, uncomplicated (principal); I10 Essential (primary) hypertension; I48.91 Unspecified atrial fibrillation; Z79.01 Long term (current) use of anticoagulants; Z79.899 Other long term (current) drug therapy; Z88.1 Allergy status to other antibiotic agents
CPT/HCPCS: 36415; 80053; 80143; 80179; 80306; 80307; 82550; 83690; 85025; 85610; 96374; 96375; 99284; A9270; J2060; J2405; J3411; J7120; J3490

== ENCOUNTER 2024-10-27 20:40 | Emergency (ER) | payer MEDICARE ==
[2024-10-27] MEDS ORDERED: Sodium Chloride 0.9% 10 ML Syringe FLUSH PRN (21:06)
[2024-10-27 21:22] LABS: BARBITURATE SCREEN,URINE NEGATIVE (CUTOFF=200); BENZODIAZEPINES SCREEN,URINE NEGATIVE (CUTOFF=150); BUPRENORPHINE SCREEN,URINE NEGATIVE (CUTOFF=10); METHADONE SCREEN, URINE NEGATIVE (CUT0FF=200); METHAMPHETAMINES SCREEN, URINE NEGATIVE (CUTOFF=500); OXYCODONE SCREEN,URINE NEGATIVE (CUT0FF=100); THC SCREEN,URINE 20 NG/ML NEGATIVE (CUTOFF=50)
[2024-10-27 21:24] LABS: AMPHETAMINES SCREEN, URINE NEGATIVE (CUTOFF=500)
[2024-10-27] MEDS: Sodium Chloride 0.9% 1,000 ML IV SCH (21:29)
[2024-10-27 21:30] LABS: BASOPHILS ABSOLUTE AUTO 0.1 K/mm3 (0.0-0.2); BASOPHILS PERCENT AUTO 0.9 % (0.0-1.0); EOSINOPHILS ABSOLUTE AUTO 0.1 K/mm3 (0.0-0.4); EOSINOPHILS PERCENT AUTO 0.9 % (0.0-6.0); HEMATOCRIT 36.8 % (42.0-52.0); HEMOGLOBIN 12.9 gm/dl (14.0-18.0); IMMATURE GRAN ABSOLUTE AUTO 0.02 K/mm3 (0.00-0.05); IMMATURE GRAN PERCENT AUTO 0.4 % (0.0-0.4); LYMPHOCYTES ABSOLUTE AUTO 1.9 K/mm3 (1.0-4.8); LYMPHOCYTES PERCENT AUTO 34.1 % (24.0-44.0); MEAN CORPUSCULAR HEMOGLOBIN 35.6 pg (28.0-32.0); MEAN CORPUSCULAR HGB CONC 35.1 g/dl (32.0-36.0); MEAN CORPUSCULAR VOLUME 101.7 fl (83.0-99.0); MONOCYTES ABSOLUTE AUTO 0.5 K/mm3 (0.0-0.8); MONOCYTES PERCENT AUTO 9.2 % (0.0-8.0); NEUTROPHILS PERCENT AUTO 54.5 % (41.0-71.0); PLATELET COUNT,PLT 352 K/mm3 (150-400); RED BLOOD CELL COUNT 3.62 M/mm3 (4.52-5.90); WHITE BLOOD CELL COUNT,WBC 5.57 K/mm3 (3.9-11.3)
[2024-10-27 21:49] LABS: INR 1.01; PROTHROMBIN TIME 10.7 SECONDS (9.7-12.0)
[2024-10-27 22:01] LABS: ALBUMIN 3.4 g/dl (3.4-5.0); ANION GAP 16.1 (5-15); BILIRUBIN TOTAL 0.3 mg/dL (0.2-1.0); BUN/CREATININE RATIO 11.4 (14-18); CALCIUM 8.3 mg/dL (8.5-10.1); CREATININE 0.7 mg/dL (0.7-1.3); EST CRCL DRUG DOSING (CG) 103.81 mL/min; ETHANOL BLOOD MEDICAL 0.26 gm% (0.00); POTASSIUM,K 4.1 mEq/L (3.5-5.1); PROTEIN TOTAL,TP 6.9 g/dl (6.4-8.2); TSH 3.659 uIU/mL (0.358-3.74)
== END 2024-10-27 22:59 | disposition home or self-care (01) ==
LOC: JD.ED 20:40
DX: F10.129 Alcohol abuse with intoxication, unspecified (principal); E87.1 Hypo-osmolality and hyponatremia; I48.91 Unspecified atrial fibrillation; I10 Essential (primary) hypertension; Z88.8 Allergy status to other drugs, medicaments and biological substances; Z79.01 Long term (current) use of anticoagulants; Z79.899 Other long term (current) drug therapy; Y90.0 Blood alcohol level of less than 20 mg/100 ml
CPT/HCPCS: 36415; 80053; 80143; 80179; 80306; 80307; 84443; 85025; 85610; 93005; 96360; 99284; J7030

== ENCOUNTER 2024-11-03 22:45 | Emergency (ER) | payer MEDICARE ==
[2024-11-03] MEDS ORDERED: Sodium Chloride 0.9% 10 ML Syringe FLUSH PRN (22:57)
[2024-11-03 23:29] LABS: BASOPHILS PERCENT AUTO 0.9 % (0.0-1.0); EOSINOPHILS ABSOLUTE AUTO 0.1 K/mm3 (0.0-0.4); EOSINOPHILS PERCENT AUTO 1.1 % (0.0-6.0); HEMATOCRIT 39.4 % (42.0-52.0); HEMOGLOBIN 13.8 gm/dl (14.0-18.0); IMMATURE GRAN ABSOLUTE AUTO 0.01 K/mm3 (0.00-0.05); IMMATURE GRAN PERCENT AUTO 0.2 % (0.0-0.4); LYMPHOCYTES ABSOLUTE AUTO 1.8 K/mm3 (1.0-4.8); LYMPHOCYTES PERCENT AUTO 40.6 % (24.0-44.0); MEAN CORPUSCULAR HEMOGLOBIN 35.3 pg (28.0-32.0); MEAN CORPUSCULAR VOLUME 100.8 fl (83.0-99.0); MEAN PLATELET VOLUME 9.3 fl (9.4-12.4); MONOCYTES ABSOLUTE AUTO 0.7 K/mm3 (0.0-0.8); MONOCYTES PERCENT AUTO 14.8 % (0.0-8.0); NEUTROPHILS ABSOLUTE AUTO 1.9 K/mm3 (1.8-7.7); NEUTROPHILS PERCENT AUTO 42.4 % (41.0-71.0); PLATELET COUNT,PLT 227 K/mm3 (150-400); RED BLOOD CELL COUNT 3.91 M/mm3 (4.52-5.90); WHITE BLOOD CELL COUNT,WBC 4.46 K/mm3 (3.9-11.3)
[2024-11-03 23:30] LABS: APPEARANCE,URINE CLEAR (Clear); BILIRUBIN,URINE NEGATIVE (Negative); COLOR,URINE LIGHT YELLOW (Yellow); GLUCOSE,URINE NEGATIVE (Negative); KETONES,URINE NEGATIVE (Negative); LEUKOCYTE ESTERASE,URINE NEGATIVE (Negative); NITRITE,URINE NEGATIVE (Negative); OCCULT BLOOD,URINE NEGATIVE (Negative); PH,URINE 6.5 (5.0-8.0); PROTEIN,URINE NEGATIVE (Negative); UROBILINOGEN,URINE 0.2 (0.2-1.0)
[2024-11-03 23:57] LABS: ALBUMIN 3.8 g/dl (3.4-5.0); BILIRUBIN TOTAL 0.5 mg/dL (0.2-1.0); BUN/CREATININE RATIO 8.3 (14-18); CALCIUM 8.5 mg/dL (8.5-10.1); CREATININE 0.6 mg/dL (0.7-1.3); EST CRCL DRUG DOSING (CG) 121.11 mL/min; MAGNESIUM 1.9 mg/dL (1.8-2.4); PHOSPHORUS 3.6 mg/dL (2.6-4.7); PROTEIN TOTAL,TP 7.6 g/dl (6.4-8.2)
== END 2024-11-04 01:15 | disposition home or self-care (01) ==
LOC: JD.ED 22:45
DX: R42 Dizziness and giddiness (principal); I10 Essential (primary) hypertension; E78.00 Pure hypercholesterolemia, unspecified; I48.91 Unspecified atrial fibrillation; Z88.1 Allergy status to other antibiotic agents; Z79.01 Long term (current) use of anticoagulants; Z79.899 Other long term (current) drug therapy
CPT/HCPCS: 36415; 71045; 71045-26; 80053; 81003; 83735; 83880; 84100; 84484; 85025; 93005; 93010; 99284; 99285

== ENCOUNTER 2024-11-04 22:14 | Emergency (ER) | payer MEDICARE, OTHER ==
[2024-11-04] MEDS ORDERED: Sodium Chloride 0.9% 10 ML Syringe FLUSH PRN (22:58)
[2024-11-04 23:31] LABS: BASOPHILS PERCENT AUTO 0.7 % (0.0-1.0); EOSINOPHILS PERCENT AUTO 0.9 % (0.0-6.0); HEMATOCRIT 37.6 % (42.0-52.0); HEMOGLOBIN 12.8 gm/dl (14.0-18.0); IMMATURE GRAN ABSOLUTE AUTO 0.01 K/mm3 (0.00-0.05); IMMATURE GRAN PERCENT AUTO 0.2 % (0.0-0.4); LYMPHOCYTES PERCENT AUTO 42.8 % (24.0-44.0); MEAN CORPUSCULAR HEMOGLOBIN 34.7 pg (28.0-32.0); MEAN CORPUSCULAR VOLUME 101.9 fl (83.0-99.0); MEAN PLATELET VOLUME 9.6 fl (9.4-12.4); MONOCYTES ABSOLUTE AUTO 0.6 K/mm3 (0.0-0.8); MONOCYTES PERCENT AUTO 13.8 % (0.0-8.0); NEUTROPHILS ABSOLUTE AUTO 1.9 K/mm3 (1.8-7.7); NEUTROPHILS PERCENT AUTO 41.6 % (41.0-71.0); PLATELET COUNT,PLT 217 K/mm3 (150-400); RED BLOOD CELL COUNT 3.69 M/mm3 (4.52-5.90); WHITE BLOOD CELL COUNT,WBC 4.58 K/mm3 (3.9-11.3)
[2024-11-04 23:50] LABS: A/G RATIO 1.1 (1-2); ALBUMIN 3.7 g/dl (3.4-5.0); ANION GAP 13.8 (5-15); BILIRUBIN TOTAL 0.5 mg/dL (0.2-1.0); BUN/CREATININE RATIO 8.6 (14-18); CALCIUM 8.3 mg/dL (8.5-10.1); CREATININE 0.7 mg/dL (0.7-1.3); EST CRCL DRUG DOSING (CG) 113.94 mL/min; ETHANOL BLOOD MEDICAL 0.34 gm% (0.00); MAGNESIUM 1.9 mg/dL (1.8-2.4); POTASSIUM,K 3.8 mEq/L (3.5-5.1); PROTEIN TOTAL,TP 7.2 g/dl (6.4-8.2)
[2024-11-05 02:45] LABS: APPEARANCE,URINE CLEAR (Clear); BILIRUBIN,URINE NEGATIVE (Negative); COLOR,URINE YELLOW (Yellow); GLUCOSE,URINE NEGATIVE (Negative); KETONES,URINE NEGATIVE (Negative); LEUKOCYTE ESTERASE,URINE NEGATIVE (Negative); NITRITE,URINE NEGATIVE (Negative); OCCULT BLOOD,URINE NEGATIVE (Negative); PH,URINE 6.5 (5.0-8.0); PROTEIN,URINE NEGATIVE (Negative); UROBILINOGEN,URINE 0.2 (0.2-1.0)
[2024-11-05 02:48] LABS: INR 0.98; PROTHROMBIN TIME 10.4 SECONDS (9.7-12.0)
[2024-11-05 02:52] LABS: BARBITURATE SCREEN,URINE NEGATIVE (CUTOFF=200); BENZODIAZEPINES SCREEN,URINE NEGATIVE (CUTOFF=150); BUPRENORPHINE SCREEN,URINE NEGATIVE (CUTOFF=10); METHADONE SCREEN, URINE NEGATIVE (CUT0FF=200); METHAMPHETAMINES SCREEN, URINE NEGATIVE (CUTOFF=500); OXYCODONE SCREEN,URINE NEGATIVE (CUT0FF=100); THC SCREEN,URINE 20 NG/ML NEGATIVE (CUTOFF=50)
[2024-11-05] MEDS: Iopamidol 755 Mg/ML 100 ML Bottle IVPUSH ONE (03:03)
[2024-11-05] MEDS: Sodium Chloride 0.9% 10 ML Syringe FLUSH ONE (03:03)
[2024-11-05] MEDS: Sodium Chloride 0.9% 100 ML IV SCH (03:03)
[2024-11-05 03:28] LABS: AMPHETAMINES SCREEN, URINE NEGATIVE (CUTOFF=500)
[2024-11-05] MEDS: LORazepam 2 MG/ML SDV IVPUSH ONE (04:55)
== END 2024-11-05 07:44 ==
LOC: JD.ED 22:14
DX: J96.00 Acute respiratory failure, unspecified whether with hypoxia or hypercapnia (principal); J98.8 Other specified respiratory disorders; I48.91 Unspecified atrial fibrillation; E78.00 Pure hypercholesterolemia, unspecified; I10 Essential (primary) hypertension; F17.210 Nicotine dependence, cigarettes, uncomplicated; Z88.1 Allergy status to other antibiotic agents; Z79.899 Other long term (current) drug therapy; Z79.01 Long term (current) use of anticoagulants
CPT/HCPCS: 36415; 71045; 71275; 80053; 80306; 80307; 81003; 83690; 83735; 83880; 84484; 85025; 85610; 87428; 93005; 96374; 99285; J2060; Q9967; 93010; 99291

== ENCOUNTER 2024-11-19 14:34 | Emergency (ER) | payer MEDICARE, OTHER ==
[2024-11-19 15:46] LABS: BASOPHILS ABSOLUTE AUTO 0.1 K/mm3 (0.0-0.2); EOSINOPHILS PERCENT AUTO 0.2 % (0.0-6.0); HEMATOCRIT 40.5 % (42.0-52.0); HEMOGLOBIN 13.8 gm/dl (14.0-18.0); IMMATURE GRAN ABSOLUTE AUTO 0.01 K/mm3 (0.00-0.05); IMMATURE GRAN PERCENT AUTO 0.2 % (0.0-0.4); LYMPHOCYTES PERCENT AUTO 16.4 % (24.0-44.0); MEAN CORPUSCULAR HEMOGLOBIN 34.8 pg (28.0-32.0); MEAN CORPUSCULAR HGB CONC 34.1 g/dl (32.0-36.0); MEAN PLATELET VOLUME 8.6 fl (9.4-12.4); MONOCYTES ABSOLUTE AUTO 0.7 K/mm3 (0.0-0.8); MONOCYTES PERCENT AUTO 11.1 % (0.0-8.0); NEUTROPHILS ABSOLUTE AUTO 4.2 K/mm3 (1.8-7.7); NEUTROPHILS PERCENT AUTO 71.1 % (41.0-71.0); PLATELET COUNT,PLT 261 K/mm3 (150-400); RED BLOOD CELL COUNT 3.97 M/mm3 (4.52-5.90); WHITE BLOOD CELL COUNT,WBC 5.86 K/mm3 (3.9-11.3)
[2024-11-19] MEDS: Sodium Chloride 0.9% 1,000 ML IV ONE (16:00)
[2024-11-19] MEDS: Ondansetron 4 MG/2 ML SDV IVPUSH ONE (16:01)
[2024-11-19 16:07] LABS: INR 1.02; PROTHROMBIN TIME 10.8 SECONDS (9.7-12.0)
[2024-11-19 16:08] LABS: A/G RATIO 0.9 (1-2); ALBUMIN 3.3 g/dl (3.4-5.0); ANION GAP 15.1 (5-15); BILIRUBIN TOTAL 0.3 mg/dL (0.2-1.0); BUN/CREATININE RATIO 8.8 (14-18); CALCIUM 8.4 mg/dL (8.5-10.1); CREATININE 0.8 mg/dL (0.7-1.3); EST CRCL DRUG DOSING (CG) 90.83 mL/min; ETHANOL BLOOD MEDICAL 0.21 gm% (0.00); POTASSIUM,K 4.1 mEq/L (3.5-5.1)
== END 2024-11-19 18:20 | disposition home or self-care (01) ==
LOC: JD.ED 14:34
DX: S52.032A Displaced fracture of olecranon process with intraarticular extension of left ulna, initial encounter for closed fracture (principal); S00.03XA Contusion of scalp, initial encounter; F10.229 Alcohol dependence with intoxication, unspecified; I48.91 Unspecified atrial fibrillation; E78.00 Pure hypercholesterolemia, unspecified; I10 Essential (primary) hypertension; Z79.899 Other long term (current) drug therapy; Z79.01 Long term (current) use of anticoagulants; W01.198A Fall on same level from slipping, tripping and stumbling with subsequent striking against other object, initial encounter
CPT/HCPCS: 29105; 36415; 70450; 72125; 73070; 80053; 80307; 82550; 85025; 85610; 96361; 96374; 99285; J2405; J7030; 29125; 99284

== ENCOUNTER 2024-11-28 19:20 | Emergency (ER) | payer MEDICARE ==
[2024-11-28] MEDS: Folic Acid 1 MG Tab PO ONE (20:13)
[2024-11-28] MEDS: Thiamine 100 MG Tab PO ONE (20:13)
== END 2024-11-28 20:25 | disposition home or self-care (01) ==
LOC: JD.ED 19:20
DX: F10.229 Alcohol dependence with intoxication, unspecified (principal); S00.33XA Contusion of nose, initial encounter; I48.91 Unspecified atrial fibrillation; E78.00 Pure hypercholesterolemia, unspecified; I10 Essential (primary) hypertension; F17.210 Nicotine dependence, cigarettes, uncomplicated; Z86.16 Personal history of COVID-19; Z88.1 Allergy status to other antibiotic agents; Z79.899 Other long term (current) drug therapy; Y90.9 Presence of alcohol in blood, level not specified; W18.39XA Other fall on same level, initial encounter; Y93.89 Activity, other specified
CPT/HCPCS: 70450; 70450-26; 70486; 70486-26; 99284; 99285; A9270-GY

== ENCOUNTER 2024-12-09 07:49 | Day surgery (SDC) | payer MEDICARE, OTHER ==
[~2024-12-09 07:49] MED LIST changes: -Acetaminophen 325 MG Tab PO SCH; +Clindamycin Phosphate in D5W 900 MG in Premix Bag 1 BAG IV ONE; -Lidocaine 1%/Sod Bicarbonate in NS 8.4% 1 ML Syringe IDERM PRN; -Morphine 8 MG, EPINEPHrine 0.3 MG, Ketorolac 30 MG, Sodium Chloride 0.9% 17.9 ML PRN; -Morphine 8 MG, EPINEPHrine 0.3 MG, Ketorolac 30 MG, Sodium Chloride 0.9% 7.9 ML PRN; -Phenylephrine HCl In 0.9% NaCl 1 MG/10 ML Vial ONE; -Pregabalin 25 MG Cap PO SCH; -Propofol 200 MG/20 ML SDV ONE; +Ropivacaine 0.5% 5 MG/ML 30 ML SDV ONE; -Vancomycin 1 GM SDV ONE; -ceFAZolin 2 GM Vial ONE; +dexmedeTOMIDine HCl 200 MCG/2 ML SDV ONE; -oxyCODONE ER 10 MG TAB.ER PO SCH
[2024-12-09] MEDS ORDERED: Rocuronium 50 MG/5 ML Vial ONE (08:09)
[2024-12-09] MEDS ORDERED: Ondansetron 4 MG/2 ML SDV ONE (08:09)
[2024-12-09] MEDS ORDERED: Dexamethasone 4 MG/ML 5 ML MDV ONE (08:09)
[2024-12-09] MEDS ORDERED: Propofol 200 MG/20 ML SDV ONE ×2 (08:09→10:03)
[2024-12-09] MEDS: Lactated Ringers 1,000 ML IV SCH (08:15)
[2024-12-09] MEDS: Clindamycin Phosphate in D5W 900 MG in Premix Bag 1 BAG IV ONE (09:03)
[2024-12-09] MEDS ORDERED: ePHEDrine 50 MG/ML SDV ONE (09:42)
[2024-12-09] MEDS ORDERED: Sugammadex Sodium 200 MG/2 ML VIAL IV ONE (10:20)
[2024-12-09] MEDS: Bupivacaine 0.25% 10 ML SDV ONE (11:09)
[2024-12-09] MEDS ORDERED: Acetaminophen/HYDROcodone 325-5 MG Tab PO PRN (11:27)
[2024-12-09] MEDS ORDERED: HYDROmorphone 0.5 MG/0.5 ML Syringe IVPUSH PRN (12:16)
[2024-12-09] MEDS ORDERED: Ondansetron 4 MG/2 ML SDV IVPUSH PRN (12:16)
[2024-12-09] MEDS ORDERED: fentaNYL 100 MCG/2 ML SDV IVPUSH PRN (12:16)
== END 2024-12-09 13:22 | disposition home or self-care (01) ==
LOC: JD.SDS 07:49
PROVIDERS: ATTEND Orthopaedic Surgery
DX: S52.022A Displaced fracture of olecranon process without intraarticular extension of left ulna, initial encounter for closed fracture (principal); I48.91 Unspecified atrial fibrillation; I25.10 Atherosclerotic heart disease of native coronary artery without angina pectoris; I11.0 Hypertensive heart disease with heart failure; I50.9 Heart failure, unspecified; E78.00 Pure hypercholesterolemia, unspecified; Z88.8 Allergy status to other drugs, medicaments and biological substances; Z79.01 Long term (current) use of anticoagulants; Z79.899 Other long term (current) drug therapy
CPT/HCPCS: 24685; 36415; 64415; 76000; 80307; J0665; J0736; J1100; J2250; J2405; J2704; J2795; J3010; J7120; J3490